=== PATIENT | male | born 1960 | race Two or more races ===

== ENCOUNTER 2020-03-13 06:21 | Outpatient (REF) | payer BC, SELFPAY | END 2020-03-13 06:22 | disposition home or self-care (01) | LOC: HO.LAB 06:21 | PROVIDERS: Visit Provider Internal Medicine | DX: Z20.828 Contact with and (suspected) exposure to other viral communicable diseases (principal) | CPT/HCPCS: C9803; U0003 ==

== ENCOUNTER → 2020-04-17 14:48 | Outpatient (REF) | payer BC, SELFPAY ==
--- NOTE | 2020-04-17 15:00 | CA_ITS ---
Transthoracic Echocardiogram Patient (Last, First, Middle): Raheem Garcia P Gender: Male Date of : 1960 Age: 60 Procedure Date: 04/17/2020 Procedure Type: Transthoracic Echocardiogram Location: OP Height: 180.34 cm Weight: 106.6 kg BSA: 2.26 m2 Heart Rate: bpm BP: 106 / 56 mmHg Supervisor Metalizing: Referring MD: Suleiman Turner MD Symptoms: Q23.1 BICUSPID AORTC VALVE I71.2 THORACIC AA W/O RUPTURE Study Quality: Good ECG Rhythm: Sinus Conclusions: - The left ventricular systolic function is normal. The visually estimated ejection fraction is between 55-60%. - There is a bicuspid aortic valve. There is mild aortic valve stenosis. There is mild aortic valve regurgitation. - There is mild dilatation of the ascending aorta measuring 4.10 cm. Findings Procedure Information Contrast agent, definity, is being given per protocol without apparent complications. Left Ventricle Normal left ventricular cavity size. There is mildly increased left ventricular wall thickness. The left ventricular systolic function is normal. The visually estimated ejection fraction is between 55-60%. There is no evidence of regional wall motion abnormalities. Diastolic function is normal for age. Right Ventricle Normal right ventricular cavity size and systolic function. Atria The left atrium is normal in size. The right atrium is normal in size. Aortic Valve There is a bicuspid aortic valve. There is mild calcification of the aortic valve. There is mild aortic valve stenosis. The peak aortic velocity is 2.78 m/s with a calculated peak gradient of 31 mmHg. The mean gradient is 16 mmHg. The aortic valve area is 1.32 cm2. There is mild aortic valve regurgitation. Mitral Valve There is mild mitral annular calcification. There is trace mitral valve regurgitation. There is no mitral valve stenosis. Pulmonic Valve The pulmonic valve was not well visualized. Tricuspid Valve Normal tricuspid valve structure. There is trace tricuspid valve regurgitation. The pulmonary artery systolic pressure is normal. Great Vessels There is mild dilatation of the ascending aorta measuring 4.10 cm. Venous The inferior vena cava is normal in size and collapses greater than 50% with inspiration. Pericardium/Pleural There is no evidence of pericardial effusion. Prior Study Comparison No significant change compared to prior study dated: 03/31/2019. Measurements 2D Linear Measurements RVIDd: 2.59 RVIDd Index: 1.15 IVSd: 1.07 0.6-0.9/0.6-1.0 cm LVIDd: 4.98 3.9-5.3/4.2-5.9 cm LVIDd Index: 2.20 2.4-3.2/2.2-3.1 cm/m2 LVIDs: 3.66 2.0-3.6 cm LVPWd: 1.42 0.7-1.1 cm Ao Root: 3.60 2.1-3.5 cm LA Diam: 4.20 2.7-3.8/3.0-4.0 cm LAIDs Index: 1.86 1.5-2.3 cm/m2 LV Mass: 305.06 67-162/88-224 g LV Mass Index: 134.98 43-95/49-115 g/m2 LVOT Diam: 2.20 3.0+(-)1.3 cm 2D Systolic Function EF 4C: 58.80 >55% EF 2C: 56.20 >55% EF BiP: 57.40 >55% Mitral Valve MV Pk E: 1.03 MV PK A: 0.59 MV Decel Time: 234.00 E/A: 1.80 E'Lateral: 11.20 E'Medial: 7.18 E/E' Med: 14.30 E/E' Lat: 9.20 Aortic Valve AoV Pk Dariusz: 2.78 AoV Mn Dariusz: 1.86 AoV VTI: 0.64 AoV Pk Grad: 31.00 Aov Mn Grad: 16.00 PIERCE Cont.VTI: 1.32 LVOT LVOT Pk Dariusz: 0.93 LVOT Mn Dariusz: 0.65 LVOT VTI: 0.22 LVOT Pk Grad: 3.00 LVOT Mn Grad: 2.00 LVOT Diam: 2.20 LVOT Area: 3.80 Diastolic Function MV Pk E: 1.03 MV Pk A: 0.59 E/A: 1.80 E'Medial: 7.18 E/E' Med: 14.30 E' Laterial: 11.20 E/E' Lat: 9.20 Tricuspid Valve TR Pk Dariusz: 2.46 TR Pk Grad: 24.00 RA Press: 3.00 RVSP: 27.00 Great Vessels Aorta Ao Root-2D: 3.60 2.0-3.7 cm Ao Asc: 4.10 2.1-3.4 cm Ao Arch: 2.80 Updated in Other Vendor System with Status of Final Suleiman Turner MD electronically signed on 04/18/2020 4:08:24 PM with status of Final
== END ==
LOC: HO.CARD 14:48
PROVIDERS: PCP Internal Medicine; Visit Provider Internal Medicine
DX: I71.2 Thoracic aortic aneurysm, without rupture (principal); Q32.1 Other congenital malformations of trachea
CPT/HCPCS: 93306; Q9957

== ENCOUNTER → 2020-04-26 13:55 | Outpatient (BNVA) | payer BC, SELFPAY | PROVIDERS: PCP Internal Medicine; Visit Provider Internal Medicine | DX: I71.2 Thoracic aortic aneurysm, without rupture (principal); Q23.1 Congenital insufficiency of aortic valve; Q21.1 Atrial septal defect; G47.33 Obstructive sleep apnea (adult) (pediatric); Z99.89 Dependence on other enabling machines and devices | CPT/HCPCS: 93005 ==

== ENCOUNTER 2020-07-08 09:13 | Outpatient (REF) | payer BC, SELFPAY ==
[2020-07-08 10:54] LABS: MANUAL DIFF FLAG NO
[2020-07-08 11:10] LABS: Basophils Percent Auto 0.5 % (0-2); Eosinophils Absolute Auto 0.2 X10*3/uL (0.0-0.4); Eosinophils Percent Auto 2.2 % (0-4); Hematocrit 47.6 % (42-52); Hemoglobin 15.9 g/dl (14.0-18.0); Imm Gran Abs Auto 0.02 X10*3/uL (0.00-0.03); Imm Gran Pct Auto 0.2 % (0.0-0.4); Lymphocytes Absolute Auto 2.2 X10*3/uL (1.2-4.9); Lymphocytes Percent Auto 25.4 % (20-40); Mean Corpuscular HGB Conc 33.4 g/dl (31.0-36.0); Mean Corpuscular Hemoglobin 28.5 pg (27.0-33.0); Mean Corpuscular Volume 85.5 fL (80-98); Mean Platelet Volume 10.2 fL (9.4-12.4); Monocytes Absolute Auto 0.8 X10*3/uL (0.1-1.2); Monocytes Percent Auto 8.6 % (2-11); Neutrophils Absolute Auto 5.5 X10*3/uL (2.0-8.3); Neutrophils Percent Auto 63.1 % (45-73); Platelet Count 338 X10*3/uL (160-400); Red Blood Count 5.57 X10*6/uL (4.60-5.80); Red Cell Distribution Width 12.7 % (11.0-16.0); White Blood Count 8.7 X10*3/uL (4.8-10.8)
[2020-07-08 11:15] LABS: Glucose Urine UA NEG (NEG); Leukocyte Esterase Urine NEG (NEG); Nitrite Urine NEG (NEG); PH 5.5 (5.0-8.0); Specific Gravity - Urine >= 1.030 (1.005-1.025); Urine Blood 2+ (NEG); Urine Ketones NEG (NEG); Urine Protein NEG (NEG-TRACE)
[2020-07-08 11:17] LABS: Appearance Urine CLEAR; Color Urine YELLOW
[2020-07-08 11:25] LABS: Alanine Aminotransferase 23 U/L (0-40); Albumin Level 4.3 g/dL (3.5-5.0); Alkaline Phosphatase 70 U/L (39-117); Anion Gap 13 (12-20); Aspartate Amino Transferase 18 U/L (5-37); Bilirubin Total 1.4 mg/dL (0.0-1.0); Blood Urea Nitrogen 15 mg/dL (9-16); Calcium 9.3 mg/dL (8.4-10.2); Carbon Dioxide 26 mmol/L (22-29); Chloride 107 mmol/L (96-108); Cholesterol 139 mg/dL; Estimated Glomerular Filt Rate > 60; Glucose Fasting 89 mg/dL (60-99); HDL Cholesterol 35 mg/dL; LDL Cholesterol Calculated 89 mg/dl; Potassium 4.7 mmol/L (3.3-5.1); Sodium 141 mmol/L (135-145); Total Protein 6.8 g/dL (6.5-8.0); Triglycerides 77 mg/dL
[2020-07-08 11:29] LABS: Bacteria Urine TRACE /LPF; Mucus Urine 1+ /LPF
[2020-07-08 11:49] LABS: Prostate Specific Antigen 1.83 ng/mL (<0.05-4.0); TSH reflex Free T4 0.53 uIU/mL (0.32-4.0); Vitamin D 25-OH Total 37.1 ng/mL (>30)
[2020-07-14 14:46] LABS: HSV 1 IgM IFA Negative (Negative); HSV 2 IgM IFA Negative (Negative)
== END 2020-07-08 09:14 | disposition home or self-care (01) ==
LOC: HO.LAB 09:13
PROVIDERS: Visit Provider Internal Medicine
DX: Z00.00 Encounter for general adult medical examination without abnormal findings (principal); E66.9 Obesity, unspecified; A60.02 Herpesviral infection of other male genital organs; E78.00 Pure hypercholesterolemia, unspecified; R31.21 Asymptomatic microscopic hematuria; G47.33 Obstructive sleep apnea (adult) (pediatric); E55.9 Vitamin D deficiency, unspecified
CPT/HCPCS: 36415; 80053; 80061; 81001; 81003; 82306; 84153; 84443; 85025; 86695; 86696

== ENCOUNTER → 2020-08-23 13:28 | Outpatient (BNVA) | payer BC, SELFPAY | PROVIDERS: Visit Provider Urology | DX: R31.21 Asymptomatic microscopic hematuria (principal) | CPT/HCPCS: 81002 ==

== ENCOUNTER 2020-09-29 07:52 | Day surgery (SDC) | payer BC, SELFPAY ==
[2020-09-22 19:46] VITALS: BMI 32.1
--- NOTE | 2020-09-27 12:17 | HO.ANESPROP2 ---
Documented by User: Lucía Simon 09/27/20 12:24 [facility] Active Problems Active Problems: All Active Problems (Updated 09/22/20 @ 19:45 by Kasia Pitts RN) Normal colonoscopy (Acute ~2010) Vitamin D deficiency (Acute) Genital herpes in men (Acute) Obesity (BMI 30-39.9) (Acute) Obstructive sleep apnea (Acute) Pure hypercholesterolemia (Acute) Asymptomatic microscopic hematuria (Acute) BRANDT on CPAP (Acute) Patent foramen ovale (Acute) Thoracic aortic aneurysm without rupture (Acute) Bicuspid aortic valve (Acute) Past Medical History Medical History Asymptomatic microscopic hematuria Bicuspid aortic valve BiPAP (biphasic positive airway pressure) dependence Genital herpes in men Normal colonoscopy (~2010) Obesity (BMI 30-39.9) Obstructive sleep apnea BRANDT on CPAP Patent foramen ovale Pure hypercholesterolemia Thoracic aortic aneurysm without rupture Vitamin D deficiency Family History Family History Father Dementia HTN (hypertension) Mother Dementia HTN (hypertension) Diabetes Surgical History Surgical History History of parathyroidectomy History of tonsillectomy History of uvulectomy Social History Social History Alcohol intake: current Alcohol intake frequency: a few times a month Alcohol type: beer Smoked in Last 30 Days: Yes Use of substances other than those prescribed or required for medical reasons: Yes Substance Use Frequency: Daily Are you DNR?: No Advance Directives: No Advance Directives Information Provided: No Advance Directives on File: No Meds Allergies Allergy/AdvReac Type Severity Reaction Status Date / Time No Known Allergies Allergy Verified 09/29/20 08:24 Home Medications Medication Instructions Recorded Confirmed Last Taken Type aspirin 81 mg tablet,delayed 81 mg PO DAILY 04/26/20 09/22/20 09/21/20 20:00 History release atorvastatin 10 mg tablet 10 mg PO DAILY 04/26/20 09/22/20 Unknown History Exam Exam Date and Time: September 27, 2020 1217 Height,Weight and Vital Signs: Height 5 ft 11 in Weight 104.326 kg Narrative Narrative: EKG 04/2020: sinus rhythm at 60/Min; incomplete right bundle-branch block; voltage criteria for left ventricular hypertrophy. ECHO 04/2020 Conclusions: - The left ventricular systolic function is normal. The visually estimated ejection fraction is between 55-60%. - There is a bicuspid aortic valve. There is mild aortic valve stenosis. There is mild aortic valve regurgitation. - There is mild dilatation of the ascending aorta measuring 4.10 cm. Assessment and Plan Assessment Anesthesia Assessment: Chart Reviewed Documented by User: Anisa Beck 09/29/20 09:54 [facility] Past Medical History Medical History Asymptomatic microscopic hematuria Bicuspid aortic valve BiPAP (biphasic positive airway pressure) dependence Genital herpes in men Normal colonoscopy (~2010) Obesity (BMI 30-39.9) Obstructive sleep apnea BRANDT on CPAP Patent foramen ovale Pure hypercholesterolemia Thoracic aortic aneurysm without rupture Vitamin D deficiency Family History Family History Father Dementia HTN (hypertension) Mother Dementia HTN (hypertension) Diabetes Surgical History Surgical History History of parathyroidectomy History of tonsillectomy History of uvulectomy Social History Social History Alcohol intake: current Alcohol intake frequency: a few times a month Alcohol type: beer Smoked in Last 30 Days: Yes Use of substances other than those prescribed or required for medical reasons: Yes Substance Use Frequency: Daily Are you DNR?: No Advance Directives: No Advance Directives Information Provided: No Advance Directives on File: No Meds Allergies Allergy/AdvReac Type Severity Reaction Status Date / Time No Known Allergies Allergy Verified 09/29/20 08:24 Home Medications Medication Instructions Recorded Confirmed Last Taken Type aspirin 81 mg tablet,delayed 81 mg PO DAILY 04/26/20 09/22/20 09/21/20 20:00 History release atorvastatin 10 mg tablet 10 mg PO DAILY 04/26/20 09/22/20 Unknown History Exam Airway Mallampati Class: II TM Dist: >3cm Neck ROM: Full Loose/Missing/Broken Teeth: No Heart: RRR Lungs: CTA Assessment and Plan Assessment Anesthesia Assessment: Anesthesia Plan Discussed and Chart Reviewed Final Anesthetic Review NPO: Yes ASA Class: III Final Preanesthetic Review: Meds/Allgs Chart Reviewed, Consent Obtained/Reviewed and Anes Risks/Benef Reviewed Patient Risk: Intermediate Procedure Risk: Low Anesthetic Plan Anesthetic Plan: MAC: Disposition: Standard PACU
[2020-09-29 08:07] VITALS: BP 113/59; PULSE 59; RESP 18; TEMP 36.1; O2SAT 98
[2020-09-29] MEDS: Lactated Ringers 1,000 ML 100 ML IVCONT (08:22)
[2020-09-29 10:11] VITALS: BP 139/71; PULSE 68; RESP 16; TEMP 36.1; O2SAT 97
--- NOTE | 2020-09-29 10:14 | PM.OP ---
Brief Operative Note Date of Service: 09/29/20 Pre-op diagnosis: Screening Post-op diagnosis: other (Colon polyp) Procedure: Colonoscopy to the cecum with snare polypectomy Surgeon: Paulo Carl Anesthesia: MAC Was an Medical Imaging Technologist used for this Procedure?: No Estimated blood loss (mL): 0 Pathology: other (A. Ascending colon polyp) Condition: stable Disposition: PACU
[2020-09-29 10:25] VITALS: BP 126/69; PULSE 55; RESP 16; TEMP 36.1; O2SAT 99
--- NOTE | 2020-09-29 11:15 | OP_ITS ---
SURGEON: Paulo Carl MD INDICATIONS: The patient presents for evaluation of colorectal cancer screening. Full consent has been obtained from him for this, including risks of bleeding and perforation. PREOPERATIVE DIAGNOSIS: Colorectal cancer screening. POSTOPERATIVE DIAGNOSIS: PROCEDURE PERFORMED: Colonoscopy to the cecum with snare polypectomy. ESTIMATED BLOOD LOSS: COMPLICATIONS: ANESTHESIA: Monitored anesthesia care. ASSISTANTS: SPECIMENS: POSTOPERATIVE DIAGNOSES: Colorectal cancer screening, colon polyp, sigmoid diverticulosis, and small internal hemorrhoids. DESCRIPTION OF PROCEDURE: The patient was placed in the left lateral decubitus position. The digital rectal exam revealed no abnormalities. The Olympus video pediatric colonoscope was entered into the rectum and advanced easily to the cecum. Once in the cecum, I did identify normal-appearing cecal pouch with appendiceal orifice and a normal-appearing ileocecal valve. The entire cecum was well visualized and appeared normal. There was transillumination of light deep in the right lower quadrant. The scope was slowly withdrawn assessing all mucosal surfaces carefully. Preparation was excellent. In the distal ascending colon, was a flat, but raised approximately 10 to 12 mm polyp, which was snared and recovered by suction. The polypectomy site appeared clean, without any sign of residual polyp nor bleeding. I did not visualize any other polyps, colitis, nor angiodysplasia. There was a mild amount of sigmoid diverticulosis. In the rectum, scope was retroflexed visualizing internal hemorrhoids, but no other pathology. The rectal mucosa appeared normal. The scope was straightened out and withdrawn from the patient. He tolerated the procedure well and was returned to the recovery area in stable condition. IMPRESSION: 1. Colon polyp, status post snare polypectomy. 2. Diverticulosis. 3. Internal hemorrhoids. PLAN: The results of the pathology will be checked. Assuming it to be a tubular adenoma, I would recommend a followup colonoscopy in 5 years. He was advised not to use any aspirin and NSAIDs for 1 week. This has been discussed with his . MD RANDY Reyes/ASHLYN / [id number]
== END 2020-09-29 10:56 | disposition home or self-care (01) ==
PROVIDERS: PCP Internal Medicine; Visit Provider Internal Medicine
PROC: 0DJD8ZZ Inspection of Lower Intestinal Tract, Via Natural or Artificial Opening Endoscopic (ICD-10-PCS; CPT 45378; principal; 2020-09-29 09:10)
DX: Z12.11 Encounter for screening for malignant neoplasm of colon (principal); D12.2 Benign neoplasm of ascending colon; K57.30 Diverticulosis of large intestine without perforation or abscess without bleeding; K64.8 Other hemorrhoids; G47.33 Obstructive sleep apnea (adult) (pediatric); Q23.1 Congenital insufficiency of aortic valve; Z99.89 Dependence on other enabling machines and devices; Z79.82 Long term (current) use of aspirin; Z79.899 Other long term (current) drug therapy; Z87.891 Personal history of nicotine dependence; Z86.16 Personal history of COVID-19
CPT/HCPCS: 45385; 88305; J2405

== ENCOUNTER 2020-10-26 15:56 | Outpatient (REF) | payer BC, SELFPAY ==
[2020-10-26 16:48] LABS: Urine Cytology See Pathology rpt
[2020-10-26 17:00] LABS: Blood Urea Nitrogen 16 mg/dL (9-16); Estimated Glomerular Filt Rate > 60
== END 2020-10-26 15:57 | disposition home or self-care (01) ==
LOC: HO.LAB 15:56
PROVIDERS: PCP Internal Medicine; Visit Provider Urology
DX: R31.21 Asymptomatic microscopic hematuria (principal)
CPT/HCPCS: 36415; 82565; 84520; 88112

== ENCOUNTER 2020-10-27 08:28 | Outpatient (REF) | payer BC, SELFPAY ==
--- NOTE | ~2020-10-27 | CT_ITS ---
EXAMINATION: CT ABDOMEN AND PELVIS WITHOUT AND WITH CONTRAST CLINICAL INFORMATION: Gross hematuria COMPARISON: Previous renal ultrasound July 2019, abdominal ultrasound August [address] of the abdomen and pelvis hemorrhage thousand and 18 TECHNIQUE: Noncontrast CT of the abdomen and pelvis is performed followed by split bolus contrast-enhanced images using 85 mL Omnipaque 350 contrast.? Postcontrast imaging is performed during the combined nephrogram and excretion phase. Sagittal and coronal reformatted images were obtained on the technologist's workstation for both the precontrast and postcontrast phases. This CT examination was performed using dose optimization techniques as appropriate, variously including the following: *Automated exposure control *Adjustment of mA and/or kV according to patient size (this includes techniques or standardized protocols for targeted exams where dose is matched to indication/reason for exam; i.e. extremities or head) *Use of iterative reconstruction technique DLP: 1153 mGy-cm FINDINGS: LUNG BASES: The visualized lung bases are unremarkable. LIVER, GALLBLADDER, AND BILIARY TREE: The liver is normal in size, shape, and attenuation. No focal hepatic lesion or biliary ductal dilatation is present. The gallbladder is unremarkable with no evidence of radiopaque gallstones, gallbladder wall thickening, or obvious pericholecystic inflammatory changes. PANCREAS: Unremarkable. SPLEEN: Unremarkable. ADRENAL GLANDS: Unremarkable. KIDNEYS AND URETERS: The kidneys are normal in size, shape and contour. There is a partially duplicated left renal collecting system. There is a single left ureter. No renal stone, mass or hydronephrosis is seen. The collecting systems are otherwise normal. There is suboptimal opacification of the distal ureters with treated contrast. The proximal ureters are unremarkable. BLADDER: The prostate gland protrudes into the base of the bladder. The bladder is otherwise unremarkable. GASTROINTESTINAL TRACT: The small and large bowel are unremarkable. The appendix is unremarkable. ABDOMINAL WALL: No significant hernia is appreciated. LYMPH NODES: There are small, small bowel mesentery lymph nodes. No enlarged lymph nodes are seen. VASCULAR: Unremarkable. PELVIC VISCERA: Prostate gland is slightly enlarged and measures 4 x 4.8 cm in AP and transverse dimension. OSSEUS STRUCTURES: There are mild degenerative changes of the spine. CT/CT urogram IMPRESSION: Partially duplicated left renal collecting system. Slightly enlarged prostate gland that protrudes into the base of the bladder.
[2020-10-27] MEDS: iohexoL 350 MG/ML 100 ML INFUS..BTL IV (10:13)
== END 2020-10-27 08:29 | disposition home or self-care (01) ==
LOC: HO.CT 08:28
PROVIDERS: PCP Internal Medicine; Visit Provider Urology
DX: R31.0 Gross hematuria (principal); R31.21 Asymptomatic microscopic hematuria
CPT/HCPCS: 74178; Q9967

== ENCOUNTER 2020-12-05 23:38 | Emergency (ER) | payer BC, SELFPAY ==
[2020-12-06] VITALS: BP 138/62; PULSE 68; RESP 18; TEMP 36.6; O2SAT 99; BMI 32.1
--- NOTE | 2020-12-06 00:09 | ED_ITS ---
HPI - Back Pain/Injury General Chief Complaint: Back Pain/Injury Stated Complaint: Back pain/ Leg pain Time Seen by Provider: 12/06/20 00:01 Source: patient Mode of arrival: ambulatory Limitations: no limitations History of Present Illness HPI Narrative: Patient history of left sciatica for some time has seen chiropractor no MRI done no imaging done in the past except x-ray complaining of pain in the left sciatic area for last few days getting worse not on any pain medication or muscle relaxants no no motor weakness or paresthesia no bladder or bowel involvement no fever or chills no urinary complaints pain is localized mostly on the left side patient otherwise able to ambulate Related Data Home Medications Medication Instructions Recorded Confirmed aspirin 81 mg tablet,delayed 81 mg PO DAILY 04/26/20 09/22/20 release atorvastatin 10 mg tablet 10 mg PO DAILY 04/26/20 09/22/20 Previous Rx's Medication Instructions Recorded valacyclovir 500 mg tablet 500 mg PO Q12H 5 Days #10 tab 07/05/20 cyclobenzaprine 10 mg tablet 10 mg PO Q8H #20 tab 12/06/20 oxycodone 5 mg tablet 5 mg PO Q6H PRN #20 tab 12/06/20 Allergies Allergy/AdvReac Type Severity Reaction Status Date / Time No Known Allergies Allergy Verified 09/29/20 08:24 Review of Systems Review of Systems: Yes all other systems are reviewed and are negative PMFSH Past Medical History Medical History Asymptomatic microscopic hematuria Bicuspid aortic valve BiPAP (biphasic positive airway pressure) dependence Genital herpes in men Normal colonoscopy (~2010) Obesity (BMI 30-39.9) Obstructive sleep apnea BRANDT on CPAP Patent foramen ovale Pure hypercholesterolemia Thoracic aortic aneurysm without rupture Vitamin D deficiency Surgical History History of parathyroidectomy History of tonsillectomy History of uvulectomy Family History Family History Father Dementia HTN (hypertension) Mother Dementia HTN (hypertension) Diabetes Social History Social History Alcohol intake: current Alcohol intake frequency: holidays/special occasions only Alcohol type: beer Smoked in Last 30 Days: No Use of substances other than those prescribed or required for medical reasons: No Advance Directives: No Physical Exam Vital Signs: Vital Signs: Last Vital Signs Temp 97.8 F 12/06/20 00:00 Pulse 61 12/06/20 00:45 Resp 16 12/06/20 00:45 BP 121/50 L 12/06/20 00:45 Pulse Ox 96 12/06/20 00:45 Body Mass Index 32.1 Appearance: Alert. Oriented X3. No acute distress. Eyes: PERRLA, ENT: Pharynx normal. Oral Mucosa moist Neck: Normal inspection. Neck supple. CVS: Normal heart rate and rhythm. Pulses normal. Respiratory: No respiratory distress. Equal air entry bilateral, no wheez ing/rales/rhonchi Abdomen: Soft and nontender. Bowel sounds are present, no mass palpable, no CVA tenderness Skin: Skin warm and dry. Normal skin color. Normal skin turgor. Extremities: No lower extremity edema. No calf tenderness Tenderness at left sciatic notch SLR negative bilateral gait normal Neuro: Oriented X 3. No motor deficit. No sensory deficit.No cerebellar signs , cranial nerves II-XII intact reflexes normal Discharge Plan Discharge Clinical Impression: Sciatica Qualifiers: Laterality: left Qualified Code(s): M54.32 - Sciatica, left side Patient Disposition: Home, Self-Care Instructions: Sciatica (ED), Lower Back Exercises (ED) Additional Instructions: Rest at home Pain medication and muscle relaxant as advised Follow-up with PCP for MRI of lower back to rule out lumbar canal stenosis Prescriptions: New cyclobenzaprine 10 mg tablet 10 mg PO Q8H Qty: 20 RF: 0 oxycodone 5 mg tablet 5 mg PO Q6H PRN (Reason: Pain (Scale Score 4-6)) Qty: 20 RF: 0 No Action valacyclovir 500 mg tablet 500 mg PO Q12H 5 Days Qty: 10 RF: 3 atorvastatin 10 mg tablet 10 mg PO DAILY RF: 0 aspirin 81 mg tablet,delayed release (DR/EC) 81 mg PO DAILY RF: 0 Interventions: ED Discharge Assessment Last Done: 12/06/20 01:00 Discharge Date/Time: 12/06/20 01:00
[2020-12-06] MEDS: Cyclobenzaprine HCl 10 MG TABLET PO (00:30)
[2020-12-06] MEDS: oxyCODONE HCl Immed Release 5 MG TABLET 10 MG PO (00:31)
[2020-12-06 00:45] VITALS: BP 121/50; PULSE 61; RESP 16; O2SAT 96
== END 2020-12-06 01:00 | disposition home or self-care (01) ==
PROVIDERS: Emergency Provider Internal Medicine
DX: M54.32 Sciatica, left side (principal); Z79.82 Long term (current) use of aspirin
CPT/HCPCS: 99283; 99284

== ENCOUNTER 2020-12-07 08:11 | Outpatient (REF) | payer BC, SELFPAY ==
--- NOTE | ~2020-12-07 | XR_ITS ---
EXAMINATION: XR LUMBAR SPINE AND SACROILIAC JOINTS CLINICAL INFORMATION: Low back pain. COMPARISON: Lumbar spine of 04/04/[address] urogram of 10/27/2020. TECHNIQUE: 3 views lumbar spine and three-view sacroiliac joints. FINDINGS: There is mild scoliosis of the lumbar spine convex left. No acute fracture or spondylolysis is appreciated. There are mild grade 1 spondylolisthesis L3-L4 and L4-L5. Pedicles are intact. No significant disc space narrowing is appreciated within the lumbar spine. There is disc space narrowing seen within the lower thoracic spine T10-T12. There is spurring noted at multiple levels. There is increased sclerosis about the facet joints L4 through S1, consistent with facet arthropathy bilaterally. This is more prominent on the right at L4-L5. Views of the sacroiliac joints demonstrate some sclerosis about the iliac and sacral sides without evidence of widening or fusion. There appears to be some mild narrowing superiorly on the right. XR/XR lumbar spine 2-3V IMPRESSION: Multilevel spondylosis as described with facet arthropathy bilaterally L4-S1 and mild grade 1 spondylolistheses at L3-L4 and L4-L5. Mild degenerative change of sacroiliac joints without evidence of fusion or widening.
--- NOTE | ~2020-12-07 | XR_ITS ---
EXAMINATION: XR LUMBAR SPINE AND SACROILIAC JOINTS CLINICAL INFORMATION: Low back pain. COMPARISON: Lumbar spine of 04/04/[address] urogram of 10/27/2020. TECHNIQUE: 3 views lumbar spine and three-view sacroiliac joints. FINDINGS: There is mild scoliosis of the lumbar spine convex left. No acute fracture or spondylolysis is appreciated. There are mild grade 1 spondylolisthesis L3-L4 and L4-L5. Pedicles are intact. No significant disc space narrowing is appreciated within the lumbar spine. There is disc space narrowing seen within the lower thoracic spine T10-T12. There is spurring noted at multiple levels. There is increased sclerosis about the facet joints L4 through S1, consistent with facet arthropathy bilaterally. This is more prominent on the right at L4-L5. Views of the sacroiliac joints demonstrate some sclerosis about the iliac and sacral sides without evidence of widening or fusion. There appears to be some mild narrowing superiorly on the right. XR/XR sacroiliac joint min 3V IMPRESSION: Multilevel spondylosis as described with facet arthropathy bilaterally L4-S1 and mild grade 1 spondylolistheses at L3-L4 and L4-L5. Mild degenerative change of sacroiliac joints without evidence of fusion or widening.
== END 2020-12-07 08:12 | disposition home or self-care (01) ==
LOC: HO.XRAY 08:11
PROVIDERS: PCP Internal Medicine; Visit Provider Internal Medicine
DX: M54.42 Lumbago with sciatica, left side (principal)
CPT/HCPCS: 72100; 72202

== ENCOUNTER 2021-01-18 17:48 | Outpatient (REF) | payer BC, SELFPAY ==
--- NOTE | ~2021-01-18 | MR_ITS ---
MR LUMBAR SPINE WITHOUT CONTRAST CLINICAL INFORMATION: Lumbago with left-sided sciatica. COMPARISON: Lumbar spine radiographs 12/07/2020. TECHNIQUE: MRI of the lumbar spine was obtained using routine sequences without contrast. FINDINGS: There are 5 nonrib-bearing lumbar-type vertebral bodies. There is grade 1 degenerative anterolisthesis of L4 on L5. Lumbar alignment is otherwise maintained. Vertebral body heights are maintained. There is mild disc volume loss and disc desiccation at all lumbar levels with exception of L5-S1. There is marrow edema within the left greater than right L4 and L5 posterior elements that is most likely degenerative or inflammatory. Conus terminates at the L1 level. No significant extraspinal soft tissue findings L1-L2: Small annular disc bulge and mild bilateral facet arthropathy. No central canal stenosis and no foraminal stenosis. L2-L3: Diffuse annular disc bulge and mild bilateral facet arthropathy. There is no central canal stenosis and there is no foraminal stenosis. L3-L4: Diffuse annular disc bulge and moderate bilateral facet arthropathy and ligamentum flavum thickening. Dominant dorsal epidural fat. Mild central canal stenosis. Mild bilateral foraminal encroachment. L4-L5: There is a large 1.2 cm synovial cyst projecting anteriorly from the anterior aspect of the left facet joint that results in severe left subarticular zone stenosis with compression of the traversing left L5 nerve root as well as severe proximal left foraminal stenosis with compression of the exiting left L4 nerve root. Left lateral disc osteophyte protrusion and advanced facet arthropathy also contribute to severe left foraminal stenosis and mass effect on the exiting left L4 nerve root at this level. Multifactorial degenerative changes at L4-L5 result in moderate to severe central canal stenosis. L5-S1: There is a diffuse annular disc bulge and there is moderate bilateral facet arthropathy. There is no central canal stenosis. There is mild foraminal encroachment bilaterally. MR/MR lumbar spine wo con IMPRESSION: - At L4-L5, there is a large 1.2 cm synovial cyst projecting anteriorly from the anterior aspect of the left facet joint that results in severe left subarticular zone stenosis with compression of the traversing left L5 nerve root as well as severe proximal left foraminal stenosis with compression of the exiting left L4 nerve root. Left lateral disc osteophyte protrusion and advanced facet arthropathy also contribute to severe left foraminal stenosis and mass effect on the exiting left L4 nerve root at this level and multifactorial degenerative changes in epidural lipomatosis result in moderate to severe central canal stenosis. There is bone marrow edema within the left greater than right L4-L5 posterior elements that is most likely degenerative/inflammatory. - Additional degenerative findings as discussed above.
== END 2021-01-18 17:49 | disposition home or self-care (01) ==
LOC: HO.MRI 17:48
PROVIDERS: Visit Provider Internal Medicine
DX: M54.42 Lumbago with sciatica, left side (principal)
CPT/HCPCS: 72148

== ENCOUNTER → 2021-04-17 13:49 | Outpatient (REF) | payer BC, SELFPAY ==
--- NOTE | 2021-04-17 13:51 | CA_ITS ---
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 Normal LV systolic function with impaired relaxation filling pattern 2. Moderate aortic stenosis 3. Mildly dilated ascending aorta at 4.3 cm 4. Normal RV systolic pressure 5. No pericardial effusion Findings Left Ventricle Normal left ventricular size, thickness, and systolic function. The visually estimated ejection fraction is between 60-65%. Spectral Doppler is indicative of an impaired relaxation filling pattern. E/E prime ratio is <8, consistent with normal filling pressures. Evidence suggests grade I (mild) diastolic dysfunction. Right Ventricle Normal right ventricular cavity size and systolic function. Atria The left atrium is likely dilated. Interatrial shunt cannot be excluded. The right atrium is normal in size. Aortic Valve The aortic valve was not well visualized. There is mild calcification of the aortic valve. There is moderate aortic valve stenosis. The peak aortic gradient is 43 mmHg.The mean gradient is 27 mmHg. The aortic valve area is 1.35 cm2. There is trace (trivial) aortic valve regurgitation. Mitral Valve Normal mitral valve structure and function. There is trace mitral valve regurgitation. There is no mitral valve stenosis. Pulmonic Valve The pulmonic valve was not well visualized. Tricuspid Valve Likely normal tricuspid valve structure and function. There is trace tricuspid valve regurgitation. The right ventricular systolic pressure is normal. The right ventricular systolic pressure is 21 mmHg. Normal right atrial pressure. There is no evidence of pulmonary hypertension. Great Vessels The pulmonary artery was not well visualized. There is mild dilatation of the ascending aorta measuring 4.30 cm. Venous The inferior vena cava is normal in size. Pericardium/Pleural There is no evidence of pericardial effusion. Prior Study Comparison Changes noted compared to prior study dated: 04/17/2020. Aortic stenosis is moderate. Ascending aorta now is 4.3 cm Measurements 2D Linear Measurements IVSd: 1.10 0.6-0.9/0.6-1.0 cm LVIDd: 4.87 3.9-5.3/4.2-5.9 cm LVIDd Index: 2.21 2.4-3.2/2.2-3.1 cm/m2 LVIDs: 2.92 2.0-3.6 cm LVPWd: 1.10 0.7-1.1 cm Ao Root: 3.80 2.1-3.5 cm LA Diam: 3.50 2.7-3.8/3.0-4.0 cm LAIDs Index: 1.59 1.5-2.3 cm/m2 LV Mass: 247.41 67-162/88-224 g LV Mass Index: 112.46 43-95/49-115 g/m2 LVOT Diam: 2.10 3.0+(-)1.3 cm Mitral Valve MV Pk E: 0.66 MV PK A: 0.98 MV Decel Time: 227.00 E/A: 0.70 E'Lateral: 11.00 E'Medial: 4.90 E/E' Med: 13.60 E/E' Lat: 6.00 PHT: 67.00 MVA PHT: 3.28 Decel [place]: 2.92 Aortic Valve AoV Pk Dariusz: 3.29 AoV Mn Dariusz: 2.51 AoV VTI: 0.59 AoV Pk Grad: 43.00 Aov Mn Grad: 27.00 PIERCE Cont.VTI: 1.35 LVOT LVOT Pk Dariusz: 1.08 LVOT Mn Dariusz: 0.73 LVOT VTI: 0.23 LVOT Pk Grad: 5.00 LVOT Mn Grad: 3.00 LVOT Diam: 2.10 LVOT Area: 3.46 Diastolic Function MV Pk E: 0.66 MV Pk A: 0.98 E/A: 0.70 E'Medial: 4.90 E/E' Med: 13.60 E' Laterial: 11.00 E/E' Lat: 6.00 Tricuspid Valve TR Pk Dariusz: 2.10 TR Pk Grad: 18.00 RA Press: 3.00 RVSP: 21.00 Great Vessels Aorta Ao Root-2D: 3.80 2.0-3.7 cm Ao Asc: 4.30 2.1-3.4 cm Pulmonary Valve PV Pk Dariusz: 1.32 Peak PV Grad: 7.00 Updated in Other Vendor System with Status of Final Gerry Callahan MD electronically signed on 04/18/2021 1:02:56 PM with status of Final
== END ==
LOC: HO.CARD 13:49
PROVIDERS: Visit Provider Internal Medicine
DX: Q23.1 Congenital insufficiency of aortic valve (principal)
CPT/HCPCS: 93306

== ENCOUNTER → 2021-04-30 15:08 | Outpatient (BNVA) | payer BC, SELFPAY | PROVIDERS: PCP Internal Medicine; Referring Provider Internal Medicine; Visit Provider Internal Medicine | DX: Z01.810 Encounter for preprocedural cardiovascular examination (principal); I71.2 Thoracic aortic aneurysm, without rupture; Q23.1 Congenital insufficiency of aortic valve; Q21.1 Atrial septal defect; G47.33 Obstructive sleep apnea (adult) (pediatric); Z99.89 Dependence on other enabling machines and devices | CPT/HCPCS: 93005 ==

== ENCOUNTER 2021-05-30 10:34 | Outpatient (REF) | payer BC, SELFPAY ==
[2021-05-30 10:50] LABS: MANUAL DIFF FLAG NO
[2021-05-30 10:59] LABS: Basophils Absolute Auto 0.1 X10*3/uL (0.0-0.2); Basophils Percent Auto 0.7 % (0-2); Eosinophils Absolute Auto 0.3 X10*3/uL (0.0-0.4); Hematocrit 48.1 % (42.0-52.0); Hemoglobin 16.1 g/dl (14.0-18.0); Imm Gran Abs Auto 0.03 X10*3/uL (0.00-0.03); Imm Gran Pct Auto 0.3 % (0.0-0.4); Lymphocytes Absolute Auto 3.7 X10*3/uL (1.2-4.9); Lymphocytes Percent Auto 35.7 % (20-40); Mean Corpuscular HGB Conc 33.5 g/dl (31.0-36.0); Mean Corpuscular Hemoglobin 28.4 pg (27.0-33.0); Mean Platelet Volume 9.1 fL (9.4-12.4); Monocytes Percent Auto 9.3 % (2-11); Neutrophils Absolute Auto 5.3 x10*3/uL (2.0-8.3); Platelet Count 366 X10*3/uL (160-400); Red Blood Count 5.66 X10*6/uL (4.60-5.80); Red Cell Distribution Width 12.4 % (11.0-16.0); White Blood Count 10.3 X10*3/uL (4.8-10.8)
[2021-05-30 11:34] LABS: Appearance Urine CLEAR; Color Urine YELLOW; Glucose Urine UA NEG (NEG); Leukocyte Esterase Urine NEG (NEG); Nitrite Urine NEG (NEG); Specific Gravity - Urine 1.025 (1.005-1.025); UACC Culture Trigger NO; Urine Blood 2+ (NEG); Urine Ketones NEG (NEG); Urine Protein NEG (NEG-TRACE)
[2021-05-30 11:35] LABS: Alanine Aminotransferase 31 U/L (0-40); Albumin Level 4.1 g/dL (3.5-5.0); Alkaline Phosphatase 67 U/L (39-117); Anion Gap 11 (12-20); Aspartate Amino Transferase 18 U/L (5-37); Bilirubin Total 1.2 mg/dL (0.0-1.0); Blood Urea Nitrogen 17 mg/dL (9-16); Calcium 9.7 mg/dL (8.4-10.2); Carbon Dioxide 28 mmol/L (22-29); Chloride 106 mmol/L (96-108); Cholesterol 161 mg/dL; Estimated Glomerular Filt Rate > 60; Glucose Fasting 95 mg/dL (60-99); HDL Cholesterol 34 mg/dL; LDL Cholesterol Calculated 102 mg/dl; Potassium 4.5 mmol/L (3.3-5.1); Sodium 140 mmol/L (135-145); Triglycerides 129 mg/dL
[2021-05-30 11:58] LABS: TSH reflex Free T4 0.92 uIU/mL (0.32-4.0); Vitamin D 25-OH Total 32.2 ng/mL (>30)
[2021-05-30 12:11] LABS: WBC Urine 0-2 /HPF (0-4)
== END 2021-05-30 10:35 | disposition home or self-care (01) ==
LOC: HO.LAB 10:34
PROVIDERS: PCP Internal Medicine; Visit Provider Internal Medicine
DX: E55.9 Vitamin D deficiency, unspecified (principal); I10 Essential (primary) hypertension; E78.00 Pure hypercholesterolemia, unspecified
CPT/HCPCS: 36415; 80053; 80061; 81001; 82306; 84443; 85025

== ENCOUNTER → 2021-09-14 12:58 | Outpatient (BNVA) | payer BC, SELFPAY | PROVIDERS: PCP Internal Medicine; Visit Provider Urology | DX: N52.9 Male erectile dysfunction, unspecified (principal) ==

== ENCOUNTER 2021-10-04 05:59 | Outpatient (REF) | payer BC, SELFPAY ==
[2021-10-04 06:16] LABS: MANUAL DIFF FLAG NO
[2021-10-04 07:23] LABS: Basophils Absolute Auto 0.1 X10*3/uL (0.0-0.2); Basophils Percent Auto 0.7 % (0-2); Eosinophils Absolute Auto 0.3 X10*3/uL (0.0-0.4); Eosinophils Percent Auto 2.9 % (0-4); Hematocrit 45.2 % (42.0-52.0); Hemoglobin 15.3 g/dl (14.0-18.0); Imm Gran Abs Auto 0.02 X10*3/uL (0.00-0.03); Imm Gran Pct Auto 0.2 % (0.0-0.4); Lymphocytes Percent Auto 40.2 % (20-40); Mean Corpuscular HGB Conc 33.8 g/dl (31.0-36.0); Mean Corpuscular Hemoglobin 28.6 pg (27.0-33.0); Mean Corpuscular Volume 84.5 fL (80.0-98.0); Mean Platelet Volume 9.6 fL (9.4-12.4); Monocytes Absolute Auto 0.9 X10*3/uL (0.1-1.2); Monocytes Percent Auto 9.1 % (2-11); Neutrophils Absolute Auto 4.7 x10*3/uL (2.0-8.3); Neutrophils Percent Auto 46.9 % (45-73); Platelet Count 339 X10*3/uL (160-400); Red Blood Count 5.35 X10*6/uL (4.60-5.80); Red Cell Distribution Width 12.6 % (11.0-16.0)
[2021-10-04 07:44] LABS: Alanine Aminotransferase 37 U/L (0-40); Albumin Level 4.1 g/dL (3.5-5.0); Alkaline Phosphatase 64 U/L (39-117); Anion Gap 14 (12-20); Aspartate Amino Transferase 20 U/L (5-37); Bilirubin Total 1.4 mg/dL (0.0-1.0); Blood Urea Nitrogen 20 mg/dL (9-16); Calcium 9.7 mg/dL (8.4-10.2); Carbon Dioxide 23 mmol/L (22-29); Chloride 106 mmol/L (96-108); Cholesterol 137 mg/dL; Estimated Glomerular Filt Rate > 60; Glucose Fasting 96 mg/dL (60-99); HDL Cholesterol 33 mg/dL; LDL Cholesterol Calculated 86 mg/dl; Potassium 4.5 mmol/L (3.3-5.1); Sodium 138 mmol/L (135-145); Total Protein 6.7 g/dL (6.5-8.0); Triglycerides 94 mg/dL
[2021-10-04 08:05] LABS: TSH reflex Free T4 1.29 uIU/mL (0.32-4.0); Vitamin D 25-OH Total 65.2 ng/mL (>30)
[2021-10-04 08:11] LABS: Appearance Urine CLEAR; Color Urine YELLOW; Glucose Urine UA NEG (NEG); Leukocyte Esterase Urine NEG (NEG); Nitrite Urine NEG (NEG); PH 5.5 (5.0-8.0); Specific Gravity - Urine >= 1.030 (1.005-1.025); UACC Culture Trigger NO; Urine Blood TRACE (NEG); Urine Ketones NEG (NEG); Urine Protein NEG (NEG-TRACE)
[2021-10-04 08:30] LABS: Squamous Epithelial Cell Urine TRACE /LPF
[2021-10-04 08:31] LABS: Sperm Urine NOTED
== END 2021-10-04 06:00 | disposition home or self-care (01) ==
LOC: HO.LAB 05:59
PROVIDERS: PCP Internal Medicine; Visit Provider Internal Medicine
DX: I10 Essential (primary) hypertension (principal); E78.00 Pure hypercholesterolemia, unspecified; E55.9 Vitamin D deficiency, unspecified
CPT/HCPCS: 36415; 80053; 80061; 81001; 81003; 82306; 84443; 85025

== ENCOUNTER 2022-02-19 06:12 | Outpatient (REF) | payer BC, SELFPAY ==
[2022-02-19 07:51] LABS: Appearance Urine Cloudy; Color Urine Yellow; Glucose Urine UA Negative (Negative); Leukocyte Esterase Urine Trace (Negative); Nitrite Urine Negative (Negative); PH 5.5 (5.0-9.0); Specific Gravity - Urine 1.025 (1.005-1.025); UMIC TRIGGER UACC YES; Urine Blood Negative (Negative); Urine Ketones Trace mg/dL (Negative); Urine Protein Negative (Neg-Trace)
[2022-02-19 08:11] LABS: Alanine Aminotransferase 29 U/L (0-40); Albumin Level 4.4 g/dL (3.5-5.0); Alkaline Phosphatase 61 U/L (39-117); Anion Gap 17 (12-20); Aspartate Amino Transferase 22 U/L (5-37); Bilirubin Total 1.8 mg/dL (0.0-1.0); Blood Urea Nitrogen 20 mg/dL (9-16); Calcium 9.7 mg/dL (8.4-10.2); Carbon Dioxide 26 mmol/L (22-29); Chloride 103 mmol/L (96-108); Cholesterol 212 mg/dL; Estimated Glomerular Filt Rate > 60; Glucose Fasting 93 mg/dL (60-99); HDL Cholesterol 34 mg/dL; LDL Cholesterol Calculated 139 mg/dl; Potassium 4.7 mmol/L (3.3-5.1); Sodium 141 mmol/L (135-145); Total Protein 7.2 g/dL (6.5-8.0); Triglycerides 195 mg/dL
[2022-02-19 08:18] LABS: Bacteria Urine None Seen (None Seen); Hyaline Casts Urine 0-2 /LPF (0-2); Squamous Epithelial Cell Urine 0-2 /HPF (0-2); WBC Urine 0-5 /HPF (0-5)
== END 2022-02-19 06:13 | disposition home or self-care (01) ==
LOC: HO.LAB 06:12
PROVIDERS: PCP Internal Medicine; Visit Provider Internal Medicine
DX: E78.00 Pure hypercholesterolemia, unspecified (principal)
CPT/HCPCS: 36415; 80053; 80061; 81001

== ENCOUNTER → 2022-02-26 15:45 | Outpatient (REF) | payer BC, SELFPAY ==
--- NOTE | 2022-02-26 15:48 | CA_ITS ---
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 Normal LV systolic function with impaired relaxation filling pattern 2. Moderate aortic stenosis with mean gradient of 27 mm Hg and dimensionless index of 0.31 3. Mildly dilated ascending aorta at 4.3 cm 4. Normal RV systolic pressure 5. No gross pericardial effusion Findings Left Ventricle Normal left ventricular size, thickness, and systolic function. The visually estimated ejection fraction is between 60-65%. Spectral Doppler is indicative of an impaired relaxation filling pattern. E/E prime ratio is between 8 and 15 consistent with indeterminate filling pressures. Right Ventricle Normal right ventricular cavity size and systolic function. Atria The left atrium is normal in size. Interatrial shunt cannot be excluded. The right atrium is normal in size. Aortic Valve The aortic valve was not well visualized. There is mild calcification of the aortic valve. There is moderate thickening of the aortic valve. There is moderate aortic valve stenosis. The peak aortic gradient is 47 mmHg.The mean gradient is 27 mmHg. There is trace (trivial) aortic valve regurgitation. Dimensionless index is 0.31, more suggestive of moderate aortic stenosis although valve area as calculated in the severe range. Probable bicuspid aortic valve. Mitral Valve There is mild anterior and posterior mitral leaflet thickening. There is trace mitral valve regurgitation. There is no mitral valve stenosis. Pulmonic Valve The pulmonic valve was not well visualized. Tricuspid Valve Likely normal tricuspid valve structure and function. There is trace tricuspid valve regurgitation. The right ventricular systolic pressure is normal. The right ventricular systolic pressure is 23 mmHg. Normal right atrial pressure. There is no evidence of pulmonary hypertension. Great Vessels The pulmonary artery was not well visualized. There is mild dilatation of the ascending aorta measuring 4.30 cm. Venous The inferior vena cava is normal in size and collapses greater than 50% with inspiration. Pericardium/Pleural There is no evidence of pericardial effusion. Prior Study Comparison No significant change compared to prior study dated: 04/17/2021. Measurements 2D Linear Measurements IVSd: 1.09 0.6-0.9/0.6-1.0 cm LVIDd: 5.38 3.9-5.3/4.2-5.9 cm LVIDd Index: 2.35 2.4-3.2/2.2-3.1 cm/m2 LVIDs: 3.33 2.0-3.6 cm LVPWd: 1.09 0.7-1.1 cm Ao Root: 3.70 2.1-3.5 cm LA Diam: 3.70 2.7-3.8/3.0-4.0 cm LAIDs Index: 1.62 1.5-2.3 cm/m2 LV Mass: 287.41 67-162/88-224 g LV Mass Index: 125.51 43-95/49-115 g/m2 LVOT Diam: 2.00 3.0+(-)1.3 cm Mitral Valve MV Pk E: 0.76 MV PK A: 0.93 MV Decel Time: 161.00 E/A: 0.80 E'Lateral: 12.20 E'Medial: 5.87 E/E' Med: 12.90 E/E' Lat: 6.20 PHT: 47.00 MVA PHT: 4.68 Decel [place]: 4.71 Aortic Valve AoV Pk Dariusz: 3.41 AoV Mn Dariusz: 2.45 AoV VTI: 0.77 AoV Pk Grad: 47.00 Aov Mn Grad: 27.00 PIERCE Cont.VTI: 0.96 LVOT LVOT Pk Dariusz: 0.99 LVOT Mn Dariusz: 0.66 LVOT VTI: 0.24 LVOT Pk Grad: 4.00 LVOT Mn Grad: 2.00 LVOT Diam: 2.00 LVOT Area: 3.14 Diastolic Function MV Pk E: 0.76 MV Pk A: 0.93 E/A: 0.80 E'Medial: 5.87 E/E' Med: 12.90 E' Laterial: 12.20 E/E' Lat: 6.20 Right Ventricle TAPSE (mm): 25.00 TVS' Dariusz: 12.00 Tricuspid Valve TR Pk Dariusz: 2.22 TR Pk Grad: 20.00 RA Press: 3.00 RVSP: 23.00 Great Vessels Aorta Ao Root-2D: 3.70 2.0-3.7 cm Ao Asc: 4.30 2.1-3.4 cm Pulmonary Valve PV Pk Dariusz: 1.34 Peak PV Grad: 7.00 Updated in Other Vendor System with Status of Final Gerry Callahan MD electronically signed on 02/26/2022 5:42:45 PM with status of Final
== END ==
LOC: HO.CARD 15:45
PROVIDERS: PCP Internal Medicine; Visit Provider Internal Medicine
DX: Q23.1 Congenital insufficiency of aortic valve (principal)
CPT/HCPCS: 93306

== ENCOUNTER 2022-03-15 14:17 | Outpatient (REF) | payer BC, SELFPAY ==
[2022-03-15 17:09] LABS: Urine Cytology See Pathology rpt
== END 2022-03-15 14:18 | disposition home or self-care (01) ==
LOC: HO.LAB 14:17
PROVIDERS: Visit Provider Urology
DX: R31.29 Other microscopic hematuria (principal)
CPT/HCPCS: 88112

== ENCOUNTER → 2022-05-01 15:04 | Outpatient (BNVA) | payer BC, SELFPAY | PROVIDERS: PCP Internal Medicine; Visit Provider Internal Medicine | DX: Q23.1 Congenital insufficiency of aortic valve (principal); Q21.12 Patent foramen ovale; I71.20 Thoracic aortic aneurysm, without rupture, unspecified; G47.33 Obstructive sleep apnea (adult) (pediatric); Z99.89 Dependence on other enabling machines and devices | CPT/HCPCS: 93005 ==

== ENCOUNTER 2022-06-20 06:54 | Outpatient (REF) | payer BC, SELFPAY ==
[2022-06-20 07:07] LABS: MANUAL DIFF FLAG NO
[2022-06-20 07:58] LABS: Basophils Absolute Auto 0.1 X10*3/uL (0.0-0.2); Basophils Percent Auto 0.6 % (0-2); Eosinophils Absolute Auto 0.4 X10*3/uL (0.0-0.4); Hematocrit 44.7 % (42.0-52.0); Imm Gran Abs Auto 0.03 X10*3/uL (0.00-0.03); Imm Gran Pct Auto 0.3 % (0.0-0.4); Lymphocytes Absolute Auto 4.1 X10*3/uL (1.2-4.9); Mean Corpuscular HGB Conc 33.6 g/dl (31.0-36.0); Mean Corpuscular Hemoglobin 28.6 pg (27.0-33.0); Mean Corpuscular Volume 85.3 fL (80.0-98.0); Mean Platelet Volume 9.5 fL (9.4-12.4); Monocytes Absolute Auto 0.9 X10*3/uL (0.1-1.2); Monocytes Percent Auto 9.6 % (2-11); Neutrophils Absolute Auto 4.1 x10*3/uL (2.0-8.3); Neutrophils Percent Auto 42.5 % (45-73); Platelet Count 313 X10*3/uL (160-400); Red Blood Count 5.24 X10*6/uL (4.60-5.80); Red Cell Distribution Width 12.7 % (11.0-16.0); White Blood Count 9.6 X10*3/uL (4.8-10.8)
[2022-06-20 08:01] LABS: Appearance Urine Clear; Color Urine Yellow; Glucose Urine UA Negative (Negative); Leukocyte Esterase Urine Negative (Negative); Nitrite Urine Negative (Negative); PH 5.5 (5.0-9.0); UMIC TRIGGER UACC YES; Urine Blood Trace (Negative); Urine Ketones Negative (Negative); Urine Protein Negative (Neg-Trace)
[2022-06-20 08:08] LABS: Bacteria Urine None Seen (None Seen); Hyaline Casts Urine 0-2 /LPF (0-2); RBC Urine 0-2 /HPF (0-2); Squamous Epithelial Cell Urine 0-2 /HPF (0-2); WBC Urine 0-5 /HPF (0-5)
[2022-06-20 08:21] LABS: Alanine Aminotransferase 31 U/L (0-40); Alkaline Phosphatase 62 U/L (39-117); Anion Gap 14 (12-20); Aspartate Amino Transferase 20 U/L (5-37); Bilirubin Total 1.9 mg/dL (0.0-1.0); Blood Urea Nitrogen 15 mg/dL (9-16); Calcium 9.2 mg/dL (8.4-10.2); Carbon Dioxide 26 mmol/L (22-29); Chloride 108 mmol/L (96-108); Cholesterol 152 mg/dL; Estimated Glomerular Filt Rate > 60; Glucose Fasting 89 mg/dL (60-99); HDL Cholesterol 32 mg/dL; LDL Cholesterol Calculated 99 mg/dl; Potassium 4.6 mmol/L (3.3-5.1); Sodium 143 mmol/L (135-145); Total Protein 6.3 g/dL (6.5-8.0); Triglycerides 109 mg/dL
[2022-06-20 08:42] LABS: TSH reflex Free T4 1.88 uIU/mL (0.32-4.0)
== END 2022-06-20 06:55 | disposition home or self-care (01) ==
LOC: HO.LAB 06:54
PROVIDERS: PCP Internal Medicine; Visit Provider Internal Medicine
DX: E78.00 Pure hypercholesterolemia, unspecified (principal); E55.9 Vitamin D deficiency, unspecified; R30.0 Dysuria; I10 Essential (primary) hypertension
CPT/HCPCS: 36415; 80053; 80061; 81001; 81003; 82306; 84443; 85025

== ENCOUNTER 2022-06-27 12:50 | Outpatient (REF) | payer BC, SELFPAY ==
--- NOTE | ~2022-06-27 | XR_ITS ---
EXAMINATION: XR lumbar spine 2-3V CLINICAL INFORMATION: Reason for Exam M54.50 - Low back pain, unspecified COMPARISON: Lumbar spine radiographs 12/07/2020 TECHNIQUE: 3 views of the lumbar spine FINDINGS: 5 nonrib-bearing lumbar-type vertebral bodies. Vertebral body heights are maintained. Grade 1 anterolisthesis of L4 on L5. Mild multilevel degenerative disc disease with loss of disc space height, facet arthropathy and disc osteophyte complexes. This is worst at. L4/L5 Paravertebral soft tissues are unremarkable. XR/XR lumbar spine 2-3V IMPRESSION: 1. Mild spondylosis of the lumbar spine, as above detailed. 2. Grade 1 anterolisthesis of L4 on L5.
== END 2022-06-27 12:51 | disposition home or self-care (01) ==
LOC: HO.XRAY 12:50
PROVIDERS: PCP Internal Medicine; Visit Provider Internal Medicine
DX: M54.50 Low back pain, unspecified (principal)
CPT/HCPCS: 72100

== ENCOUNTER → 2022-09-25 11:24 | Outpatient (BNVA) | payer BC, SELFPAY | PROVIDERS: PCP Internal Medicine; Visit Provider Urology | DX: R31.29 Other microscopic hematuria (principal); N52.9 Male erectile dysfunction, unspecified | CPT/HCPCS: 51798 ==

== ENCOUNTER 2022-10-17 07:31 | Outpatient (REF) | payer BC, SELFPAY ==
[2022-10-17 07:44] LABS: MANUAL DIFF FLAG NO
[2022-10-17 08:02] LABS: Basophils Absolute Auto 0.1 X10*3/uL (0.0-0.2); Basophils Percent Auto 0.9 % (0-2); Eosinophils Absolute Auto 0.4 X10*3/uL (0.0-0.4); Eosinophils Percent Auto 2.9 % (0-4); Hematocrit 44.5 % (42.0-52.0); Hemoglobin 15.1 g/dl (14.0-18.0); Imm Gran Abs Auto 0.05 X10*3/uL (0.00-0.03); Imm Gran Pct Auto 0.4 % (0.0-0.4); Lymphocytes Absolute Auto 4.5 X10*3/uL (1.2-4.9); Lymphocytes Percent Auto 36.8 % (20-40); Mean Corpuscular HGB Conc 33.9 g/dl (31.0-36.0); Mean Corpuscular Hemoglobin 28.7 pg (27.0-33.0); Mean Corpuscular Volume 84.6 fL (80.0-98.0); Mean Platelet Volume 9.2 fL (9.4-12.4); Monocytes Percent Auto 8.4 % (2-11); Neutrophils Absolute Auto 6.2 x10*3/uL (2.0-8.3); Neutrophils Percent Auto 50.6 % (45-73); Platelet Count 344 X10*3/uL (160-400); Red Blood Count 5.26 X10*6/uL (4.60-5.80); Red Cell Distribution Width 13.1 % (11.0-16.0); White Blood Count 12.3 X10*3/uL (4.8-10.8)
[2022-10-17 08:51] LABS: Alanine Aminotransferase 30 U/L (0-40); Albumin Level 4.1 g/dL (3.5-5.0); Alkaline Phosphatase 61 U/L (39-117); Anion Gap 12 (12-20); Aspartate Amino Transferase 20 U/L (5-37); Bilirubin Total 1.2 mg/dL (0.0-1.0); Blood Urea Nitrogen 19 mg/dL (9-16); Calcium 9.4 mg/dL (8.4-10.2); Carbon Dioxide 25 mmol/L (22-29); Chloride 109 mmol/L (96-108); Cholesterol 144 mg/dL; Estimated Glomerular Filt Rate > 60; Glucose Fasting 97 mg/dL (60-99); HDL Cholesterol 34 mg/dL; LDL Cholesterol Calculated 89 mg/dl; Sodium 142 mmol/L (135-145); Total Protein 6.9 g/dL (6.5-8.0); Triglycerides 105 mg/dL
[2022-10-17 08:59] LABS: TSH reflex Free T4 1.48 uIU/mL (0.32-4.0); Vitamin D 25-OH Total 47.3 ng/mL (>30)
[2022-10-17 09:02] LABS: Appearance Urine Clear; Color Urine Yellow; Glucose Urine UA Negative (Negative); Leukocyte Esterase Urine Negative (Negative); Nitrite Urine Negative (Negative); PH 5.5 (5.0-9.0); Specific Gravity - Urine 1.025 (1.005-1.025); UMIC TRIGGER UACC YES; Urine Blood Trace (Negative); Urine Ketones Negative (Negative); Urine Protein Negative (Neg-Trace)
[2022-10-17 09:05] LABS: Bacteria Urine None Seen (None Seen); Hyaline Casts Urine 0-2 /LPF (0-2); Squamous Epithelial Cell Urine 0-2 /HPF (0-2); WBC Urine 0-5 /HPF (0-5)
== END 2022-10-17 07:32 | disposition home or self-care (01) ==
LOC: HO.LAB 07:31
PROVIDERS: PCP Internal Medicine; Visit Provider Internal Medicine
DX: E78.00 Pure hypercholesterolemia, unspecified (principal); I10 Essential (primary) hypertension; E55.9 Vitamin D deficiency, unspecified; R30.0 Dysuria
CPT/HCPCS: 36415; 80053; 80061; 81001; 81003; 82306; 84443; 85025

== ENCOUNTER 2022-10-23 14:11 | Outpatient (AMB) | payer BC, SELFPAY ==
--- NOTE | 2022-10-23 14:23 | MHC.PC.OV ---
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 Required: No Accompanied by: Self / Same As Patient Allergies No Known Allergies Allergy (Verified 12/27/22 09:50) Medication List - Last Reconciled 10/23/22 by Chele Mratinez MD aspirin 81 mg PO DAILY atorvastatin 10 mg PO DAILY 90 days finasteride 5 mg PO DAILY 90 days sildenafil 100 mg PO DAILY PRN 30 days tadalafil 5 mg PO DAILY 90 days Tobacco use date assessed: 10/23/22 Dental Screening Dental Screen Date: 10/23/22 Did you have a dental visit in the last 12 months?: Yes Did you have a dental problem in the last 6 months where you did not have access to dental care?: No Was dental information given to patient?: Patient has dentist HPI hyperlipidemia HPI Details Patient comes in today for his follow up visit States that he has been experiencing recurrent increased pain over his left sciatic nerve area for the past 2 months Has noticed that his symptoms seem to feel worse and tend to bother him more at night He denies any recent injury or trauma to his lower back Has also noticed on and off blood in his stool at times lately; thinks that he has been constipated lately Had his colonoscopy last done with Dr. Siddhartha bob in 2020 - (+) diverticulosis and internal hemorrhoids seen He denies any abdominal pain, nausea or vomiting lately Adds that he had a breakout of herpes about 2 weeks ago and would like to get his Valtrex Rx refilled He denies any headaches or dizziness Denies any chest pains, no SOB Had his follow up labs done last week - to discuss his results [facility] Medical History Asymptomatic microscopic hematuria Bicuspid aortic valve BiPAP (biphasic positive airway pressure) dependence Degenerative joint disease of sacroiliac joint Erectile dysfunction Genital herpes in men Left-sided low back pain with left-sided sciatica Lumbar spondylosis Normal colonoscopy (~2010) Obesity (BMI 30-39.9) Obstructive sleep apnea BRANDT on CPAP Patent foramen ovale Pure hypercholesterolemia Seborrheic keratosis Thoracic aortic aneurysm without rupture Vitamin D deficiency Surgical History H/O Spinal surgery History of parathyroidectomy History of tonsillectomy History of uvulectomy Family History Father Dementia HTN (hypertension) Mother Dementia HTN (hypertension) Diabetes Other Mental health problem Substance abuse Social History Housing: House Alcohol intake: current Alcohol intake frequency: holidays/special occasions only Alcohol type: beer Patient Tobacco Use Status: Former Tobacco user e-Cigarette/Vaping Use: Never Used Second Hand Smoke Exposure: Yes service: No Current occupational status: employed 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 1. Little interest or pleasure in doing things: not at all 2. Feeling down, depressed, or hopeless: not at all 3. Trouble falling or staying asleep, or sleeping too much: not at all 4. Feeling tired or having little energy: not at all 5. Poor appetite or overeating: not at all 6. Feeling bad about yourself - or that you are a failure or have let yourself or your family down: not at all 7. Trouble concentrating on things, such as reading the newspaper or watching television: not at all 8. Moving or speaking so slowly that other people could have noticed. Or the opposite - being so fidgety or restless that you have been moving around a lot more than usual: not at all 9. Thoughts that you would be better off or of hurting yourself in some way: not at all Total score: 0 Depression Screening Interpretation: Negative 99256 - PHQ-9 Billing: Yes Source: Developed by Drs. Paulo Cohen, Gertrudis Rivas, Huan Dominguez and colleagues, with an educational bell from [employer]. Thrive Questionnaire Date Thrive assessed: 10/23/22 I am a: Patient What is your living situation today?: I have a steady place to live Within the past 12 months, did the food you bought not last and you didn't have the money to get more?: Never true Within the past 12 months, did you worry whether your food would run out before you got money to buy more?: Never true Do you have trouble paying for medicines?: No Do you have trouble getting transportation to medical appointments?: No Do you have trouble paying your heating and electricity bill?: No Do you have trouble taking care of your child, family member or friend?: No Do you have trouble with day-to-day activities such as bathing, preparing meals, shopping, managing finances, etc.?: No Are you currently unemployed and looking for a job?: No Are you interested in more education?: No Currently or been in a relationship where the following occur: no concerns reported AUDIT C Alcohol Use Questionnaire (AUDIT-C) 1. How often do you have a drink containing alcohol?: Monthly or less 2. How many drinks containing alcohol do you have on a typical day when you are drinking?: 1 or 2 3. How often do you have six or more drinks on one occasion?: Never Total Score: 1 Score Reviewed/Action Taken: Yes MADDISON-7 AMB Questionnaire MADDISON-7 Date MADDISON - 7 assessed: 10/23/22 Feeling nervous, anxious, or on edge: 0 = Not at all Not being able to stop or control worryin = Not at all Worrying too much about different things: 0 = Not at all Trouble relaxin = Not at all Being so restless that it is hard to sit still: 0 = Not at all Becoming easily annoyed or irritable: 0 = Not at all Feeling afraid as if something awful might happen: 0 = Not at all Total MADDISON-7 score (0-4 normal; 5-9 mild; 10-14 moderate; 15-21 severe): 0 Source: Developed by Drs. Paulo Cohen, Gertrudis Rivas, Huan Dominguez and colleagues, with an educational bell from [employer]. Review of Systems Const Denies fatigue, Denies fever(s) and Denies headache(s) ENT Denies dysphagia, Denies dizziness, Denies otalgia, Denies headache(s), Denies neck pain, Denies odynophagia and Denies sore throat Card Denies chest pain, Denies palpitations and Denies dyspnea Resp Denies cough and Denies dyspnea GI Denies abdominal pain, Reports hematochezia (on and off recently), Reports constipation (recently), Denies dysphagia, Denies heartburn, Denies diarrhea, Denies nausea, Denies odynophagia and Denies vomiting Reports difficulty with ejaculations (premature), Reports erectile dysfunction, Denies dysuria and Denies nocturia Musc Reports back pain (on and off, over the right lower back/right sciatic nerve area lately) and Denies neck pain Neuro Denies dizziness and Denies headache(s) Endo Denies fatigue and Denies palpitations Physical exam (Primary Care) Vital Signs: Last Vital Signs Pulse 77 10/23/22 14:24 BP 128/82 10/23/22 14:24 Pulse Ox 97 10/23/22 14:24 Oxygen Delivery Method Room Air 10/23/22 14:24 BMI result Body Mass Index 2.0 Tobacco/Smoking Status: Tobacco use Status Tobacco use date assessed 10/23/22 10/23/22 14:28 Patient Tobacco Use Status Former Tobacco user 10/23/22 14:28 e-Cigarette/Vaping Use Never Used 10/23/22 14:28 PHQ-9: PHQ-9 Score PHQ-9: Total score 0 10/23/22 15:11 Depression Screening Interpretation: Negative Thrive Assessment: Date of Thrive Assessment Date Thrive assessed 10/23/22 10/23/22 14:28 Currently or been in a relationship where the following occur: no concerns reported Const General: no acute distress and alert HENMT Ears: TM's normal bilaterally and EAC's normal Throat: Yes posterior oropharynx normal and Yes tonsils normal Neck Neck: Yes no lymphadenopathy and Yes supple Resp Auscultation: clear to auscultation bilaterally, no rales and no wheezes Cardio Rate: regular rate Rhythm: regular rhythm Heart sounds: Murmur heart sound present systolic early and III/ GI Palpation (GI): Soft to palpation and nontender Auscultation: normal bowel sounds Back/Spine/Pelvis Thoracic/Lumbar Spine: straight leg raise negative bilaterally, paraspinal muscle tenderness on the right in the lower lumbar and lumbar spinal tenderness Extrem General: Yes no clubbing, cyanosis or edema Results Reviewed Results Reviewed: Laboratory Tests 10/17/22 10/17/22 10/17/22 07:43 07:43 07:44 WBC 12.3 H Hgb 15.1 Hct 44.5 Plt Count 344 Sodium 142 Potassium 4.0 Creatinine 1.00 Estimated GFR > 60 Fasting Glucose 97 AST 20 ALT 30 Triglycerides 105 Cholesterol 144 LDL Cholesterol, Calc 89 HDL Cholesterol 34 25-OH Vitamin D Total 47.3 TSH 1.48 Urine pH 5.5 Ur Specific [place] 1.025 Urine Protein Negative Urine Glucose (UA) Negative Urine Blood Trace H Assessment and Plan Assessment & Plan (1) Pure hypercholesterolemia: Code(s): E78.00 - Pure hypercholesterolemia, unspecified Plan: Results of his labs done last week reviewed and discussed with patient - his cholesterol levels have improved further from previous Reinforced low cholesterol diet Continue Atorvastatin 10 mg QD Will recheck his labs in 4 months for follow up (2) Lumbar back pain with radiculopathy affecting left lower extremity: Comment: MRI of the lumbar spine done back on 01/18/2021 revealed a large 1.2 cm synovial cyst on the left L4-L5 filling the lateral recess and proximal foramen with nerve root compression Code(s): M54.16 - Radiculopathy, lumbar region Plan: S/P lumbar minimally invasive surgery (MIS) laminotomy by Dr. Spence on 05/07/2021 - underwent left L4-L5 MIS decompression and resection of synovial cyst Reinforced activity and weight-lifting restrictions Repeat lumbar spine x-rays done back in June 2022 revealed mild spondylosis of the lumbar spine, with grade 1 anterolisthesis of L4 on L5 Because of his recent increasing right-sided sciatica and previous increased left lower back pain, will refer him to the [facility] here at [facility] for further evaluation and management (3) Thoracic aortic aneurysm without rupture: Code(s): I71.2 - Thoracic aortic aneurysm, without rupture Qualifiers: Thoracic aorta location: unspecified Qualified Code(s): I71.20 - Thoracic aortic aneurysm, without rupture, unspecified Plan: Follow up echocardiogram done on 02/26/2022 revealed a mildly dilated ascending thoracic aorta at 4.3 cm, which is mostly unchanged from a year ago. There is also a moderate aortic stenosis with mean gradient of 27 mm Hg and dimensionless index of 0.31 Previous echo on 04/17/21 revealed (+) ascending aortic dilatation at 4.3 cm - this was previously measured 4.1 cm on echo done on 04/17/2020 He follows up with cardiology regularly for this and will need this to be monitored continuously/closely (4) Bicuspid aortic valve: Code(s): Q23.1 - Congenital insufficiency of aortic valve Plan: Echocardiogram revealed bicuspid aortic valve with moderate stenosis and trace regurgitation on most recent US done on 02/26/2022 and 04/17/2021 Follow up with cardiology as scheduled for continued monitoring (5) Patent foramen ovale: Code(s): Q21.1 - Atrial septal defect Plan: Seen incidentally on prior SOWMYA Continue Aspirin 81 mg daily (6) Obstructive sleep apnea: Comment: BIPAP Code(s): G47.33 - Obstructive sleep apnea (adult) (pediatric) Plan: Continue using his BiPAP device every night when sleeping (7) Vitamin D deficiency: Code(s): E55.9 - Vitamin D deficiency, unspecified Plan: Corrected - will continue to monitor Vitamin D level regularly (8) Constipation: Code(s): K59.00 - Constipation, unspecified Qualifiers: Constipation type: unspecified constipation type Qualified Code(s): K59.00 - Constipation, unspecified Plan: Is most likely the reason for the on and off blood in his stool lately; he had internal hemorrhoids and diverticulosis on his recent colonoscopy done a couple of years ago Discussed increased oral fluids and dietary fiber Will start him on Senna 8.6 mg QD PRN (9) Genital herpes in men: Code(s): A60.02 - Herpesviral infection of other male genital organs Plan: Continue Valacyclovir 500 mg every 12 hours x 5 days when needed for acute flare ups - Rx refilled today (10) Erectile dysfunction: Code(s): N52.9 - Male erectile dysfunction, unspecified Qualifiers: Erectile dysfunction type: unspecified Qualified Code(s): N52.9 - Male erectile dysfunction, unspecified Plan: Continue Sildenafil 50 mg QD PRN (11) Obesity (BMI 30-39.9): Code(s): E66.9 - Obesity, unspecified Plan: Reinforced diet/exercise as tolerated/lose weight Plan Follow up in 4 months Orders: Orders Comprehensive [place]. Panel Fast 4 Months E78.00 - Pure hypercholesterolemia, unspecified Lipid Panel 4 Months E78.00 - Pure hypercholesterolemia, unspecified Referrals Neurosurgery Referral M54.16 - Radiculopathy, lumbar region Medications: New sennosides (senna) 8.6 mg PO BEDTIME PRN 90 caps 3RF constipation 90 days Refilled valacyclovir 500 mg PO Q12H 10 tabs 3RF for recurrence or outbreak of genital herpes 5 days A60.02 - Herpesviral infection of other male genital organs Coding Level of Care Code Est Pt Level 4 (02397) Diagnoses Pure hypercholesterolemia E78.00 Lumbar back pain with radiculopathy affecting left lower extremity M54.16 Thoracic aortic aneurysm without rupture I71.20 Thoracic aorta location: unspecified Bicuspid aortic valve Q23.1 Patent foramen ovale Q21.1 Obstructive sleep apnea G47.33 Vitamin D deficiency E55.9 Constipation K59.00 Constipation type: unspecified constipation type Genital herpes in men A60.02 Erectile dysfunction N52.9 Erectile dysfunction type: unspecified Obesity (BMI 30-39.9) E66.9
[2022-10-23 14:24] VITALS: BP 128/82; PULSE 77; O2SAT 97
== END 2022-10-23 15:22 | disposition home or self-care (01) ==
PROVIDERS: PCP Internal Medicine; Visit Provider Internal Medicine
DX: E78.00 Pure hypercholesterolemia, unspecified (principal); M54.16 Radiculopathy, lumbar region; I71.20 Thoracic aortic aneurysm, without rupture, unspecified; E55.9 Vitamin D deficiency, unspecified; Q23.1 Congenital insufficiency of aortic valve; Q21.10 Atrial septal defect, unspecified; G47.33 Obstructive sleep apnea (adult) (pediatric); K59.00 Constipation, unspecified; A60.02 Herpesviral infection of other male genital organs; N52.9 Male erectile dysfunction, unspecified; E66.9 Obesity, unspecified
CPT/HCPCS: 99214

== ENCOUNTER 2022-11-11 13:42 | Emergency (ER) | payer BC, SELFPAY ==
--- NOTE | 2022-11-11 13:48 | ED_ITS ---
HPI - General Adult General Chief complaint: Upper Respiratory Symptoms Stated complaint: Diff breathing Time Seen by Provider: 11/11/22 15:03 Source: patient Mode of arrival: ambulatory Limitations: no limitations History of Present Illness HPI narrative: 62-year-old male history of thoracic aneurysm hypertension hyperlipidemia obstructive sleep apnea obesity back pain seborrheic keratosis and chronic allergies with postnasal drip presents emergency department complaining of worsening shortness of breath after missing his Claritin for the past few days he has no falls or injuries he denies chest pain was states he has some shortness of breath denies any fevers or chills. Patient was seen in triage and had an x-ray and labs which were done and completed and normal. Related Data Home Medications Medication Instructions Recorded Confirmed aspirin 81 mg tablet,delayed 81 mg PO DAILY 04/26/20 10/23/22 release Previous Rx's Medication Instructions Recorded atorvastatin 10 mg tablet 10 mg PO DAILY 90 days #90 tabs 02/20/22 finasteride 5 mg tablet 5 mg PO DAILY 90 days #90 tabs 09/25/22 sildenafil 100 mg tablet 100 mg PO DAILY PRN sexual 09/25/22 activity 30 days #30 tabs tadalafil 5 mg tablet 5 mg PO DAILY sexual activity 90 09/25/22 days #90 tabs sennosides 8.6 mg capsule (senna) 8.6 mg PO BEDTIME PRN constipation 10/23/22 90 days #90 caps valacyclovir 500 mg tablet 500 mg PO Q12H for recurrence or 10/23/22 outbreak of genital herpes 5 days #10 tabs albuterol sulfate 90 mcg/actuation 1 inh inhalation Q6H PRN shortness 11/11/22 breath activated powder of breath or wheezing #1 ea inhaler,sensor benzonatate 100 mg capsule 100 mg PO BID PRN cough #20 caps 11/11/22 prednisone 20 mg tablet 60 mg PO DAILY Asthma 5 days #15 11/11/22 tabs Allergies Allergy/AdvReac Type Severity Reaction Status Date / Time No Known Allergies Allergy Verified 11/11/22 13:50 Review of Systems Review of Systems: Review of systems: General: Patient denies any fever chills recent illness or falls Musculoskeletal: Denies back pain or body aches or other injuries HEENT: denies headache, runny nose, ear pain Respiratory: shortness of breath, cough Cardiovascular: no chest pain or palpitations : denies dysuria, frequency Abdomen: no nausea vomiting denies abdominal pain Extremities: no swelling, no pain Skin: no diaphoresis Yes all other systems are reviewed and are negative PMFSH Past Medical History Medical History Asymptomatic microscopic hematuria Bicuspid aortic valve BiPAP (biphasic positive airway pressure) dependence Degenerative joint disease of sacroiliac joint Erectile dysfunction Genital herpes in men Left-sided low back pain with left-sided sciatica Lumbar spondylosis Normal colonoscopy (~2010) Obesity (BMI 30-39.9) Obstructive sleep apnea BRANDT on CPAP Patent foramen ovale Pure hypercholesterolemia Seborrheic keratosis Thoracic aortic aneurysm without rupture Vitamin D deficiency Surgical History H/O Spinal surgery History of parathyroidectomy History of tonsillectomy History of uvulectomy Family History Family History Father Dementia HTN (hypertension) Mother Dementia HTN (hypertension) Diabetes Other Mental health problem Substance abuse Social History Social History Housing: House Alcohol intake: current Alcohol intake frequency: holidays/special occasions only Alcohol type: beer Patient Tobacco Use Status: Former Tobacco user Smoked in Last 30 Days: No e-Cigarette/Vaping Use: Never Used Second Hand Smoke Exposure: Yes Use of substances other than those prescribed or required for medical reasons: No Advance Directives: No Advance Directives Information Provided: Yes service: No Current occupational status: employed 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 Cognitive needs: No Hearing needs: No Vision needs: No Physical Exam ED Vital Signs: Vital Signs - 24 hr 11/11/22 13:50 11/11/22 14:26 11/11/22 14:26 Temperature 98 F Pulse Rate 79 73 Respiratory Rate 18 18 Blood Pressure 136/75 147/80 H Pulse Oximetry 96 96 96 Oxygen Delivery Method Room Air Room Air 11/11/22 15:17 Temperature Pulse Rate 71 Respiratory Rate 16 Blood Pressure Pulse Oximetry Oxygen Delivery Method BMI result Body Mass Index 34.9 General: Well-appearing well-nourished in no signs of distress HEENT: Normocephalic atraumatic Neck: No signs of JVD, no masses no tenderness or lymphadenopathy Cardiovascular: Regular rate and rhythm Respiratory: Wheezing bilaterally more on the left than the right Abdomen: Soft nontender no masses Extremities: Normal pedal pulses no signs of edema Skin: Dry warm no rashes Back: No tenderness full ROM Course Course Course Narrative: This is an RME: Additional HPI, ROS, PE not included below will be deferred to primary provider. Patient is a 62 year old male with PMH of seborrheic keratosis and and thoracic aortic aneurysm without rupture presenting with shortness of breath and post nasal drip. Patient reports chest pressure. Patient notes worsening symptoms when he does not take his claritin. Patient reports increased difficulty breathing and congestion when at rest. Patient reports some cough. Patient denies pain, fever, chills, nausea, vomiting, numbness, tingling. Plan: labs, imaging Reevaluation(s) Reevaluation #1: After the breathing treatment patient did have improvement in symptoms wheezing was still there but improved. Patient will get inhaler with spacer and I will send patient home I will send scripts for prednisone and albuterol. Time: 15:48 Medications Administered Discontinued Medications Generic Name Dose Route Start Last Admin Trade Name Freq PRN Reason Stop Dose Admin Albuterol Sulfate 2.5 mg 11/11/22 15:09 11/11/22 15:17 Albuterol Sulfate (0.083%) 2.5 Mg/3 Ml Vial.Neb INHALE 11/11/22 15:10 2.5 mg ONCE ONE Administration Medical Decision Making Medical Decision Making [facility] Narrative: Patient still but is wheezing I will give the patient breathing treatment as well as some prednisone x-ray and labs are all unremarkable. Differential Diagnosis Differential Diagnoses: The differential diagnosis associated with the presentation includes My asthma COPD shortness of breath cough fever flu COVID or Admission/Observation Consideration of admission/observation: Escalation of care including admission /observation considered Lab Data [facility] Lab Attestation statement: I reviewed the patient's lab results. 11/11/22 14:16 11/11/22 14:16 Labs: Lab Results 11/11/22 11/11/22 11/11/22 Range/Units 14:16 14:16 14:16 WBC 11.0 H (4.8-10.8) X10*3/uL RBC 5.30 (4.60-5.80) X10*6/uL Hgb 15.0 (14.0-18.0) g/dl Hct 44.3 (42.0-52.0) % MCV 83.6 (80.0-98.0) fL MCH 28.3 (27.0-33.0) pg MCHC 33.9 (31.0-36.0) g/dl RDW 13.1 (11.0-16.0) % Plt Count 289 (160-400) X10*3/uL MPV 9.1 L (9.4-12.4) fL Immature Gran % (Auto) 0.4 (0.0-0.4) % Neut % (Auto) 60.1 (45-73) % Lymph % (Auto) 26.4 (20-40) % [place] % (Auto) 8.1 (2-11) % Eos % (Auto) 4.3 H (0-4) % Baso % (Auto) 0.7 (0-2) % Lymph # (Auto) 2.9 (1.2-4.9) X10*3/uL [place] # (Auto) 0.9 (0.1-1.2) X10*3/uL Eos # (Auto) 0.5 H (0.0-0.4) X10*3/uL Baso # (Auto) 0.1 (0.0-0.2) X10*3/uL Abs Immat Gran (auto) 0.04 H (0.00-0.03) X10*3/uL Absolute Neuts (auto) 6.6 (2.0-8.3) x10*3/uL Absolute Nucleated RBC 0.000 (0.0-0.012) X10*3/uL Nucleated RBC % (auto) 0.0 (0.0-0.2) /100WBC D-Dimer High Sensitivty NG/ML Sodium 139 (135-145) mmol/L Potassium 4.0 (3.3-5.1) mmol/L Chloride 108 (96-108) mmol/L Carbon Dioxide 21 L (22-29) mmol/L Anion Gap 14 (12-20) BUN 17 H (9-16) mg/dL Creatinine 0.87 (0.5-1.4) mg/dL Estim Creat Clear Calc 112.7 Estimated GFR > 60 Random Glucose 96 (60-115) mg/dL Calcium 9.6 (8.4-10.2) mg/dL Magnesium 2.1 (1.6-2.6) mg/dL Total Bilirubin 1.5 H (0.0-1.0) mg/dL AST 18 (5-37) U/L ALT 30 (0-40) U/L Alkaline Phosphatase 65 (39-117) U/L Troponin I High Sens 9.1 (<3.5-35.0) ng/L B-Natriuretic Peptide (<100) pg/mL Total Protein 7.3 (6.5-8.0) g/dL Albumin 4.3 (3.5-5.0) g/dL 11/11/22 11/11/22 Range/Units 14:16 14:16 WBC (4.8-10.8) X10*3/uL RBC (4.60-5.80) X10*6/uL Hgb (14.0-18.0) g/dl Hct (42.0-52.0) % MCV (80.0-98.0) fL MCH (27.0-33.0) pg MCHC (31.0-36.0) g/dl RDW (11.0-16.0) % Plt Count (160-400) X10*3/uL MPV (9.4-12.4) fL Immature Gran % (Auto) (0.0-0.4) % Neut % (Auto) (45-73) % Lymph % (Auto) (20-40) % [place] % (Auto) (2-11) % Eos % (Auto) (0-4) % Baso % (Auto) (0-2) % Lymph # (Auto) (1.2-4.9) X10*3/uL [place] # (Auto) (0.1-1.2) X10*3/uL Eos # (Auto) (0.0-0.4) X10*3/uL Baso # (Auto) (0.0-0.2) X10*3/uL Abs Immat Gran (auto) (0.00-0.03) X10*3/uL Absolute Neuts (auto) (2.0-8.3) x10*3/uL Absolute Nucleated RBC (0.0-0.012) X10*3/uL Nucleated RBC % (auto) (0.0-0.2) /100WBC D-Dimer High Sensitivty < 150 NG/ML Sodium (135-145) mmol/L Potassium (3.3-5.1) mmol/L Chloride (96-108) mmol/L Carbon Dioxide (22-29) mmol/L Anion Gap (12-20) BUN (9-16) mg/dL Creatinine (0.5-1.4) mg/dL Estim Creat Clear Calc Estimated GFR Random Glucose (60-115) mg/dL Calcium (8.4-10.2) mg/dL Magnesium (1.6-2.6) mg/dL Total Bilirubin (0.0-1.0) mg/dL AST (5-37) U/L ALT (0-40) U/L Alkaline Phosphatase (39-117) U/L Troponin I High Sens (<3.5-35.0) ng/L B-Natriuretic Peptide 33 (<100) pg/mL Total Protein (6.5-8.0) g/dL Albumin (3.5-5.0) g/dL Independent Interpretation I performed an independent interpretation of an: EKG and Plain X-Ray Interpretation: EKG rate 76 normal sinus rhythm normal intervals no signs of ischemia Chest x-ray no acute intrathoracic process. Independent Historian Clinical information obtained from an independent historian. History obtained from or confirmed by: Other External Record Review External record reviewed: Inpatient record Prescription Management I considered prescription management with: Other Discharge Plan Discharge Clinical Impression: COPD (chronic obstructive pulmonary disease), Bilateral wheezing, Breath shortness Patient Disposition: Home, Self-Care Instructions: Asthma (DC), How to Use a Dry-Powder Inhaler (ED), COPD (Chronic Obstructive Pulmonary Disease) (DC), How to Use a Metered-Dose Inhaler and a Spacer (ED), Wheezing (ED) Additional Instructions: You seen today in emergency department found being wheezing. We did review breathing treatment as well as some prednisone. Please take the prednisone for the next 5 days please call follow-up with her doctor please take albuterol as needed for wheezing if you have any other concerns please do not hesitate to come back to emergency department. Prescriptions: New benzonatate 100 mg capsule 100 mg PO BID PRN (Reason: cough) Qty: 20 0RF albuterol sulfate 90 mcg/actuation aero powdr breath act w/sensor 1 inh inhalation Q6H PRN (Reason: shortness of breath or wheezing) Qty: 1 0RF prednisone 20 mg tablet 60 mg PO DAILY 5 Days Qty: 15 0RF No Action finasteride 5 mg tablet 5 mg PO DAILY 90 Days Qty: 90 1RF Rx Instructions: take medication every other day sildenafil 100 mg tablet 100 mg PO DAILY PRN (Reason: sexual activity) 30 Days Qty: 30 1RF Rx Instructions: administer 30 minutes to 4 hours before activity atorvastatin 10 mg tablet 10 mg PO DAILY 90 Days Qty: 90 3RF senna 8.6 mg capsule 8.6 mg PO BEDTIME PRN (Reason: constipation) 90 Days Qty: 90 3RF valacyclovir 500 mg tablet 500 mg PO Q12H 5 Days Qty: 10 3RF aspirin 81 mg tablet,delayed release (DR/EC) 81 mg PO DAILY tadalafil 5 mg tablet 5 mg PO DAILY 90 Days Qty: 90 1RF
[2022-11-11 13:50] VITALS: BP 136/75; PULSE 79; RESP 18; TEMP 36.6; O2SAT 96; BMI 34.9
[2022-11-11 14:26] VITALS: BP 147/80; PULSE 73; PULSE 74; RESP 18; O2SAT 96
--- NOTE | 2022-11-11 14:30 | PC.NURSE ---
Alert and oriented. Arrived from home stating that he is having trouble breathing. 96% on RA with no sob noted. Denies chest pain, just states he feels pressure when he breaths in. States had been taking an allergy med until two days when he stopped taking it. States this happened in that past when he stopped taking the allergy medication. States has seasonal allergies. Denies sore throat but can fell post nasal drip. NSR on monitor. Occasional dry cough. Chest x ray obtained
[2022-11-11 14:35] LABS: Alanine Aminotransferase 30 U/L (0-40); Albumin Level 4.3 g/dL (3.5-5.0); Alkaline Phosphatase 65 U/L (39-117); Anion Gap 14 (12-20); Aspartate Amino Transferase 18 U/L (5-37); Bilirubin Total 1.5 mg/dL (0.0-1.0); Blood Urea Nitrogen 17 mg/dL (9-16); Calcium 9.6 mg/dL (8.4-10.2); Carbon Dioxide 21 mmol/L (22-29); Chloride 108 mmol/L (96-108); Creatinine Clr Calc Pharmacy 112.7; Estimated Glomerular Filt Rate > 60; Glucose Random 96 mg/dL (60-115); Magnesium 2.1 mg/dL (1.6-2.6); Sodium 139 mmol/L (135-145); Total Protein 7.3 g/dL (6.5-8.0)
[2022-11-11 15:17] VITALS: PULSE 71; RESP 16; O2SAT 97
[2022-11-11 15:50] VITALS: PULSE 73; RESP 18; O2SAT 98
== END 2022-11-11 16:01 | disposition home or self-care (01) ==
PROVIDERS: Physician Assistant; Emergency Provider Student in an Organized Health Care Education/Training Program; PCP Internal Medicine
DX: J44.9 Chronic obstructive pulmonary disease, unspecified (principal); R07.89 Other chest pain; R06.02 Shortness of breath; Z79.899 Other long term (current) drug therapy
CPT/HCPCS: 36415; 71045; 80053; 83735; 83880; 84484; 85025; 85379; 93005; 94640; 99284; 99285

== ENCOUNTER → 2022-11-11 13:52 | Outpatient (BNV) | payer BC, SELFPAY | PROVIDERS: Emergency Provider Student in an Organized Health Care Education/Training Program; PCP Internal Medicine; Visit Provider Internal Medicine Cardiovascular Disease | DX: R94.31 Abnormal electrocardiogram [ECG] [EKG] (principal) | CPT/HCPCS: 93010 ==

== ENCOUNTER 2022-11-26 13:51 | Outpatient (REF) | payer BC, SELFPAY ==
--- NOTE | ~2022-11-26 | XR_ITS ---
EXAMINATION: XR LUMBOSACRAL SPINE WITH OBLIQUES CLINICAL INFORMATION: Radiculopathy lumbar region COMPARISON: MR lumbar spine 01/18/2023. X-ray lumbar spine 07/01/2022. TECHNIQUE: 4 views of the lumbar spine inclusive of flexion and extension views FINDINGS: 5 nonrib-bearing lumbar-type vertebral bodies. Mild levoscoliosis of the thoracolumbar spine. Degenerative changes in the imaged lower thoracic spine. Facet arthritis in the lower lumbar spine. Grade 1 anterolisthesis of L4 on L5 persists on flexion and extension views. Minimal grade 1 retrolisthesis of L1 on L2 persists on flexion and extension views. Multilevel degenerative changes with loss of disc space height, and osteophyte formation most notable at L1-L2 and L4-L5. XR/XR lumbar spine 4V min IMPRESSION: Grade 1 anterolisthesis of L4 on L5. Minimal grade 1 retrolisthesis of L1 on L2. Multilevel degenerative changes most notable at L1-L2 and L4-L5.
== END 2022-11-26 13:52 | disposition home or self-care (01) ==
LOC: HO.HOSX 13:51
PROVIDERS: PCP Internal Medicine; Visit Provider Neurological Surgery
DX: M54.16 Radiculopathy, lumbar region (principal)
CPT/HCPCS: 72110

== ENCOUNTER 2022-11-26 13:51 | Outpatient (AMB) | payer BC, SELFPAY ==
--- NOTE | 2022-11-26 13:58 | A.SPINEOV_ITS ---
Intake Intake Visit Reasons: radiculopathy Intake Note: Mr. Garcia is here today c/o low back pain. He is s/p synovial cyst removal X1yr. MRI done @ [facility] [place]. Painting Department Supervisor Required: No Allergies No Known Allergies Allergy (Verified 11/11/22 13:50) Assessment & Plan Assessment & Plan (1) Left lumbar radiculopathy: Code(s): M54.16 - Radiculopathy, lumbar region Plan: Dear colleague Thank you for referring Raheem Garcia to the office today with a chief complaint of left leg pain. HPI: this 62-year-old male underwent a carotid sounds like synovial cyst resection approximately a year and a half ago for severe left lumbar radiculopathy. He responded well to surgery. Since 3 months he is suffering from a new left leg pain that radiates from the buttock down to the bottom of his feet. The pain is mostly present at night and goes up to a 5/10. The pain is associated with tingling. He denies weakness. The right side is unaffected. Three days ago he had an additional severe pain just below her left hip and ibuprofen 800 mg alleviated this pain. PMH: Hypercholesterolemia, COPD, heart valve abnormality. Thoracic aneurysm. Social history: nonsmoker Medications: albuterol, atorvastatin, aspirin, benzonatate, senna, sildenafil, tadalafil Allergies: NKDA Physical Exam: pleasant male. Normal gait. Straight leg raise produces a burning sensation down to the bottom of his left foot. Sensory and motor exam are intact. Radiological Studies: No new MRI available for review. And lumbar x-ray 2020 shows a grade 1 L4-5 spondylolisthesis. An updated x-ray today shows again a grade 1-2 L4-5 spondylolisthesis Impression/Plan: this 62-year-old male who is suffering from new left lumbar radiculopathy. The pain has not improved over a period of 3 months. therefore, an MRI of the lumbar spine is indicated. I will follow-up after the MRI is done. Thank you for allowing me to participate in your patients care. total time spent was 50 minutes in counseling ,coordination of plan, personal review of imaging, surgical decision making and subsequent plan Baldev Pratt MD, PhD Spine Fellowship Trained Neurosurgeon Director, [facility] Orders: Orders XR lumbar spine 4V min Today M54.16 - Radiculopathy, lumbar region MR lumbar spine wo/w con Today M54.16 - Radiculopathy, lumbar region Coding Level of Care Code New Pt Level 4 (68505) Diagnoses Left lumbar radiculopathy M54.16
== END 2022-11-26 15:34 | disposition home or self-care (01) ==
PROVIDERS: PCP Internal Medicine; Referring Provider Internal Medicine; Visit Provider Neurological Surgery
DX: M54.16 Radiculopathy, lumbar region (principal)
CPT/HCPCS: 99204

== ENCOUNTER 2022-12-27 09:09 | Outpatient (AMB) | payer BC, SELFPAY ==
[2022-12-27 09:19] VITALS: BP 130/82; PULSE 78; O2SAT 96; BMI 35.0
--- NOTE | 2022-12-27 09:19 | MHC.PC.OV ---
Vital Signs 12/27/22 09:19 Height 5 ft 11 in Weight 251 lb BMI 35.0 BP 130/82 Blood Pressure Location Lt brachial Position Sitting Pulse 78 Pulse Source Pulse Oximeter Pulse Oximetry (%) 96 Oxygen Delivery Method Room Air Intake Visit Reasons: 11/11/22 ED [facility] due to shortness of breath Clinical Safety Manager Required: No Accompanied by: Self / Same As Patient Allergies No Known Allergies Allergy (Verified 12/27/22 09:50) Medication List - Last Reconciled 12/27/22 by Chele Martinez MD albuterol sulfate 90 mcg/actuation 1 inh inhalation Q6H PRN aspirin 81 mg PO DAILY atorvastatin 10 mg PO DAILY 90 days benzonatate 100 mg PO BID PRN finasteride 5 mg PO DAILY 90 days loratadine (Claritin RediTabs) 10 mg PO DAILY prednisone 60 mg (3 x 20 mg) PO DAILY 5 days sennosides (senna) 8.6 mg PO BEDTIME PRN 90 days sildenafil 100 mg PO DAILY PRN 30 days tadalafil 5 mg PO DAILY 90 days valacyclovir 500 mg PO Q12H 5 days Tobacco use date assessed: 12/27/22 Dental Screening Dental Screen Date: 12/27/22 Did you have a dental visit in the last 12 months?: Yes Did you have a dental problem in the last 6 months where you did not have access to dental care?: No Was dental information given to patient?: Patient has dentist HPI 11/11/22 ED C due to shortness of breath HPI Details Patient comes in today for his [facility] follow up visit Recalls that he went to the ER about 5 to 6 weeks ago for increasing SOB and difficulty breathing Work ups done in the ER, including labs, CXR and EKG, all came out normal He was diagnosed with COPD/asthma exacerbation and sent home with Rx of oral prednisone for a few days, Rx for cough and an Albuterol inhaler Patient states that his symptoms gradually resolved with his Rx and that he currently feels okay Notes that he still has recurrent runny nose and some mild cough/congestion at times but his cough is mostly non-productive and is wondering if he should continue taking his Loratadine everyday He denies any fever or sore throat; denies any headaches or dizziness Denies any chest pains, no SOB lately No nausea/vomiting, no abdominal pain No change in bowel habits noted PFSH Medical History Asymptomatic microscopic hematuria Bicuspid aortic valve BiPAP (biphasic positive airway pressure) dependence Degenerative joint disease of sacroiliac joint Erectile dysfunction Genital herpes in men Left-sided low back pain with left-sided sciatica Lumbar spondylosis Normal colonoscopy (~2010) Obesity (BMI 30-39.9) Obstructive sleep apnea BRANDT on CPAP Patent foramen ovale Pure hypercholesterolemia Seborrheic keratosis Thoracic aortic aneurysm without rupture Vitamin D deficiency Surgical History H/O Spinal surgery History of parathyroidectomy History of tonsillectomy History of uvulectomy Family History Father Dementia HTN (hypertension) Mother Dementia HTN (hypertension) Diabetes Other Mental health problem Substance abuse Social History Housing: House Alcohol intake: current Alcohol intake frequency: holidays/special occasions only Alcohol type: beer Patient Tobacco Use Status: Former Tobacco user e-Cigarette/Vaping Use: Never Used Second Hand Smoke Exposure: Yes service: No Current occupational status: employed 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 1. Little interest or pleasure in doing things: not at all 2. Feeling down, depressed, or hopeless: not at all 3. Trouble falling or staying asleep, or sleeping too much: not at all 4. Feeling tired or having little energy: not at all 5. Poor appetite or overeating: not at all 6. Feeling bad about yourself - or that you are a failure or have let yourself or your family down: not at all 7. Trouble concentrating on things, such as reading the newspaper or watching television: not at all 8. Moving or speaking so slowly that other people could have noticed. Or the opposite - being so fidgety or restless that you have been moving around a lot more than usual: not at all 9. Thoughts that you would be better off or of hurting yourself in some way: not at all Total score: 0 Depression Screening Interpretation: Negative 67301 - PHQ-9 Billing: Yes Source: Developed by Drs. Paulo Cohen, Gertrudis Rivas, Huan Dominguez and colleagues, with an educational bell from [employer]. Thrive Questionnaire Date Thrive assessed: 12/27/22 I am a: Patient What is your living situation today?: I have a steady place to live Within the past 12 months, did the food you bought not last and you didn't have the money to get more?: Never true Within the past 12 months, did you worry whether your food would run out before you got money to buy more?: Never true Do you have trouble paying for medicines?: No Do you have trouble getting transportation to medical appointments?: No Do you have trouble paying your heating and electricity bill?: No Do you have trouble taking care of your child, family member or friend?: No Do you have trouble with day-to-day activities such as bathing, preparing meals, shopping, managing finances, etc.?: No Are you currently unemployed and looking for a job?: No Are you interested in more education?: No Please select the resources that you would like help with: None Currently or been in a relationship where the following occur: no concerns reported AUDIT C Alcohol Use Questionnaire (AUDIT-C) 1. How often do you have a drink containing alcohol?: Monthly or less 2. How many drinks containing alcohol do you have on a typical day when you are drinking?: 1 or 2 3. How often do you have six or more drinks on one occasion?: Never Total Score: 1 Score Reviewed/Action Taken: Yes MADDISON-7 AMB Questionnaire MADDISON-7 Date MADDISON - 7 assessed: 12/27/22 Feeling nervous, anxious, or on edge: 0 = Not at all Not being able to stop or control worryin = Not at all Worrying too much about different things: 0 = Not at all Trouble relaxin = Not at all Being so restless that it is hard to sit still: 0 = Not at all Becoming easily annoyed or irritable: 0 = Not at all Feeling afraid as if something awful might happen: 0 = Not at all Total MADDISON-7 score (0-4 normal; 5-9 mild; 10-14 moderate; 15-21 severe): 0 Source: Developed by Drs. Paulo Cohen, Gertrudis Rivas, Huan Dominguez and colleagues, with an educational bell from [employer]. Review of Systems Const Denies chills, Denies fatigue, Denies fever(s) and Denies headache(s) ENT Denies dysphagia, Denies dizziness, Denies otalgia, Denies headache(s), Denies neck pain, Denies odynophagia and Denies sore throat Card Denies chest pain, Denies palpitations and Denies dyspnea Resp Denies chest congestion, Denies cough and Denies dyspnea GI Denies abdominal pain, Denies hematochezia, Reports constipation (better with Rx), Denies dysphagia, Denies heartburn, Denies diarrhea, Denies nausea, Denies odynophagia and Denies vomiting Reports difficulty with ejaculations (premature), Reports erectile dysfunction, Denies dysuria, Denies nocturia and Denies urinary frequency Musc Reports back pain (on and off, over the right lower back/right sciatic nerve area ) and Denies neck pain Neuro Denies dizziness and Denies headache(s) Endo Denies fatigue and Denies palpitations Physical exam (Primary Care) Vital Signs: Last Vital Signs Pulse 78 12/27/22 09:19 BP 130/82 12/27/22 09:19 Pulse Ox 96 12/27/22 09:19 Oxygen Delivery Method Room Air 12/27/22 09:19 BMI result Body Mass Index 35.0 Tobacco/Smoking Status: Tobacco use Status Tobacco use date assessed 12/27/22 12/27/22 09:28 Patient Tobacco Use Status Former Tobacco user 12/27/22 09:28 e-Cigarette/Vaping Use Never Used 12/27/22 09:28 PHQ-9: PHQ-9 Score PHQ-9: Total score 0 12/27/22 10:16 Depression Screening Interpretation: Negative Thrive Assessment: Date of Thrive Assessment Date Thrive assessed 12/27/22 12/27/22 09:28 Currently or been in a relationship where the following occur: no concerns reported Const General: no acute distress and alert HENMT Ears: TM's normal bilaterally and EAC's normal Throat: Yes posterior oropharynx normal and Yes tonsils normal Neck Neck: Yes no lymphadenopathy and Yes supple Resp Auscultation: clear to auscultation bilaterally, no rales and no wheezes Cardio Rate: regular rate Rhythm: regular rhythm Heart sounds: Murmur heart sound present systolic early and III/ GI Palpation (GI): Soft to palpation and nontender Auscultation: normal bowel sounds Back/Spine/Pelvis Thoracic/Lumbar Spine: straight leg raise negative bilaterally, paraspinal muscle tenderness on the right in the lower lumbar and lumbar spinal tenderness Extrem General: Yes no clubbing, cyanosis or edema Assessment and Plan Assessment & Plan (1) Acute dyspnea: Code(s): R06.00 - Dyspnea, unspecified Plan: Currently resolved - was likely due to COPD/asthma exacerbation last month prompting him to go to the ER Relates that his symptoms resolved with symptomatic Tx and with oral Prednisone x 5 days Continue Albuterol HFA 2 inhalations Q 6 hours PRN for now Will start him as well on Flovent HFA 110 mcg 1 inhalation BID - advised that this has to be used everyday for it to be effective He is instructed to continue taking his Loratadine 10 mg QD as well Will send him for PFTs for further evaluation - if PFT show (+) chronic lung disease, will consider referring him to pulmonary for further management Plan Follow up as scheduled in February 2023 Orders: Orders PFT pulmonary function test Today J44.9 - Chronic obstructive pulmonary disease, unspecified Medications: New Flovent HFA 110 mcg/actuation (fluticasone propionate) 1 puff inhalation BID 12 grams 3RF NS Coding Level of Care Code Est Pt Level 3 (13315) Diagnoses Acute dyspnea R06.00
== END 2022-12-27 09:55 | disposition home or self-care (01) ==
PROVIDERS: PCP Internal Medicine; Visit Provider Internal Medicine
DX: R06.00 Dyspnea, unspecified (principal)
CPT/HCPCS: 99213

== ENCOUNTER 2023-01-15 09:11 | Outpatient (REF) | payer BC, SELFPAY ==
--- NOTE | 2023-01-15 10:22 | PFT_ITS ---
INDICATION: COPD. SPIROMETRY: FEV1 to FVC of 80% with an FEV1 of 3.68 L, which is 99% predicted and FVC of 4.6 L, which is 96% predicted. No significant response to bronchodilators noted. Maximum voluntary ventilation 65% predicted. LUNG VOLUMES: Total lung capacity 98% predicted with an expiratory reserve volume of 32% predicted. DIFFUSION CAPACITY: DLCO of 94% predicted. Flow volume loops are perfectly normal. INTERPRETATION: No obstructive nor restrictive ventilatory defects identified. No significant response to bronchodilators noted. There is a mild decrease in the maximum voluntary ventilation secondary to likely deconditioning. Lung volumes are normal except for decrease in the expiratory reserve volume secondary to an elevated BMI. Diffusion capacity is within normal limits. MD PANDA Fernandez/MODL / [id number]
== END 2023-01-15 09:12 | disposition home or self-care (01) ==
LOC: HO.RESP 09:11
PROVIDERS: PCP Internal Medicine; Visit Provider Internal Medicine
DX: J44.9 Chronic obstructive pulmonary disease, unspecified (principal)
CPT/HCPCS: 94060; 94727; 94729

== ENCOUNTER → 2023-01-15 10:22 | Outpatient (BNV) | payer BC, SELFPAY | PROVIDERS: PCP Internal Medicine; Visit Provider Hospitalist | DX: J44.9 Chronic obstructive pulmonary disease, unspecified (principal) | CPT/HCPCS: 94060; 94727; 94729 ==

== ENCOUNTER 2023-01-27 16:31 | Outpatient (REF) | payer BC, SELFPAY ==
--- NOTE | ~2023-01-27 | MR_ITS ---
EXAMINATION: MR LUMBAR SPINE WITHOUT AND WITH CONTRAST CLINICAL INFORMATION: Radiculopathy. Left leg pain. COMPARISON: MRI dated 01/18/2021. X-ray dated 11/26/2022. TECHNIQUE: Multiplanar, multisequence imaging was obtained. Intravenous contrast: Gadavist 10 mL. FINDINGS: VERTEBRAL BODIES AND PARASPINAL STRUCTURES: The marrow signal remains diffusely heterogeneous with regions of fatty change, otherwise stable. No compression fractures are visible. There is a stable mild anterolisthesis at the L4-L5 level. No significant disc space narrowing evident. There are chronic postlaminectomy changes on the left side at the L4-L5 level. The paraspinal soft tissues are otherwise unremarkable. CONUS MEDULLARIS AND CAUDA EQUINE: The distal cord, conus tip, and cauda equina nerve roots appear normal. No pathologic intradural enhancement identified. SPINAL LEVELS: L1-L2: Mild diffuse disc bulge and endplate spurring lateralized more so to the left side without central canal stenosis. Mild left foraminal narrowing. L2-L3: Mild disc bulge lateralized to the left side continues to mildly impress upon the extraforaminal left L2 nerve root. No central canal stenosis or focal disc protrusion. L3-L4: Generalized disc bulge present with mild facet arthropathy. Bulging disc contacts the exiting L3 nerve roots bilaterally without compression deformity. Stable mild dorsal epidural fat prominence. No central canal stenosis. Mild foraminal narrowing, more so on the right side. L4-L5: Chronic postoperative changes and anterolisthesis with a broad-based disc bulge and severe facet arthropathy. [id number] right foraminal narrowing. Focal left foraminal disc protrusion is new with mild compression of the exiting left L4 nerve root. Additional new 5 x 11 mm synovial cyst protruding from the anteromedial right facet joint into the subarticular zone with mild mass effect upon the right L5 nerve root. Mild central canal stenosis. Mild amount of soft tissue enhancement in the epidural space which presumably represents scar and fibrosis. L5-S1: No disc pathology. No central canal stenosis or foraminal narrowing. MR/MR lumbar spine wo/w con IMPRESSION: 1. New focal left foraminal disc protrusion at L4-L5 with mild compression of the exiting left L4 nerve root. Additional new 5 x 11 mm synovial cyst protruding from the right facet joint into the right subarticular zone with mild mass effect upon the right L5 nerve root. Mild central canal stenosis, mild anterolisthesis, and chronic postlaminectomy changes. 2. Bulging disc at L3-L4 contacting the exiting L3 nerve roots bilaterally without compression deformity. 3. Left lateral disc bulge at L2-L3 with mild impression upon the extraforaminal left L2 nerve root.
[2023-01-27] MEDS: gadobutroL 10 ML VIAL IVPUSH (17:17)
== END 2023-01-27 16:32 | disposition home or self-care (01) ==
LOC: HO.MRI 16:31
PROVIDERS: PCP Internal Medicine; Visit Provider Neurological Surgery
DX: M54.16 Radiculopathy, lumbar region (principal)
CPT/HCPCS: 72158; A9585

== ENCOUNTER 2023-02-21 06:17 | Outpatient (REF) | payer BC, SELFPAY ==
[2023-02-21 06:30] LABS: MANUAL DIFF FLAG NO
[2023-02-21 07:26] LABS: Basophils Absolute Auto 0.1 X10*3/uL (0.0-0.2); Basophils Percent Auto 0.9 % (0-2); Eosinophils Absolute Auto 0.4 X10*3/uL (0.0-0.4); Eosinophils Percent Auto 4.1 % (0-4); Hemoglobin 14.7 g/dl (14.0-18.0); Imm Gran Abs Auto 0.03 X10*3/uL (0.00-0.03); Imm Gran Pct Auto 0.3 % (0.0-0.4); Lymphocytes Absolute Auto 3.4 X10*3/uL (1.2-4.9); Lymphocytes Percent Auto 33.7 % (20-40); Mean Corpuscular HGB Conc 35.9 g/dl (31.0-36.0); Mean Corpuscular Hemoglobin 31.5 pg (27.0-33.0); Mean Corpuscular Volume 87.8 fL (80.0-98.0); Mean Platelet Volume 9.5 fL (9.4-12.4); Monocytes Absolute Auto 0.9 X10*3/uL (0.1-1.2); Monocytes Percent Auto 8.8 % (2-11); Neutrophils Absolute Auto 5.3 x10*3/uL (2.0-8.3); Neutrophils Percent Auto 52.2 % (45-73); Platelet Count 333 X10*3/uL (160-400); Red Blood Count 4.67 X10*6/uL (4.60-5.80); Red Cell Distribution Width 13.6 % (11.0-16.0); White Blood Count 10.1 X10*3/uL (4.8-10.8)
[2023-02-21 07:55] LABS: Alanine Aminotransferase 27 U/L (0-40); Albumin Level 4.1 g/dL (3.5-5.0); Alkaline Phosphatase 54 U/L (39-117); Anion Gap 12 (12-20); Aspartate Amino Transferase 18 U/L (5-37); Bilirubin Total 0.9 mg/dL (0.0-1.0); Blood Urea Nitrogen 17 mg/dL (9-16); Calcium 9.5 mg/dL (8.4-10.2); Carbon Dioxide 24 mmol/L (22-29); Chloride 108 mmol/L (96-108); Cholesterol 143 mg/dL (<200); Estimated Glomerular Filt Rate > 60; Glucose Fasting 99 mg/dL (60-99); HDL Cholesterol 33 mg/dL (>40); LDL Cholesterol Calculated 83 mg/dL (<100); Potassium 4.1 mmol/L (3.3-5.1); Sodium 140 mmol/L (135-145); Total Protein 6.7 g/dL (6.5-8.0); Triglycerides 135 mg/dL (<150)
[2023-02-21 08:23] LABS: TSH reflex Free T4 1.17 uIU/mL (0.32-4.0)
[2023-02-21 09:44] LABS: Appearance Urine Clear; Color Urine Yellow; Glucose Urine UA Negative (Negative); Leukocyte Esterase Urine Negative (Negative); Nitrite Urine Negative (Negative); PH 5.5 (5.0-9.0); Specific Gravity - Urine 1.025 (1.005-1.025); UMIC TRIGGER UACC YES; Urine Blood Trace (Negative); Urine Ketones Negative (Negative); Urine Protein Negative (Neg-Trace)
[2023-02-21 09:56] LABS: Bacteria Urine None Seen (None Seen); Hyaline Casts Urine 0-2 /LPF (0-2); Squamous Epithelial Cell Urine 0-2 /HPF (0-2); WBC Urine 0-5 /HPF (0-5)
== END 2023-02-21 06:18 | disposition home or self-care (01) ==
LOC: HO.LAB 06:17
PROVIDERS: PCP Internal Medicine; Visit Provider Internal Medicine
DX: E78.00 Pure hypercholesterolemia, unspecified (principal); I10 Essential (primary) hypertension; E55.9 Vitamin D deficiency, unspecified; R30.0 Dysuria
CPT/HCPCS: 36415; 80053; 80061; 81001; 82306; 84443; 85025

== ENCOUNTER 2023-02-24 10:25 | Outpatient (AMB) | payer BC, SELFPAY ==
[2023-02-24 10:31] VITALS: BP 136/82; PULSE 63; O2SAT 97; BMI 34.9
--- NOTE | 2023-02-24 10:31 | A.OFFPC_ITS ---
Vital Signs 02/24/23 10:31 Height 5 ft 11 in Weight 250 lb BMI 34.9 BP 136/82 Blood Pressure Location Lt brachial Position Sitting Pulse 63 Pulse Source Pulse Oximeter Pulse Oximetry (%) 97 Oxygen Delivery Method Room Air Intake Visit Reasons: 4 Month F/Up Instructional Design Specialist Required: No Accompanied by: Self / Same As Patient Allergies No Known Allergies Allergy (Verified 02/24/23 11:07) Medication List - Last Reconciled 02/24/23 by Chele Martinez MD albuterol sulfate 90 mcg/actuation 1 inh inhalation Q6H PRN aspirin 81 mg PO DAILY atorvastatin 10 mg PO DAILY 90 days finasteride 5 mg PO DAILY 90 days Flovent HFA 110 mcg/actuation (fluticasone propionate) 1 puff inhalation BID NS loratadine (Claritin RediTabs) 10 mg PO DAILY sennosides (senna) 8.6 mg PO BEDTIME PRN 90 days sildenafil 100 mg PO DAILY PRN 30 days tadalafil 5 mg PO DAILY 90 days valacyclovir 500 mg PO Q12H 5 days Tobacco use date assessed: 02/24/23 Dental Screening Dental Screen Date: 02/24/23 Did you have a dental visit in the last 12 months?: Yes Did you have a dental problem in the last 6 months where you did not have access to dental care?: No Was dental information given to patient?: Patient has dentist HPI 4 Month F/Up HPI Details Patient comes in today for his follow up visit States that he feels okay but continues to experience increased pain over his lower back with recurrent radiation of pain down his legs, especially on the left side Would like to know how his MRI done in November 2022 came out He was seen by Dr. Pratt in November 2022 for his back issues and was sent for MRI; has not seen Dr. Pratt for follow up yet since He denies any headaches or dizziness Denies any chest pains, no increased SOB No nausea/vomiting, no abdominal pain No change in bowel habits noted Would like to get his Valtrex Rx refilled Had his follow up labs done a few days ago - to discuss his results States that he also had his PFTs done at [facility] last month Would also like to get his flu shot today PFSH Medical History Seborrheic keratosis Erectile dysfunction Degenerative joint disease of sacroiliac joint Lumbar spondylosis Left-sided low back pain with left-sided sciatica BiPAP (biphasic positive airway pressure) dependence Normal colonoscopy (~2010) Vitamin D deficiency Genital herpes in men Obesity (BMI 30-39.9) Obstructive sleep apnea Pure hypercholesterolemia Asymptomatic microscopic hematuria BRANDT on CPAP Patent foramen ovale Thoracic aortic aneurysm without rupture Bicuspid aortic valve Surgical History H/O Spinal surgery History of uvulectomy History of parathyroidectomy History of tonsillectomy Family History Father Dementia HTN (hypertension) Mother Dementia HTN (hypertension) Diabetes Other Mental health problem Substance abuse Social History Housing: House Alcohol intake: current Alcohol intake frequency: holidays/special occasions only Alcohol type: beer Patient Tobacco Use Status: Former Tobacco user e-Cigarette/Vaping Use: Never Used Second Hand Smoke Exposure: Yes service: No Current occupational status: employed 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 1. Little interest or pleasure in doing things: not at all 2. Feeling down, depressed, or hopeless: not at all 3. Trouble falling or staying asleep, or sleeping too much: not at all 4. Feeling tired or having little energy: not at all 5. Poor appetite or overeating: not at all 6. Feeling bad about yourself - or that you are a failure or have let yourself or your family down: not at all 7. Trouble concentrating on things, such as reading the newspaper or watching television: not at all 8. Moving or speaking so slowly that other people could have noticed. Or the op posite - being so fidgety or restless that you have been moving around a lot more than usual: not at all 9. Thoughts that you would be better off or of hurting yourself in some way: not at all Total score: 0 Depression Screening Interpretation: Negative Depression Screening Done: Yes 74152 - PHQ-9 Billing: Yes Source: Developed by Drs. Paulo Cohen, Gertrudis Rivas, Huan Dominguez and colleagues, with an educational bell from [employer]. Thrive Questionnaire Date Thrive assessed: 02/24/23 I am a: Patient What is your living situation today?: I have a steady place to live Within the past 12 months, did the food you bought not last and you didn't have the money to get more?: Never true Within the past 12 months, did you worry whether your food would run out before you got money to buy more?: Never true Do you have trouble paying for medicines?: No Do you have trouble getting transportation to medical appointments?: No Do you have trouble paying your heating and electricity bill?: No Do you have trouble taking care of your child, family member or friend?: No Do you have trouble with day-to-day activities such as bathing, preparing meals, shopping, managing finances, etc.?: No Are you currently unemployed and looking for a job?: No Are you interested in more education?: No Please select the resources that you would like help with: None Currently or been in a relationship where the following occur: no concerns reported AUDIT C Alcohol Use Questionnaire (AUDIT-C) 1. How often do you have a drink containing alcohol?: Monthly or less 2. How many drinks containing alcohol do you have on a typical day when you are drinking?: 1 or 2 3. How often do you have six or more drinks on one occasion?: Never Total Score: 1 Score Reviewed/Action Taken: Yes MADDISON-7 AMB Questionnaire MADDISON-7 Date MADDISON - 7 assessed: 02/24/23 Feeling nervous, anxious, or on edge: 0 = Not at all Not being able to stop or control worryin = Not at all Worrying too much about different things: 0 = Not at all Trouble relaxin = Not at all Being so restless that it is hard to sit still: 0 = Not at all Becoming easily annoyed or irritable: 0 = Not at all Feeling afraid as if something awful might happen: 0 = Not at all Total MADDISON-7 score (0-4 normal; 5-9 mild; 10-14 moderate; 15-21 severe): 0 Source: Developed by Drs. Paulo Cohen, Gertrudis Rivas, Huan Dominguez and colleagues, with an educational bell from [employer]. Review of Systems Const Denies chills, Denies fatigue, Denies fever(s) and Denies headache(s) ENT Denies dysphagia, Denies dizziness, Denies otalgia, Denies headache(s), Denies neck pain, Denies odynophagia and Denies sore throat Card Denies chest pain, Denies palpitations and Denies dyspnea Resp Denies chest congestion, Denies cough and Denies dyspnea GI Denies abdominal pain, Denies hematochezia, Reports constipation (better with Rx), Denies dysphagia, Denies heartburn, Denies diarrhea, Denies nausea, Denies odynophagia and Denies vomiting Reports difficulty with ejaculations (premature), Reports erectile dysfunction, Denies dysuria, Denies nocturia and Denies urinary frequency Musc Reports back pain (on and off, over the right lower back/right sciatic nerve area ) and Denies neck pain Skin/Breast Denies rash Neuro Denies dizziness and Denies headache(s) Endo Denies fatigue and Denies palpitations Physical exam (Primary Care) Vital Signs: Last Vital Signs Pulse 63 02/24/23 10:31 BP 136/82 02/24/23 10:31 Pulse Ox 97 02/24/23 10:31 Oxygen Delivery Method Room Air 02/24/23 10:31 BMI result Body Mass Index 34.9 Tobacco/Smoking Status: Tobacco use Status Tobacco use date assessed 02/24/23 02/24/23 10:36 Patient Tobacco Use Status Former Tobacco user 02/24/23 10:36 e-Cigarette/Vaping Use Never Used 02/24/23 10:36 PHQ-9: PHQ-9 Score PHQ-9: Total score 0 02/24/23 10:47 Depression Screening Interpretation: Negative Thrive Assessment: Date of Thrive Assessment Date Thrive assessed 02/24/23 02/24/23 10:36 Currently or been in a relationship where the following occur: no concerns reported Const General: no acute distress and alert HENMT Ears: TM's normal bilaterally and EAC's normal Throat: Yes posterior oropharynx normal and Yes tonsils normal Neck Neck: Yes no lymphadenopathy and Yes supple Resp Auscultation: clear to auscultation bilaterally, no rales and no wheezes Cardio Rate: regular rate Rhythm: regular rhythm Heart sounds: Murmur heart sound present systolic early and III/ GI Palpation (GI): Soft to palpation and nontender Auscultation: normal bowel sounds Back/Spine/Pelvis Thoracic/Lumbar Spine: straight leg raise negative bilaterally, paraspinal muscle tenderness on the right in the lower lumbar and lumbar spinal tenderness Extrem General: Yes no clubbing, cyanosis or edema Office Procedures Flu Questionnaire Does the patient have a severe egg allergy?: No Does the patient have severe life threatening allergies?: No Does the patient have a fever or illness today?: No Has the patient ever had Guillain-Mora Syndrome?: No Has the patient ever had any past reaction to a flu shot?: No Immunizations flu vacc [id number] 6mos up(PF) 60 mcg(15 mcgx4)/0.5 mL IM syringe Performing Provider: Chele Martinez MD Performing Location: [facility] Administered by: Madeline Mcfarlane on 02/24/23 10:47 Dose Route Admin Location Dispensed Lot Number Expiration Date NDC Turbine Engineer 0.5 mL IM Left Deltoid 0.5 mL [id number] 11/02/23 [id number] Hoods VIS Given Date VIS Provided VIS Publication Date 02/24/23 Single Vaccine 20 Eligibility Eligibility Date Funding Source Not [facility] Eligible 02/24/23 Private Results Reviewed Results Reviewed: Laboratory Tests 10/17/22 02/21/23 02/21/23 07:43 06:28 06:28 WBC 12.3 H 10.1 Hgb 15.1 14.7 Hct 44.5 41.0 L Plt Count 344 333 Sodium 140 Potassium 4.1 Creatinine 0.88 Estimated GFR > 60 Fasting Glucose 99 Calcium 9.5 AST 18 ALT 27 Triglycerides 135 Cholesterol 143 LDL Cholesterol, Calc 83 HDL Cholesterol 33 L 25-OH Vitamin D Total 59.0 TSH 1.17 Ur Specific [place] Urine Protein Urine Glucose (UA) Urine Blood 02/21/23 08:36 WBC Hgb Hct Plt Count Sodium Potassium Creatinine Estimated GFR Fasting Glucose Calcium AST ALT Triglycerides Cholesterol LDL Cholesterol, Calc HDL Cholesterol 25-OH Vitamin D Total TSH Ur Specific [place] 1.025 Urine Protein Negative Urine Glucose (UA) Negative Urine Blood Trace H Assessment and Plan Assessment & Plan (1) Pure hypercholesterolemia: Code(s): E78.00 - Pure hypercholesterolemia, unspecified Plan: Results of his labs done a few days ago reviewed and discussed with patient Reinforced low cholesterol diet Continue Atorvastatin 10 mg QD Will recheck his labs and fasting lipids in 4 months for follow up (2) Lumbar back pain with radiculopathy affecting left lower extremity: Comment: MRI of the lumbar spine done back on 01/18/2021 revealed a large 1.2 cm synovial cyst on the left L4-L5 filling the lateral recess and proximal foramen with nerve root compression Code(s): M54.16 - Radiculopathy, lumbar region Plan: S/P lumbar minimally invasive surgery (MIS) laminotomy by Dr. Spence on 05/07/2021 - underwent left L4-L5 MIS decompression and resection of synovial cyst Reinforced activity and weight-lifting restrictions Repeat lumbar spine x-rays done back in June 2022 revealed mild spondylosis of the lumbar spine, with grade 1 anterolisthesis of L4 on L5 He was referred to and seen by Dr. Pratt back in November 2022 for his recent increasing right-sided sciatica and increased left lower back pain Was sent for a lumbar spine MRI for further evaluation and advised to follow up after his MRI is done Patient had his lumbar spine MRI done a few weeks ago on 01/27/23, which revealed (+) new focal left foraminal disc protrusion at L4-L5 with mild compression of the exiting left L4 nerve root. Additional new 5 x 11 mm synovial cyst protruding from the right facet joint into the right subarticular zone with mild mass effect upon the right L5 nerve root He is instructed to call up Dr. Pratt' office to schedule a follow up appt JAN now that he has his MRI done (3) Thoracic aortic aneurysm without rupture: Code(s): I71.2 - Thoracic aortic aneurysm, without rupture Qualifiers: Thoracic aorta location: unspecified Qualified Code(s): I71.20 - Thoracic aortic aneurysm, without rupture, unspecified Plan: Follow up echocardiogram done on 02/26/2022 revealed a mildly dilated ascending thoracic aorta at 4.3 cm, which is mostly unchanged from a year ago. There is also a moderate aortic stenosis with mean gradient of 27 mm Hg and dimensionless index of 0.31 Previous echo on 12/14/21 revealed (+) ascending aortic dilatation at 4.3 cm - this was previously measured 4.1 cm on echo done on 04/17/2020 He follows up with cardiology regularly for this and will need this to be monitored continuously/closely (4) Bicuspid aortic valve: Code(s): Q23.1 - Congenital insufficiency of aortic valve Plan: Echocardiogram revealed bicuspid aortic valve with moderate stenosis and trace regurgitation on most recent US done on 02/26/2022 and 04/17/2021 Follow up with cardiology as scheduled for continued monitoring (5) Patent foramen ovale: Code(s): Q21.1 - Atrial septal defect Plan: Seen incidentally on prior SOWMYA Continue Aspirin 81 mg daily (6) Obstructive sleep apnea: Comment: BIPAP Code(s): G47.33 - Obstructive sleep apnea (adult) (pediatric) Plan: Continue using his BiPAP device every night when sleeping Follow up with Sleep Medicine as scheduled (7) Vitamin D deficiency: Code(s): E55.9 - Vitamin D deficiency, unspecified Plan: Corrected - will continue to monitor his Vitamin D level regularly (8) Constipation: Code(s): K59.00 - Constipation, unspecified Qualifiers: Constipation type: unspecified constipation type Qualified Code(s): K59.00 - Constipation, unspecified Plan: Is most likely the reason for the on and off blood in his stool lately; he had internal hemorrhoids and diverticulosis on his recent colonoscopy done a couple of years ago Reinforced increased oral fluids and dietary fiber Continue Senna 8.6 mg QD PRN (9) Genital herpes in men: Code(s): A60.02 - Herpesviral infection of other male genital organs Plan: Continue Valacyclovir 500 mg every 12 hours x 5 days when needed for acute flare ups - Rx refilled (10) Erectile dysfunction: Code(s): N52.9 - Male erectile dysfunction, unspecified Qualifiers: Erectile dysfunction type: unspecified Qualified Code(s): N52.9 - Male erectile dysfunction, unspecified Plan: Continue Sildenafil 50 mg QD PRN (11) Obesity (BMI 30-39.9): Code(s): E66.9 - Obesity, unspecified Plan: Reinforced diet/exercise as tolerated/lose weight Plan Per request, flu vaccine given today Follow up in 4 months Orders: Orders Influenza [id number] Immunization Today Z23 - Encounter for immunization Complete Blood Count Auto Diff 4 Months I10 - Essential (primary) hypertension Comprehensive [place]. Panel Fast 4 Months E78.00 - Pure hypercholesterolemia, unspecified Vitamin D 25-OH Total 4 Months E55.9 - Vitamin D deficiency, unspecified Lipid Panel 4 Months E78.00 - Pure hypercholesterolemia, unspecified UA CC w/rflx Micro + Cult 4 Months R30.0 - Dysuria Medications: Refilled valacyclovir 500 mg PO Q12H 5 days 10 tabs 3RF for recurrence or outbreak of genital herpes A60.02 - Herpesviral infection of other male genital organs Coding Level of Care Code Est Pt Level 4 (82191) Diagnoses Pure hypercholesterolemia E78.00 Lumbar back pain with radiculopathy affecting left lower extremity M54.16 Thoracic aortic aneurysm without rupture, unspecified part I71.20 Thoracic aorta location: unspecified Bicuspid aortic valve Q23.1 Patent foramen ovale Q21.1 Obstructive sleep apnea G47.33 Vitamin D deficiency E55.9 Constipation, unspecified constipation type K59.00 Constipation type: unspecified constipation type Genital herpes in men A60.02 Erectile dysfunction, unspecified erectile dysfunction type N52.9 Erectile dysfunction type: unspecified Obesity (BMI 30-39.9) E66.9
== END 2023-02-24 11:19 | disposition home or self-care (01) ==
PROVIDERS: PCP Internal Medicine; Visit Provider Internal Medicine
DX: E78.00 Pure hypercholesterolemia, unspecified (principal); M54.16 Radiculopathy, lumbar region; I71.20 Thoracic aortic aneurysm, without rupture, unspecified; Q23.1 Congenital insufficiency of aortic valve; Z68.34 Body mass index [BMI] 34.0-34.9, adult; Q21.10 Atrial septal defect, unspecified; G47.33 Obstructive sleep apnea (adult) (pediatric); Z23 Encounter for immunization; E55.9 Vitamin D deficiency, unspecified; A60.02 Herpesviral infection of other male genital organs; N52.9 Male erectile dysfunction, unspecified; E66.9 Obesity, unspecified
CPT/HCPCS: 90471; 90686; 99214

== ENCOUNTER 2023-03-07 14:16 | Outpatient (AMB) | payer BC, SELFPAY ==
--- NOTE | 2023-03-07 14:37 | A.SPINEOV_ITS ---
Intake Intake Visit Reasons: MRI follow up Intake Note: Mr. Garcia is here today to discuss the results of his MRI. Motorcycle Service Technician Required: No Allergies No Known Allergies Allergy (Verified 02/24/23 11:07) Assessment & Plan Assessment & Plan (1) Spondylolisthesis, lumbar region: Code(s): M43.16 - Spondylolisthesis, lumbar region Plan Mr Garcia is here in follow-up to review his MRI done at [facility]. This is a patient previously seen by Dr. Pratt. The patient had a left L4-[address] Spence in 2021 for synovial cyst. That procedure went well but the patient has been left with a tingling down his left leg which comes and goes. He does not have any pain per se. It is not affecting his quality of life it is just and irritating symptom. We did an MRI to get an updated status on his lumbar spine as well as flexion-extension x-rays. He does have significa nt facet hypertrophy at L4-5 with a right-sided synovial cyst and he does show evidence of spondylolisthesis with standing. At this time however, he has no neurological deficits and he does not have any back pain or leg pain to report. The tingling may be an after effect from the previous compression with the synovial cyst. It is not bothering him in the sense that it is affecting his quality of life. He is very clear about the fact that this is not painful in the way that it was previously painful before the synovial cyst. I told him that if he develops pain shooting down his leg or significant back pain we could consider L4-5 fusion and we did briefly discuss that. I will see him back in 3 months to re-evaluate. Total amount of time spent in this visit was 20 minutes in discussion of symptoms, lumbar imaging results and subsequent plan of care Sean Pratt MD,PhD [facility] Coding Level of Care Code Est Pt Level 3 (60155) Diagnoses Spondylolisthesis, lumbar region M43.16
== END 2023-03-07 14:56 | disposition home or self-care (01) ==
PROVIDERS: PCP Internal Medicine; Visit Provider Physician Assistant
DX: M43.16 Spondylolisthesis, lumbar region (principal)
CPT/HCPCS: 99213

== ENCOUNTER → 2023-03-07 14:16 | Outpatient (BNVA) | payer BC, SELFPAY | PROVIDERS: PCP Internal Medicine; Visit Provider Physician Assistant ==

== ENCOUNTER → 2023-04-04 07:37 | Outpatient (REF) | payer BC, SELFPAY ==
--- NOTE | 2023-04-04 07:40 | CA_ITS ---
Transthoracic Echocardiogram Patient (Last, First, Middle): Raheem Garcia P Gender: Male Date of : 1960 Age: 63 Procedure Date: 04/04/2023 Procedure Type: Transthoracic Echocardiogram Location: OP Height: 180.34 cm Weight: 120.2 kg BSA: 2.38 m2 Heart Rate: 58 bpm BP: 140 / 80 mmHg Telephone Service Representative: JEY Referring MD: Suleiman Turner MD Military Analyst: Gerry Callahan MD Symptoms: Q23.1 - Congenital insufficiency of aortic valve Study Quality: Adequate w contrast ECG Rhythm: Bradycardia Conclusions: - 1. Normal LV systolic function with LVEF of 65-70% with mild LVH with impaired relaxation filling pattern 2. Calcified aortic valve changes noted bicuspid aortic valve cannot be completely ruled out with moderate aortic stenosis 3. Mild to moderate ascending aortic enlargement at 4.4 cm 4. No gross pericardial effusion Findings Procedure Information Contrast agent, definity, is being given per protocol without apparent complications. The quality of the study was technically difficult. The study quality is limited by patients body habitus. Left Ventricle Normal left ventricular size and systolic function. There is mildly increased left ventricular wall thickness. The visually estimated ejection fraction is between 65-70%. Spectral Doppler is indicative of an impaired relaxation filling pattern. E/E prime ratio is between 8 and 15 consistent with indeterminate filling pressures. Right Ventricle Normal right ventricular cavity size and systolic function. Atria The left atrium is likely dilated. There is no evidence of interatrial shunt. The right atrium is normal in size. Aortic Valve There is moderate calcification of the aortic valve. There is moderate thickening of the aortic valve. There is moderate aortic valve stenosis. The mean gradient is 33 mmHg. The aortic valve area is 1.22 cm2. There is no aortic valve regurgitation. Mitral Valve Normal mitral valve structure and function. There is trace mitral valve regurgitation. There is no mitral valve stenosis. Pulmonic Valve The pulmonic valve is likely normal. Tricuspid Valve Normal tricuspid valve structure. Tricuspid regurgitation envelope is inadequate for calculation of right ventricular systolic pressure. Normal right atrial pressure. Great Vessels There is mild dilatation of the ascending aorta measuring 4.40 cm. Venous The inferior vena cava is normal in size and collapses greater than 50% with inspiration. Pericardium/Pleural There is no evidence of pericardial effusion. Prior Study Comparison No significant change compared to prior study dated: 02/26/2022. Measurements 2D Linear Measurements IVSd: 1.20 0.6-0.9/0.6-1.0 cm LVIDd: 5.27 3.9-5.3/4.2-5.9 cm LVIDd Index: 2.21 2.4-3.2/2.2-3.1 cm/m2 LVIDs: 3.18 2.0-3.6 cm LVPWd: 1.18 0.7-1.1 cm LA Diam: 4.20 2.7-3.8/3.0-4.0 cm LAIDs Index: 1.76 1.5-2.3 cm/m2 LV Mass: 360.54 67-162/88-224 g LV Mass Index: 151.49 43-95/49-115 g/m2 LVOT Diam: 2.50 3.0+(-)1.3 cm 2D Systolic Function EF 4C: 75.80 >55% EF 2C: 74.10 >55% EF BiP: 73.90 >55% Mitral Valve MV Pk E: 0.78 MV PK A: 0.86 MV Decel Time: 263.00 E/A: 0.90 E'Lateral: 7.72 E'Medial: 5.77 E/E' Med: 13.40 E/E' Lat: 10.10 PHT: 77.00 MVA PHT: 2.86 Decel [place]: 2.94 Aortic Valve AoV Pk Dariusz: 3.73 AoV Mn Dariusz: 2.73 AoV VTI: 0.93 AoV Pk Grad: 56.00 Aov Mn Grad: 33.00 PIERCE Cont.VTI: 1.22 LVOT LVOT Pk Dariusz: 1.00 LVOT Mn Dariusz: 0.71 LVOT VTI: 0.24 LVOT Pk Grad: 4.00 LVOT Mn Grad: 2.00 LVOT Diam: 2.50 LVOT Area: 4.91 Diastolic Function MV Pk E: 0.78 MV Pk A: 0.86 E/A: 0.90 E'Medial: 5.77 E/E' Med: 13.40 E' Laterial: 7.72 E/E' Lat: 10.10 Right Ventricle TAPSE (mm): 25.30 TVS' Dariusz: 12.50 Tricuspid Valve RA Press: 8.00 Great Vessels Aorta Sinus of Valsalva: 3.80 2.0-3.5 cm Ao Asc: 4.40 2.1-3.4 cm Ao Arch: 3.10 Ao Desc: 1.60 Pulmonary Veins Pulm Vein S/D 1.10 Pulmonary Valve PV Pk Dariusz: 1.27 Peak PV Grad: 6.00 Updated in Other Vendor System with Status of Final Gerry Callahan MD electronically signed on 04/05/2023 12:44:01 PM with status of Final
== END ==
LOC: HO.CARD 07:37
PROVIDERS: PCP Internal Medicine; Visit Provider Internal Medicine
DX: Q23.1 Congenital insufficiency of aortic valve (principal)
CPT/HCPCS: 93306; Q9957

== ENCOUNTER → 2023-04-04 07:40 | Outpatient (BNV) | payer BC, SELFPAY | PROVIDERS: PCP Internal Medicine; Visit Provider Internal Medicine Cardiovascular Disease | DX: I35.0 Nonrheumatic aortic (valve) stenosis (principal) | CPT/HCPCS: 93306 ==

== ENCOUNTER 2023-04-20 14:22 | Emergency (ER) | payer BC, SELFPAY ==
--- NOTE | ~2023-04-20 | XR_ITS ---
EXAMINATION: XR CHEST CLINICAL INFORMATION: SOB COMPARISON: None available. TECHNIQUE: Frontal view of the chest was obtained. FINDINGS: No significant abnormality is noted involving the heart, lungs, mediastinum, bony thorax or soft tissues. XR/XR chest 1V IMPRESSION: Unremarkable chest examination.
[2023-04-20 14:28] VITALS: BP 151/76; PULSE 84; RESP 20; TEMP 36.8; O2SAT 96; BMI 35.4
--- NOTE | 2023-04-20 14:33 | ECG_ITS ---
Test Reason : DYSPNEA Blood Pressure : / mmHG Vent. Rate : 078 BPM Atrial Rate : 078 BPM P-R Int : 152 ms QRS Dur : 118 ms QT Int : 356 ms P-R-T Axes : 048 -34 094 degrees QTc Int : 405 ms Normal sinus rhythm Left axis deviation Incomplete right bundle branch block Nonspecific T wave abnormality Abnormal ECG When compared with ECG of 11-NOV-2022 14:02, No significant change was found Referred By: Generic ED Physician Electronically Signed By:Gerardo Case
[2023-04-20 14:50] VITALS: BP 155/80; PULSE 76; RESP 17; O2SAT 96
[2023-04-20 15:44] LABS: Anion Gap 15 (12-20); Blood Urea Nitrogen 19 mg/dL (9-16); Carbon Dioxide 25 mmol/L (22-29); Chloride 106 mmol/L (96-108); Creatinine Clr Calc Pharmacy 100.6; Estimated Glomerular Filt Rate > 60; Glucose Random 95 mg/dL (60-115); Potassium 4.6 mmol/L (3.3-5.1); Sodium 141 mmol/L (135-145)
[2023-04-20 15:54] LABS: Basophils Absolute Auto 0.1 X10*3/uL (0.0-0.2); Basophils Percent Auto 0.4 % (0-2); Eosinophils Absolute Auto 0.3 X10*3/uL (0.0-0.4); Eosinophils Percent Auto 1.8 % (0-4); Hematocrit 46.8 % (42.0-52.0); Hemoglobin 15.6 g/dl (14.0-18.0); Imm Gran Abs Auto 0.04 X10*3/uL (0.00-0.03); Imm Gran Pct Auto 0.3 % (0.0-0.4); Lymphocytes Absolute Auto 3.3 X10*3/uL (1.2-4.9); Lymphocytes Percent Auto 22.8 % (20-40); Mean Corpuscular HGB Conc 33.3 g/dl (31.0-36.0); Mean Corpuscular Hemoglobin 27.9 pg (27.0-33.0); Mean Corpuscular Volume 83.7 fL (80.0-98.0); Monocytes Absolute Auto 1.3 X10*3/uL (0.1-1.2); Monocytes Percent Auto 9.2 % (2-11); Neutrophils Absolute Auto 9.3 x10*3/uL (2.0-8.3); Neutrophils Percent Auto 65.5 % (45-73); Platelet Count 339 X10*3/uL (160-400); Red Blood Count 5.59 X10*6/uL (4.60-5.80); Red Cell Distribution Width 12.9 % (11.0-16.0); White Blood Count 14.3 X10*3/uL (4.8-10.8)
[2023-04-20 16:02] LABS: Influenza A PCR NEGATIVE (Negative); Influenza B PCR NEGATIVE (Negative); Resp Syncy Virus RNA Qual PCR NEGATIVE (Negative); SARS COV2 PCR INHOUSE NEGATIVE (Negative)
--- NOTE | 2023-04-20 16:15 | ED_ITS ---
HPI - SOB/Dyspnea General Chief Complaint: Dyspnea Stated Complaint: Diff breathing Time Seen by Provider: 04/20/23 16:07 Source: patient, RN notes reviewed and old records reviewed Mode of arrival: ambulatory History of Present Illness HPI Narrative: 63-year-old male with a past medical history of BRANDT on CPAP, bicuspid aortic valve, vitamin-D deficiency, presenting to the ED complaining of SOB since last night s/p eating dinner with associated right-sided abdominal discomfort which is improved/resolved at present. Denies aspiration/choking on food. Also reports some chest pressure since ED arrival and wheezing x few days. Denies known fever, cough, pedal edema, recent travels, nausea/vomiting, dysuria/hematuria Related Data Home Medications Medication Instructions Recorded Confirmed aspirin 81 mg tablet,delayed 81 mg PO DAILY 04/26/20 02/24/23 release Previous Rx's Medication Instructions Recorded finasteride 5 mg tablet 5 mg PO DAILY 90 days #90 tabs 09/25/22 sildenafil 100 mg tablet 100 mg PO DAILY PRN sexual 09/25/22 activity 30 days #30 tabs tadalafil 5 mg tablet 5 mg PO DAILY sexual activity 90 09/25/22 days #90 tabs sennosides 8.6 mg capsule (senna) 8.6 mg PO BEDTIME PRN constipation 10/23/22 90 days #90 caps albuterol sulfate 90 mcg/actuation 1 inh inhalation Q6H PRN shortness 11/11/22 breath activated powder of breath or wheezing #1 ea inhaler,sensor Flovent HFA 110 mcg/actuation 1 puff inhalation BID #12 grams 12/27/22 aerosol inhaler (fluticasone propionate) loratadine 10 mg disintegrating 10 mg PO DAILY #90 tabs 01/08/23 tablet (Claritin RediTabs) atorvastatin 10 mg tablet 10 mg PO DAILY 90 days #90 tabs 02/11/23 valacyclovir 500 mg tablet 500 mg PO Q12H for recurrence or 02/24/23 outbreak of genital herpes 5 days #10 tabs albuterol sulfate 90 mcg/actuation 2 puff inhalation Q4-6H PRN 04/20/23 aerosol inhaler shortness of breath or wheezing #6.7 grams Allergies Allergy/AdvReac Type Severity Reaction Status Date / Time No Known Allergies Allergy Verified 04/20/23 14:28 Review of Systems 2 Review of Systems: Constitutional: No Fever, No Chills ENT/Mouth: No Ear Pain, No Nasal Congestion, No sore throat, No Rhinorrhea, No Swallowing Difficulty Cardiovascular: + Chest Pain, + SOB Respiratory: No Cough, No Sputum, + Wheezing Gastrointestinal: No Nausea, No Vomiting, No Diarrhea, No Constipation, + Abdominal pain (resolved) Genitourinary: No Dysuria, No Urinary Frequency, No Hematuria, No Urinary Incontinence/retention, No Flank Pain Musculoskeletal: No joint pain, No Myalgias, No Joint Swelling Skin: No Skin Lesions, No rash Neuro: No Weakness Yes all other systems are reviewed and are negative Constitutional: Constitutional: Reports as per [facility] Past Medical History Attestation statement: The following information was validated with the patient. Source: old records reviewed Medical History Seborrheic keratosis Erectile dysfunction Degenerative joint disease of sacroiliac joint Lumbar spondylosis Left-sided low back pain with left-sided sciatica BiPAP (biphasic positive airway pressure) dependence Normal colonoscopy (~2010) Vitamin D deficiency Genital herpes in men Obesity (BMI 30-39.9) Obstructive sleep apnea Pure hypercholesterolemia Asymptomatic microscopic hematuria BRANDT on CPAP Patent foramen ovale Thoracic aortic aneurysm without rupture Bicuspid aortic valve Surgical History H/O Spinal surgery History of uvulectomy History of parathyroidectomy History of tonsillectomy Family History Family History Father Dementia HTN (hypertension) Mother Dementia HTN (hypertension) Diabetes Other Mental health problem Substance abuse Social History Social History Housing: House Alcohol intake: current Alcohol intake frequency: holidays/special occasions only Alcohol type: beer Patient Tobacco Use Status: Former Tobacco user e-Cigarette/Vaping Use: Never Used Second Hand Smoke Exposure: Yes Advance Directives: No Advance Directives Information Provided: No service: No Current occupational status: employed 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 Cognitive needs: No Hearing needs: No Vision needs: No Physical Exam 2 Vital Signs: Vital Signs: Last Vital Signs Temp 97.9 F 04/20/23 17:58 Pulse 85 12/17/23 17:58 Resp 26 H 04/20/23 17:58 BP 146/70 H 04/20/23 17:58 Pulse Ox 96 04/20/23 17:58 O2 Del Method Room Air 04/20/23 17:58 BMI result Body Mass Index 35.4 Const: General: cooperative, healthy appearing and no acute distress O rientation/consciousness: patient oriented x3 Limitations: no limitations HEENT: Head: Yes normal to inspection and Yes atraumatic Ears: hearing grossly normal bilaterally General nose exam: Normal external nose present Face and sinus: Yes normal facial exam Eyes: General: appearance normal, both eyes and all related structures EOM: EOMs intact bilaterally Neck: Neck: Yes normal visual inspection and Yes no meningeal signs Resp: Effort & Inspection: normal respiratory effort and no respiratory distress Auscultation: wheezes expiratory wheezes and inspiratory wheezes Cardio: Rate: regular rate Heart sounds: S1 normal heart sound present and S2 normal heart sound present GI: Inspection: Yes normal to inspection Palpation (GI): Soft to palpation, nontender, no guarding and not rigid : General: Yes no CVA tenderness Back/Spine/Pelvis: Back: no CVA tenderness Skin: Rashes: no rashes Wounds: no wounds Neuro: General: patient oriented x3, tone normal and no meningeal signs C ranial nerves: Yes CN's II-XII intact bilaterally Gait exam (Neuro): Normal gait present Extrem: General: Yes normal to inspection, Yes no pedal edema and Yes no calf tenderness Course Course Course Narrative: -1630--no leukocytosis of 14.3. Initial troponin 10 > will obtain 3 hour repeat. Remaining labs pending. COVID/flu/RSV negative -1841--troponin x2 negative, [place] unlikely. On re-evaluation after DuoNeb patient's lungs CTA, reports symptomatic improvement Results discussed with patient including worrisome signs and symptoms and strict return precautions, and when to return to the emergency department. They verbalized understanding and feel safe for discharge at this time. Medications Administered Discontinued Medications Generic Name Dose Route Start Last Admin Trade Name Freq PRN Reason Stop Dose Admin Albuterol Sulfate 2.5 mg/ 0 mg 04/20/23 16:26 04/20/23 16:34 Albuterol/Ipratropium 3 ml INHALE 04/20/23 16:27 1 dose ONCE ONE Administration Medical Decision Making Medical Decision Making [facility] Narrative: 63-year-old male with a past medical history of BRANDT on CPAP, bicuspid aortic valve, vitamin-D deficiency, presenting to the ED complaining of SOB since last night s/p eating dinner with associated right-sided abdominal discomfort which is improved/resolved at present. On exam vital signs stable, NAD, nontoxic appearing, expiratory wheeze noted throughout. Abdomen soft/nontender. No pedal edema. Concern for viral syndrome vs ACS vs CHF vs ?Aspiration or bronchitis/pneumonia. Lower suspicion for appendicitis/diverticulitis, cholecystitis/lithiasis without tenderness on exam. No suspicion for dissection Plan: EKG, labs, CXR, viral testing, ED bronch protocol Please refer to course for remaining clinical decision making, interpretation of labs/imaging results, and discussions with consultants and/or family members. Differential Diagnosis Differential Diagnoses: The differential diagnosis associated with the presentation includes As above Admission/Observation Consideration of admission/observation: Escalation of care including admission/observation considered Lab Data [facility] Lab Attestation statement: I reviewed the patient's lab results. 04/20/23 15:47 04/20/23 15:17 Labs: Lab Results 04/20/23 04/20/23 04/20/23 Range/Units 15:17 15:47 18:06 WBC 14.3 H (4.8-10.8) X10*3/uL RBC 5.59 (4.60-5.80) X10*6/uL Hgb 15.6 (14.0-18.0) g/dl Hct 46.8 (42.0-52.0) % MCV 83.7 (80.0-98.0) fL MCH 27.9 (27.0-33.0) pg MCHC 33.3 (31.0-36.0) g/dl RDW 12.9 (11.0-16.0) % Plt Count 339 (160-400) X10*3/uL MPV 9.0 L (9.4-12.4) fL Immature Gran % (Auto) 0.3 (0.0-0.4) % Neut % (Auto) 65.5 (45-73) % Lymph % (Auto) 22.8 (20-40) % [place] % (Auto) 9.2 (2-11) % Eos % (Auto) 1.8 (0-4) % Baso % (Auto) 0.4 (0-2) % Lymph # (Auto) 3.3 (1.2-4.9) X10*3/uL [place] # (Auto) 1.3 H (0.1-1.2) X10*3/uL Eos # (Auto) 0.3 (0.0-0.4) X10*3/uL Baso # (Auto) 0.1 (0.0-0.2) X10*3/uL Abs Immat Gran (auto) 0.04 H (0.00-0.03) X10*3/uL Absolute Neuts (auto) 9.3 H (2.0-8.3) x10*3/uL Absolute Nucleated RBC 0.000 (0.0-0.012) X10*3/uL Nucleated RBC % (auto) 0.0 (0.0-0.2) /100WBC Sodium 141 (135-145) mmol/L Potassium 4.6 (3.3-5.1) mmol/L Chloride 106 (96-108) mmol/L Carbon Dioxide 25 (22-29) mmol/L Anion Gap 15 (12-20) BUN 19 H (9-16) mg/dL Creatinine 0.97 (0.5-1.4) mg/dL Estim Creat Clear Calc 100.6 Estimated GFR > 60 Random Glucose 95 (60-115) mg/dL Calcium 10.0 (8.4-10.2) mg/dL Total Bilirubin 0.9 (0.0-1.0) mg/dL Direct Bilirubin 0.2 (0.0-0.5) mg/dL AST 21 (5-37) U/L ALT 26 (0-40) U/L Alkaline Phosphatase 63 (39-117) U/L Troponin I High Sens 10.0 10.3 (<3.5-35.0) ng/L B-Natriuretic Peptide 43 (<100) pg/mL Total Protein 7.4 (6.5-8.0) g/dL Albumin 4.3 (3.5-5.0) g/dL Influenza Type A (PCR) NEGATIVE (Negative) Influenza Type B (PCR) NEGATIVE (Negative) RSV RNA Qual (PCR) NEGATIVE (Negative) SARS-CoV-2 RNA (RT-PCR) NEGATIVE (Negative) Independent Interpretation I performed an independent interpretation of an: EKG (My interpretation EKG normal sinus rhythm rate of 78. QRS 118. No significant change when compared to prior. No STEMI) Radiology Impression Discussion of test interpretation with radiology: I have reviewed the radiologist's reading. External Record Review External record reviewed: Inpatient record, Office record, Outpatient record, Prior outpatient labs, Prior outpatient radiology, Primary care record and Outside ED record Tests considered The following testing was considered but not selected: As above Discharge Plan Discharge Clinical Impression: Acute viral syndrome, Atypical chest pain Patient Disposition: Home, Self-Care Instructions: Viral Syndrome (ED), Noncardiac Chest Pain (ED) Additional Instructions: Your blood work and chest x-ray were reassuring. You tested negative for COVID, flu, RSV Use albuterol inhaler at home for wheezing/shortness of breath Follow-up with your doctor If symptoms persist or worsen return to the emergency room Prescriptions: New albuterol sulfate 90 mcg/actuation HFA aerosol inhaler 2 puff inhalation Q4-6H PRN (Reason: shortness of breath or wheezing) Qty: 6.7 0RF No Action finasteride 5 mg tablet 5 mg PO DAILY 90 Days Qty: 90 1RF Rx Instructions: take medication every other day loratadine [Claritin RediTabs] 10 mg tablet,disintegrating 10 mg PO DAILY Qty: 90 1RF atorvastatin 10 mg tablet 10 mg PO DAILY 90 Days Qty: 90 3RF albuterol sulfate 90 mcg/actuation aero powdr breath act w/sensor 1 inh inhalation Q6H PRN (Reason: shortness of breath or wheezing) Qty: 1 0RF valacyclovir 500 mg tablet 500 mg PO Q12H 5 Days Qty: 10 3RF sildenafil 100 mg tablet 100 mg PO DAILY PRN (Reason: sexual activity) 30 Days Qty: 30 1RF Rx Instructions: administer 30 minutes to 4 hours before activity senna 8.6 mg capsule 8.6 mg PO BEDTIME PRN (Reason: constipation) 90 Days Qty: 90 3RF fluticasone propionate [Flovent HFA] 110 mcg/actuation HFA aerosol inhaler 1 puff inhalation BID Qty: 12 3RF aspirin 81 mg tablet,delayed release (DR/EC) 81 mg PO DAILY tadalafil 5 mg tablet 5 mg PO DAILY 90 Days Qty: 90 1RF Referrals: Chele Martinez MD [Primary Care Provider] - 3 days Interventions: ED Discharge Assessment Last Done: 04/20/23 19:20 Discharge Date/Time: 04/20/23 19:20
[2023-04-20 16:34] VITALS: PULSE 79; RESP 16; O2SAT 96
[2023-04-20] MEDS: Albuterol Sulfate 2.5 MG, Albuterol/Iprat 2.5/0.5MG 3 ML 3 ML INHALE (16:34)
[2023-04-20 16:52] LABS: Alanine Aminotransferase 26 U/L (0-40); Albumin Level 4.3 g/dL (3.5-5.0); Alkaline Phosphatase 63 U/L (39-117); Aspartate Amino Transferase 21 U/L (5-37); Bilirubin Direct 0.2 mg/dL (0.0-0.5); Bilirubin Total 0.9 mg/dL (0.0-1.0); Total Protein 7.4 g/dL (6.5-8.0)
[2023-04-20 16:54] LABS: B Type Natriuretic Peptide 43 pg/mL (<100)
[2023-04-20 17:58] VITALS: BP 146/70; PULSE 85; RESP 26; TEMP 36.6; O2SAT 96
[2023-04-20 18:38] LABS: Troponin-I High Sensitivity 10.3 ng/L (<3.5-35.0)
--- NOTE | 2023-04-20 19:20 | PC.NURSE ---
pt discharged by previous primary rn and arrived with patient gone. pt left without issues
== END 2023-04-20 19:20 | disposition home or self-care (01) ==
PROVIDERS: Physician Assistant; Emergency Provider Emergency Medicine; PCP Internal Medicine
DX: B34.9 Viral infection, unspecified (principal); R07.89 Other chest pain; R06.00 Dyspnea, unspecified; R10.9 Unspecified abdominal pain; R06.2 Wheezing; E55.9 Vitamin D deficiency, unspecified; Z20.822 Contact with and (suspected) exposure to COVID-19
CPT/HCPCS: 0241U; 36415; 71045; 80048; 80076; 83880; 84484; 85025; 93005; 94640; 99284

== ENCOUNTER → 2023-04-20 14:33 | Outpatient (BNV) | payer BC, SELFPAY | PROVIDERS: Emergency Provider Emergency Medicine; PCP Internal Medicine; Visit Provider Internal Medicine Cardiovascular Disease | DX: R94.31 Abnormal electrocardiogram [ECG] [EKG] (principal) | CPT/HCPCS: 93010 ==

== ENCOUNTER 2023-05-01 12:47 | Outpatient (AMB) | payer BC, SELFPAY ==
[2023-05-01 12:59] VITALS: BP 124/78; PULSE 75; BMI 35.4
--- NOTE | 2023-05-01 12:59 | A.OFFVIS_ITS ---
Intake Vital Signs 05/01/23 12:59 Height 5 ft 11 in Weight 253 lb 8.505 oz BMI 35.4 BP 124/78 Blood Pressure Location Lt brachial Position Sitting Pulse 75 Intake Visit Reasons: 1 yr f/up Intake Note: 1 year follow up Software Architect Required: No Accompanied by: Self / Same As Patient Allergies No Known Allergies Allergy (Verified 05/01/23 13:00) Medication List - Last Reconciled 05/01/23 by Suleiman Turner MD albuterol sulfate 90 mcg/actuation 2 puffs inhalation Q4-6H PRN albuterol sulfate 90 mcg/actuation 1 inh inhalation Q6H PRN aspirin 81 mg PO DAILY atorvastatin 10 mg PO DAILY 90 days finasteride 5 mg PO DAILY 90 days Flovent HFA 110 mcg/actuation (fluticasone propionate) 1 puff inhalation BID NS loratadine (Claritin RediTabs) 10 mg PO DAILY sennosides (senna) 8.6 mg PO BEDTIME PRN 90 days sildenafil 100 mg PO DAILY PRN 30 days tadalafil 5 mg PO DAILY 90 days valacyclovir 500 mg PO Q12H 5 days HPI HPI Comments History of Present Illness Details Raheem returns for follow-up regarding bicuspid aortic valve and ascending aortic dilatation. From the cardiac standpoint, no specific complaints. He states he is doing fine. No angina. He is able to do all his activities of daily living without any issues. Otherwise no physical limitations. [facility] Medical History Seborrheic keratosis Erectile dysfunction Degenerative joint disease of sacroiliac joint Lumbar spondylosis Left-sided low back pain with left-sided sciatica BiPAP (biphasic positive airway pressure) dependence Normal colonoscopy (~2010) Vitamin D deficiency Genital herpes in men Obesity (BMI 30-39.9) Obstructive sleep apnea Pure hypercholesterolemia Asymptomatic microscopic hematuria BRANDT on CPAP Patent foramen ovale Thoracic aortic aneurysm without rupture Bicuspid aortic valve Surgical History H/O Spinal surgery History of uvulectomy History of parathyroidectomy History of tonsillectomy Family History Father Dementia HTN (hypertension) Mother Dementia HTN (hypertension) Diabetes Other Mental health problem Substance abuse Social History Housing: House Alcohol intake: current Alcohol intake frequency: holidays/special occasions only Alcohol type: beer Patient Tobacco Use Status: Former Tobacco user e-Cigarette/Vaping Use: Never Used Second Hand Smoke Exposure: Yes service: No Current occupational status: employed 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 Cognitive needs: No Hearing needs: No Vision needs: No Review of Systems Const Denies weakness ENT Denies dizziness Card Denies chest pain, Denies chest pain with activity, Denies syncope, Denies rapid heart rate, Denies pedal edema, Denies edema, Denies leg edema, Denies lightheadedness, Denies palpitations, Reports dyspnea on exertion and Denies orthopnea Resp Denies cough and Reports dyspnea on exertion GI Denies hematochezia and Denies change in stool character Musc Denies abnormal gait, Denies muscle cramps, Denies muscle weakness, Denies numbness, Denies radiating pain into limb and Denies tingling Neuro Denies abnormal gait, Denies dizziness, Denies syncope, Denies numbness, Denies tingling and Denies weakness Endo Denies palpitations Physical Exam Vital Signs: Last Vital Signs Pulse 75 05/01/23 12:59 BP 124/78 05/01/23 12:59 BMI result Body Mass Index 35.4 Const General: comfortable and no acute distress Orientation/consciousness: patient oriented x3 HEENT Other: Unremarkable Head: Yes normal to inspection Neck Neck: Yes normal visual inspection Chest Chest palpation & inspection: normal inspection of the chest Resp Auscultation: clear to auscultation bilaterally Cardio Palpation: normal PMI Heart sounds: S1 normal heart sound present, S2 normal heart sound present, no gallops, Murmur heart sound present systolic III/ and at the right sternal b order and no rubs GI Palpation (GI): Soft to palpation Back/Spine/Pelvis Other: unremarkable Skin General skin exam: no rashes or lesions noted Neuro General: patient oriented x3 Extrem General: Yes normal to inspection Psych Mental Status: mental status grossly normal Assessment & Plan Assessment & Plan (1) Bicuspid aortic valve: Code(s): Q23.1 - Congenital insufficiency of aortic valve Plan: In the most recent echocardiogram, mean gradient across aortic valve was 33 mm Hg. Peak of 56 mm Hg. Calculated valve area of 1.2 sq cm. Suggestive of rather moderate stenosis. No aortic regurgitation. LVEF is preserved at 65- 70%. At this time, will continue to monitor. (2) Thoracic aortic aneurysm without rupture: Code(s): I71.2 - Thoracic aortic aneurysm, without rupture Qualifiers: Thoracic aorta location: unspecified Qualified Code(s): I71.20 - Thoracic aortic aneurysm, without rupture, unspecified Plan: Ascending aortic size 4.4 cm. Has been generally stable. Considering bicuspid valve history, will also get a CTA to assess for concurrent coronary disease. Will also be able to image the aorta better. (3) Patent foramen ovale: Code(s): Q21.1 - Atrial septal defect Plan: Incidentally detected on a prior SOWMYA. No definitive treatment. Baby aspirin can be used. He is aware. (4) BRANDT on CPAP: Code(s): G47.33 - Obstructive sleep apnea (adult) (pediatric); Z99.89 - Dependence on other enabling machines and devices Plan: CPAP. Orders: Orders CT Cardiac Coronary Angio Today I25.10 - Atherosclerotic heart disease of [place] coronary artery without angina pectoris, I71.2 - Thoracic aortic aneurysm, without rupture, Q23.1 - Congenital insufficiency of aortic valve Basic Metabolic Panel Today I71.20 - Thoracic aortic aneurysm, without rupture, unspecified CA echo transthoracic complete 51 Weeks Q23.1 - Congenital insufficiency of aortic valve Coding Level of Care Code Est Pt Level 4 (82716) Diagnoses Bicuspid aortic valve Q23.1 Thoracic aortic aneurysm without rupture, unspecified part I71.20 Thoracic aorta location: unspecified Patent foramen ovale Q21.1 BRANDT on CPAP G47.33; Z99.89
== END 2023-05-01 13:20 | disposition home or self-care (01) ==
PROVIDERS: Referring Provider Internal Medicine; Visit Provider Internal Medicine
DX: Q23.1 Congenital insufficiency of aortic valve (principal); I71.20 Thoracic aortic aneurysm, without rupture, unspecified; Q21.10 Atrial septal defect, unspecified; G47.33 Obstructive sleep apnea (adult) (pediatric); Z99.89 Dependence on other enabling machines and devices
CPT/HCPCS: 99214

== ENCOUNTER → 2023-05-01 12:47 | Outpatient (BNVA) | payer BC, SELFPAY | PROVIDERS: Visit Provider Internal Medicine ==

== ENCOUNTER 2023-06-06 15:00 | Outpatient (REF) | payer BC, SELFPAY ==
[2023-06-07 13:09] LABS: Influenza A PCR NEGATIVE (Negative); Influenza B PCR NEGATIVE (Negative); Resp Syncy Virus RNA Qual PCR NEGATIVE (Negative); SARS COV2 PCR INHOUSE POSITIVE (Negative)
== END 2023-06-06 15:01 | disposition home or self-care (01) ==
LOC: HO.HMGCLNP 15:00
PROVIDERS: Visit Provider Nurse Practitioner Family
DX: Z11.52 Encounter for screening for COVID-19 (principal); Z20.822 Contact with and (suspected) exposure to COVID-19; J02.8 Acute pharyngitis due to other specified organisms
CPT/HCPCS: 0241U

== ENCOUNTER 2023-06-06 15:24 | Outpatient (AMB) | payer BC, SELFPAY ==
--- NOTE | 2023-06-06 15:25 | MHC.OFFWIV ---
Intake Vital Signs 06/06/23 15:26 Height 5 ft 11 in Weight 255 lb 2 oz BMI 35.6 BP 122/74 Blood Pressure Location Rt brachial Position Sitting Pulse 73 Pulse Source Pulse Oximeter Temp 97.8 F Temp Source Oral Pulse Oximetry (%) 98 Oxygen Delivery Method Room Air Intake Visit Reasons: EST/itchy throat(lobby masked) Intake Note: Pt is here c/o itchy throat, feeling pressure on his head and having a runny nose. Patient Tobacco Use Status: Former Tobacco user Allergies No Known Allergies Allergy (Verified 06/06/23 15:27) Do you need a note to return to daycare/school/sports/work: No HPI HPI Comments History of Present Illness Details 63 y/o male patient who presents to walk in clinic for c/o URI symptoms that started few days ago. positive for COVID-19. Denies fevers, chills, nausea and vomiting. PFSH Medical History Seborrheic keratosis Erectile dysfunction Degenerative joint disease of sacroiliac joint Lumbar spondylosis Left-sided low back pain with left-sided sciatica BiPAP (biphasic positive airway pressure) dependence Normal colonoscopy (~2010) Vitamin D deficiency Genital herpes in men Obesity (BMI 30-39.9) Obstructive sleep apnea Pure hypercholesterolemia Asymptomatic microscopic hematuria BRANDT on CPAP Patent foramen ovale Thoracic aortic aneurysm without rupture Bicuspid aortic valve Surgical History H/O Spinal surgery History of uvulectomy History of parathyroidectomy History of tonsillectomy Family History Father Dementia HTN (hypertension) Mother Dementia HTN (hypertension) Diabetes Other Mental health problem Substance abuse Social History Housing: House Alcohol intake: current Alcohol intake frequency: holidays/special occasions only Alcohol type: beer Patient Tobacco Use Status: Former Tobacco user e-Cigarette/Vaping Use: Never Used Second Hand Smoke Exposure: Yes service: No Current occupational status: employed 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 Cognitive needs: No Hearing needs: No Vision needs: No Review of Systems Const All systems reviewed & are unremarkable except as noted in HPI and below Physical Exam Vital Signs: Last Vital Signs Temp 97.8 F 06/06/23 15:26 Pulse 73 06/06/23 15:26 BP 122/74 06/06/23 15:26 Pulse Ox 98 06/06/23 15:26 Oxygen Delivery Method Room Air 06/06/23 15:26 BMI result Body Mass Index 35.6 Const General: comfortable and no acute distress HEENT Head: Yes normocephalic Ears: external ears normal and TM's normal bilaterally General nose exam: Normal external nose present and Normal nasal mucous membranes and turbinates present Face and sinus: Yes sinuses nontender Mouth: Normal oral and palatal mucosa present and moist mucous membranes Throat: Yes posterior oropharynx normal Resp Effort & Inspection: normal respiratory effort Auscultation: clear to auscultation bilaterally Cardio Rate: regular rate Rhythm: regular rhythm Results AMB Rapid Strep AMB Rapid Strep Negative Last Edit by Rayna Euceda CMA on 06/06/23 16:02 Results Reviewed Results Reviewed: Laboratory Last Values Strep Scn Rapid Clinic Negative 06/06/23 16:00 Assessment & Plan Assessment & Plan (1) Acute pharyngitis: Code(s): J02.9 - Acute pharyngitis, unspecified Qualifiers: Pharyngitis/tonsillitis etiology: other specified organisms Qualified Code(s): J02.8 - Acute pharyngitis due to other specified organisms Plan: - OTC cold remedies - Rest - Acetaminophen for pain relief. Plan - OTC cold remedies - Rest - Acetaminophen for pain relief Orders: Orders SARS-CoV2/FLU/RSV Today J02.8 - Acute pharyngitis due to other specified organisms AMB Rapid Strep Screen Today Z13.9 - Encounter for screening, unspecified Coding Level of Care Code Est Pt Level 3 (72774) Diagnoses Acute pharyngitis due to other specified organisms J02.8 Pharyngitis/tonsillitis etiology: other specified organisms Time Spent (min) 15
[2023-06-06 15:26] VITALS: BP 122/74; PULSE 73; TEMP 36.6; O2SAT 98; BMI 35.6
== END 2023-06-06 16:14 | disposition home or self-care (01) ==
PROVIDERS: PCP Internal Medicine; Visit Provider Nurse Practitioner Family
DX: J02.9 Acute pharyngitis, unspecified (principal)
CPT/HCPCS: 87880; 99213

== ENCOUNTER 2023-08-02 07:09 | Outpatient (REF) | payer BC, SELFPAY ==
[2023-08-02 07:31] LABS: MANUAL DIFF FLAG NO
[2023-08-02 08:20] LABS: Basophils Absolute Auto 0.1 X10*3/uL (0.0-0.2); Basophils Percent Auto 0.9 % (0-2); Eosinophils Absolute Auto 0.4 X10*3/uL (0.0-0.4); Hematocrit 44.6 % (42.0-52.0); Hemoglobin 14.9 g/dl (14.0-18.0); Imm Gran Abs Auto 0.02 X10*3/uL (0.00-0.03); Imm Gran Pct Auto 0.2 % (0.0-0.4); Lymphocytes Absolute Auto 3.7 X10*3/uL (1.2-4.9); Lymphocytes Percent Auto 42.6 % (20-40); Mean Corpuscular HGB Conc 33.4 g/dl (31.0-36.0); Mean Corpuscular Hemoglobin 27.9 pg (27.0-33.0); Mean Corpuscular Volume 83.5 fL (80.0-98.0); Mean Platelet Volume 9.3 fL (9.4-12.4); Monocytes Absolute Auto 0.9 X10*3/uL (0.1-1.2); Monocytes Percent Auto 9.8 % (2-11); Neutrophils Absolute Auto 3.6 x10*3/uL (2.0-8.3); Neutrophils Percent Auto 41.5 % (45-73); Platelet Count 326 X10*3/uL (160-400); Red Blood Count 5.34 X10*6/uL (4.60-5.80); Red Cell Distribution Width 13.1 % (11.0-16.0); White Blood Count 8.6 X10*3/uL (4.8-10.8)
[2023-08-02 08:49] LABS: Alanine Aminotransferase 34 U/L (0-40); Albumin Level 3.9 g/dL (3.5-5.0); Alkaline Phosphatase 56 U/L (39-117); Anion Gap 11 (12-20); Aspartate Amino Transferase 22 U/L (5-37); Bilirubin Total 0.9 mg/dL (0.0-1.0); Blood Urea Nitrogen 14 mg/dL (9-16); Calcium 9.3 mg/dL (8.4-10.2); Carbon Dioxide 25 mmol/L (22-29); Chloride 108 mmol/L (96-108); Cholesterol 165 mg/dL (<200); Estimated Glomerular Filt Rate > 60; Glucose Fasting 103 mg/dL (60-99); HDL Cholesterol 30 mg/dL (>40); LDL Cholesterol Calculated 110 mg/dL (<100); Potassium 4.1 mmol/L (3.3-5.1); Sodium 140 mmol/L (135-145); Total Protein 6.6 g/dL (6.5-8.0); Triglycerides 128 mg/dL (<150)
[2023-08-02 09:06] LABS: Vitamin D 25-OH Total 65.1 ng/mL (>30)
[2023-08-02 09:55] LABS: Appearance Urine Clear; Color Urine Dark Yellow; Glucose Urine UA Negative (Negative); Leukocyte Esterase Urine Negative (Negative); Nitrite Urine Negative (Negative); PH 5.5 (5.0-9.0); Specific Gravity - Urine 1.025 (1.005-1.025); UMIC TRIGGER UACC YES; Urine Blood Small (1+) (Negative); Urine Ketones Negative (Negative); Urine Protein Negative (Neg-Trace)
[2023-08-02 10:01] LABS: Bacteria Urine None Seen (None Seen); Hyaline Casts Urine 0-2 /LPF (0-2); Squamous Epithelial Cell Urine 0-2 /HPF (0-2); WBC Urine 0-5 /HPF (0-5)
== END 2023-08-02 07:10 | disposition home or self-care (01) ==
LOC: HO.LAB 07:09
PROVIDERS: PCP Internal Medicine; Visit Provider Internal Medicine
DX: I10 Essential (primary) hypertension (principal); E78.00 Pure hypercholesterolemia, unspecified; E55.9 Vitamin D deficiency, unspecified
CPT/HCPCS: 36415; 80053; 80061; 81001; 82306; 85025

== ENCOUNTER 2023-08-05 16:09 | Outpatient (AMB) | payer BC, SELFPAY ==
--- NOTE | 2023-08-05 16:13 | A.OFFPC_ITS ---
Vital Signs 08/05/23 16:15 Height 5 ft 11 in Weight 253 lb 2 oz BMI 35.3 BP 130/78 Blood Pressure Location Lt brachial Position Sitting Pulse 67 Pulse Source Pulse Oximeter Pulse Oximetry (%) 97 Oxygen Delivery Method Room Air Intake Visit Reasons: hyperlipidemia, lumbar DDD Intake Note: Patient is here to follow up on LDDD, BRANDT, Hyperlipidemia.. 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 Required: No Retort Firer: Not Required per policy Accompanied by: Self / Same As Patient Allergies No Known Allergies Allergy (Verified 12/04/23 23:21) Medication List - Last Reconciled 08/05/23 by Chele Martinez MD albuterol sulfate 90 mcg/actuation 2 puffs inhalation Q4-6H PRN albuterol sulfate 90 mcg/actuation 1 inh inhalation Q6H PRN aspirin 81 mg PO DAILY atorvastatin 10 mg PO DAILY 90 days finasteride 5 mg PO DAILY 90 days Flovent HFA 110 mcg/actuation (fluticasone propionate) 1 puff inhalation BID NS loratadine (Claritin RediTabs) 10 mg PO DAILY sennosides (senna) 8.6 mg PO BEDTIME PRN 90 days sildenafil 100 mg PO DAILY PRN 30 days tadalafil 5 mg PO DAILY 90 days valacyclovir 500 mg PO Q12H 5 days Tobacco use date assessed: 08/05/23 Dental Screening Dental Screen Date: 08/05/23 Did you have a dental visit in the last 12 months?: Yes Did you have a dental problem in the last 6 months where you did not have access to dental care?: No Was dental information given to patient?: Patient has dentist HPI hyperlipidemia, lumbar DDD HPI Details Patient comes in today for his follow-up visit - he was last seen by me in February 2023 States that he feels okay He denies any headaches or dizziness Denies any chest pains, no shortness of breath No nausea/ vomiting, no abdominal pain No change in bowel habits noted He had his follow-up labs done a few days ago - to discuss his results [facility] Medical History Seborrheic keratosis Erectile dysfunction Degenerative joint disease of sacroiliac joint Lumbar spondylosis Left-sided low back pain with left-sided sciatica BiPAP (biphasic positive airway pressure) dependence Normal colonoscopy (~2010) Vitamin D deficiency Genital herpes in men Obesity (BMI 30-39.9) Obstructive sleep apnea Pure hypercholesterolemia Asymptomatic microscopic hematuria BRANDT on CPAP Patent foramen ovale Thoracic aortic aneurysm without rupture Bicuspid aortic valve Surgical History History of open heart surgery H/O Spinal surgery History of uvulectomy History of parathyroidectomy History of tonsillectomy Family History Father Dementia HTN (hypertension) Mother Dementia HTN (hypertension) Diabetes Other Mental health problem Substance abuse Social History Household Members: Family Housing: House Do you presently have visiting nurse or other home services: Yes Alcohol intake: current Alcohol intake frequency: holidays/special occasions only Alcohol type: beer Patient Tobacco Use Status: Former Tobacco user e-Cigarette/Vaping Use: Never Used Second Hand Smoke Exposure: Yes service: No Current occupational status: employed 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 1. Little interest or pleasure in doing things: not at all 2. Feeling down, depressed, or hopeless: not at all 3. Trouble falling or staying asleep, or sleeping too much: not at all 4. Feeling tired or having little energy: not at all 5. Poor appetite or overeating: not at all 6. Feeling bad about yourself - or that you are a failure or have let yourself or your family down: not at all 7. Trouble concentrating on things, such as reading the newspaper or watching television: not at all 8. Moving or speaking so slowly that other people could have noticed. Or the opposite - being so fidgety or restless that you have been moving around a lot more than usual: not at all 9. Thoughts that you would be better off or of hurting yourself in some way: not at all Total score: 0 Depression Screening Interpretation: Negative Depression Screening Done: Yes 69826 - PHQ-9 Billing: Yes Source: Developed by Drs. Paulo L. VickiGertrudis rodriguez, Huan Dominguez and colleagues, with an educational bell from [employer]. Thrive Questionnaire Date Thrive assessed: 08/05/23 I am a: Patient What is your living situation today?: I have a steady place to live Within the past 12 months, did the food you bought not last and you didn't have the money to get more?: Never true Within the past 12 months, did you worry whether your food would run out before you got money to buy more?: Never true Do you have trouble paying for medicines?: No Do you have trouble getting transportation to medical appointments?: No Do you have trouble paying your heating and electricity bill?: No Do you have trouble taking care of your child, family member or friend?: No Do you have trouble with day-to-day activities such as bathing, preparing meals, shopping, managing finances, etc.?: No Are you currently unemployed and looking for a job?: No Are you interested in more education?: No Currently or been in a relationship where the following occur: no concerns reported THRIVE Score: 0 AUDIT C Alcohol Use Questionnaire (AUDIT-C) 1. How often do you have a drink containing alcohol?: Monthly or less 2. How many drinks containing alcohol do you have on a typical day when you are drinking?: 1 or 2 3. How often do you have six or more drinks on one occasion?: Never Total Score: 1 Score Reviewed/Action Taken: Yes MADDISON-7 AMB Questionnaire MADDISON-7 Date MADDISON - 7 assessed: 08/05/23 Feeling nervous, anxious, or on edge: 0 = Not at all Not being able to stop or control worryin = Not at all Worrying too much about different things: 0 = Not at all Trouble relaxin = Not at all Being so restless that it is hard to sit still: 0 = Not at all Becoming easily annoyed or irritable: 0 = Not at all Feeling afraid as if something awful might happen: 0 = Not at all Total MADDISON-7 score (0-4 normal; 5-9 mild; 10-14 moderate; 15-21 severe): 0 Source: Developed by Gertrudis Bowling Kurt Kroenke and colleagues, with an educational bell from [employer]. Review of Systems Const Denies chills, Denies fatigue, Denies fever(s) and Denies headache(s) ENT Denies dysphagia, Denies dizziness, Denies otalgia, Denies headache(s), Denies neck pain, Denies odynophagia and Denies sore throat Card Denies chest pain, Denies palpitations and Denies dyspnea Resp Denies chest congestion, Denies cough and Denies dyspnea GI Denies abdominal pain, Denies hematochezia, Reports constipation (better with Rx), Denies dysphagia, Denies heartburn, Denies diarrhea, Denies nausea, Denies odynophagia and Denies vomiting Reports difficulty with ejaculations (premature), Reports erectile dysfunction, Denies dysuria, Denies nocturia and Denies urinary frequency Musc Reports back pain (on and off, over the right lower back/right sciatic nerve area ) and Denies neck pain Skin/Breast Denies rash Neuro Denies dizziness and Denies headache(s) Endo Denies fatigue and Denies palpitations Physical exam (Primary Care) Vital Signs: Last Vital Signs Pulse 67 08/05/23 16:15 BP 130/78 08/05/23 16:15 Pulse Ox 97 08/05/23 16:15 Oxygen Delivery Method Room Air 08/05/23 16:15 BMI result Body Mass Index 35.3 Tobacco/Smoking Status: Tobacco use Status Tobacco use date assessed 08/05/23 08/05/23 16:22 Patient Tobacco Use Status Former Tobacco user 08/05/23 16:22 e-Cigarette/Vaping Use Never Used 08/05/23 16:22 PHQ-9: PHQ-9 Score PHQ-9: Total score 0 08/05/23 17:12 Depression Screening Interpretation: Negative Thrive Assessment: Date of Thrive Assessment Date Thrive assessed 08/05/23 08/05/23 16:22 Currently or been in a relationship where the following occur: no concerns reported Const General: no acute distress and alert HENMT Ears: TM's normal bilaterally and EAC's normal Throat: Yes posterior oropharynx normal and Yes tonsils normal Neck Neck: Yes no lymphadenopathy and Yes supple Thyroid: Thyroid normal Resp Auscultation: clear to auscultation bilaterally, no rales and no wheezes Cardio Rate: regular rate Rhythm: regular rhythm Heart sounds: Murmur heart sound present systolic early and III/ GI Palpation (GI): Soft to palpation and nontender Auscultation: normal bowel sounds Back/Spine/Pelvis Thoracic/Lumbar Spine: straight leg raise negative bilaterally, paraspinal muscle tenderness on the right in the lower lumbar and lumbar spinal tenderness Extrem General: Yes no clubbing, cyanosis or edema Results Reviewed Results Reviewed: Laboratory Tests 08/02/23 07:30 WBC 8.6 Hgb 14.9 Hct 44.6 Plt Count 326 Sodium 140 Potassium 4.1 Creatinine 0.96 Estimated GFR > 60 Fasting Glucose 103 H Calcium 9.3 D AST 22 ALT 34 Triglycerides 128 Cholesterol 165 LDL Cholesterol, Calc 110 H HDL Cholesterol 30 L 25-OH Vitamin D Total 65.1 Ur Specific Stephens 1.025 Urine Protein Negative Urine Glucose (UA) Negative Urine Blood Small (1+) H Urine Nitrite Negative Ur Leukocyte Esterase Negative Assessment and Plan Assessment & Plan (1) Pure hypercholesterolemia: Code(s): E78.00 - Pure hypercholesterolemia, unspecified Plan: Results of his labs done a few days ago reviewed and discussed with patient - he is cautioned that his cholesterol levels have all increased from previous Reinforced low cholesterol diet Continue Atorvastatin 10 mg QD for now Will recheck his labs and fasting lipids in 4 months for follow up (2) Lumbar back pain with radiculopathy affecting left lower extremity: Comment: MRI of the lumbar spine done back on 01/18/2021 revealed a large 1.2 cm synovial cyst on the left L4-L5 filling the lateral recess and proximal foramen with nerve root compression Code(s): M54.16 - Radiculopathy, lumbar region Plan: S/P lumbar minimally invasive surgery (MIS) laminotomy by Dr. Spence on 05/07/2021 - underwent left L4-L5 MIS decompression and resection of synovial cyst Reinforced activity and weight-lifting restrictions Repeat lumbar spine x-rays done back in June 2022 revealed mild spondylosis of the lumbar spine, with grade 1 anterolisthesis of L4 on L5 He was referred to and seen by Dr. Pratt back in November 2022 for his recent increasing right-sided sciatica and increased left lower back pain Was sent for a lumbar spine MRI for further evaluation Patient had his lumbar spine MRI done on 01/27/23, which revealed (+) new focal left foraminal disc protrusion at L4-L5 with mild compression of the exiting left L4 nerve root. Additional new 5 x 11 mm synovial cyst protruding from the right facet joint into the right subarticular zone with mild mass effect upon the right L5 nerve root He is instructed to call up Dr. Pratt' office to schedule a follow up appt JAN now that he has his MRI done (3) Thoracic aortic aneurysm without rupture: Code(s): I71.2 - Thoracic aortic aneurysm, without rupture Qualifiers: Thoracic aorta location: unspecified Qualified Code(s): I71.20 - Thoracic aortic aneurysm, without rupture, unspecified Plan: Follow up echocardiogram done on 02/26/2022 revealed a mildly dilated ascending thoracic aorta at 4.3 cm, which is mostly unchanged from a year ago. There is also a moderate aortic stenosis with mean gradient of 27 mm Hg and dimensionless index of 0.31 Previous echo on 04/17/21 revealed (+) ascending aortic dilatation at 4.3 cm - this was previously measured 4.1 cm on echo done on 04/17/2020 He follows up with cardiology regularly for this and will need this to be monitored continuously/closely (4) Bicuspid aortic valve: Code(s): Q23.1 - Congenital insufficiency of aortic valve Plan: Echocardiogram revealed bicuspid aortic valve with moderate stenosis and trace regurgitation on most recent US done on 02/26/2022 and 04/17/2021 Follow up with cardiology as scheduled for continued monitoring (5) Patent foramen ovale: Code(s): Q21.1 - Atrial septal defect Plan: Seen incidentally on prior SOWMYA Continue Aspirin 81 mg daily (6) Obstructive sleep apnea: Comment: BIPAP Code(s): G47.33 - Obstructive sleep apnea (adult) (pediatric) Plan: Continue using his BiPAP device every night when sleeping Follow up with Sleep Medicine as scheduled (7) Vitamin D deficiency: Code(s): E55.9 - Vitamin D deficiency, unspecified Plan: Corrected - will continue to monitor his Vitamin D level regularly (8) Constipation: Code(s): K59.00 - Constipation, unspecified Qualifiers: Constipation type: unspecified constipation type Qualified Code(s): K59.00 - Constipation, unspecified Plan: Is most likely the reason for the on and off blood in his stool lately; he had internal hemorrhoids and diverticulosis on his recent colonoscopy done a couple of years ago Reinforced increased oral fluids and dietary fiber Continue Senna 8.6 mg QD PRN (9) Genital herpes in men: Code(s): A60.02 - Herpesviral infection of other male genital organs Plan: Continue Valacyclovir 500 mg every 12 hours x 5 days when needed for acute flare ups - Rx refilled (10) Erectile dysfunction: Code(s): N52.9 - Male erectile dysfunction, unspecified Qualifiers: Erectile dysfunction type: unspecified Qualified Code(s): N52.9 - Male erectile dysfunction, unspecified Plan: Continue Sildenafil 50 mg QD PRN (11) Obesity (BMI 30-39.9): Code(s): E66.9 - Obesity, unspecified Plan: Reinforced diet/exercise as tolerated/lose weight Plan Follow up in 4 months Orders: Orders Lipid Panel 4 Months E78.00 - Pure hypercholesterolemia, unspecified Comprehensive [place]. Panel Fast 4 Months E78.00 - Pure hypercholesterolemia, unspecified Medications: Refilled valacyclovir 500 mg PO Q12H 10 tabs 3RF for recurrence or outbreak of genital herpes 5 days A60.02 - Herpesviral infection of other male genital organs Coding Level of Care Code Est Pt Level 4 (29827) Diagnoses Pure hypercholesterolemia E78.00 Lumbar back pain with radiculopathy affecting left lower extremity M54.16 Thoracic aortic aneurysm without rupture, unspecified part I71.20 Thoracic aorta location: unspecified Bicuspid aortic valve Q23.1 Patent foramen ovale Q21.1 Obstructive sleep apnea G47.33 Vitamin D deficiency E55.9 Constipation, unspecified constipation type K59.00 Constipation type: unspecified constipation type Genital herpes in men A60.02 Erectile dysfunction, unspecified erectile dysfunction type N52.9 Erectile dysfunction type: unspecified Obesity (BMI 30-39.9) E66.9
[2023-08-05 16:15] VITALS: BP 130/78; PULSE 67; O2SAT 97; BMI 35.3
== END 2023-08-05 17:20 | disposition home or self-care (01) ==
PROVIDERS: PCP Internal Medicine; Visit Provider Internal Medicine
DX: E78.00 Pure hypercholesterolemia, unspecified (principal); M54.16 Radiculopathy, lumbar region; I71.20 Thoracic aortic aneurysm, without rupture, unspecified; Q23.1 Congenital insufficiency of aortic valve; Q21.10 Atrial septal defect, unspecified; G47.33 Obstructive sleep apnea (adult) (pediatric); E55.9 Vitamin D deficiency, unspecified; K59.00 Constipation, unspecified; A60.02 Herpesviral infection of other male genital organs; N52.9 Male erectile dysfunction, unspecified; E66.9 Obesity, unspecified
CPT/HCPCS: 99499

== ENCOUNTER 2023-09-26 09:21 | Outpatient (AMB) | payer BC, SELFPAY ==
--- NOTE | 2023-09-26 09:38 | MHC.OFFVIS ---
Intake Visit Reasons: 1Y Erectile Dys Intake Note: Patient is Present for Follow Up Urology Medication: Sildenafil, Tadalafil, Finasteride Antibiotic Allergies:None Blood Thinners: Aspirin Allergies No Known Allergies Allergy (Verified 09/26/23 09:43) Medication List - Last Reconciled 09/26/23 by Manuel Hutchison MD albuterol sulfate 90 mcg/actuation 2 puffs inhalation Q4-6H PRN albuterol sulfate 90 mcg/actuation 1 inh inhalation Q6H PRN aspirin 81 mg PO DAILY atorvastatin 10 mg PO DAILY 90 days finasteride 5 mg PO DAILY 90 days Flovent HFA 110 mcg/actuation (fluticasone propionate) 1 puff inhalation BID NS loratadine (Claritin RediTabs) 10 mg PO DAILY sennosides (senna) 8.6 mg PO BEDTIME PRN 90 days sildenafil 100 mg PO DAILY PRN 30 days tadalafil 5 mg PO DAILY 90 days tramadol 50 mg PO ONCE valacyclovir 500 mg PO Q12H 5 days HPI Comments Details: Raheem is a pleasant male. He is a patient Dr. Martinez. He is seen for the following urologic conditions - microscopic hematuria - erectile dysfunction Yearly follow-up Responding well to combination erectile dysfunction medications Interested in trialing tramadol for premature ejaculation Prescription provided 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 Prior imaging normal Cytology 10/23 NAD Continue yearly review ON LICENSE OF [facility] Medical History Seborrheic keratosis Erectile dysfunction Degenerative joint disease of sacroiliac joint Lumbar spondylosis Left-sided low back pain with left-sided sciatica BiPAP (biphasic positive airway pressure) dependence Normal colonoscopy (~2010) Vitamin D deficiency Genital herpes in men Obesity (BMI 30-39.9) Obstructive sleep apnea Pure hypercholesterolemia Asymptomatic microscopic hematuria BRANDT on CPAP Patent foramen ovale Thoracic aortic aneurysm without rupture Bicuspid aortic valve Surgical History H/O Spinal surgery History of uvulectomy History of parathyroidectomy History of tonsillectomy Family History Father Dementia HTN (hypertension) Mother Dementia HTN (hypertension) Diabetes Other Mental health problem Substance abuse Social History Housing: House Alcohol intake: current Alcohol intake frequency: holidays/special occasions only Alcohol type: beer Patient Tobacco Use Status: Former Tobacco user e-Cigarette/Vaping Use: Never Used Second Hand Smoke Exposure: Yes service: No Current occupational status: employed 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 Cognitive needs: No Hearing needs: No Vision needs: No Review of Systems Const Denies chills and Denies fever(s) Card Reports no additional complaints and Denies syncope Resp Denies cough GI Denies abdominal pain and Denies heartburn Reports as per HPI and Denies change in libido Neuro Denies syncope Psych Denies change in libido Endo Denies change in libido Physical Exam Const General: cooperative, healthy appearing, comfortable and no acute distress Orientation/consciousness: patient oriented x3 HEENT Face and sinus: Yes normal facial exam Mouth: moist mucous membranes Neck Neck: Yes normal visual inspection, Yes full ROM and Yes trachea midline Chest Chest palpation & inspection: normal inspection of the chest Resp Effort & Inspection: normal respiratory effort, able to speak in complete sentences and no respiratory distress GI Inspection: Yes normal to inspection Back/Spine/Pelvis Cervical Spine: normal cervical lordosis Thoracic/Lumbar Spine: thoracic and lumbar spine normal to inspection Skin General skin exam: no rashes or lesions noted Neuro General: patient oriented x3, gait normal, tone normal and moves all extremities Extrem General: Yes normal to inspection and Yes capillary refill normal Assessment & Plan Assessment & Plan (1) Premature ejaculation: Code(s): F52.4 - Premature ejaculation Category: Medical (2) Erectile dysfunction: Code(s): N52.9 - Male erectile dysfunction, unspecified Category: Medical Qualifiers: Erectile dysfunction type: unspecified Qualified Code(s): N52.9 - Male erectile dysfunction, unspecified Plan Six-month follow-up Medications: New tramadol Take 60 min prior to intended activity 50 mg PO ONCE 15 tabs 0RF premature ejaculation N52.9 - Male erectile dysfunction, unspecified Refilled tadalafil 5 mg PO DAILY 90 days 90 tabs 1RF sexual activity N52.9 - Male erectile dysfunction, unspecified sildenafil administer 30 minutes to 4 hours before activity 100 mg PO DAILY 30 days PRN 30 tabs 1RF sexual activity N52.9 - Male erectile dysfunction, unspecified Patient Instructions: Imaging studies, laboratory and physical exam results were discussed and reviewed in detail. No major barriers to patient understanding were identified. An opportunity to ask questions regarding the treatment plan was provided. All questions were answered. The patient expressed understanding and agreement with the above treatment plan. The patient is aware they should contact our office by phone for worsening of their current condition or the appearance of new urologic symptoms. Compliance is encouraged with any medications and followup testing that is ordered. It is a privilege to participate in the urologic care of your patient. If you have any questions or concerns regarding treatment for the above conditions, or other urologic issues, please do not hesitate to contact me. The office telephone contact is [phone]. This note is constructed using voice recognition software. While every effort has been made to ensure accuracy ski top trimmer errors may have been included. Yours sincerely, Dr Manuel Hutchison MD, [facility] - Urology Providers of Expert, Compassionate Care for the Genitourinary System Coding Level of Care Code Est Pt Level 4 (36834) Diagnoses Premature ejaculation F52.4 Erectile dysfunction, unspecified erectile dysfunction type N52.9 Erectile dysfunction type: unspecified
== END 2023-09-26 10:11 | disposition home or self-care (01) ==
PROVIDERS: PCP Internal Medicine; Visit Provider Urology
DX: F52.4 Premature ejaculation (principal); N52.9 Male erectile dysfunction, unspecified
CPT/HCPCS: 99214

== ENCOUNTER → 2023-09-26 09:21 | Outpatient (BNVA) | payer BC, SELFPAY | PROVIDERS: Visit Provider Urology ==

== ENCOUNTER 2023-10-07 14:11 | Outpatient (AMB) | payer BC, SELFPAY ==
[2023-10-07 14:22] VITALS: BP 128/80; PULSE 70; O2SAT 98; BMI 35.7
--- NOTE | 2023-10-07 14:22 | A.OFFPC_ITS ---
Vital Signs 10/07/23 14:22 Height 5 ft 11 in Weight 256 lb BMI 35.7 BP 128/80 Blood Pressure Location Lt brachial Position Sitting Pulse 70 Pulse Source Pulse Oximeter Pulse Oximetry (%) 98 Oxygen Delivery Method Room Air Intake Visit Reasons: Ear pain, Clogged Construction Mgr Required: No Inside Sales Trainer: Not Required per policy Accompanied by: Self / Same As Patient Allergies No Known Allergies Allergy (Verified 12/04/23 23:21) Medication List - Last Reconciled 10/07/23 by Chele Martinez MD albuterol sulfate 90 mcg/actuation 2 puffs inhalation Q4-6H PRN albuterol sulfate 90 mcg/actuation 1 inh inhalation Q6H PRN aspirin 81 mg PO DAILY atorvastatin 10 mg PO DAILY 90 days finasteride 5 mg PO DAILY 90 days Flovent HFA 110 mcg/actuation (fluticasone propionate) 1 puff inhalation BID NS loratadine (Claritin RediTabs) 10 mg PO DAILY sennosides (senna) 8.6 mg PO BEDTIME PRN 90 days sildenafil 100 mg PO DAILY PRN 30 days tadalafil 5 mg PO DAILY 90 days tramadol 50 mg PO ONCE PRN valacyclovir 500 mg PO Q12H 5 days Tobacco use date assessed: 08/05/23 Dental Screening Dental Screen Date: 08/05/23 HPI Ear pain, Clogged HPI Details Patient comes in today complaining of on and off pain in both ears for the past couple of months Both ears also feel clogged often lately States that his symptoms feel worse in the right ear He denies any ear drainage Denies any fever sore throat; denies any headaches or dizziness Denies any chest pains, no shortness of breath No nausea /vomiting, no abdominal pain No change in bowel habits noted [facility] Medical History Seborrheic keratosis Erectile dysfunction Degenerative joint disease of sacroiliac joint Lumbar spondylosis Left-sided low back pain with left-sided sciatica BiPAP (biphasic positive airway pressure) dependence Normal colonoscopy (~2010) Vitamin D deficiency Genital herpes in men Obesity (BMI 30-39.9) Obstructive sleep apnea Pure hypercholesterolemia Asymptomatic microscopic hematuria BRANDT on CPAP Patent foramen ovale Thoracic aortic aneurysm without rupture Bicuspid aortic valve Surgical History History of open heart surgery H/O Spinal surgery History of uvulectomy History of parathyroidectomy History of tonsillectomy Family History Father Dementia HTN (hypertension) Mother Dementia HTN (hypertension) Diabetes Other Mental health problem Substance abuse Social History Household Members: Family Housing: House Do you presently have visiting nurse or other home services: Yes Alcohol intake: current Alcohol intake frequency: holidays/special occasions only Alcohol type: beer Patient Tobacco Use Status: Former Tobacco user e-Cigarette/Vaping Use: Never Used Second Hand Smoke Exposure: Yes service: No Current occupational status: employed 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 Paulo Cohen, Gertrudis Rivas, Huan Dominguez and colleagues, with an educational bell from [employer]. Review of Systems Const Denies chills, Denies fatigue, Denies fever(s) and Denies headache(s) ENT Denies dysphagia, Denies dizziness, Denies ear discharge, Reports otalgia (worse in the right ear), Denies headache(s), Denies neck pain, Denies odynophagia and Denies sore throat Card Denies chest pain, Denies palpitations and Denies dyspnea Resp Denies chest congestion, Denies cough and Denies dyspnea GI Denies abdominal pain, Denies hematochezia, Reports constipation (better with Rx), Denies dysphagia, Denies heartburn, Denies diarrhea, Denies nausea, Denies odynophagia and Denies vomiting Denies dysuria, Denies nocturia and Denies urinary frequency Musc Reports back pain (on and off, over the right lower back/right sciatic nerve area ) and Denies neck pain Skin/Breast Denies rash Neuro Denies dizziness and Denies headache(s) Endo Denies fatigue and Denies palpitations Physical exam (Primary Care) Vital Signs: Last Vital Signs Pulse 70 10/07/23 14:22 BP 128/80 10/07/23 14:22 Pulse Ox 98 10/07/23 14:22 Oxygen Delivery Method Room Air 10/07/23 14:22 BMI result Body Mass Index 35.7 Tobacco/Smoking Status: Tobacco use Status Tobacco use date assessed 08/05/23 10/07/23 14:23 Patient Tobacco Use Status Former Tobacco user 10/07/23 14:23 e-Cigarette/Vaping Use Never Used 10/07/23 14:23 Thrive Assessment: Date of Thrive Assessment Date Thrive assessed 08/05/23 10/07/23 14:23 Const General: no acute distress and alert HENMT Ears: Abnormal EAC present erythema bilateral and EAC tenderness bilateral (but worse in the right ear); no otic discharge and TM abnormal erythematous bilateral Throat: Yes posterior oropharynx normal and Yes tonsils normal Neck Neck: Yes no lymphadenopathy and Yes supple Thyroid: Thyroid normal Resp Auscultation: clear to auscultation bilaterally, no rales and no wheezes Cardio Rate: regular rate Rhythm: regular rhythm Heart sounds: Murmur heart sound present systolic early and III/ GI Palpation (GI): Soft to palpation and nontender Auscultation: normal bowel sounds Back/Spine/Pelvis Thoracic/Lumbar Spine: straight leg raise negative bilaterally, paraspinal muscle tenderness on the right in the lower lumbar and lumbar spinal tenderness Extrem General: Yes no clubbing, cyanosis or edema Assessment and Plan Assessment & Plan (1) Acute otitis externa of both ears: Code(s): H60.503 - Unspecified acute noninfective otitis externa, bilateral Qualifiers: Otitis externa type: unspecified type Qualified Code(s): H60.503 - Unspecified acute noninfective otitis externa, bilateral Plan: Will start patient on Augmentin 875 mg BID x 10 days and Cipro HC otic apply 3 drops into each ear BID x 7 days Plan Follow up as scheduled in December 2023 Medications: New amoxicillin-pot clavulanate 875-125 mg 1 tab PO BID 20 tabs 0RF 10 days Cipro HC 0.2-1 % (ciprofloxacin-hydrocortisone) 3 drps otic (ears) BID 10 mL 0RF 7 days NS Coding Level of Care Code Est Pt Level 3 (33905) Diagnoses Acute otitis externa of both ears, unspecified type H60.503 Otitis externa type: unspecified type
== END 2023-10-07 15:08 | disposition home or self-care (01) ==
PROVIDERS: PCP Internal Medicine; Visit Provider Internal Medicine
DX: H60.503 Unspecified acute noninfective otitis externa, bilateral (principal)
CPT/HCPCS: 99213

== ENCOUNTER 2023-10-23 10:22 | Emergency (ER) | payer BC, SELFPAY ==
--- NOTE | 2023-10-23 | ECG_ITS ---
Test Reason : chest pain Blood Pressure : / mmHG Vent. Rate : 067 BPM Atrial Rate : 067 BPM P-R Int : 156 ms QRS Dur : 114 ms QT Int : 370 ms P-R-T Axes : 034 -29 122 degrees QTc Int : 390 ms Normal sinus rhythm Incomplete right bundle branch block Left ventricular hypertrophy with repolarization abnormality ( R in aVL , Power product ) Abnormal ECG When compared with ECG of 20-APR-2023 14:57, No significant change was found Referred By: Generic ED Physician Electronically Signed By:Gerardo Case
--- NOTE | ~2023-10-23 | XR_ITS ---
EXAMINATION: XR CHEST 2 VIEW CLINICAL INFORMATION: Chest pain COMPARISON: 04/20/2023 TECHNIQUE: PA and lateral views of the chest obtained. FINDINGS: The lungs are clear. There are no pleural effusions. The cardiomediastinal silhouette is normal. XR/XR chest 2V IMPRESSION: No acute cardiopulmonary disease.
[2023-10-23 10:54] LABS: Basophils Absolute Auto 0.1 X10*3/uL (0.0-0.2); Basophils Percent Auto 0.7 % (0-2); Eosinophils Absolute Auto 0.3 X10*3/uL (0.0-0.4); Eosinophils Percent Auto 2.9 % (0-4); Hematocrit 39.8 % (42.0-52.0); Hemoglobin 13.9 g/dl (14.0-18.0); Imm Gran Abs Auto 0.03 X10*3/uL (0.00-0.03); Imm Gran Pct Auto 0.3 % (0.0-0.4); Lymphocytes Absolute Auto 3.1 X10*3/uL (1.2-4.9); Lymphocytes Percent Auto 30.7 % (20-40); MANUAL DIFF FLAG NO; Mean Corpuscular HGB Conc 34.9 g/dl (31.0-36.0); Mean Corpuscular Hemoglobin 28.8 pg (27.0-33.0); Mean Corpuscular Volume 82.6 fL (80.0-98.0); Mean Platelet Volume 8.9 fL (9.4-12.4); Monocytes Absolute Auto 0.9 X10*3/uL (0.1-1.2); Monocytes Percent Auto 9.1 % (2-11); Neutrophils Absolute Auto 5.6 x10*3/uL (2.0-8.3); Neutrophils Percent Auto 56.3 % (45-73); Platelet Count 278 X10*3/uL (160-400); Red Blood Count 4.82 X10*6/uL (4.60-5.80); Red Cell Distribution Width 13.2 % (11.0-16.0)
[2023-10-23 10:56] VITALS: BP 125/57; PULSE 66; RESP 16; TEMP 36; O2SAT 96; BMI 35.7
[2023-10-23 11:10] LABS: Alanine Aminotransferase 31 U/L (0-40); Alkaline Phosphatase 56 U/L (39-117); Anion Gap 12 (12-20); Aspartate Amino Transferase 23 U/L (5-37); Bilirubin Total 0.9 mg/dL (0.0-1.0); Blood Urea Nitrogen 14 mg/dL (9-16); Calcium 9.1 mg/dL (8.4-10.2); Carbon Dioxide 22 mmol/L (22-29); Chloride 111 mmol/L (96-108); Creatinine Clr Calc Pharmacy 91.5; Estimated Glomerular Filt Rate > 60; Glucose Random 136 mg/dL (60-115); Sodium 141 mmol/L (135-145); Total Protein 6.8 g/dL (6.5-8.0)
[2023-10-23 11:18] LABS: Troponin-I High Sensitivity 13.3 ng/L (<3.5-35.0)
[2023-10-23 11:28] VITALS: BP 121/56; PULSE 66; RESP 19; TEMP 36.6; O2SAT 97; BMI 37.8
[2023-10-23 11:33] VITALS: BP 121/56; PULSE 66; RESP 19; TEMP 36.6; O2SAT 97
[2023-10-23 11:36] LABS: Influenza A PCR NEGATIVE (Negative); Influenza B PCR NEGATIVE (Negative); Resp Syncy Virus RNA Qual PCR NEGATIVE (Negative); SARS COV2 PCR INHOUSE NEGATIVE (Negative)
--- NOTE | 2023-10-23 11:47 | PC.NURSE ---
Pt presents with c/o chest pain 4-6 out of 10 x4 days. States pain is increased with movements (walking) and last about 5 minutes. VS are currently stable with EKG monitoring in place. Pt is A&Ox3 with a pleasant disposition w/ at bedside. Provider in to see Pt and awaiting further plan of care.
--- NOTE | 2023-10-23 11:50 | ED_ITS ---
HPI - Chest Pain General Chief Complaint: Chest Pain Stated Complaint: Chest pain Time Seen by Provider: 10/23/23 11:23 Source: patient Mode of arrival: ambulatory Limitations: no limitations History of Present Illness ED Provider: BRENDA MAKI narrative: 63 yo male with PMH of back pain, BRANDT, HLD, hematuria, PFO on baby aspirin, thoracic aortic aneurysm 4.4cm, bicuspic aortic valve last ECHO 04/26, takes baby aspirin 81mg daily who comes in with c/o 1 week for fatigue, GA, chest pain with exertion and walking. He noted today walking into confucianism he had dyspnea and central chest pressure that lasted 5 minutes and went away with rest. He has no pain now. MD complaint: chest pain Pertinent past history: known aortic aneurysm Onset (ago): week(s) (1) Timing of current episode: episodic Prior episodes: No Onset: during exertion Pain location: substernal Pain radiation: none Severity: moderate Quality: tightness Relieving factors: rest Exacerbating factors: exertion Associated symptoms: dyspnea Treatment prior to arrival: none Related Data Home Medications ?Medication ?Instructions ?Recorded ?Confirmed aspirin 81 mg tablet,delayed 81 mg PO DAILY 04/26/20 10/07/23 release Previous Rx's ?Medication ?Instructions ?Recorded sennosides 8.6 mg capsule (senna) 8.6 mg PO BEDTIME PRN constipation 10/23/22 90 days #90 caps albuterol sulfate 90 mcg/actuation 1 inh inhalation Q6H PRN shortness 11/11/22 breath activated powder of breath or wheezing #1 ea inhaler,sensor Flovent HFA 110 mcg/actuation 1 puff inhalation BID #12 grams 12/27/22 aerosol inhaler (fluticasone propionate) loratadine 10 mg disintegrating 10 mg PO DAILY #90 tabs 01/08/23 tablet (Claritin RediTabs) atorvastatin 10 mg tablet 10 mg PO DAILY 90 days #90 tabs 02/11/23 albuterol sulfate 90 mcg/actuation 2 puff inhalation Q4-6H PRN 04/20/23 aerosol inhaler shortness of breath or wheezing #6.7 grams valacyclovir 500 mg tablet 500 mg PO Q12H for recurrence or 08/05/23 outbreak of genital herpes 5 days #10 tabs sildenafil 100 mg tablet 100 mg PO DAILY PRN sexual 09/26/23 activity 30 days #30 tabs tadalafil 5 mg tablet 5 mg PO DAILY sexual activity 90 09/26/23 days #90 tabs finasteride 5 mg tablet 5 mg PO DAILY 90 days #90 tabs 10/06/23 tramadol 50 mg tablet 50 mg PO ONCE PRN premature 10/06/23 ejaculation #15 tabs Cipro HC 0.2 %-1 % ear 3 drp otic (ears) BID 7 days #10 mL 10/07/23 drops,suspension (ciprofloxacin-hydrocortisone) amoxicillin 875 mg-potassium 1 tab PO BID 10 days #20 tabs 10/07/23 clavulanate 125 mg tablet Allergies Allergy/AdvReac Type Severity Reaction Status Date / Time No Known Allergies Allergy Verified 10/23/23 11:31 Review of Systems 2 Review of Systems: Constitutional : No Fever, No Chills ENT/Mouth : No sore throat, No Rhinorrhea, No Swallowing Difficulty Eyes: No Eye Pain, No Swelling, No Redness Cardiovascular : pos Chest Pain, positive SOB, No Orthopnea, no Edema Respiratory : No Cough, No Sputum, No Wheezing, positive dyspnea Gastrointestinal : No Nausea, No Vomiting, No Diarrhea, No abdominal Pain, No Hematochezia, No Melena Genitourinary : No Dysuria, No Urinary Frequency, No Hematuria Musculoskeletal : No joint pain, No Myalgias Skin : No Skin Lesions, No rash Neuro : No Weakness, No Numbness, No Dizziness, No Headache Psych : No Anxiety/Panic, No Depression Heme/Lymph: No Bruising, No Lymphadenopathy All other systems reviewed and are negative PMFSH Past Medical History Attestation statement: The following information was validated with the patient. Source: old records reviewed Medical History Seborrheic keratosis Erectile dysfunction Degenerative joint disease of sacroiliac joint Lumbar spondylosis Left-sided low back pain with left-sided sciatica BiPAP (biphasic positive airway pressure) dependence Normal colonoscopy (~2010) Vitamin D deficiency Genital herpes in men Obesity (BMI 30-39.9) Obstructive sleep apnea Pure hypercholesterolemia Asymptomatic microscopic hematuria BRANDT on CPAP Patent foramen ovale Thoracic aortic aneurysm without rupture Bicuspid aortic valve Surgical History H/O Spinal surgery History of uvulectomy History of parathyroidectomy History of tonsillectomy Family History Family History Father Dementia HTN (hypertension) Mother Dementia HTN (hypertension) Diabetes Other Mental health problem Substance abuse Social History Social History Housing: House Alcohol intake: current Alcohol intake frequency: holidays/special occasions only Alcohol type: beer Patient Tobacco Use Status: Former Tobacco user Smoked in Last 30 Days: No e-Cigarette/Vaping Use: Never Used Second Hand Smoke Exposure: Yes Use of substances other than those prescribed or required for medical reasons: No Advance Directives: No Advance Directives Information Provided: Yes Do you have a plan to hurt others: No Plan service: No Current occupational status: employed 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 Oriented X3. No acute distress. Eyes: Pupils equal, round and reactive to light. ENT: Pharynx normal. Neck: Normal inspection. Neck supple. CVS: Normal heart rate and rhythm. Pulses normal. noticeable murmur heard on exam Respiratory: No respiratory distress. Breath sounds normal. Abdomen: Soft and nontender. Skin: Skin warm and dry. Normal skin color. Normal skin turgor. Extremities: No lower extremity edema. No calf ttp Neuro: Oriented X 3. No motor deficit. No sensory deficit. Medical Decision Making Medical Decision Making MDM Narrative: 63 yo male with PMH of back pain, BRANDT, HLD, hematuria, PFO on baby aspirin, thoracic aortic aneurysm 4.4cm, bicuspic aortic valve last ECHO 04/26 here with c/o exertional chest pain and dyspnea his story is concerning I am going to obtain labs, EKG, troponin x 2 and ask cardiology about admission for stress or ECHO. Has distal pulses intact and pain brought on by exertion atypical for dissection. Differential Diagnosis Differential Diagnoses: The differential diagnosis associated with the presentation includes angina, ACS, doubt VTE Admission/Observation Consideration of admission/observation: Escalation of care including admission/observation considered Dr. Case has seen patient recommends ECHO and transfer to [facility] he will work on transfer patient and family aware Consult Healthcare Provider Management of the patient was discussed with: Lead Based Paint Technician Lab Data MDM Lab Attestation statement: I reviewed the patient's lab results. 10/23/23 10:47 10/23/23 10:47 Labs: Lab Results 10/23/23 10/23/23 Range/Units 10:47 12:41 WBC 10.0 (4.8-10.8) X10*3/uL RBC 4.82 (4.60-5.80) X10*6/uL Hgb 13.9 L (14.0-18.0) g/dl Hct 39.8 L (42.0-52.0) % MCV 82.6 (80.0-98.0) fL MCH 28.8 (27.0-33.0) pg MCHC 34.9 (31.0-36.0) g/dl RDW 13.2 (11.0-16.0) % Plt Count 278 (160-400) X10*3/uL MPV 8.9 L (9.4-12.4) fL Immature Gran % (Auto) 0.3 (0.0-0.4) % Neut % (Auto) 56.3 (45-73) % Lymph % (Auto) 30.7 (20-40) % [place] % (Auto) 9.1 (2-11) % Eos % (Auto) 2.9 (0-4) % Baso % (Auto) 0.7 (0-2) % Lymph # (Auto) 3.1 (1.2-4.9) X10*3/uL [place] # (Auto) 0.9 (0.1-1.2) X10*3/uL Eos # (Auto) 0.3 (0.0-0.4) X10*3/uL Baso # (Auto) 0.1 (0.0-0.2) X10*3/uL Abs Immat Gran (auto) 0.03 (0.00-0.03) X10*3/uL Absolute Neuts (auto) 5.6 (2.0-8.3) x10*3/uL Absolute Nucleated RBC 0.000 (0.0-0.012) X10*3/uL Nucleated RBC % (auto) 0.0 (0.0-0.2) /100WBC Sodium 141 (135-145) mmol/L Potassium 4.0 (3.3-5.1) mmol/L Chloride 111 H (96-108) mmol/L Carbon Dioxide 22 (22-29) mmol/L Anion Gap 12 (12-20) BUN 14 (9-16) mg/dL Creatinine 1.07 (0.5-1.4) mg/dL Estim Creat Clear Calc 91.5 Estimated GFR > 60 Random Glucose 136 H (60-115) mg/dL Calcium 9.1 (8.4-10.2) mg/dL Total Bilirubin 0.9 (0.0-1.0) mg/dL AST 23 (5-37) U/L ALT 31 (0-40) U/L Alkaline Phosphatase 56 (39-117) U/L Troponin I High Sens 13.3 18.5 (<3.5-35.0) ng/L B-Natriuretic Peptide 98 (<100) pg/mL Total Protein 6.8 (6.5-8.0) g/dL Albumin 4.0 (3.5-5.0) g/dL Influenza Type A (PCR) NEGATIVE (Negative) Influenza Type B (PCR) NEGATIVE (Negative) RSV RNA Qual (PCR) NEGATIVE (Negative) SARS-CoV-2 RNA (RT-PCR) NEGATIVE (Negative) Independent Interpretation I performed an independent interpretation of an: EKG and Plain X-Ray (normal ) Interpretation: Rate: 67 Rhythm: NSR [place]: left, LVH Normal P waves. Normal BRANDEN. incomplete RBBB ST T wave : inverted t waves I and aVL, qTC: 390 prior studies: no sig change from 2022 The study has been interpreted contemporaneously by me. . Radiology Impression Discussion of test interpretation with radiology: I have reviewed the radiologist's reading. Independent Historian Clinical information obtained from an independent historian. History obtained from or confirmed by: Spouse External Record Review External record reviewed: Office record, Prior outpatient labs and Prior outpatient radiology Discharge Plan Discharge Clinical Impression: Angina of effort, Chest pain Patient Disposition: [facility] Transfer Details: [facility] Prescriptions: No Action loratadine [Claritin RediTabs] 10 mg tablet,disintegrating 10 mg PO DAILY Qty: 90 1RF atorvastatin 10 mg tablet 10 mg PO DAILY 90 Days Qty: 90 3RF tramadol 50 mg tablet 50 mg PO ONCE PRN (Reason: premature ejaculation) Qty: 15 0RF Rx Instructions: Take 60 min prior to intended activity finasteride 5 mg tablet 5 mg PO DAILY 90 Days Qty: 90 1RF Rx Instructions: take medication every other day albuterol sulfate 90 mcg/actuation aero powdr breath act w/sensor 1 inh inhalation Q6H PRN (Reason: shortness of breath or wheezing) Qty: 1 0RF albuterol sulfate 90 mcg/actuation HFA aerosol inhaler 2 puff inhalation Q4-6H PRN (Reason: shortness of breath or wheezing) Qty: 6.7 0RF valacyclovir 500 mg tablet 500 mg PO Q12H 5 Days Qty: 10 3RF amoxicillin-pot clavulanate 875-125 mg tablet 1 tab PO BID 10 Days Qty: 20 0RF Cipro HC 0.2-1 % drops,suspension 3 drp otic (ears) BID 7 Days Qty: 10 0RF senna 8.6 mg capsule 8.6 mg PO BEDTIME PRN (Reason: constipation) 90 Days Qty: 90 3RF fluticasone propionate [Flovent HFA] 110 mcg/actuation HFA aerosol inhaler 1 puff inhalation BID Qty: 12 3RF aspirin 81 mg tablet,delayed release (DR/EC) 81 mg PO DAILY sildenafil 100 mg tablet 100 mg PO DAILY PRN (Reason: sexual activity) 30 Days Qty: 30 1RF Rx Instructions: administer 30 minutes to 4 hours before activity tadalafil 5 mg tablet 5 mg PO DAILY 90 Days Qty: 90 1RF Print Language: German
[2023-10-23 12:18] LABS: B Type Natriuretic Peptide 98 pg/mL (<100)
[2023-10-23 13:08] LABS: Troponin-I High Sensitivity 18.5 ng/L (<3.5-35.0)
--- NOTE | 2023-10-23 13:30 | CA_ITS ---
Transthoracic Echocardiogram Patient (Last, First, Middle): Raheem Garcia P Gender: Male Date of : 1960 Age: 63 Procedure Date: 10/23/2023 Procedure Type: Transthoracic Echocardiogram Location: ER Height: 180.34 cm Weight: 122.93 kg BSA: 2.40 m2 Heart Rate: 57 bpm BP: 122 / 55 mmHg Head Piece Assembler: SB Referring MD: Gerardo Case MD Symptoms: aortic stenosis, chest pain Study Quality: Adequate w contrast ECG Rhythm: Bradycardia Conclusions: - Normal left ventricular size and systolic function. There is mildly increased left ventricular wall thickness. The visually estimated ejection fraction is between 65-70%. - Elevated filling pressures. - There is a bicuspid aortic valve. The [place] is between the right coronary cusp and left coronary cusp. There is moderate calcification of the aortic valve. There is severe aortic valve stenosis. The peak aortic velocity is 4.11 m/s with a calculated peak gradient of 68 mmHg. The mean gradient is 40 mmHg. The aortic valve area is 1.02 cm2. - There is mild dilatation of the sinuses of Valsalva measuring 3.80 cm and mild dilatation of the ascending aorta measuring 4.40 cm. Findings Procedure Information Contrast agent, definity, is being given per protocol without apparent complications. The quality of the study was technically difficult. The study quality is limited by patients body habitus. Left Ventricle Normal left ventricular size and systolic function. There is mildly increased left ventricular wall thickness. The visually estimated ejection fraction is between 65-70%. There is no evidence of regional wall motion abnormalities. Abnormal diastolic function is noted. Spectral Doppler is indicative of a pseudonormal filling pattern. Elevated filling pressures. Right Ventricle Normal right ventricular cavity size. There is low normal right ventricular systolic function. Atria The left atrium is mildly dilated. Aortic Valve There is a bicuspid aortic valve. The raphe is between the right coronary cusp and left coronary cusp. There is moderate calcification of the aortic valve. There is severe aortic valve stenosis. The peak aortic velocity is 4.11 m/s with a calculated peak gradient of 68 mmHg. The mean gradient is 40 mmHg. The aortic valve area is 1.02 cm2. There is no aortic valve regurgitation. Mitral Valve The mitral valve appears normal. There is mild mitral annular calcification. There is no mitral valve regurgitation. There is no mitral valve stenosis. Pulmonic Valve The pulmonic valve is likely normal. Tricuspid Valve Normal tricuspid valve structure and function. Tricuspid regurgitation envelope is inadequate for calculation of right ventricular systolic pressure. Normal right atrial pressure. Great Vessels There is mild dilatation of the sinuses of Valsalva measuring 3.80 cm and mild dilatation of the ascending aorta measuring 4.40 cm. The visualized portions of the pulmonary artery and branches are normal. Venous The inferior vena cava is normal in size and collapses greater than 50% with inspiration. Pericardium/Pleural There is no evidence of pericardial effusion. Prior Study Comparison Changes noted compared to prior study dated: 02/26/2022. Severe Aortic helen stenosis present. Measurements 2D Linear Measurements IVSd: 1.21 0.6-0.9/0.6-1.0 cm LVIDd: 5.51 3.9-5.3/4.2-5.9 cm LVIDd Index: 2.30 2.4-3.2/2.2-3.1 cm/m2 LVIDs: 3.68 2.0-3.6 cm LVPWd: 1.07 0.7-1.1 cm LA Diam: 4.20 2.7-3.8/3.0-4.0 cm LAIDs Index: 1.75 1.5-2.3 cm/m2 LV Mass: 317.66 67-162/88-224 g LV Mass Index: 132.36 43-95/49-115 g/m2 LVOT Diam: 2.40 3.0+(-)1.3 cm 2D Systolic Function EF 4C: 72.70 >55% EF 2C: 76.00 >55% EF BiP: 75.00 >55% Mitral Valve MV Pk E: 1.08 MV PK A: 0.68 MV Decel Time: 216.00 E/A: 1.60 E'Lateral: 7.62 E'Medial: 5.84 E/E' Med: 18.50 E/E' Lat: 14.20 PHT: 63.00 MVA PHT: 3.49 Decel [place]: 5.01 Aortic Valve AoV Pk Dariusz: 4.11 AoV Mn Dariusz: 2.87 AoV VTI: 0.94 AoV Pk Grad: 68.00 Aov Mn Grad: 40.00 PIERCE Cont.VTI: 1.02 LVOT LVOT Pk Dariusz: 0.93 LVOT Mn Dariusz: 0.63 LVOT VTI: 0.23 LVOT Pk Grad: 3.00 LVOT Mn Grad: 2.00 LVOT Diam: 2.40 LVOT Area: 4.52 Diastolic Function MV Pk E: 1.08 MV Pk A: 0.68 E/A: 1.60 E'Medial: 5.84 E/E' Med: 18.50 E' Laterial: 7.62 E/E' Lat: 14.20 Right Ventricle TAPSE (mm): 20.30 TVS' Dariusz: 10.70 Great Vessels Aorta Sinus of Valsalva: 3.80 2.0-3.5 cm Ao Asc: 4.40 2.1-3.4 cm Ao Arch: 3.00 Pulmonary Veins Pulm Vein S/D 0.70 Pulmonary Valve PV Pk Dariusz: 1.16 Peak PV Grad: 5.00 Updated in Other Vendor System with Status of Final Gerardo Case MD electronically signed on 10/23/2023 3:30:34 PM with status of Final
--- NOTE | 2023-10-23 13:30 | PM.CNCAR ---
History of Present Illness History of Present Illness Date of Service: 10/23/23 Requesting physician: La Wilson Chief complaint: Chest pain Narrative: 63-year-old gentleman with known history of bicuspid aortic valve with moderate bicuspid valve aortic stenosis and [id number] ascending aortic dilatation at 4.4 cm presenting with new onset chest pain or shortness of breath. Over the last few days he has noticed chest pressure and shortness of breath with activities. Today he is walk from his car to the yarsani and started having chest pain and shortness of breath. He decided to come to the emergency department. He has saying the symptoms are clearly with exertion but are getting worse. No syncope. No recent air travel. His chest pain did not radiate to his arms or back. [facility] Past Medical History Medical History Seborrheic keratosis Erectile dysfunction Degenerative joint disease of sacroiliac joint Lumbar spondylosis Left-sided low back pain with left-sided sciatica BiPAP (biphasic positive airway pressure) dependence Normal colonoscopy (~2010) Vitamin D deficiency Genital herpes in men Obesity (BMI 30-39.9) Obstructive sleep apnea Pure hypercholesterolemia Asymptomatic microscopic hematuria BRANDT on CPAP Patent foramen ovale Thoracic aortic aneurysm without rupture Bicuspid aortic valve Family History Family History Father Dementia HTN (hypertension) Mother Dementia HTN (hypertension) Diabetes Other Mental health problem Substance abuse Surgical History Surgical History H/O Spinal surgery History of uvulectomy History of parathyroidectomy History of tonsillectomy Social History Social History Housing: House Alcohol intake: current Alcohol intake frequency: holidays/special occasions only Alcohol type: beer Patient Tobacco Use Status: Former Tobacco user e-Cigarette/Vaping Use: Never Used Second Hand Smoke Exposure: Yes service: No Current occupational status: employed 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 Cognitive needs: No Hearing needs: No Vision needs: No Meds Allergies Allergy/AdvReac Type Severity Reaction Status Date / Time No Known Allergies Allergy Verified 10/23/23 11:31 Home Medications ?Medication ?Instructions ?Recorded ?Confirmed ?Last Taken ?Type aspirin 81 mg tablet,delayed 81 mg PO DAILY 04/26/20 10/07/23 09/21/20 20:00 History release Physical Exam Vital Signs: Vital Signs: Last Vital Signs Temp 97.8 F 10/23/23 11:33 Pulse 66 10/23/23 11:33 Resp 19 10/23/23 11:33 BP 121/56 L 10/23/23 11:33 Pulse Ox 97 10/23/23 11:33 O2 Del Method Room Air 10/23/23 11:33 BMI result Body Mass Index 37.8 GENERAL APPEARANCE: in no acute distress, pleasant. NECK: no carotid bruit, no jugular venous distention. SKIN: no suspicious lesions, warm and dry. HEART: Ejection systolic murmur aortic area with feeble 2nd heart sound, regular rate and rhythm. LUNGS: clear to auscultation bilaterally. ABDOMEN: soft, nontender. EXTREMITIES: no edema. PERIPHERAL PULSES: equal. NEUROLOGIC: No gross deficits, AAO X 3 Objective Labs and Meds 10/23/23 10:47 10/23/23 10:47 Lab results: Laboratory Results - last 24 hr 10/23/23 10/23/23 10:47 12:41 WBC 10.0 RBC 4.82 Hgb 13.9 L Hct 39.8 L MCV 82.6 MCH 28.8 MCHC 34.9 RDW 13.2 Plt Count 278 MPV 8.9 L Immature Gran % (Auto) 0.3 Neut % (Auto) 56.3 Lymph % (Auto) 30.7 [place] % (Auto) 9.1 Eos % (Auto) 2.9 Baso % (Auto) 0.7 Lymph # (Auto) 3.1 [place] # (Auto) 0.9 Eos # (Auto) 0.3 Baso # (Auto) 0.1 Abs Immat Gran (auto) 0.03 Absolute Neuts (auto) 5.6 Absolute Nucleated RBC 0.000 Nucleated RBC % (auto) 0.0 Sodium 141 Potassium 4.0 Chloride 111 H Carbon Dioxide 22 Anion Gap 12 BUN 14 Creatinine 1.07 Estim Creat Clear Calc 91.5 Estimated GFR > 60 Random Glucose 136 H Calcium 9.1 Total Bilirubin 0.9 AST 23 ALT 31 Alkaline Phosphatase 56 Troponin I High Sens 13.3 18.5 B-Natriuretic Peptide 98 Total Protein 6.8 Albumin 4.0 Influenza Type A (PCR) NEGATIVE Influenza Type B (PCR) NEGATIVE RSV RNA Qual (PCR) NEGATIVE SARS-CoV-2 RNA (RT-PCR) NEGATIVE Imaging Radiologist's impression: Impressions Chest X-Ray 10/23/23 11:12 IMPRESSION: No acute cardiopulmonary disease. Assessment and Plan (1) Chest pain: Qualifiers: Chest pain type: precordial pain Qualified Code(s): R07.2 - Precordial pain Status: Acute (2) Bicuspid aortic valve: Status: Acute (3) Thoracic aortic aneurysm without rupture: Qualifiers: Thoracic aorta location: unspecified Qualified Code(s): I71.20 - Thoracic aortic aneurysm, without rupture, unspecified Status: Acute Plan Pleasant 63 year gentleman presenting with chest discomfort shortness of breath on background of bicuspid aortic valve with moderate aortic valve stenosis and [id number] ascending aortic dilatation. We performed a bedside echocardiogram which showed aortic valve velocities of 4.1 centimeter squared with a mean gradient across aortic valve of 40 mm Hg. His aortic valve area is 1.02 cm2. Velocity ratio is 0.23. I think his presentation is due to severe aortic valve stenosis. Given the fact that he became symptomatic and is getting symptom with minimal activity I have decided to transfer to [facility] where we will perform a diagnostic cardiac catheterization tomorrow. After that we will discuss the case with heart team. His EKG does not have any dynamic changes. His biomarkers are also normal. I think his presentation is mostly due to valve disease and not acute coronary syndrome. Would avoid heparin currently. Thank you for allowing me to participate in the care of your patient. Please feel free to contact me if you have any questions. Procedures Date of Service Date of Service: 10/23/23
[2023-10-23 15:35] VITALS: BP 131/67; PULSE 55; RESP 16; O2SAT 98
--- NOTE | 2023-10-23 15:36 | PC.NURSE ---
Pt awaits transfer to [facility], pt denies any pain or associating sx. States no chest heaviness at this time. Sinus keon on tele. at bedside
[2023-10-23 15:59] VITALS: BP 138/63; PULSE 62; RESP 12; TEMP 36.4; O2SAT 99
--- NOTE | 2023-10-23 16:21 | PC.NURSE ---
4:24p: Call placed to [facility] @ [phone] and spoke with RN Kimberly to attempt to given RN to RN report for transfer. Kimberly reports she is unable to take report at this time and that the room ( Rm 111) is not clean or ready to receive the Pt. Call back name and number provided to Kimberly for report when she is able and room is ready.
--- NOTE | 2023-10-23 17:22 | PC.NURSE ---
Approx 5:20p: EMS arrives for transport to [facility] [place]. 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 EMS aware that RN to RN report was attemped earlier however [facility] [place] [place] RN Kimberly was unable to take report and has not called back for report at this time. Report will be given should she call back. Pt presents with NAD at this time and care was relinquished to EMS.
[2023-10-23 17:29] VITALS: BP 138/63; PULSE 62; RESP 12; TEMP 36.4; O2SAT 99
--- NOTE | 2023-10-23 18:00 | PC.NURSE ---
[facility] called back and report given
== END 2023-10-23 17:30 | disposition short-term general hospital (02) ==
PROVIDERS: Emergency Provider Emergency Medicine; PCP Internal Medicine
DX: R07.9 Chest pain, unspecified (principal); I20.89 Other forms of angina pectoris; R07.2 Precordial pain; Q23.1 Congenital insufficiency of aortic valve; I71.20 Thoracic aortic aneurysm, without rupture, unspecified; R06.02 Shortness of breath; E78.00 Pure hypercholesterolemia, unspecified; G47.33 Obstructive sleep apnea (adult) (pediatric); I48.0 Paroxysmal atrial fibrillation; Z79.02 Long term (current) use of antithrombotics/antiplatelets; Z79.899 Other long term (current) drug therapy; Z79.82 Long term (current) use of aspirin; Z03.818 Encounter for observation for suspected exposure to other biological agents ruled out
CPT/HCPCS: 0241U; 36415; 71046; 80053; 83880; 84484; 85025; 93005; 93306; 99285; Q9957

== ENCOUNTER → 2023-10-23 11:28 | Outpatient (BNV) | payer BC, SELFPAY | PROVIDERS: Emergency Provider Emergency Medicine; PCP Internal Medicine; Visit Provider Internal Medicine Cardiovascular Disease | DX: R07.2 Precordial pain (principal); Q23.1 Congenital insufficiency of aortic valve; I71.20 Thoracic aortic aneurysm, without rupture, unspecified | CPT/HCPCS: 99223 ==

== ENCOUNTER → 2023-10-23 13:30 | Outpatient (BNV) | payer BC, SELFPAY | PROVIDERS: Emergency Provider Emergency Medicine; PCP Internal Medicine; Visit Provider Internal Medicine Cardiovascular Disease | DX: Q23.0 Congenital stenosis of aortic valve (principal); I34.81 Nonrheumatic mitral (valve) annulus calcification; R94.31 Abnormal electrocardiogram [ECG] [EKG] | CPT/HCPCS: 93010; 93303; 93320; 93325 ==

== ENCOUNTER → 2023-10-24 23:59 | Outpatient (BNV) | payer BC, SELFPAY | PROVIDERS: PCP Internal Medicine; Visit Provider Internal Medicine Cardiovascular Disease | DX: I20.89 Other forms of angina pectoris (principal); I35.0 Nonrheumatic aortic (valve) stenosis | CPT/HCPCS: 93460; 99152 ==

== ENCOUNTER 2023-11-26 13:40 | Outpatient (AMB) | payer BC, SELFPAY ==
--- NOTE | 2023-11-26 13:55 | MHC.OFFVIS ---
Vital Signs 11/26/23 13:58 Height 5 ft 11 in Weight 244 lb 11.41 oz BMI 34.1 BP 100/58 L Blood Pressure Location Lt brachial Position Sitting Pulse 53 Intake Visit Reasons: CABG 10-28/Follow up Bookkeeping Assistant Required: No Accompanied by: Spouse Allergies No Known Allergies Allergy (Verified 10/23/23 11:31) Medication List - Last Reconciled 11/26/23 by Suleiman Turner MD aspirin 81 mg PO DAILY atorvastatin 10 mg PO DAILY 90 days finasteride 5 mg PO DAILY 90 days sennosides (senna) 8.6 mg PO BEDTIME PRN 90 days valacyclovir 500 mg PO Q12H 5 days HPI Comments Details: Raheem returns for follow-up. In the past, he was seen in our clinic regarding bicuspid aortic valve. More recently, it seems that he came to the emergency room with chest pressure/shortness of breath. In that context, echocardiogram had shown suggestion of severe aortic stenosis. Then he was transferred to [facility]. Underwent catheterization that showed no significant disease. He underwent surgical aortic valve replacement with 25 mm Inspiris valve. It seems to be mostly doing well. No clear-cut issues at this time. Somewhat deconditioned after surgery but otherwise okay. Some orthostatic dizziness type symptoms. [facility] Medical History Seborrheic keratosis Erectile dysfunction Degenerative joint disease of sacroiliac joint Lumbar spondylosis Left-sided low back pain with left-sided sciatica BiPAP (biphasic positive airway pressure) dependence Normal colonoscopy (~2010) Vitamin D deficiency Genital herpes in men Obesity (BMI 30-39.9) Obstructive sleep apnea Pure hypercholesterolemia Asymptomatic microscopic hematuria BRANDT on CPAP Patent foramen ovale Thoracic aortic aneurysm without rupture Bicuspid aortic valve Surgical History H/O Spinal surgery History of uvulectomy History of parathyroidectomy History of tonsillectomy Family History Father Dementia HTN (hypertension) Mother Dementia HTN (hypertension) Diabetes Other Mental health problem Substance abuse Social History Housing: House Alcohol intake: current Alcohol intake frequency: holidays/special occasions only Alcohol type: beer Patient Tobacco Use Status: Former Tobacco user e-Cigarette/Vaping Use: Never Used Second Hand Smoke Exposure: Yes service: No Current occupational status: employed 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 Cognitive needs: No Hearing needs: No Vision needs: No Review of Systems Const Denies chills, Denies fatigue, Denies fever(s), Reports weakness, Denies weight gain and Denies weight loss ENT Denies dizziness Card Denies chest pain, Denies leg edema, Reports lightheadedness, Denies palpitations, Reports dyspnea on exertion, Denies orthopnea and Denies other Resp Denies cough and Reports dyspnea on exertion GI Denies hematochezia and Denies change in stool character Musc Denies abnormal gait, Denies muscle weakness, Denies numbness, Denies radiating pain into limb and Denies tingling Neuro Denies abnormal gait, Denies dizziness, Denies numbness, Denies tingling and Reports weakness Endo Denies fatigue and Denies palpitations Physical Exam Vital Signs: Last Vital Signs Pulse 53 11/26/23 13:58 BP 100/58 L 11/26/23 13:58 BMI result Body Mass Index 34.1 Const General: comfortable and no acute distress Orientation/consciousness: patient oriented x3 HEENT Other: Unremarkable Head: Yes normal to inspection Neck Neck: Yes normal visual inspection Chest Chest palpation & inspection: normal inspection of the chest Resp Auscultation: clear to auscultation bilaterally Cardio Palpation: normal PMI Heart sounds: S1 normal heart sound present, S2 normal heart sound present, no gallops, Murmur heart sound present systolic II/ and at the right sternal border and no rubs GI Palpation (GI): Soft to palpation Back/Spine/Pelvis Other: unremarkable Skin General skin exam: no rashes or lesions noted Neuro General: patient oriented x3 Extrem General: Yes normal to inspection Psych Mental Status: mental status grossly normal Office Procedures EKG Details: EKG with sinus bradycardia at 53/Min; nonspecific ST-T changes; [place] [id number], Complete Assessment & Plan Assessment & Plan (1) Status post aortic valve replacement and aortoplasty: Code(s): Z95.2 - Presence of prosthetic heart valve Category: Surgical Plan Patient is status post bioprosthetic aortic valve replacement/aortoplasty. He can start cardiac rehabilitation. Obtain echocardiogram. Stop amiodarone. No clear reason for beta-blockers. He is also feeling orthostatic dizziness. Can stop that as well. Will follow-up in 3 months. In the interim, they will call with concerns. Discussed with significant other. Coding Level of Care Code Est Pt Level 4 (00946) Diagnoses Status post aortic valve replacement and aortoplasty Z95.2 CPT Codes EKG - CPT: 52423-[id number], Complete ([id number])
[2023-11-26 13:58] VITALS: BP 100/58; PULSE 53; BMI 34.1
== END 2023-11-26 14:41 | disposition home or self-care (01) ==
PROVIDERS: PCP Internal Medicine; Visit Provider Internal Medicine
DX: Z95.2 Presence of prosthetic heart valve (principal)
CPT/HCPCS: 93010; 99214

== ENCOUNTER → 2023-11-26 13:40 | Outpatient (BNVA) | payer BC, SELFPAY | PROVIDERS: PCP Internal Medicine; Visit Provider Internal Medicine | DX: Z95.2 Presence of prosthetic heart valve (principal) | CPT/HCPCS: 93005 ==

== ENCOUNTER 2023-11-28 15:09 | Outpatient (AMB) | payer BC, SELFPAY ==
--- NOTE | 2023-11-28 15:34 | MHC.PC.OV ---
Vital Signs 11/28/23 15:35 Height 5 ft 11 in Weight 244 lb 6 oz BMI 34.1 BP 110/64 Blood Pressure Location Lt brachial Position Sitting Pulse 71 Pulse Source Pulse Oximeter Pulse Oximetry (%) 97 Oxygen Delivery Method Room Air Intake Visit Reasons: [facility] 7.5 Discharge Open Heart Surgery Intake Note: Patient is here for hospital discharge follow up. Patient was discharged from [facility] on 11/07/23. 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 Pt was admitted at [facility] 10/23/23 for Open heart surgery due to Severe Aortic Stenosis. He was discharged home on 11/07/2023 with home care nursing. He does receive Homecare twice a week. He will be doing PT as outpatient soon. He will be following up with Urology for BPH as scheduled. He still has a Caldwell Cath and Leg bag. He is currently on Fenasteride and Tamsulosin. He will also be following up with Cardiac surgeons and his regular Director Of Neurology as scheduled. Today Pt c/o Insomnia, he wakes up in the middle of the night and unable to fall back to sleep. He tried Melatonin with no relief. [facility] Medical History (Updated 10/24/23 @ 00:00 by Jessica Gallegos) Seborrheic keratosis Erectile dysfunction Degenerative joint disease of sacroiliac joint Lumbar spondylosis Left-sided low back pain with left-sided sciatica BiPAP (biphasic positive airway pressure) dependence Normal colonoscopy (~2010) Vitamin D deficiency Genital herpes in men Obesity (BMI 30-39.9) Obstructive sleep apnea Pure hypercholesterolemia Asymptomatic microscopic hematuria BRANDT on CPAP Patent foramen ovale Thoracic aortic aneurysm without rupture Bicuspid aortic valve Surgical History (Updated 11/28/23 @ 15:41 by ELIZA Howell) History of open heart surgery H/O Spinal surgery History of uvulectomy History of parathyroidectomy History of tonsillectomy Family History Father Dementia HTN (hypertension) Mother Dementia HTN (hypertension) Diabetes Other Mental health problem Substance abuse Social History Housing: House Alcohol intake: current Alcohol intake frequency: holidays/special occasions only Alcohol type: beer Patient Tobacco Use Status: Former Tobacco user e-Cigarette/Vaping Use: Never Used Second Hand Smoke Exposure: Yes service: No Current occupational status: employed 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 Paulo Cohen, Gertrudis Rivas, Huan Dominguez and colleagues, with an educational bell from [employer]. Review of Systems Const All systems reviewed & are unremarkable except as noted in HPI and below Physical exam (Primary Care) Vital Signs: Last Vital Signs Pulse 71 11/28/23 15:35 BP 110/64 11/28/23 15:35 Pulse Ox 97 11/28/23 15:35 Oxygen Delivery Method Room Air 11/28/23 15:35 BMI result Body Mass Index 34.1 Tobacco/Smoking Status: Tobacco use Status Tobacco use date assessed 11/28/23 11/28/23 15:42 Patient Tobacco Use Status Former Tobacco user 11/28/23 15:42 e-Cigarette/Vaping Use Never Used 11/28/23 15:42 Thrive Assessment: Date of Thrive Assessment Date Thrive assessed 08/05/23 11/28/23 15:42 Const General: comfortable Nutritional Appearance: overweight Orientation/consciousness: patient oriented x3 Resp Effort & Inspection: normal respiratory effort and able to speak in complete sentences Auscultation: clear to auscultation bilaterally Cardio Heart sounds: S1 normal heart sound present and S2 normal heart sound present Neuro General: patient oriented x3, gait normal and moves all extremities Psych Speech and movement: Normal speech and movement present Vital Signs: Last Vital Signs Pulse 71 11/28/23 15:35 BP 110/64 11/28/23 15:35 Pulse Ox 97 11/28/23 15:35 Oxygen Delivery Method Room Air 11/28/23 15:35 BMI result Body Mass Index 34.1 Const General: comfortable Nutritional Appearance: overweight Orientation/consciousness: patient oriented x3 Chest Other: Large vertical scar on midline chest, well healed. Some mild tenderness. Skin dry and drainage. Resp Effort & Inspection: normal respiratory effort and able to speak in complete sentences Auscultation: clear to auscultation bilaterally Cardio Heart sounds: S1 normal heart sound present and S2 normal heart sound present Neuro General: patient oriented x3, gait normal and moves all extremities Psych Speech and movement: Normal speech and movement present Assessment and Plan Assessment & Plan (1) Status post aortic valve replacement: Code(s): Z95.2 - Presence of prosthetic heart valve Plan: Continue f/u with Cardio-thoracic Team as scheduled. Discussed CPR precautions. (2) BPH (benign prostatic hyperplasia): Code(s): N40.0 - Benign prostatic hyperplasia without lower urinary tract symptoms Qualifiers: Lower urinary tract symptom presence: symptoms present Lower urinary tract symptom detail: urinary hesitancy Qualified Code(s): N40.1 - Benign prostatic hyperplasia with lower urinary tract symptoms; R39.11 - Hesitancy of micturition Plan: F/U with Urology as scheduled to have Caldwell Cath removed Continue on medications as prescribed (3) Insomnia: Code(s): G47.00 - Insomnia, unspecified Qualifiers: Insomnia type: unspecified Qualified Code(s): G47.00 - Insomnia, unspecified Plan: Advised the use of Benadrly F/U with PCP if symptoms do not improve on OTC Benadrly. Coding Level of Care Code Est Pt Level 4 (45556) Diagnoses Status post aortic valve replacement Z95.2 Benign prostatic hyperplasia with urinary hesitancy N40.1; R39.11 Lower urinary tract symptom presence: symptoms present Lower urinary tract symptom detail: urinary hesitancy Insomnia, unspecified type G47.00 Insomnia type: unspecified Comment Spent 20 minutes reviewing hospital notes
[2023-11-28 15:35] VITALS: BP 110/64; PULSE 71; O2SAT 97; BMI 34.1
== END 2023-11-28 16:12 | disposition home or self-care (01) ==
PROVIDERS: PCP Internal Medicine; Visit Provider Nurse Practitioner Family
DX: Z95.2 Presence of prosthetic heart valve (principal); N40.1 Benign prostatic hyperplasia with lower urinary tract symptoms; R39.11 Hesitancy of micturition; G47.00 Insomnia, unspecified
CPT/HCPCS: 99214

== ENCOUNTER 2023-11-29 08:51 | Outpatient (REF) | payer BC, SELFPAY ==
[2023-11-29 11:57] LABS: Alanine Aminotransferase 29 U/L (0-40); Albumin Level 4.1 g/dL (3.5-5.0); Alkaline Phosphatase 83 U/L (39-117); Anion Gap 14 (12-20); Aspartate Amino Transferase 19 U/L (5-37); Bilirubin Total 0.9 mg/dL (0.0-1.0); Blood Urea Nitrogen 19 mg/dL (9-16); Calcium 9.9 mg/dL (8.4-10.2); Carbon Dioxide 24 mmol/L (22-29); Chloride 106 mmol/L (96-108); Cholesterol 129 mg/dL (<200); Estimated Glomerular Filt Rate 56; Glucose Fasting 88 mg/dL (60-99); HDL Cholesterol 33 mg/dL (>40); LDL Cholesterol Calculated 76 mg/dL (<100); Potassium 4.1 mmol/L (3.3-5.1); Sodium 140 mmol/L (135-145); Triglycerides 101 mg/dL (<150)
== END 2023-11-29 08:52 | disposition home or self-care (01) ==
LOC: HO.LAB 08:51
PROVIDERS: PCP Internal Medicine; Visit Provider Internal Medicine
DX: E78.00 Pure hypercholesterolemia, unspecified (principal)
CPT/HCPCS: 36415; 80053; 80061

== ENCOUNTER → 2023-12-02 09:25 | Outpatient (BNVA) | payer BC, SELFPAY | PROVIDERS: PCP Internal Medicine; Visit Provider Urology | DX: N40.0 Benign prostatic hyperplasia without lower urinary tract symptoms (principal) | CPT/HCPCS: 51700; 51798 ==

== ENCOUNTER 2023-12-04 23:14 | Inpatient (IN) | payer BC, SELFPAY ==
--- NOTE | ~2023-12-04 | CT_ITS ---
EXAMINATION: CT ABDOMEN AND PELVIS WITH CONTRAST CLINICAL INFORMATION: Urinary tract infection. COMPARISON: CT urogram 10/27/2020 TECHNIQUE: Multidetector volumetric images were obtained from the superior aspect of the liver through the pubic symphysis following administration 85 mL of Omnipaque 350 intravenous contrast. Sagittal and coronal reformatted images were obtained on the technologist's workstation. Oral contrast: No This CT examination was performed using dose optimization techniques as appropriate, variously including the following: *Automated exposure control *Adjustment of mA and/or kV according to patient size (this includes techniques or standardized protocols for targeted exams where dose is matched to indication/reason for exam; i.e. extremities or head) *Use of iterative reconstruction technique DLP: 205 mGy-cm FINDINGS: LUNG BASES: No pleural or pericardial effusion. Aortic valve replacement. LIVER, GALLBLADDER, AND BILIARY TREE: The liver is decreased in attenuation. No focal hepatic lesion or biliary ductal dilatation is present. The gallbladder is contracted. PANCREAS: Unremarkable. SPLEEN: Unremarkable. ADRENAL GLANDS: Unremarkable. KIDNEYS AND URETERS: The kidneys are symmetric in size and enhancement. No hydronephrosis or renal calculus.. No perinephric stranding. BLADDER: No bladder calculus. GASTROINTESTINAL TRACT: Small and large bowel loops are of normal caliber. No small bowel obstruction. There are fluid contents within the proximal to mid colon. Appendix is within normal limits. ABDOMINAL WALL: No significant hernia is appreciated. LYMPH NODES: No bulky lymphadenopathy. VASCULAR: Normal caliber abdominal aorta. PELVIC VISCERA: Heterogeneous and enlarged prostate gland indenting the bladder base. Subtle periprostatic stranding. OSSEOUS STRUCTURES: Disc herniations at T6-T7 and T8-T9. CT/CT abdomen pelvis w IV con IMPRESSION: Heterogeneous appearance of the prostate gland with mild periprostatic stranding. This may represent prostatitis. Fluid contents within the proximal to mid colon. No colonic wall thickening or pericolonic stranding. This may represent mild colitis. Hepatic steatosis.
--- NOTE | ~2023-12-04 | XR_ITS ---
EXAMINATION: XR CHEST CLINICAL INFORMATION: Weakness COMPARISON: 10/23/2023 TECHNIQUE: Frontal view of the chest was obtained. FINDINGS: Mild elevation of the right hemidiaphragm. No focal consolidation is seen bilaterally. No evidence of pneumothorax, pleural effusion, or pulmonary edema. Cardiac size is within normal limits. Sternal wires and hardware noted. No acute osseous findings are seen. XR/XR chest 1V IMPRESSION: No acute cardiopulmonary findings.
[2023-12-04 23:20] VITALS: PULSE 97; RESP 20; TEMP 37.2; O2SAT 95; BMI 33.9
--- NOTE | 2023-12-04 23:20 | ECG_ITS ---
Test Reason : HYPOTENSION Blood Pressure : / mmHG Vent. Rate : 092 BPM Atrial Rate : 092 BPM P-R Int : 156 ms QRS Dur : 114 ms QT Int : 386 ms P-R-T Axes : 040 -16 085 degrees QTc Int : 477 ms Normal sinus rhythm Possible Left atrial enlargement Incomplete right bundle branch block Nonspecific ST and T wave abnormality Abnormal ECG When compared with ECG of 23-OCT-2023 10:25, QT has lengthened Referred By: La Wilson Electronically Signed By:Gerardo Case
--- NOTE | 2023-12-04 23:26 | ED_ITS ---
HPI - Weakness General Chief complaint: General Medical Stated complaint: weakness, heart surgery a month ago Time Seen by Provider: 12/04/23 23:20 Source: patient, family and old records reviewed Mode of arrival: ambulatory Limitations: no limitations History of Present Illness ED Provider: BRENDA MAKI Narrative: 63 yo male with PMH of BRANDT, HLD, bicuspic aortic valve and thoracic aortic aneurysm s/p cardiac cath in October that showed no sig CAD he underwent sternotomy s/p surgical valve replacement 25mm inspiris valve and ascending aortoplasty on 10/29/23. He had post op AF and has been on metoprolol and baby aspirin. He also post op retention and a holloway catheter with prolonged placement s/p removal on 12/01 he comes in today with c/o chills, sweats, fatigue x 3 days. Today was much worse he was in bed all day and didn't feel well. It does burn when he urinates. He was orthostatic on arrival BP was 89/40s orthostatic not sitting. He didn't tell his family. They note he is very pale he denies CP other than post operative twinge. He denies dyspnea. He has not had cough or fevers. Denies black or bloody stools MD Complaint: generalized weakness Onset (ago): day(s) (3) Duration: progressively worsening Location: generalized Migration: none Severity: moderate Relieving factors: rest Exacerbating factors: movement and exertion Context: recent illness Associated symptoms: dysuria, fever/chills and loss of appetite Related Data Home Medications ?Medication ?Instructions ?Recorded ?Confirmed aspirin 81 mg tablet,delayed 81 mg PO DAILY 04/26/20 11/26/23 release acetaminophen 325 mg tablet 650 mg PO Q6H PRN 11/28/23 tamsulosin 0.4 mg capsule 0.4 mg PO DAILY 11/28/23 Previous Rx's ?Medication ?Instructions ?Recorded sennosides 8.6 mg capsule (senna) 8.6 mg PO BEDTIME PRN constipation 10/23/22 90 days #90 caps atorvastatin 10 mg tablet 10 mg PO DAILY 90 days #90 tabs 02/11/23 valacyclovir 500 mg tablet 500 mg PO Q12H for recurrence or 08/05/23 outbreak of genital herpes 5 days #10 tabs finasteride 5 mg tablet 5 mg PO DAILY 90 days #90 tabs 10/06/23 Allergies Allergy/AdvReac Type Severity Reaction Status Date / Time No Known Allergies Allergy Verified 12/04/23 23:21 Review of Systems 2 Review of Systems: Constitutional : No Fever, pos Chills, pos Fatigue ENT/Mouth : No sore throat, No Rhinorrhea Eyes: No Eye Pain, No Swelling, No Redness Cardiovascular : No Chest Pain, No SOB, No Dyspnea on Exertion Respiratory : No Cough, No Sputum Gastrointestinal : No Nausea, No Vomiting, No Diarrhea, No abdominal Pain Genitourinary : pos Dysuria, No Urinary Frequency, No Hematuria, Musculoskeletal : No joint pain, No Myalgias, No Joint Swelling Skin : No Skin Lesions, No rash Neuro : pos Weakness, No Numbness, No Dizziness, positive Headache Psych : No Anxiety/Panic, No Depression All other systems reviewed and are negative [facility] Past Medical History Attestation statement: The following information was validated with the patient. Source: old records reviewed Medical History Seborrheic keratosis Erectile dysfunction Degenerative joint disease of sacroiliac joint Lumbar spondylosis Left-sided low back pain with left-sided sciatica BiPAP (biphasic positive airway pressure) dependence Normal colonoscopy (~2010) Vitamin D deficiency Genital herpes in men Obesity (BMI 30-39.9) Obstructive sleep apnea Pure hypercholesterolemia Asymptomatic microscopic hematuria BRANDT on CPAP Patent foramen ovale Thoracic aortic aneurysm without rupture Bicuspid aortic valve Surgical History History of open heart surgery H/O Spinal surgery History of uvulectomy History of parathyroidectomy History of tonsillectomy Family History Family History Father Dementia HTN (hypertension) Mother Dementia HTN (hypertension) Diabetes Other Mental health problem Substance abuse Social History Social History Housing: House Alcohol intake: current Alcohol intake frequency: holidays/special occasions only Alcohol type: beer Patient Tobacco Use Status: Former Tobacco user Smoked in Last 30 Days: No e-Cigarette/Vaping Use: Never Used Second Hand Smoke Exposure: Yes Advance Directives: No Advance Directives Information Provided: Yes Do you have a plan to hurt others: No Plan service: No Current occupational status: employed 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 Oriented X3. No acute distress. Eyes: Pupils equal, round and reactive to light. ENT: Pharynx normal. Neck: Normal inspection. Neck supple. CVS: Normal heart rate and rhythm. Pulses normal. Respiratory: No respiratory distress. Breath sounds normal. Abdomen: Soft and nontender. Skin: Skin warm and sweaty. pale skin color. Normal skin turgor. Extremities: No lower extremity edema. Neuro: Oriented X 3. No motor deficit. No sensory deficit. Course Course Course Narrative: 89/40 was orthostatic blood pressure Reevaluation(s) Reevaluation #1: infection suspected 1115pm Reevaluation #2: patient is obese IBW is 75kg 30cc/kg bolus is 2250 ml Medications Administered Generic Name Dose Route Start Last Admin Trade Name Freq PRN Reason Stop Dose Admin Lactated Ringer's 1,000 mls @ 999 mls/hr 12/04/23 23:54 12/05/23 00:09 Lr IV 12/05/23 00:54 999 mls/hr .Q1H1M ONE Administration Discontinued Medications Generic Name Dose Route Start Last Admin Trade Name Freq PRN Reason Stop Dose Admin Acetaminophen 650 mg 12/05/23 00:23 12/05/23 00:30 Acetaminophen 325 Mg Tablet PO 12/05/23 00:24 650 mg ONCE ONE Administration Cefepime HCl 1 gm/ Sodium 50 mls @ 100 mls/hr 12/04/23 23:54 12/05/23 00:09 Chloride IV 12/05/23 00:23 100 mls/hr ONCE ONE Administration Medical Decision Making Medical Decision Making MDM Narrative: 63 yo male with PMH of BRANDT, HLD, bicuspic aortic valve and thoracic aortic aneurysm s/p cardiac cath in October that showed no sig CAD he underwent sternotomy s/p surgical valve replacement 25mm inspiris valve and ascending aortoplasty on 10/29/23 post of Afib completed amio now on metoprolol and baby aspirin, post op retention s/p urinary cath removal on 12/01 now pale clammy not feeling well at this time will obtain labs, type and screen, UA, CXR, hemoglobin, inflammatory markers. He denies new chest pain or dyspnea just had cath doubt ACS, no symptoms to suggest VTE. He has + orthostatics - gentle 500cc bolus. He denies GI symptoms he agrees to transfusion if necessary. Suspect UTI based off symptoms - UA ordered along with fluids cultures and lactic acid will need empiric bs abx Differential Diagnosis Differential Diagnoses: The differential diagnosis associated with the presentation includes anemia, dehydration, uti pneumonia viral panel Admission/Observation Consideration of admission/observation: Escalation of care including admission/observation considered admit for sepsis Consult Healthcare Provider Management of the patient was discussed with: Hospitalist (will admit) Lab Data MDM Lab Attestation statement: I reviewed the patient's lab results. 12/04/23 23:26 12/04/23 23:26 Labs: Lab Results 12/04/23 12/04/23 12/04/23 Range/Units 23:26 23:51 23:58 WBC 29.4 H (4.8-10.8) X10*3/uL RBC 4.62 (4.60-5.80) X10*6/uL Hgb 12.8 L (14.0-18.0) g/dl Hct 37.6 L (42.0-52.0) % MCV 81.4 (80.0-98.0) fL MCH 27.7 (27.0-33.0) pg MCHC 34.0 (31.0-36.0) g/dl RDW 13.6 (11.0-16.0) % Plt Count 273 (160-400) X10*3/uL MPV 8.8 L (9.4-12.4) fL Immature Gran % (Auto) 0.7 H (0.0-0.4) % Neut % (Auto) 81.6 H (45-73) % Lymph % (Auto) 8.2 L (20-40) % [place] % (Auto) 9.1 (2-11) % Eos % (Auto) 0.1 (0-4) % Baso % (Auto) 0.3 (0-2) % Lymph # (Auto) 2.4 (1.2-4.9) X10*3/uL [place] # (Auto) 2.7 H (0.1-1.2) X10*3/uL Eos # (Auto) 0.0 (0.0-0.4) X10*3/uL Baso # (Auto) 0.1 (0.0-0.2) X10*3/uL Abs Immat Gran (auto) 0.21 H (0.00-0.03) X10*3/uL Absolute Neuts (auto) 24.0 H (2.0-8.3) x10*3/uL Absolute Nucleated RBC 0.000 (0.0-0.012) X10*3/uL Nucleated RBC % (auto) 0.0 (0.0-0.2) /100WBC Smear Tech's Comments VERIFIED PT 14.4 H (11.1-13.3) SEC INR 1.2 H (0.9-1.1) Sodium 136 (135-145) mmol/L Potassium 4.0 (3.3-5.1) mmol/L Chloride 105 (96-108) mmol/L Carbon Dioxide 21 L (22-29) mmol/L Anion Gap 14 (12-20) BUN 18 H (9-16) mg/dL Creatinine 1.16 (0.5-1.4) mg/dL Estim Creat Clear Calc 82.3 Estimated GFR > 60 POC Glucose 131 H (60-115) mg/dL Random Glucose 129 H (60-115) mg/dL Lactic Acid 1.4 (0.5-2.0) mmol/L Calcium 9.2 D (8.4-10.2) mg/dL Magnesium 1.9 (1.6-2.6) mg/dL Total Bilirubin 1.5 H (0.0-1.0) mg/dL Direct Bilirubin 0.5 (0.0-0.5) mg/dL AST 16 (5-37) U/L ALT 26 (0-40) U/L Alkaline Phosphatase 80 (39-117) U/L Troponin I High Sens 7.9 D (<3.5-35.0) ng/L C-Reactive Protein 11.76 H (< or = 0.50) mg/dL B-Natriuretic Peptide 106 H (<100) pg/mL Total Protein 6.9 (6.5-8.0) g/dL Albumin 4.0 (3.5-5.0) g/dL Lipase 43 (8-78) U/L Procalcitonin 0.17 ng/mL Independent Interpretation I performed an independent interpretation of an: EKG and Plain X-Ray (no pneumonia) Interpretation: Rate: 92 Rhythm: NSR [place]: normal Normal P waves. Normal BRANDEN. incomplete RBBB ST T wave : inverted t waves I and aVL, no BEST, qTC: 477 prior studies: no sig change from priors The study has been interpreted contemporaneously by me. . Radiology Impression Discussion of test interpretation with radiology: I have reviewed the radiologist's reading. Independent Historian Clinical information obtained from an independent historian. History obtained from or confirmed by: Spouse External Record Review External record reviewed: Inpatient record and Outpatient record Critical Care Time Critical Care Time Critical Care Time: Yes Total Critical Care Time: 40 Attestation: 2L of IVF, review of records, admission, sepsis protocol I attest to this time spent taking care of the patient Discharge Plan Discharge Clinical Impression: Acute UTI Elevated WBC count Qualifiers: Leukocytosis type: unspecified Qualified Code(s): D72.829 - Elevated white blood cell count, unspecified Fever Qualifiers: Fever type: unspecified Qualified Code(s): R50.9 - Fever, unspecified Patient Disposition: Admitted As Inpatient Print Language: Turkish
[2023-12-04 23:32] LABS: Basophils Absolute Auto 0.1 X10*3/uL (0.0-0.2); Basophils Percent Auto 0.3 % (0-2); Eosinophils Percent Auto 0.1 % (0-4); Hematocrit 37.6 % (42.0-52.0); Hemoglobin 12.8 g/dl (14.0-18.0); Imm Gran Abs Auto 0.21 X10*3/uL (0.00-0.03); Imm Gran Pct Auto 0.7 % (0.0-0.4); Lymphocytes Absolute Auto 2.4 X10*3/uL (1.2-4.9); Lymphocytes Percent Auto 8.2 % (20-40); MANUAL DIFF FLAG SCAN; Mean Corpuscular Hemoglobin 27.7 pg (27.0-33.0); Mean Corpuscular Volume 81.4 fL (80.0-98.0); Mean Platelet Volume 8.8 fL (9.4-12.4); Monocytes Absolute Auto 2.7 X10*3/uL (0.1-1.2); Monocytes Percent Auto 9.1 % (2-11); Neutrophils Percent Auto 81.6 % (45-73); Platelet Count 273 X10*3/uL (160-400); Red Blood Count 4.62 X10*6/uL (4.60-5.80); Red Cell Distribution Width 13.6 % (11.0-16.0); SCAN SMEAR FLAG 1; White Blood Count 29.4 X10*3/uL (4.8-10.8)
[2023-12-04 23:35] VITALS: BP 112/52; PULSE 90
[2023-12-04 23:36] VITALS: BP 89/40; PULSE 97
[2023-12-04 23:38] LABS: INTERNATIONAL NORM RATIO 1.2 (0.9-1.1); Prothrombin Time 14.4 SEC (11.1-13.3)
[2023-12-04 23:50] LABS: SLIDE REVIEW VERIFIED
[2023-12-04 23:52] LABS: B Type Natriuretic Peptide 106 pg/mL (<100)
[2023-12-04 23:53] LABS: Alanine Aminotransferase 26 U/L (0-40); Alkaline Phosphatase 80 U/L (39-117); Anion Gap 14 (12-20); Aspartate Amino Transferase 16 U/L (5-37); Bilirubin Direct 0.5 mg/dL (0.0-0.5); Bilirubin Total 1.5 mg/dL (0.0-1.0); Blood Urea Nitrogen 18 mg/dL (9-16); C Reactive Protein 11.76 mg/dL (< or = 0.50); Calcium 9.2 mg/dL (8.4-10.2); Carbon Dioxide 21 mmol/L (22-29); Chloride 105 mmol/L (96-108); Creatinine Clr Calc Pharmacy 82.3; Estimated Glomerular Filt Rate > 60; Glucose Random 129 mg/dL (60-115); Lipase 43 U/L (8-78); Magnesium 1.9 mg/dL (1.6-2.6); Sodium 136 mmol/L (135-145); Total Protein 6.9 g/dL (6.5-8.0); Troponin-I High Sensitivity 7.9 ng/L (<3.5-35.0)
--- NOTE | 2023-12-04 23:55 | MHC.EDTECH ---
PROVIDER MARIA VICTORIA SAID NOT TO HAVE PATIENT STAND UP TO GET STANDING VITALS ,BLOOD SUGAR CHECK 131.
[2023-12-05] VITALS (11 sets, daily range): BP systolic 101–131; BP diastolic 48–60; PULSE 66–87; RESP 16–20; TEMP 36.1–38.3; O2SAT 95–98; BMI 35.2
[2023-12-05 00:07] LABS: Procalcitonin 0.17 ng/mL
[2023-12-05] MEDS: Lactated Ringers 1,000 ML 999 ML IV ×3 (00:09→01:20)
[2023-12-05] MEDS: cefEPime HCl 1 GM in 0.9 % Sodium Chloride 50 ML IV (00:09)
[2023-12-05 00:11] LABS: Lactic Acid 1.4 mmol/L (0.5-2.0)
--- NOTE | 2023-12-05 00:14 | MHC.EDTECH ---
PATIENT REFUSED RECTAL TEMP ,RN AWARE .
[2023-12-05 00:17] LABS: Glucose, Whole Blood 131 mg/dL (60-115)
--- NOTE | 2023-12-05 00:19 | MHC.EDTECH ---
BLADDER SCAN DONE ON PATIENT ,AND PT ONLY HAD 79 ML URINE IN BLADDER .
[2023-12-05] MEDS: Acetaminophen 325 MG TABLET 650 MG PO (00:30)
[2023-12-05 00:36] LABS: Influenza A PCR NEGATIVE (Negative); Influenza B PCR NEGATIVE (Negative); Resp Syncy Virus RNA Qual PCR NEGATIVE (Negative); SARS COV2 PCR INHOUSE NEGATIVE (Negative)
--- NOTE | 2023-12-05 00:42 | MHC.EDTECH ---
PATIENT URINE SAMPLE COLLECTED AND SENT TO LAB .
[2023-12-05 00:47] LABS: Appearance Urine Cloudy; Color Urine Yellow; Glucose Urine UA Negative (Negative); Leukocyte Esterase Urine Moderate (2+) (Negative); Nitrite Urine Positive (Negative); PH 5.5 (5.0-9.0); UMIC TRIGGER UACC YES; Urine Blood Moderate (2+) (Negative); Urine Ketones Trace mg/dL (Negative); Urine Protein 30 (1+) mg/dL (Neg-Trace)
[2023-12-05 00:58] LABS: Bacteria Urine 4+ (None Seen); Squamous Epithelial Cell Urine 0-2 /HPF (0-2); UACC Culture Trigger YES; WBC Urine 21-50 /HPF (0-5)
--- NOTE | 2023-12-05 01:19 | PC.NURSE ---
pt will get 2250 of fluids
--- NOTE | 2023-12-05 01:23 | P.HPHOSP_ITS ---
History of Present Illness Date of Service: 12/05/23 Chief Complaint: Fevers and chills This is a 63-year-old male with pertinent history of BRANDT/ohs on nocturnal BiPAP, bicuspid aortic valve and thoratic aortic aneurysm status post surgical valve replacement and ascending aortoplasty on 10/29/2023, mixed hyperlipidemia, BPH who presents to the emergency department for evaluation of fever and chills. Patient states he has been having symptoms for the last 3 days. Patient had a [place] catheter removed on 12/01. Patient states that for the last 3 days he has been having dysuria and increased urinary frequency. Also has been having fevers and chills at home. His found him to be weak and brought him to the hospital. No chest discomfort, palpitations, shortness of breath, cough, nausea, vomiting, abdominal pain, changes in bowel habits. In the emergency department, patient was found to be septic and concerning for UTI. Review of Systems 2 Constitutional: Constitutional: Reports chills, Reports fatigue, Reports fever(s), Reports lethargy, Reports malaise, Reports poor appetite and Reports weakness Cardiovascular: Cardiovascular: Reports no additional cardiovascular complaints Respiratory: Respiratory: Reports no additional respiratory complaints Gastrointestinal: Gastrointestinal: Reports no additional gastrointestinal complaints Genitourinary: Genitourinary: Reports dysuria and Reports urinary frequency Neurologic: Reports weakness Endocrine: Endocrine: Reports fatigue [facility] Medical History Seborrheic keratosis Erectile dysfunction Degenerative joint disease of sacroiliac joint Lumbar spondylosis Left-sided low back pain with left-sided sciatica BiPAP (biphasic positive airway pressure) dependence Normal colonoscopy (~2010) Vitamin D deficiency Genital herpes in men Obesity (BMI 30-39.9) Obstructive sleep apnea Pure hypercholesterolemia Asymptomatic microscopic hematuria BRANDT on CPAP Patent foramen ovale Thoracic aortic aneurysm without rupture Bicuspid aortic valve Family History Father Dementia HTN (hypertension) Mother Dementia HTN (hypertension) Diabetes Other Mental health problem Substance abuse Surgical History History of open heart surgery H/O Spinal surgery History of uvulectomy History of parathyroidectomy History of tonsillectomy Social History Housing: House Alcohol intake: current Alcohol intake frequency: holidays/special occasions only Alcohol type: beer Patient Tobacco Use Status: Former Tobacco user Smoked in Last 30 Days: No e-Cigarette/Vaping Use: Never Used Second Hand Smoke Exposure: Yes Advance Directives: No Advance Directives Information Provided: Yes Do you have a plan to hurt others: No Plan service: No Current occupational status: employed 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 Cognitive needs: No Hearing needs: No Vision needs: No Meds Allergies Allergy/AdvReac Type Severity Reaction Status Date / Time No Known Allergies Allergy Verified 12/04/23 23:21 Home Medications ?Medication ?Instructions ?Recorded ?Confirmed ?Last Taken ?Type aspirin 81 mg tablet,delayed 81 mg PO DAILY 04/26/20 11/26/23 09/21/20 20:00 History release acetaminophen 325 mg tablet 650 mg PO Q6H PRN 11/28/23 Unknown History tamsulosin 0.4 mg capsule 0.4 mg PO DAILY 11/28/23 Unknown History Physical Exam 2 Vital Signs and Narrative: Vital Signs: Last Vital Signs Temp 100.9 F H 12/05/23 00:23 Pulse 81 12/05/23 00:23 Resp 18 12/05/23 00:23 BP 111/51 L 12/05/23 00:15 Pulse Ox 95 12/05/23 00:23 O2 Del Method Room Air 12/05/23 00:23 BMI result Body Mass Index 33.9 Middle-aged male lying in bed in no distress Neck supple, no JVD Regular rate and rhythm, S1-S2 heard Regular breath sounds bilaterally, no wheezing or crackles appreciated Abdomen soft nontender, no guarding, no rigidity Patient is awake, alert and oriented to self, place, time and person ; no focal motor deficit Psych: Normal mood No pedal edema Results Labs 12/04/23 23:26 12/04/23 23:26 Labs: Laboratory Results - last 24 hr 12/04/23 12/04/23 12/04/23 23:26 23:51 23:58 MCV 81.4 MCH 27.7 MCHC 34.0 RDW 13.6 Plt Count 273 MPV 8.8 L Immature Gran % (Auto) 0.7 H Neut % (Auto) 81.6 H Lymph % (Auto) 8.2 L [place] % (Auto) 9.1 Eos % (Auto) 0.1 Baso % (Auto) 0.3 Lymph # (Auto) 2.4 [place] # (Auto) 2.7 H Eos # (Auto) 0.0 Baso # (Auto) 0.1 Abs Immat Gran (auto) 0.21 H Absolute Neuts (auto) 24.0 H Absolute Nucleated RBC 0.000 Nucleated RBC % (auto) 0.0 Smear Tech's Comments VERIFIED PT 14.4 H INR 1.2 H Anion Gap 14 Estim Creat Clear Calc 82.3 Estimated GFR > 60 POC Glucose 131 H Random Glucose 129 H Lactic Acid 1.4 Calcium 9.2 D Magnesium 1.9 Total Bilirubin 1.5 H Direct Bilirubin 0.5 AST 16 ALT 26 Alkaline Phosphatase 80 Troponin I High Sens 7.9 D C-Reactive Protein 11.76 H B-Natriuretic Peptide 106 H Total Protein 6.9 Albumin 4.0 Lipase 43 Procalcitonin 0.17 Urine Color Urine Appearance Urine pH Ur Specific [place] Urine Protein Urine Glucose (UA) Urine Ketones Urine Blood Urine Nitrite Ur Leukocyte Esterase Urine RBC Urine WBC Ur Squamous Epith Cells Urine Bacteria Hyaline Casts Influenza Type A (PCR) NEGATIVE Influenza Type B (PCR) NEGATIVE RSV RNA Qual (PCR) NEGATIVE SARS-CoV-2 RNA (RT-PCR) NEGATIVE Blood Type A Positive Antibody Screen NEGATIVE 12/05/23 00:40 MCV MCH MCHC RDW Plt Count MPV Immature Gran % (Auto) Neut % (Auto) Lymph % (Auto) [place] % (Auto) Eos % (Auto) Baso % (Auto) Lymph # (Auto) [place] # (Auto) Eos # (Auto) Baso # (Auto) Abs Immat Gran (auto) Absolute Neuts (auto) Absolute Nucleated RBC Nucleated RBC % (auto) Smear Tech's Comments PT INR Anion Gap Estim Creat Clear Calc Estimated GFR POC Glucose Random Glucose Lactic Acid Calcium Magnesium Total Bilirubin Direct Bilirubin AST ALT Alkaline Phosphatase Troponin I High Sens C-Reactive Protein B-Natriuretic Peptide Total Protein Albumin Lipase Procalcitonin Urine Color Yellow Urine Appearance Cloudy Urine pH 5.5 Ur Specific [place] 1.020 Urine Protein 30 (1+) H Urine Glucose (UA) Negative Urine Ketones Trace Urine Blood Moderate (2+) H Urine Nitrite Positive H Ur Leukocyte Esterase Moderate (2+) H Urine RBC 11-20 H Urine WBC 21-50 Ur Squamous Epith Cells 0-2 Urine Bacteria 4+ Hyaline Casts 6-10 Influenza Type A (PCR) Influenza Type B (PCR) RSV RNA Qual (PCR) SARS-CoV-2 RNA (RT-PCR) Blood Type Antibody Screen Assessment and Plan (1) Acute UTI: Status: Acute Plan This is a 63-year-old male with pertinent history of RBANDT/ohs on nocturnal BiPAP, bicuspid aortic valve and thoratic aortic aneurysm status post surgical valve replacement and ascending aortoplasty on 10/29/2023, mixed hyperlipidemia, BPH who presents to the emergency department for evaluation of fever and chills. #. Sepsis due to acute UTI: Will admit patient and initiate empiric IV ceftriaxone. Resuscitated with IV crystalloids. Lactic acid and blood culture obtained. Follow urine culture #. BPH: On finasteride and Flomax #. Ohs/OHS: Continue nocturnal BiPAP #. Mixed hyperlipidemia: On statin Med rec pending DVT prophylaxis: Lovenox Full code Admit as inpatient and will require two night minimum hospital stay for IV antibiotics (as above), which is not possible in a lesser acute setting. Quality Stroke Does the patient have a stroke diagnosis?: No VTE Prior VTE?: No VTE Risk Level:: Medical - moderate - high VTE Device Contraindication: Treatment Not Indicated VTE Drug Contraindication: N/A - Med Ordered
--- NOTE | 2023-12-05 01:43 | PC.NURSE ---
63 year old male comes in with c/o of not feeling well ( chills sweating ) at home. Pt also c/o of dysuria and was orthostatic on arrival at 89/40. Denies CP/Denies SOB. Pt is alert and oriented and ambulatory , however has cane if needed for dizzniess, weakness. PMH: HLD, BRANDT, Bicuspic valve , thoracic aortic aneuysm s/p cardiac cath. Post op AF ( on metoprolol and baby ASA), POST OP retention with holloway removal on 12/01. Sepisis protocol initiated for urosepsis AT 0000. Pt will be treated for UTI. IV access: 20 bilateral wrists. Regular Diet. Very sweet!
[2023-12-05] MEDS: cefTRIAXone sodium 1 GM in 0.9 % Sodium Chloride 50 ML IV ×2 (02:06→22:21)
[2023-12-05 05:42] LABS: Basophils Absolute Auto 0.1 X10*3/uL (0.0-0.2); Basophils Percent Auto 0.3 % (0-2); Eosinophils Absolute Auto 0.1 X10*3/uL (0.0-0.4); Eosinophils Percent Auto 0.4 % (0-4); Hematocrit 33.9 % (42.0-52.0); Hemoglobin 11.3 g/dl (14.0-18.0); Imm Gran Abs Auto 0.18 X10*3/uL (0.00-0.03); Imm Gran Pct Auto 0.7 % (0.0-0.4); Lymphocytes Absolute Auto 3.6 X10*3/uL (1.2-4.9); Lymphocytes Percent Auto 13.8 % (20-40); MANUAL DIFF FLAG SCAN; Mean Corpuscular HGB Conc 33.3 g/dl (31.0-36.0); Mean Corpuscular Hemoglobin 27.9 pg (27.0-33.0); Mean Corpuscular Volume 83.7 fL (80.0-98.0); Mean Platelet Volume 9.2 fL (9.4-12.4); Monocytes Absolute Auto 2.6 X10*3/uL (0.1-1.2); Monocytes Percent Auto 10.2 % (2-11); Neutrophils Absolute Auto 19.4 x10*3/uL (2.0-8.3); Neutrophils Percent Auto 74.6 % (45-73); Platelet Count 233 X10*3/uL (160-400); Red Blood Count 4.05 X10*6/uL (4.60-5.80); Red Cell Distribution Width 13.6 % (11.0-16.0); SCAN SMEAR FLAG 1
[2023-12-05 05:57] LABS: Anion Gap 11 (12-20); Blood Urea Nitrogen 17 mg/dL (9-16); Calcium 8.9 mg/dL (8.4-10.2); Carbon Dioxide 24 mmol/L (22-29); Chloride 108 mmol/L (96-108); Estimated Glomerular Filt Rate > 60; Glucose Random 114 mg/dL (60-115); Potassium 3.6 mmol/L (3.3-5.1); Sodium 139 mmol/L (135-145)
--- NOTE | 2023-12-05 08:47 | MHC.CM.PN ---
CM met with Patient at bedside. Patient lives in a house with his , 3 adult Daughters, and his Grandson and he just recently stating to use a cane, to slow me down,not to help me walk. Patient uses Bipap at home;he states that it came from a business in [place] that used to be [employer]. Home self care is the goal and CM has initiated and will follow for dc planning. Patient's will transport home and the PCP is Dr. Chele Martinez.
[2023-12-05] MEDS: Enoxaparin Sodium 40 MG/0.4 ML SYRINGE SUBCUT (09:08)
[2023-12-05] MEDS: 0.9 % Sodium Chloride Flush 3 ML SYRINGE IVFLUSH ×2 (09:08→15:22)
[2023-12-05] MEDS: Milk of Magnesia 30 ML ORAL.SUSP PO (09:12)
--- NOTE | 2023-12-05 11:17 | PHA.MEDREC ---
Pharmacy Consult ? Medication Reconciliation Pharmacy has completed the medication reconciliation. Spoke to patient and his . Both parties confirmed patients doctor discontinued amiodarone and metoprolol.
[2023-12-05] MEDS: iohexoL 350 MG/ML 100 ML INFUS..BTL 85 ML IV (11:53)
--- NOTE | 2023-12-05 14:48 | PM.EVENT ---
Event Note Date of Service: 12/05/23 Event Note: Chart reviewed patient examined agree with history and physical and plan as outlined Time Spent With Patient Time: Total time managing care of this patient today ____ minutes.
[2023-12-05] MEDS: Zolpidem Tartrate 5 MG TABLET PO (23:09)
[2023-12-06] VITALS (7 sets, daily range): BP systolic 104–153; BP diastolic 54–71; PULSE 66–78; RESP 18–21; TEMP 36.1–36.5; O2SAT 96–99
[2023-12-06 06:24] LABS: MANUAL DIFF FLAG NO
[2023-12-06 06:29] LABS: Basophils Absolute Auto 0.1 X10*3/uL (0.0-0.2); Basophils Percent Auto 0.5 % (0-2); Eosinophils Absolute Auto 0.4 X10*3/uL (0.0-0.4); Eosinophils Percent Auto 2.3 % (0-4); Hematocrit 36.8 % (42.0-52.0); Hemoglobin 11.6 g/dl (14.0-18.0); Imm Gran Abs Auto 0.06 X10*3/uL (0.00-0.03); Imm Gran Pct Auto 0.4 % (0.0-0.4); Lymphocytes Absolute Auto 2.9 X10*3/uL (1.2-4.9); Lymphocytes Percent Auto 18.9 % (20-40); Mean Corpuscular HGB Conc 31.5 g/dl (31.0-36.0); Mean Corpuscular Hemoglobin 26.7 pg (27.0-33.0); Mean Corpuscular Volume 84.6 fL (80.0-98.0); Mean Platelet Volume 9.3 fL (9.4-12.4); Monocytes Absolute Auto 1.3 X10*3/uL (0.1-1.2); Monocytes Percent Auto 8.4 % (2-11); Neutrophils Absolute Auto 10.7 x10*3/uL (2.0-8.3); Neutrophils Percent Auto 69.5 % (45-73); Platelet Count 257 X10*3/uL (160-400); Red Blood Count 4.35 X10*6/uL (4.60-5.80); Red Cell Distribution Width 13.7 % (11.0-16.0); White Blood Count 15.4 X10*3/uL (4.8-10.8)
[2023-12-06 06:54] LABS: Alanine Aminotransferase 22 U/L (0-40); Albumin Level 3.6 g/dL (3.5-5.0); Alkaline Phosphatase 72 U/L (39-117); Anion Gap 12 (12-20); Aspartate Amino Transferase 13 U/L (5-37); Bilirubin Total 0.6 mg/dL (0.0-1.0); Blood Urea Nitrogen 16 mg/dL (9-16); Calcium 9.4 mg/dL (8.4-10.2); Carbon Dioxide 25 mmol/L (22-29); Chloride 107 mmol/L (96-108); Creatinine Clr Calc Pharmacy 89.2; Estimated Glomerular Filt Rate > 60; Glucose Fasting 100 mg/dL (60-99); Sodium 140 mmol/L (135-145); Total Protein 6.4 g/dL (6.5-8.0)
[2023-12-06] MEDS: Enoxaparin Sodium 40 MG/0.4 ML SYRINGE SUBCUT (08:40)
[2023-12-06] MEDS: 0.9 % Sodium Chloride Flush 3 ML SYRINGE IVFLUSH ×2 (08:41→16:06)
--- NOTE | 2023-12-06 11:01 | HO.PM.IMPN ---
Subjective Subjective Date of Service: 12/06/23 Interval History: Notes marked improvement since admission. No acute issues overnight Review of Systems Denies chest pain Denies shortness of breath Denies nausea vomiting diarrhea Denies fever chills Physical Exam Vital Signs: Vital Signs: Last Vital Signs Temp 97.6 F 12/06/23 07:37 Pulse 78 12/06/23 07:37 Resp 18 12/06/23 07:37 BP 104/59 L 12/06/23 07:37 Pulse Ox 96 12/06/23 07:37 O2 Del Method Room Air 12/06/23 07:37 O2 Flow Rate 3 12/05/23 15:15 BMI result Body Mass Index 35.2 Const: Other: Awake alert no acute distress Resp: Other: Clear to auscultation bilaterally no rales rhonchi or wheezes Cardio: Other: No S4; positive S1-S2; no S3 murmurs rubs or gallops GI: Other: Soft nondistended nontender with normoactive bowel sounds Neuro: Other: Cranial nerves 2-12 grossly intact as tested. Motor is 5/5 all extremities. Sensation is intact. Cognition appropriate, gait steady Extrem: Other: No edema bilaterally Objective Data Active Medications Acetaminophen (Acetaminophen 325 Mg Tablet) 650 mg PO Q6H PRN PRN Reason: Pain, Mild (Pain Scale 1-3), fever or headache Calcium Carbonate (Calcium Carbonate 750 Mg Tab.Chew) 750 mg PO Q4H PRN PRN Reason: Heartburn Enoxaparin Sodium (Enoxaparin Sodium 40 Mg/0.4 Ml Syringe) 40 mg SUBCUT Q24H [facility] Last Admin: 12/06/23 08:40 Dose: 40 mg Documented By: QUINTON Ceftriaxone Sodium 1 gm/ (Sodium Chloride) 50 mls @ 100 mls/hr IV 2200 [facility] Last Infusion: 12/05/23 23:00 Dose: Infused Documented By: KATIELAMSusanna Magnesium Hydroxide (Milk Of Magnesia 30 Ml Oral.Susp) 30 ml PO DAILY PRN PRN Reason: Constipation Last Admin: 12/05/23 09:12 Dose: 30 ml Documented By: YUMIKO Melatonin (Melatonin 3 Mg Tablet) 6 mg PO BEDTIME PRN PRN Reason: Insomnia Ondansetron HCl (Ondansetron Hcl 4 Mg/2 Ml Vial) 4 mg IVPUSH Q8H PRN PRN Reason: Nausea and Vomiting Sodium Chloride (0.9 % Sodium Chloride Flush 3 Ml Syringe) 3 ml IVFLUSH QSHIFT DIMITRIS Last Admin: 12/06/23 08:41 Dose: 3 ml Documented By: QUINTON Zolpidem Tartrate (Zolpidem Tartrate 5 Mg Tablet) 5 mg PO BEDTIME PRN PRN Reason: Insomnia Last Admin: 12/05/23 23:09 Dose: 5 mg Documented By: LEXIE Labs 12/06/23 05:45 12/06/23 05:45 Labs: Laboratory Results - last 24 hr 12/06/23 05:45 MCV 84.6 MCH 26.7 L MCHC 31.5 RDW 13.7 Plt Count 257 MPV 9.3 L Immature Gran % (Auto) 0.4 Neut % (Auto) 69.5 Lymph % (Auto) 18.9 L [place] % (Auto) 8.4 Eos % (Auto) 2.3 Baso % (Auto) 0.5 Lymph # (Auto) 2.9 [place] # (Auto) 1.3 H Eos # (Auto) 0.4 Baso # (Auto) 0.1 Abs Immat Gran (auto) 0.06 H Absolute Neuts (auto) 10.7 H Absolute Nucleated RBC 0.000 Nucleated RBC % (auto) 0.0 Anion Gap 12 Estim Creat Clear Calc 89.2 Estimated GFR > 60 Fasting Glucose 100 H Calcium 9.4 Total Bilirubin 0.6 AST 13 ALT 22 Alkaline Phosphatase 72 Total Protein 6.4 L Albumin 3.6 Microbiology Microbiology Results: Microbiology 12/05/23 Unknown Urine Culture - Preliminary Urine clean catch - Clean Catch Midstream Gram negative andrae 12/04/23 23:51 Blood Culture - Preliminary Blood - Venous No growth after 24 hours. 12/04/23 23:51 Blood Culture - Preliminary Blood - Venous No growth after 24 hours. Assessment and Plan (1) Acute UTI: Status: Acute Plan This is a 63-year-old male with pertinent history of BRANDT/ohs on nocturnal BiPAP, bicuspid aortic valve and thoratic aortic aneurysm status post surgical valve replacement and ascending aortoplasty on 10/29/2023, mixed hyperlipidemia, BPH who presents to the emergency department for evaluation of fever and chills. 1.Sepsis due to acute UTI -sepsis resolved -blood culture negative times 24 hours; urine pending 2.BPH - finasteride and Flomax Lovenox Full code Requires ongoing hospitalization for IV antibiotics to treat acute UTI Quality Stroke Does the patient have a stroke diagnosis?: No VTE Prior VTE?: No VTE Risk Level:: Medical - moderate - high VTE Device Contraindication: Treatment Not Indicated VTE Drug Contraindication: N/A - Med Ordered
[2023-12-06] MEDS: Zolpidem Tartrate 5 MG TABLET PO (22:55)
[2023-12-06] MEDS: cefTRIAXone sodium 1 GM in 0.9 % Sodium Chloride 50 ML IV (22:56)
[2023-12-07] VITALS: BP 141/63; PULSE 70; RESP 18; TEMP 36.4; O2SAT 98
[2023-12-07 03:23] VITALS: BP 110/55; PULSE 70; RESP 18; TEMP 36.6; O2SAT 97
[2023-12-07 04:48] VITALS: PULSE 67; RESP 18; O2SAT 97
[2023-12-07 07:16] LABS: MANUAL DIFF FLAG NO
[2023-12-07 07:23] LABS: Basophils Absolute Auto 0.1 X10*3/uL (0.0-0.2); Basophils Percent Auto 0.8 % (0-2); Eosinophils Absolute Auto 0.4 X10*3/uL (0.0-0.4); Eosinophils Percent Auto 4.6 % (0-4); Hematocrit 35.5 % (42.0-52.0); Hemoglobin 11.7 g/dl (14.0-18.0); Imm Gran Abs Auto 0.03 X10*3/uL (0.00-0.03); Imm Gran Pct Auto 0.4 % (0.0-0.4); Lymphocytes Absolute Auto 2.3 X10*3/uL (1.2-4.9); Lymphocytes Percent Auto 27.8 % (20-40); Mean Corpuscular Hemoglobin 27.5 pg (27.0-33.0); Mean Corpuscular Volume 83.5 fL (80.0-98.0); Monocytes Percent Auto 12.2 % (2-11); Neutrophils Absolute Auto 4.5 x10*3/uL (2.0-8.3); Neutrophils Percent Auto 54.2 % (45-73); Platelet Count 255 X10*3/uL (160-400); Red Blood Count 4.25 X10*6/uL (4.60-5.80); Red Cell Distribution Width 13.5 % (11.0-16.0); White Blood Count 8.3 X10*3/uL (4.8-10.8)
[2023-12-07 07:36] LABS: Alanine Aminotransferase 29 U/L (0-40); Albumin Level 3.4 g/dL (3.5-5.0); Alkaline Phosphatase 74 U/L (39-117); Anion Gap 11 (12-20); Aspartate Amino Transferase 19 U/L (5-37); Bilirubin Total 0.5 mg/dL (0.0-1.0); Blood Urea Nitrogen 14 mg/dL (9-16); Calcium 9.4 mg/dL (8.4-10.2); Carbon Dioxide 25 mmol/L (22-29); Chloride 107 mmol/L (96-108); Creatinine Clr Calc Pharmacy 95.3; Estimated Glomerular Filt Rate > 60; Glucose Fasting 94 mg/dL (60-99); Potassium 3.8 mmol/L (3.3-5.1); Sodium 139 mmol/L (135-145); Total Protein 6.2 g/dL (6.5-8.0)
[2023-12-07 07:42] VITALS: BP 126/71; PULSE 70; RESP 20; TEMP 36.8; O2SAT 99
[2023-12-07] MEDS: Enoxaparin Sodium 40 MG/0.4 ML SYRINGE SUBCUT (08:04)
[2023-12-07] MEDS: 0.9 % Sodium Chloride Flush 3 ML SYRINGE IVFLUSH (08:05)
[2023-12-07] MEDS: Milk of Magnesia 30 ML ORAL.SUSP PO (09:06)
--- NOTE | 2023-12-07 11:01 | PM.DS ---
DS: Providers Provider Date of Service: 12/07/23 Date of admission: 12/05/23 01:21 Date of discharge: 12/07/23 Primary care physician: Chele Martinez MD DS: Diagnosis Discharge Diagnosis (1) Acute UTI: Status: Acute DS: Summary Hospital Course Hospital Course: 63-year-old male with pertinent history of BRANDT/ohs on nocturnal BiPAP, bicuspid aortic valve and thoratic aortic aneurysm status post surgical valve replacement and ascending aortoplasty on 10/29/2023, mixed hyperlipidemia, BPH who presents to the emergency department for evaluation of fever and chills. Patient states he has been having symptoms for the last 3 days. Patient had a [place] catheter removed on 12/01. Patient states that for the last 3 days he has been having dysuria and increased urinary frequency. Also has been having fevers and chills at home. His found him to be weak and brought him to the hospital. No chest discomfort, palpitations, shortness of breath, cough, nausea, vomiting, abdominal pain, changes in bowel habits. Hospital Course Patient admitted to telemetry where monitor failed to show any acute dysrhythmias. Patient recounts multiple catheterizations during recent hospitalization; thought to be source of UTI. Started on ceftriaxone and ultimately urine grew out E coli sensitive to same. On the day of discharge his white count is now normal and he is anxious to leave. I believe at this time he is medically acceptable to same and he will be discharged with a course of p.o. Ceftin Time Attestation Discharge Coordination Time (in mins): 35 Quality: Safe Use of Opioids Does Pt have an Active Cancer Diagnosis on the Problem List?: No Quality: Stroke Does the patient have a stroke diagnosis?: No Physical Exam Vital Signs: Vital Signs: Last Vital Signs Temp 98.2 F 12/07/23 07:42 Pulse 70 12/07/23 07:42 Resp 20 12/07/23 07:42 BP 126/71 12/07/23 07:42 Pulse Ox 99 12/07/23 07:42 O2 Del Method CPAP 12/07/23 07:42 O2 Flow Rate 3 12/05/23 15:15 BMI result Body Mass Index 35.2 Const: Other: Awake alert no acute distress Resp: Other: Clear to auscultation bilaterally no rales rhonchi or wheezes Cardio: Other: No S4; positive S1-S2; no S3 murmurs rubs or gallops GI: Other: Soft nondistended nontender with normoactive bowel sounds Neuro: Other: Cranial nerves 2-12 grossly intact as tested. Motor is 5/5 all extremities. Sensation is intact. Cognition appropriate, gait steady Extrem: Other: No edema bilaterally DS: Data Data Completed and Pending Labs on day of discharge: Laboratory Results - last 24 hr 12/07/23 06:58 WBC 8.3 RBC 4.25 L Hgb 11.7 L Hct 35.5 L MCV 83.5 MCH 27.5 MCHC 33.0 RDW 13.5 Plt Count 255 MPV 9.0 L Immature Gran % (Auto) 0.4 Neut % (Auto) 54.2 Lymph % (Auto) 27.8 [place] % (Auto) 12.2 H Eos % (Auto) 4.6 H Baso % (Auto) 0.8 Lymph # (Auto) 2.3 [place] # (Auto) 1.0 Eos # (Auto) 0.4 Baso # (Auto) 0.1 Abs Immat Gran (auto) 0.03 Absolute Neuts (auto) 4.5 Absolute Nucleated RBC 0.000 Nucleated RBC % (auto) 0.0 Sodium 139 Potassium 3.8 Chloride 107 Carbon Dioxide 25 Anion Gap 11 L BUN 14 Creatinine 1.02 Estim Creat Clear Calc 95.3 Estimated GFR > 60 Fasting Glucose 94 Calcium 9.4 Total Bilirubin 0.5 AST 19 ALT 29 Alkaline Phosphatase 74 Total Protein 6.2 L Albumin 3.4 L Preliminary micro results at discharge 12/04/23 23:51 Blood Culture - Preliminary Blood - Venous No growth after 48 hours. 12/04/23 23:51 Blood Culture - Preliminary Blood - Venous No growth after 48 hours. Discharge Plan Discharge Anticipated Discharge Date/Time: 12/07/23 10:58 Patient Disposition: Home, Self-Care Discharge Diagnosis: Acute UTI Referrals: Chele Martinez MD [Primary Care Provider] - 1 Week Discharge Medications: New cefuroxime axetil 500 mg tablet 500 mg PO BID 7 Days Qty: 14 0RF Continued atorvastatin 10 mg tablet 10 mg PO DAILY 90 Days Qty: 90 3RF finasteride 5 mg tablet 5 mg PO DAILY 90 Days Qty: 90 1RF Rx Instructions: take medication every other day tadalafil 5 mg tablet 5 mg PO DAILY baclofen 10 mg tablet 10 mg PO TID PRN (Reason: muscle spasm) Neuriva Original 50-50 mg Tablet,Chewable 1 tab PO DAILY acetaminophen 325 mg tablet 650 mg PO Q6H PRN (Reason: Pain (Scale Score 1-3)) tamsulosin 0.4 mg capsule 0.4 mg PO DAILY senna 8.6 mg capsule 8.6 mg PO BEDTIME PRN (Reason: constipation) 90 Days Qty: 90 3RF aspirin 81 mg tablet,delayed release (DR/EC) 81 mg PO DAILY Discharge Orders: Discharge Order (Routine); Ordered 12/07/23 Ordered By: Rainer Haynes Diet: Advance to usual diet Activity on Discharge: As tolerated Stand Alone Forms: Patient Portal Discharge page Print Language: Monegasque Care Plan Goals: Resume all meds as taken prior to hospital Health Concerns: Complete course of Ceftin 500 mg twice daily. Follow up with your urologist and PCP next available Plan of Treatment: Return if recurrent fever chills or problems urinating Assessment: See discharge summary
--- NOTE | 2023-12-07 11:29 | MHC.CM.PN ---
PT WILL DC HOME TODAY WITH NO SERVICES VIA PRIVATE TRANSPORT
== END 2023-12-07 12:13 | disposition home or self-care (01) | DRG 466 ==
LOC: HO.ED 12-05 00:24 → HO.EDOVER 12-05 01:26 → HO.IMC 12-05 01:59
PROVIDERS: Admitting Provider Student in an Organized Health Care Education/Training Program; Emergency Provider Emergency Medicine; PCP Internal Medicine; Visit Provider Hospitalist
DX: T83.511A Infection and inflammatory reaction due to indwelling urethral catheter, initial encounter (principal); A41.9 Sepsis, unspecified organism; E66.2 Morbid (severe) obesity with alveolar hypoventilation; N39.0 Urinary tract infection, site not specified; B96.20 Unspecified Escherichia coli [E. coli] as the cause of diseases classified elsewhere; E78.2 Mixed hyperlipidemia; N40.0 Benign prostatic hyperplasia without lower urinary tract symptoms; Z20.822 Contact with and (suspected) exposure to COVID-19; Z95.2 Presence of prosthetic heart valve; Z68.35 Body mass index [BMI] 35.0-35.9, adult; Z87.891 Personal history of nicotine dependence; Z79.82 Long term (current) use of aspirin; Z79.899 Other long term (current) drug therapy
CPT/HCPCS: 0241U; 36415; 71045; 74177; 80048; 80053; 80076; 81001; 82947; 83605; 83690; 83735; 83880; 84145; 84484; 85025; 85610; 86140; 86850; 86900; 86901; 87040; 87086; 87088; 87186; 93005; 94660; 99285; J0692; J0696; J1650; J7120; Q9967

== ENCOUNTER → 2023-12-04 23:20 | Outpatient (BNV) | payer BC, SELFPAY | PROVIDERS: Admitting Provider Student in an Organized Health Care Education/Training Program; Emergency Provider Emergency Medicine; PCP Internal Medicine; Visit Provider Internal Medicine Cardiovascular Disease | DX: R94.31 Abnormal electrocardiogram [ECG] [EKG] (principal) | CPT/HCPCS: 93010 ==

== ENCOUNTER → 2023-12-05 01:21 | Outpatient (BNV) | payer BC, SELFPAY | PROVIDERS: Admitting Provider Student in an Organized Health Care Education/Training Program; Emergency Provider Emergency Medicine; PCP Internal Medicine; Visit Provider Student in an Organized Health Care Education/Training Program | DX: N39.0 Urinary tract infection, site not specified (principal) | CPT/HCPCS: 99222; 99232; 99239; 99499 ==

== ENCOUNTER 2023-12-08 13:00 | Outpatient (AMB) | payer BC, SELFPAY ==
[2023-12-08 13:04] VITALS: BP 124/78; PULSE 69; O2SAT 97; BMI 34.2
--- NOTE | 2023-12-08 13:04 | A.OFFPC_ITS ---
Vital Signs 12/08/23 13:04 Height 5 ft 11 in Weight 245 lb BMI 34.2 BP 124/78 Blood Pressure Location Lt brachial Position Sitting Pulse 69 Pulse Source Pulse Oximeter Pulse Oximetry (%) 97 Oxygen Delivery Method Room Air Intake Visit Reasons: hyperlipidemia Allergies No Known Allergies Allergy (Verified 12/08/23 13:18) Medication List - Last Reconciled 12/08/23 by Chele Martinez MD acetaminophen 650 mg PO Q6H PRN aspirin 81 mg PO DAILY atorvastatin 10 mg PO DAILY 90 days baclofen 10 mg PO TID PRN cefuroxime axetil 500 mg PO BID 7 days coffee xt-phosphatidyl serine 50-50 mg (Neuriva Original) 1 tab PO DAILY finasteride 5 mg PO DAILY 90 days sennosides (senna) 8.6 mg PO BEDTIME PRN 90 days tadalafil 5 mg PO DAILY tamsulosin 0.4 mg PO DAILY Tobacco use date assessed: 11/28/23 Dental Screening Dental Screen Date: 08/05/23 HPI hyperlipidemia HPI Details Patient comes in today for his follow up visit States that he currently feels okay He underwent urgent aortic valve replacement as well as an ascending aortoplasty on 10/29/[address] Payne after he was transferred to [facility] from [facility] [place] [facility] following his presenting to the ER early last month for recurrent chest discomfort and SOB Echocardiogram done at the time confirmed severe aortic stenosis as well as a 4.4 cm ascending aortic aneurysm, confirmed on CT He also underwent cardiac catheterization prior to his surgery, which showed normal coronaries He was seen by cardiology for follow up a couple of weeks ago and was cleared to begin cardiac rehab and his 1st session is scheduled for 12/25/2023 He went back to the ER this past weekend with fever and chills and was found to have an acute UTI (culture grew E. coli), likely brought about by his prolonged catheterization - indwelling catheter was just removed less than a week ago He was started on oral Cefuroxime and states that he just started taking it yes terday but has already noticed (+) some improvement of his symptoms Adds that he has been having trouble sleeping at night lately Recalls being given some Ambien while he was in the hospital and he was able to get a good night's sleep with the Rx He presently denies any headaches or dizziness Denies any chest pains; still has GA No nausea/vomiting, no abdominal pain No change in bowel habits noted He had his follow up labs done yesterday - to discuss his results [facility] Medical History (Updated 12/08/23 @ 14:24 by Chele Martinez MD) Seborrheic keratosis Erectile dysfunction Degenerative joint disease of sacroiliac joint Lumbar spondylosis Left-sided low back pain with left-sided sciatica BiPAP (biphasic positive airway pressure) dependence Normal colonoscopy (~2010) Vitamin D deficiency Genital herpes in men Obesity (BMI 30-39.9) Obstructive sleep apnea Pure hypercholesterolemia Asymptomatic microscopic hematuria BRANDT on CPAP Patent foramen ovale Thoracic aortic aneurysm without rupture Bicuspid aortic valve Surgical History (Updated 12/08/23 @ 14:07 by Chele Martinez MD) Status post aortic valve replacement and aortoplasty History of open heart surgery H/O Spinal surgery History of uvulectomy History of parathyroidectomy History of tonsillectomy Family History Father Dementia HTN (hypertension) Mother Dementia HTN (hypertension) Diabetes Other Mental health problem Substance abuse Social History Household Members: Family Housing: House Do you presently have visiting nurse or other home services: Yes Alcohol intake: current Alcohol intake frequency: holidays/special occasions only Alcohol type: beer Patient Tobacco Use Status: Former Tobacco user e-Cigarette/Vaping Use: Never Used Second Hand Smoke Exposure: Yes service: No Current occupational status: employed 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 1. Little interest or pleasure in doing things: not at all 2. Feeling down, depressed, or hopeless: not at all 3. Trouble falling or staying asleep, or sleeping too much: not at all 4. Feeling tired or having little energy: not at all 5. Poor appetite or overeating: not at all 6. Feeling bad about yourself - or that you are a failure or have let yourself or your family down: not at all 7. Trouble concentrating on things, such as reading the newspaper or watching television: not at all 8. Moving or speaking so slowly that other people could have noticed. Or the opposite - being so fidgety or restless that you have been moving around a lot more than usual: not at all 9. Thoughts that you would be better off or of hurting yourself in some way: not at all Total score: 0 Depression Screening Interpretation: Negative Depression Screening Done: Yes 05137 - PHQ-9 Billing: Yes Source: Developed by Drs. Paulo Cohen, Huan Moore and colleagues, with an educational bell from [employer]. Thrive Questionnaire Date Thrive assessed: 12/05/23 AUDIT C Alcohol Use Questionnaire (AUDIT-C) 1. How often do you have a drink containing alcohol?: Monthly or less 2. How many drinks containing alcohol do you have on a typical day when you are drinking?: 1 or 2 3. How often do you have six or more drinks on one occasion?: Never Total Score: 1 Score Reviewed/Action Taken: Yes MADDISON-7 AMB Questionnaire MADDISON-7 Date MADDISON - 7 assessed: 08/05/23 Source: Developed by Drs. Paulo Cohen, Gertrudis Rivas, Huan Dominguez and colleagues, with an educational bell from [employer]. Review of Systems Const Denies chills, Reports difficulty sleeping, Reports fatigue, Denies fever(s) and Denies headache(s) ENT Denies dysphagia, Denies dizziness, Denies otalgia, Denies headache(s), Denies neck pain, Denies odynophagia and Denies sore throat Card Denies chest pain, Denies palpitations and Reports dyspnea on exertion (mild) Resp Denies chest congestion, Denies cough and Reports dyspnea on exertion (mild) GI Denies abdominal pain, Denies hematochezia, Reports constipation (better with Rx), Denies dysphagia, Denies heartburn, Denies diarrhea, Denies nausea, Denies odynophagia and Denies vomiting Denies dysuria, Denies nocturia and Denies urinary frequency Musc Reports back pain (on and off, over the right lower back/right sciatic nerve area ) and Denies neck pain Skin/Breast Denies rash Neuro Denies dizziness and Denies headache(s) Endo Reports fatigue and Denies palpitations Physical exam (Primary Care) Vital Signs: Last Vital Signs Pulse 69 12/08/23 13:04 BP 124/78 12/08/23 13:04 Pulse Ox 97 12/08/23 13:04 Oxygen Delivery Method Room Air 12/08/23 13:04 BMI result Body Mass Index 34.2 Tobacco/Smoking Status: Tobacco use Status Tobacco use date assessed 11/28/23 12/08/23 13:05 Patient Tobacco Use Status Former Tobacco user 12/08/23 13:05 e-Cigarette/Vaping Use Never Used 12/08/23 13:05 PHQ-9: PHQ-9 Score PHQ-9: Total score 0 12/08/23 13:05 Depression Screening Interpretation: Negative Thrive Assessment: Date of Thrive Assessment Date Thrive assessed 12/05/23 12/08/23 13:05 Const General: no acute distress and alert HENMT Ears: TM's normal bilaterally and EAC's normal Throat: Yes posterior oropharynx normal and Yes tonsils normal Neck Neck: Yes no lymphadenopathy and Yes supple Thyroid: Thyroid normal Resp Auscultation: clear to auscultation bilaterally, no rales and no wheezes Cardio Rate: regular rate Rhythm: regular rhythm Heart sounds: Murmur heart sound present systolic early, III/ and at the right sternal border GI Palpation (GI): Soft to palpation and nontender Auscultation: normal bowel sounds General: Yes no CVA tenderness Back/Spine/Pelvis Back: no CVA tenderness Thoracic/Lumbar Spine: lumbar spinal tenderness Skin Rashes: no rashes Extrem General: Yes no clubbing, cyanosis or edema Results Reviewed Results Reviewed: Laboratory Tests 11/29/23 12/07/23 09:07 06:58 WBC 8.3 Hgb 11.7 L Hct 35.5 L Plt Count 255 Sodium 139 Potassium 3.8 Creatinine 1.02 Estimated GFR > 60 Fasting Glucose 94 Calcium 9.4 AST 19 ALT 29 Triglycerides 101 Cholesterol 129 LDL Cholesterol, Calc 76 HDL Cholesterol 33 L Assessment and Plan Assessment & Plan (1) Pure hypercholesterolemia: Code(s): E78.00 - Pure hypercholesterolemia, unspecified Plan: Results of his labs done yesterday reviewed and discussed with patient - advised that his cholesterol levels have improved significantly from previous Reinforced low cholesterol diet Continue Atorvastatin 10 mg QD Will recheck his labs and fasting lipids in 4 months for follow up (2) Lumbar back pain with radiculopathy affecting left lower extremity: Comment: MRI of the lumbar spine done back on 01/18/2021 revealed a large 1.2 cm synovial cyst on the left L4-L5 filling the lateral recess and proximal foramen with nerve root compression Code(s): M54.16 - Radiculopathy, lumbar region Plan: S/P lumbar minimally invasive surgery (MIS) laminotomy by Dr. Spence on 05/07/2021 - underwent left L4-L5 MIS decompression and resection of synovial cyst Reinforced activity and weight-lifting restrictions Repeat lumbar spine x-rays done back in June 2022 revealed mild spondylosis of the lumbar spine, with grade 1 anterolisthesis of L4 on L5 He was referred to and seen by Dr. Pratt back in November 2022 for his recent increasing right-sided sciatica and increased left lower back pain Patient had his lumbar spine MRI done on 01/27/23, which revealed (+) new focal left foraminal disc protrusion at L4-L5 with mild compression of the exiting left L4 nerve root. Additional new 5 x 11 mm synovial cyst protruding from the right facet joint into the right subarticular zone with mild mass effect upon the right L5 nerve root Follow up with neurosurgery (Dr. Pratt) as scheduled (3) Thoracic aortic aneurysm without rupture: Code(s): I71.2 - Thoracic aortic aneurysm, without rupture Qualifiers: Thoracic aorta location: unspecified Qualified Code(s): I71.20 - Thoracic aortic aneurysm, without rupture, unspecified Plan: S/P ascending aortoplasty with Dr. Dionisio Payne at [facility] on 10/19/2023 Follow up with cardiology as scheduled (4) Bicuspid aortic valve: Code(s): Q23.1 - Congenital insufficiency of aortic valve Plan: S/P aortic valve replacement with a 25 mm Inspiria valve on 10/29/2023 due to severe aortic stenosis He has been cleared by cardiology to begin cardiac rehab - has first session scheduled on 12/25/2023 Follow up with cardiology as scheduled for continued monitoring (5) Patent foramen ovale: Code(s): Q21.1 - Atrial septal defect Plan: Seen incidentally on prior SOWMYA Continue Aspirin 81 mg daily (6) Obstructive sleep apnea: Comment: BIPAP Code(s): G47.33 - Obstructive sleep apnea (adult) (pediatric) Plan: Continue using his BiPAP device every night when sleeping Follow up with Sleep Medicine as scheduled (7) Vitamin D deficiency: Code(s): E55.9 - Vitamin D deficiency, unspecified Plan: Corrected - will continue to monitor his Vitamin D level regularly (8) Constipation: Code(s): K59.00 - Constipation, unspecified Qualifiers: Constipation type: unspecified constipation type Qualified Code(s): K59.00 - Constipation, unspecified Plan: Is most likely the reason for the on and off blood in his stool lately; he had internal hemorrhoids and diverticulosis on his recent colonoscopy done a couple of years ago Reinforced increased oral fluids and dietary fiber Continue Senna 8.6 mg QD PRN (9) Genital herpes in men: Code(s): A60.02 - Herpesviral infection of other male genital organs Plan: Continue Valacyclovir 500 mg every 12 hours x 5 days when needed for acute flare ups - Rx refilled (10) Urinary tract infection: Code(s): N39.0 - Urinary tract infection, site not specified Qualifiers: Urinary tract infection type: site unspecified Hematuria presence: without hematuria Qualified Code(s): N39.0 - Urinary tract infection, site not specified Plan: Continue Cefuroxime 500 mg BID to complete a 7 days' course of the oral Abx (11) Insomnia: Code(s): G47.00 - Insomnia, unspecified Qualifiers: Insomnia type: unspecified Qualified Code(s): G47.00 - Insomnia, unspecified Plan: Sleep hygiene discussed Will start him on Zolpidem 5 mg Q HS PRN - have advised patient to try taking this only as needed to avoid developing dependence on the Rx (12) Obesity (BMI 30-39.9): Code(s): E66.9 - Obesity, unspecified Plan: Reinforced diet/exercise as tolerated/lose weight Plan Follow up in 4 months Orders: Orders Complete Blood Count Auto Diff 4 Months D64.9 - Anemia, unspecified Lipid Panel 4 Months E78.00 - Pure hypercholesterolemia, unspecified TSH reflex Free T4 4 Months E78.00 - Pure hypercholesterolemia, unspecified Vitamin D 25-OH Total 4 Months E55.9 - Vitamin D deficiency, unspecified Comprehensive [place]. Panel Fast 4 Months E78.00 - Pure hypercholesterolemia, unspecified UA CC w/rflx Micro + Cult 4 Months R30.0 - Dysuria Medications: New zolpidem 5 mg PO BEDTIME 10 days PRN 30 tabs 1RF insomnia Coding Level of Care Code Est Pt Level 4 (31808) Diagnoses Pure hypercholesterolemia E78.00 Lumbar back pain with radiculopathy affecting left lower extremity M54.16 Thoracic aortic aneurysm without rupture, unspecified part I71.20 Thoracic aorta location: unspecified Bicuspid aortic valve Q23.1 Patent foramen ovale Q21.1 Obstructive sleep apnea G47.33 Vitamin D deficiency E55.9 Constipation, unspecified constipation type K59.00 Constipation type: unspecified constipation type Genital herpes in men A60.02 Urinary tract infection without hematuria, site unspecified N39.0 Urinary tract infection type: site unspecified Hematuria presence: without hematuria Insomnia, unspecified type G47.00 Insomnia type: unspecified Obesity (BMI 30-39.9) E66.9
== END 2023-12-08 13:37 | disposition home or self-care (01) ==
PROVIDERS: PCP Internal Medicine; Visit Provider Internal Medicine
DX: E78.00 Pure hypercholesterolemia, unspecified (principal); M54.16 Radiculopathy, lumbar region; I71.20 Thoracic aortic aneurysm, without rupture, unspecified; Q23.1 Congenital insufficiency of aortic valve; Q21.10 Atrial septal defect, unspecified; G47.33 Obstructive sleep apnea (adult) (pediatric); E55.9 Vitamin D deficiency, unspecified; K59.00 Constipation, unspecified; A60.02 Herpesviral infection of other male genital organs; N39.0 Urinary tract infection, site not specified; G47.00 Insomnia, unspecified
CPT/HCPCS: 99214

== ENCOUNTER 2023-12-17 12:49 | Outpatient (AMB) | payer BC, SELFPAY ==
[2023-12-17 12:59] VITALS: BP 116/62
--- NOTE | 2023-12-17 12:59 | AM.OFFVISNUR ---
Vital Signs 12/17/23 12:59 BP 116/62 Blood Pressure Location Lt brachial Position Sitting Intake Visit Reasons: BP and EKG Allergies No Known Allergies Allergy (Verified 12/08/23 13:18) Nursing Note pt is here for bp ck and ekg ekg reviewed by dr sheehan Office Procedures EKG [id number], Complete
== END 2023-12-17 13:09 | disposition home or self-care (01) ==
PROVIDERS: PCP Internal Medicine; Visit Provider Internal Medicine
DX: R94.31 Abnormal electrocardiogram [ECG] [EKG] (principal)
CPT/HCPCS: 93010

== ENCOUNTER → 2023-12-17 12:49 | Outpatient (BNVA) | payer BC, SELFPAY | PROVIDERS: PCP Internal Medicine; Visit Provider Internal Medicine | DX: Z01.30 Encounter for examination of blood pressure without abnormal findings (principal); Z13.6 Encounter for screening for cardiovascular disorders | CPT/HCPCS: 93005 ==

== ENCOUNTER 2023-12-30 09:58 | Outpatient (AMB) | payer BC, SELFPAY ==
--- NOTE | 2023-12-30 10:20 | A.OFFVIS_ITS ---
Intake Visit Reasons: [facility] Follow Up-Acute UTI(12/03) Intake Note: Patient is Present for [facility] UTI) Urology Medication: Sildenafil, Tadalafil, Finasteride Antibiotic Allergies:None Blood Thinners: Aspirin Pyrotechnist Required: No Allergies No Known Allergies Allergy (Verified 12/30/23 10:21) HPI Comments Details: Raheem is a pleasant male. He is a patient Dr. Martinez. He is seen for the following urologic conditions - microscopic hematuria - erectile dysfunction Last seen in September Had been responding well to combination medications for erectile dysfunction Recent emergency room visit with acute UTI E coli resistant to ampicillin, gentamicin and Bactrim Had previously been on finasteride although this is no longer on his list Emergent cardiac valve replacement 10/26 with indwelling Caldwell catheter Recommend restarting finasteride every other day Is able to complete 15 minutes on the treadmill at cardiac rehab. Cleared for sexual activity. May restart daily tadalafil with on demand sildenafil. 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 Prior imaging normal Cytology 10/23 NAD Continue yearly review [facility] Medical History (Updated 12/10/23 @ 00:02 by Background Damirna) Seborrheic keratosis Erectile dysfunction Degenerative joint disease of sacroiliac joint Lumbar spondylosis Left-sided low back pain with left-sided sciatica BiPAP (biphasic positive airway pressure) dependence Normal colonoscopy (~2010) Vitamin D deficiency Genital herpes in men Obesity (BMI 30-39.9) Obstructive sleep apnea Pure hypercholesterolemia Asymptomatic microscopic hematuria BRANDT on CPAP Patent foramen ovale Thoracic aortic aneurysm without rupture Bicuspid aortic valve Surgical History (Updated 12/10/23 @ 00:02 by Background Damirna) Status post aortic valve replacement and aortoplasty History of open heart surgery H/O Spinal surgery History of uvulectomy History of parathyroidectomy History of tonsillectomy Family History Father Dementia HTN (hypertension) Mother Dementia HTN (hypertension) Diabetes Other Mental health problem Substance abuse Social History Household Members: Family Housing: House Do you presently have visiting nurse or other home services: Yes Alcohol intake: current Alcohol intake frequency: holidays/special occasions only Alcohol type: beer Patient Tobacco Use Status: Former Tobacco user e-Cigarette/Vaping Use: Never Used Second Hand Smoke Exposure: Yes service: No Current occupational status: employed 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 Cognitive needs: No Hearing needs: No Vision needs: No Review of Systems Const Denies chills and Denies fever(s) Card Reports no additional complaints and Denies syncope Resp Denies cough GI Denies abdominal pain and Denies heartburn Reports as per HPI and Denies change in libido Neuro Denies syncope Psych Denies change in libido Endo Denies change in libido Physical Exam Const General: cooperative, healthy appearing, comfortable and no acute distress Orientation/consciousness: patient oriented x3 HEENT Face and sinus: Yes normal facial exam Mouth: moist mucous membranes Neck Neck: Yes normal visual inspection, Yes full ROM and Yes trachea midline Chest Chest palpation & inspection: normal inspection of the chest Resp Effort & Inspection: normal respiratory effort, able to speak in complete sentences and no respiratory distress GI Inspection: Yes normal to inspection Back/Spine/Pelvis Cervical Spine: normal cervical lordosis Thoracic/Lumbar Spine: thoracic and lumbar spine normal to inspection Skin General skin exam: no rashes or lesions noted Neuro General: patient oriented x3, gait normal, tone normal and moves all extremities Extrem General: Yes normal to inspection and Yes capillary refill normal Results AMB Urinalysis, Automated UA Leukoctes 0 Dariela/uL Last Edit by CATA Armstrong on 12/30/23 10:33 UA Nitrite Negative Last Edit by CATA Armstrong on 12/30/23 10:33 UA Urobilinogen 0.2 mg/dL Last Edit by CATA Armstrong on 12/30/23 10:3 3 UA Protein 15 mg/dL Last Edit by CATA Armstrong on 12/30/23 10:33 UA pH 5.5 Last Edit by CATA Armstrong on 12/30/23 10:33 UA Blood 25 Cody/uL Last Edit by CATA Armstrong on 12/30/23 10:33 UA Specific [place] 1.025 Last Edit by CATA Armstrong on 12/30/23 10: 33 UA Ketone Positive Last Edit by CATA Armstrong on 12/30/23 10:33 UA Bilirubin 0 mg/dL Last Edit by CATA Armstrong on 12/30/23 10:33 UA Glucose 0 mg/dL Last Edit by CATA Armstrong on 12/30/23 10:33 Results Reviewed Results Reviewed: Laboratory Last Values Urine pH (Auto) 5.5 12/30/23 10:32 Specific [place] (Auto) 1.025 12/30/23 10:32 Urine Protein (Auto) 15 mg/dL 12/30/23 10:32 Glucose (UA)(Auto) 0 mg/dL 12/30/23 10:32 Urine Ketones (Auto) Positive 12/30/23 10:32 Urine Blood (Auto) 25 Cody/uL 12/30/23 10:32 Urine Nitrite (Auto) Negative 12/30/23 10:32 Urine Bilirubin (Auto) 0 mg/dL 12/30/23 10:32 Urine Urobilinogen (Auto) 0.2 mg/dL 12/30/23 10:32 Leukocyte Esterase (Auto) 0 Dariela/uL 12/30/23 10:32 Assessment & Plan Assessment & Plan (1) Urinary tract infection: Code(s): N39.0 - Urinary tract infection, site not specified Category: Medical Qualifiers: Urinary tract infection type: site unspecified Hematuria presence: without hematuria Qualified Code(s): N39.0 - Urinary tract infection, site not specified (2) Erectile dysfunction: Code(s): N52.9 - Male erectile dysfunction, unspecified Category: Medical Qualifiers: Erectile dysfunction type: unspecified Qualified Code(s): N52.9 - Male erectile dysfunction, unspecified Plan Follow-up in September Orders: Orders AMB Urinalysis Automated Today Z13.9 - Encounter for screening, unspecified Patient Instructions: Imaging studies, laboratory and physical exam results were discussed and reviewed in detail. No major barriers to patient understanding were identified. An opportunity to ask questions regarding the treatment plan was provided. All questions were answered. The patient expressed understanding and agreement with the above treatment plan. The patient is aware they should contact our office by phone for worsening of their current condition or the appearance of new urologic symptoms. Compliance is encouraged with any medications and followup testing that is ordered. It is a privilege to participate in the urologic care of your patient. If you have any questions or concerns regarding treatment for the above conditions, or other urologic issues, please do not hesitate to contact me. The office telephone contact is [phone]. This note is constructed using voice recognition software. While every effort has been made to ensure accuracy stroke coordinator errors may have been included. Yours sincerely, Dr Manuel Hutchison MD, [facility] - Urology Providers of Expert, Compassionate Care for the Genitourinary System Coding Level of Care Code Est Pt Level 4 (83598) Diagnoses Urinary tract infection without hematuria, site unspecified N39.0 Urinary tract infection type: site unspecified Hematuria presence: without hematuria Erectile dysfunction, unspecified erectile dysfunction type N52.9 Erectile dysfunction type: unspecified
== END 2023-12-30 11:01 | disposition home or self-care (01) ==
PROVIDERS: PCP Internal Medicine; Referring Provider Internal Medicine; Visit Provider Urology
DX: N39.0 Urinary tract infection, site not specified (principal); N52.9 Male erectile dysfunction, unspecified; Z13.9 Encounter for screening, unspecified
CPT/HCPCS: 99214

== ENCOUNTER → 2023-12-30 09:58 | Outpatient (BNVA) | payer BC, SELFPAY | PROVIDERS: PCP Internal Medicine; Visit Provider Urology | DX: N52.9 Male erectile dysfunction, unspecified (principal); N39.0 Urinary tract infection, site not specified | CPT/HCPCS: 81003 ==

== ENCOUNTER 2024-04-07 08:30 | Outpatient (RCR) | payer BC, SELFPAY | END 2024-04-09 11:37 | disposition home or self-care (01) | LOC: HO.CR 08:30 | PROVIDERS: PCP Internal Medicine; Visit Provider Internal Medicine | DX: Z95.2 Presence of prosthetic heart valve (principal) | CPT/HCPCS: 93798 ==

== ENCOUNTER → 2024-04-21 13:40 | Outpatient (REF) | payer BC, SELFPAY ==
--- OUTSIDE RECORDS SUMMARY | 2024-04-21 13:42 | XMS_ITS | Clinical Summary ---
Author Organization Unknown Care Team Providers Care Shopper Name Role Phone SOLOMON ERNANDEZ, RONDA Unavailable Unavailable LINA RN, VICKI Unavailable Unavailable SHRUTI CRUZ, HARSHIL Unavailable Unavailable Payers Payer Name Policy Type Policy Number Effective Date Expira tion Date [facility] [id number] Problems Condition Name Condition Details Condition Category Status Onset Date Resolution Date Last Treatment Date Treating Clinician Comments ENCNTR FOR SURGICAL AFTCR FOLLOWING SURGERY ON THE CIRC SYS Active 05-05 00:00: 00 HYPERLIPIDEM IA, UNSPECIFIED Active 05-05 00:00: 00 OBSTRUCTIVE SLEEP APNEA (ADULT) (PEDIATRIC) Active 05-05 00:00: 00 ELEVATED WHITE BLOOD CELL COUNT, UNSPECIFIED Active 05-05 00:00: 00 ACUTE POSTHEMORRHA GIC ANEMIA Active 05-05 00:00: 00 ESSENTIAL (PRIMARY) HYPERTENSION Active 05-05 00:00: 00 BENIGN PROSTATIC HYPERPLASIA WITH LOWER URINARY TRACT SYMP Active 05-05 00:00: 00 OTHER RETENTION OF URINE Active 05-05 00:00: 00 HYPERGLYCEMI A, UNSPECIFIED Active 05-05 00:00: 00 PRESENCE OF PROSTHETIC HEART VALVE Active 05-05 00:00: 00 Allergies, Adverse Reactions, Alerts Allergy Name Allergy Type Status Severity Reaction(s) Onset Date Inactive Date Treating Clinician Comments SEASONAL Propensity to adverse reactions Active 2023-11 21:53:2 5 Medications Ordered Medication Name Filled Medication Name Start Date Stop Date Current Medication? Ordering Clinician Indication Dosage Frequency Signature (SIG) Comments Components finasteride 5 mg tablet 10-05 00:00: 00 Yes [id number] Unavailable Per instruc tions DAILY Per instructio ns DAILY (route: oral) Med Classific ation: Genitouri nary Therapy acetaminoph en 325 mg tablet 11-10 00:00: 00 Yes [id number] 975 mg EVERY 6 HOURS 975 mg EVERY 6 HOURS (route: oral) Med Classific ation: Analgesic , Anti-infl ammatory or Antipyret ic amiodarone 200 mg tablet 11-10 00:00: 00 11-25 23:59 :00 No [id number] 2 tablet 2 TIMES DAILY 2 tablet 2 TIMES DAILY (route: oral) Med Classific ation: Cardiovas cular Therapy Agents atorvastati n 10 mg tablet 11-10 00:00: 00 Yes [id number] 1 tablet DAILY 1 tablet DAILY (route: oral) Med Classific ation: Cardiovas cular Therapy Agents Calcium 500 + D 500 mg-10 mcg (400 unit) tablet 11-10 00:00: 00 Yes [id number] 2 tablet 2 TIMES DAILY 2 tablet 2 TIMES DAILY (route: oral) Med Classific ation: Electroly te Balance-N utritiona l Products Colace 100 mg capsule 11-10 00:00: 00 Yes [id number] 1 capsule 2 TIMES DAILY 1 capsule 2 TIMES DAILY (route: oral) Med Classific ation: Gastroint estinal Therapy Agents Flomax 0.4 mg capsule 11-10 00:00: 00 Yes [id number] 1 capsule DAILY 1 capsule DAILY (route: oral) Med Classific ation: Genitouri nary Therapy metoprolol succinate ER 50 mg tablet,exte nded release 24 hr 11-10 00:00: 00 11-25 23:59 :00 No [id number] 1 tablet 2 TIMES DAILY 1 tablet 2 TIMES DAILY (route: oral) Med Classific ation: Cardiovas cular Therapy Agents Aspirin Childrens 81 mg chewable tablet 11-17 00:00: 00 Yes [id number] 81 mg DAILY 81 mg DAILY (route: oral) Med Classific ation: Hematolog ical Agents baclofen 10 mg tablet 11-17 00:00: 00 11-26 23:59 :00 No [id number] 10 mg 3 TIMES DAILY 10 mg 3 TIMES DAILY (route: oral) Med Classific ation: Locomotor System Immunizations Ordered Immunization Name Filled Immunization Name Date Status Comments Refusal Reason COVID BOOSTER, COVID BOOSTER 2021-11-02 00:00:00 SHINGLES, TIV (INACTIVATED) 2020-11-08 00:00:00 Vital Signs Vital Name Observation Time Observation Value Commen ts Temperature 2023-12-02 14:43:00.000 97.9 [degF] Temperature 2023-12-01 11:22:00.000 96.6 [degF] Temperature 2023-11-26 11:19:00.000 96.6 [degF] Temperature 2023-11-24 20:15:00.000 98.3 [degF] Temperature 2023-11-18 16:07:00.000 98.3 [degF] Temperature 2023-11-17 13:20:00.000 96.6 [degF] Temperature 2023-11-11 13:04:00.000 97.5 [degF] BMI (%) 2023-11-11 13:04:00.000 34 kg/m2 Height 2023-11-11 13:04:00.000 71 [in_us] Pulse 2023-12-02 14:43:00.000 62 /min Pulse 2023-12-01 11:22:00.000 74 /min Pulse 2023-11-26 11:19:00.000 68 /min Pulse 2023-11-24 20:15:00.000 58 /min Pulse 2023-11-18 16:07:00.000 68 /min Pulse 2023-11-17 13:20:00.000 64 /min Pulse 2023-11-11 13:04:00.000 59 /min O2 Saturation (%) 2023-12-01 11:22:00.000 98 % O2 Saturation (%) 2023-11-26 11:19:00.000 96 % O2 Saturation (%) 2023-11-18 16:08:00.000 98 % O2 Saturation (%) 2023-11-17 13:20:00.000 96 % O2 Saturation (%) 2023-11-11 13:04:00.000 97 % Respirations 2023-12-02 14:43:00.000 20 /min Respirations 2023-12-01 11:22:00.000 18 /min Respirations 2023-11-26 11:19:00.000 20 /min Respirations 2023-11-24 20:15:00.000 20 /min Respirations 2023-11-18 16:07:00.000 20 /min Respirations 2023-11-17 13:20:00.000 18 /min Respirations 2023-11-11 13:04:00.000 18 /min Weight (lbs) 2023-11-11 13:04:00.000 248 [lb_av] Systolic Blood Pressure 2023-12-02 14:43:00.000 92 mm[ Hg] Systolic Blood Pressure 2023-12-01 11:22:00.000 124 mm [Hg] Systolic Blood Pressure 2023-11-26 11:19:00.000 112 mm [Hg] Systolic Blood Pressure 2023-11-24 20:15:00.000 102 mm [Hg] Systolic Blood Pressure 2023-11-18 16:07:00.000 118 mm [Hg] Systolic Blood Pressure 2023-11-17 13:20:00.000 92 mm[ Hg] Systolic Blood Pressure 2023-11-11 13:04:00.000 110 mm [Hg] Diastolic Blood Pressure 2023-12-02 14:43:00.000 52 mm [Hg] Diastolic Blood Pressure 2023-12-01 11:22:00.000 74 mm [Hg] Diastolic Blood Pressure 2023-11-26 11:19:00.000 70 mm [Hg] Diastolic Blood Pressure 2023-11-24 20:15:00.000 60 mm [Hg] Diastolic Blood Pressure 2023-11-18 16:07:00.000 64 mm [Hg] Diastolic Blood Pressure 2023-11-17 13:20:00.000 54 mm [Hg] Diastolic Blood Pressure 2023-11-11 13:04:00.000 60 mm [Hg] Plan of Treatment Planned Activity Planned Date Details Comments Future Scheduled Test SKILLED NU RSE TO EVALUATE PATIENT, IDENTIFY PRIMARY AND CO-MORBID CONDITIONS CODED PER CODING GUIDELINES, AND DEVELOP PATIENT SPECIFIC PLAN OF CARE THAT INCLUDES PATIENT GOAL FOR HOME HEALTH. [code = SKILLED NURSE TO EVALUATE PATIENT, IDENTIFY PRIMARY AND CO-MORBID CONDITIONS CODED PER CODING GUIDELINES, AND DEVELOP PATIENT SPECIFIC PLAN OF CARE THAT INCLUDES PATIENT GOAL FOR HOME HEALTH.] Future Scheduled Test SKILLED NU RSE TO REVIEW PATIENT MEDICATIONS. INSTRUCT PATIENT/CAREGIVER ON MONITORING OF EFFECTIVENESS, ADVERSE DRUG REACTIONS, SIDE EFFECTS OF ALL MEDICATIONS (PRESCRIPTION/-OTC), AND HOW AND WHEN TO REPORT PROBLEMS. [code = SKILLED NURSE TO REVIEW PATIENT MEDICATIONS. INSTRUCT PATIENT/CAREGIVER ON MONITORING OF EFFECTIVENESS, ADVERSE DRUG REACTIONS, SIDE EFFECTS OF ALL MEDICATIONS (PRESCRIPTION/-OTC), AND HOW AND WHEN TO REPORT PROBLEMS.] Future Scheduled Test SKILLED NU RSE MAY COLLECT URINE SAMPLE FOR URINE REAGENT STRIP TESTING AND/OR URINALYSIS WITH CS 1-3 PRN IF INDICATED FOR SIGNS AND SYMPTOMS OF UTI. IF REAGENT STRIP TEST IS POSITIVE FOR UTI, SKILLED NURSE TO TAKE URINE SAMPLE TO LAB FOR URINE CS AND REPORT RESULTS TO PHYSICIAN. [code = SKILLED NURSE MAY COLLECT URINE SAMPLE FOR URINE REAGENT STRIP TESTING AND/OR URINALYSIS WITH CS 1-3 PRN IF INDICATED FOR SIGNS AND SYMPTOMS OF UTI. IF REAGENT STRIP TEST IS POSITIVE FOR UTI, SKILLED NURSE TO TAKE URINE SAMPLE TO LAB FOR URINE CS AND REPORT RESULTS TO PHYSICIAN.] Future Scheduled Test SKILLED NU RSE FOR O/A, TEACHING, AND MANAGEMENT OF HLD, AORTIC STENOSIS, AAA. [code = SKILLED NURSE FOR O/A, TEACHING, AND MANAGEMENT OF HLD, AORTIC STENOSIS, AAA.] Future Scheduled Test SKILLED NU RSE TO INSTRUCT PATIENT/CAREGIVER AND PERFORM CARE AND MANAGEMENT OF INDWELLING URINARY CATHETER. HENDERSON CATHETER INSERTION WITH 14 FR CATHETER WITH 10ML BALLOON, CHANGE Q MONTHAND PRN FOR LEAKING OR MALFUNCTIONING CATHETER. IRRIGATE URINARY CATHETER WITH 30-60CC NORMAL SALINE PRN BLOCKAGE/LEAKAGE, HEAVY SEDIMENT. 1 - 3 PRN SNF VISITS FOR CATHETER CHANGE(S) AND/OR TROUBLESHOOTING. [code = SKILLED NURSE TO INSTRUCT PATIENT/CAREGIVER AND PERFORM CARE AND MANAGEMENT OF INDWELLING URINARY CATHETER. HENDERSON CATHETER INSERTION WITH 14 FR CATHETER WITH 10ML BALLOON, CHANGE Q MONTHAND PRN FOR LEAKING OR MALFUNCTIONING CATHETER. IRRIGATE URINARY CATHETER WITH 30-60CC NORMAL SALINE PRN BLOCKAGE/LEAKAGE, HEAVY SEDIMENT. 1 - 3 PRN SNF VISITS FOR CATHETER CHANGE(S) AND/OR TROUBLESHOOTING.] Future Scheduled Test SKILLED NU RSE FOR O/A, TEACHING AND MANAGEMENT OF BPH, URINARY RETENTION FOR EARLY IDENTIFICATION OF EXACERBATION OF DISEASE PROCESS [code = SKILLED NURSE FOR O/A, TEACHING AND MANAGEMENT OF BPH, URINARY RETENTION FOR EARLY IDENTIFICATION OF EXACERBATION OF DISEASE PROCESS] Future Scheduled Test SKILLED NU RSE FOR O/A OF RESPIRATORY SYSTEM TO IDENTIFY CHANGES ASSOCIATED WITH EXACERBATION AND TO PROVIDE SKILLED TEACHING ON MANAGEMENT OF BRANDT PROCESS. [code = SKILLED NURSE FOR O/A OF RESPIRATORY SYSTEM TO IDENTIFY CHANGES ASSOCIATED WITH EXACERBATION AND TO PROVIDE SKILLED TEACHING ON MANAGEMENT OF BRANDT PROCESS.] Future Scheduled Test NEED FOR S KILLED TEACHING AND INTERVENTION RELATED TO MID CHEST INCISION. SKILLED NURSE TO ASSESS AND INSTRUCT ON SIGNS OF INFECTION AND MONITOR HEALING. [code = NEED FOR SKILLED TEACHING AND INTERVENTION RELATED TO MID CHEST INCISION. SKILLED NURSE TO ASSESS AND INSTRUCT ON SIGNS OF INFECTION AND MONITOR HEALING. ] Future Scheduled Test SKILLED NU RSE TO PROVIDE TEACHING ON SIGNS AND SYMPTOMS AND MANAGEMENT OF HYPERTENSION. [code = SKILLED NURSE TO PROVIDE TEACHING ON SIGNS AND SYMPTOMS AND MANAGEMENT OF HYPERTENSION.] Future Scheduled Test SKILLED NU RSE FOR O/A AND SKILLED TEACHING RELATED TO SIGNS AND SYMPTOMS AND MANAGEMENT OF ANEMIA. [code = SKILLED NURSE FOR O/A AND SKILLED TEACHING RELATED TO SIGNS AND SYMPTOMS AND MANAGEMENT OF ANEMIA.] Future Scheduled Test VIRTUAL SIT FREQUENCY: 1-6 PER WEEK X 3 WEEKS AND 6 PRN VIRTUAL VISITS MAY BE PERFORMED UTILIZING TELECOMMUNICATIONS SYSTEM TO OPTIMIZE SKILLED SERVICES FURNISHED ON THE PLAN OF CARE. SKILLED NURSE TO ESTABLISH SUPPORT MEASURES TO MINIMIZE RISK OF REHOSPITALIZATION, AND INSTRUCT PATIENT/CAREGIVER ON METHODS TO REDUCE AVOIDABLE HOSPITALIZATION. [code = VIRTUAL VISIT FREQUENCY: 1-6 PER WEEK X 3 WEEKS AND 6 PRN VIRTUAL VISITS MAY BE PERFORMED UTILIZING TELECOMMUNICATIONS SYSTEM TO OPTIMIZE SKILLED SERVICES FURNISHED ON THE PLAN OF CARE. SKILLED NURSE TO ESTABLISH SUPPORT MEASURES TO MINIMIZE RISK OF REHOSPITALIZATION, AND INSTRUCT PATIENT/CAREGIVER ON METHODS TO REDUCE AVOIDABLE HOSPITALIZATION.] Future Scheduled Test PATIENT MORALES S A RISK OF HOSPITALIZATION AND ED USE. SKILLED NURSE TO ESTABLISH SUPPORT MEASURES TO MINIMIZE RISK OF HOSPITALIZATION AND ED USE, AND INSTRUCT PATIENT/CAREGIVER ON METHODS TO REDUCE AVOIDABLE HOSPITALIZATION AND ED USE. [code = PATIENT HAS A RISK OF HOSPITALIZATION AND ED USE. SKILLED NURSE TO ESTABLISH SUPPORT MEASURES TO MINIMIZE RISK OF HOSPITALIZATION AND ED USE, AND INSTRUCT PATIENT/CAREGIVER ON METHODS TO REDUCE AVOIDABLE HOSPITALIZATION AND ED USE.] Future Scheduled Test SKILLED NU RSE TO PROVIDE INSTRUCTION TO PATIENT/CAREGIVER RELATED TO DISCHARGE PLANNING. [code = SKILLED NURSE TO PROVIDE INSTRUCTION TO PATIENT/CAREGIVER RELATED TO DISCHARGE PLANNING.] Future Scheduled Test SKILLED NU RSE TO PERFORM HOME SAFETY AND FALL ASSESSMENT AND PROVIDE INSTRUCTION TO IMPLEMENT HOME SAFETY AND FALL PREVENTION STRATEGIES. [code = SKILLED NURSE TO PERFORM HOME SAFETY AND FALL ASSESSMENT AND PROVIDE INSTRUCTION TO IMPLEMENT HOME SAFETY AND FALL PREVENTION STRATEGIES.] Future Scheduled Test SKILLED NU RSE FOR OBSERVATION AND ASSESSMENT OF PATIENTS PAIN LEVEL AND EFFECTIVENESS OF PAIN MANAGEMENT REGIMEN. SKILLED NURSE TO INSTRUCT PATIENT/CAREGIVER REGARDING PHARMACOLOGIC AND NON-PHARMACOLOGIC PAIN CONTROL MEASURES. SKILLED NURSE TO REPORT TO PHYSICIAN IF PAIN IS UNCONTROLLED WITH CURRENT PAIN MANAGEMENT REGIMEN. [code = SKILLED NURSE FOR OBSERVATION AND ASSESSMENT OF PATIENTS PAIN LEVEL AND EFFECTIVENESS OF PAIN MANAGEMENT REGIMEN. SKILLED NURSE TO INSTRUCT PATIENT/CAREGIVER REGARDING PHARMACOLOGIC AND NON-PHARMACOLOGIC PAIN CONTROL MEASURES. SKILLED NURSE TO REPORT TO PHYSICIAN IF PAIN IS UNCONTROLLED WITH CURRENT PAIN MANAGEMENT REGIMEN.] Future Scheduled Test SKILLED NU RSE TO ASSESS PATIENT'S SKIN INTEGRITY AND INSTRUCT PATIENT/CAREGIVER ON MEASURES TO PREVENT PRESSURE ULCERS. [code = SKILLED NURSE TO ASSESS PATIENT'S SKIN INTEGRITY AND INSTRUCT PATIENT/CAREGIVER ON MEASURES TO PREVENT PRESSURE ULCERS.] Future Scheduled Test PHYSICAL T HERAPIST TO EVALUATE PATIENT SECONDARY TO FUNCTIONAL DEFICITS/SAFETY CONCERNS. PHYSICAL THERAPIST TO ASSESS BEST PRACTICE INTERVENTIONS TO ASSIST PATIENTS TO IMPROVE OR STABILIZE MEDICAL STATUS AND PREVENT RE-HOSPITALIZATION. MEASURES INCLUDING REVIEW AND IDENTIFICATION OF CONCERNS FOR THE FOLLOWING AREAS: DRUG REGIMEN, ENVIRONMENTAL SAFETY ISSUES AND FALLS, PRESSURE ULCERS, PAIN, AND DISEASE MANAGEMENT. PHYSICAL THERAPY TO ESTABLISH /UPGRADE/DOWNGRADE THERAPEUTIC EXERCISE PROGRAM AND INSTRUCT PATIENT/CAREGIVER ON EXERCISE PRECAUTIONS WITH WRITTEN HOME PROGRAM. MAY INCLUDE PROM, AAROM, AROM, RROM APPROPRIATE TO IMPROVE FUNCTIONAL STRENGTH AND RANGE OF MOTION. PHYSICAL THERAPY TO INSTRUCT PATIENT/CAREGIVER ON SAFE TRANSFER TECHNIQUES USING PROPER BODY MECHANICS AND EQUIPMENT. PHYSICAL THERAPY TO INSTRUCT PATIENT/CAREGIVER ON GAIT TRAINING TECHNIQUES USING APPROPRIATE ASSISTIVE DEVICE, PROPER BODY MECHANICS TO IMPROVE MOBILITY, AND PREVENT INJURY OF PATIENT AND/OR CAREGIVER. PHYSICAL THERAPY TO ASSESS AND RECOMMEND HOME SAFETY ADAPTATIONS AND EDUCATE PATIENT /CAREGIVER ON FALL PREVENTION STRATEGIES. PHYSICAL THERAPY FOR OBSERVATION AND ASSESSMENT OF PAIN, EFFECTIVENESS OF PAIN MANAGEMENT REGIMEN AND SKILLED TEACHING RELATED TO PAIN MANAGEMENT. THERAPIST TO REPORT INCREASED PAIN LEVEL TO PHYSICIAN FOR PROMPT INTERVENTION. PHYSICAL THERAPY TO INSTRUCT PATIENT/CAREGIVER ON BALANCE AND BALANCE STRATEGIES TO IMPROVE SAFE MOBILITY AND REDUCE RISK FOR FALL AND INJURY INCLUDING PARTICIPATION IN [facility] BALANCE SPECIALTY PROGRAM SUMMARY OF THERAPY EVAL/ASSESSMENT FINDINGS AND REASON(S) SKILLS OF A THERAPIST ARE INDICATED: PHYSICAL THERAPY EVALUATION (11/17/23) PATENT IS A 63 YEAR OLD MALE WITH PHYSICAL THERAPY REFERRAL AFTER HOSPITALIZATION, MD DX: SEVERE AORTIC STENOSIS, HEART VALVE REPLACEMENT BY MD ABDULLAHI ON 10/29/23. PAST MD HX: AORTIC STENOSIS, HTN, BPH, OBSTRUCTIVE SLEEP APNEA, HYPERLIPEMIA AND ANEURYSM OF ASCENDING AORTA WITHOUT RUPTURE. FALL HISTORY: NO FALLS REPORTED PATIENT LIVES IN SINGLE FAMILY HOME (5 STAIRS WITH RAIL TO NEGOTIATE) WITH SUPPORTIVE FAMILY: AND 3 DTRS, GRANDSON. PLOF: PATIENT INDEP INDOORS AND OUTDOORS, DROVE WITH 0 HANDICAPPED PLACARD. DME: SHOWER CHAIR CLOF: PATIENT HAS A CATHETER. HOSPITAL D/C PAPERWORK REVEAL THAT REFERRAL FOR OUTPATIENT PHYSICAL THERAPY HAS BEEN MADE, NOT YET SCHEDULED. REVIEWED CARIAC CONTRAINDICATIONS: NO LIFTING >10#, NO LIFTING ABOVE SHOULDERS, NO SHOULDER ABDUCTION. VISIT COMPLETED WITH DTR PRESENT. DTR REPORTS PRIOR TO THIS THERAPIST'S ARRIVAL, AFTER RETURNING FROM MD ABDULLAHI'S OFFICE, PATIENT BECAME DIZZY AND ALMOST FELL WITH DTR PREVENTING FALL. EDUC PATIENT AND CG THAT PATIENT HAD LOW BP, AND TO INCREASE HYDRATION, VERBALIZED ACCEPTANCE. RECOMMENDED AD (FWW/CANE) ACQUSITION TO MAX SAFETY, HOWEVER PATIENT NOT RECEPTIVE. PATIENT HAS TRACE EDEMA BILAT ANKLES. PATIENT AND CG REPORTS CARDIAC SURGEON BRADLY RECOMMENDED COMPRESSION SOCKS USAGE, [facility] CG REPORTING WILL OBTAIN. REVIEWED EDEMA CONTROL. BILAT LE ROM WFL, BILAT LE STRENGTH 4+/5. TO INCREASE BILAT LE STRENGTH, INSTRUCTED IN THER EXER: HIP FLEX, KNEE EXT, ANKLE PLANTAR/DORSIFLEX. DISPENSED HEP SHEETS. PATIENT REPORTED FEELING DIZZY AT START OF VISIT. PATIENT COMPLETED SIT-->STAND WITH SUPERVISION DUE TO SAFETY. STATIC STAND = FAIR+. PATIENT REPORTED NOT FEELING UP TO ATTEMPTING AMB. ADVISED PATIENT TO WALK WITH SUPERVISION OF CGS AND IF DIZZINESS IMPROVES AMB EVERY HR. PATIENT PRESENTS WITH THE FOLLOWING DEFICITS: PAIN, DECREASED BILAT LE STRENGTH AND ENDURANCE, RESULTING IN DIFFICULTY WITH TRANSFERS, AMB AND STAIR NEGOTIATION. SKILLED [facility]ARE [id number] TO ADDRESS DEFICITS, MAX SAFETY AND FUNCTIONAL LEVEL IN HOME ENVIRONMENT, ALLOW TRANSITION TO MD ORDERED CARDIAC REHAB WITH THER EXER, HEP, TRANSFER AND GAIT TRAINING, STAIR NEGOTIATION. PATIENT AND CG INFORMED ABOUT PHYSICAL THERAPY POC INCLUDING FREQ. NOTIFIED ABOUT PATIENT STATUS AND POC UPCOMING APPTS: NURSE MIDWIFE/CLINICAL INSTRUCTOR MD CHEN 11/26/23 UROLOGIST 12/02/23 UROLOGIST [code = PHYSICAL THERAPIST TO EVALUATE PATIENT SECONDARY TO FUNCTIONAL DEFICITS/SAFETY CONCERNS. PHYSICAL THERAPIST TO ASSESS BEST PRACTICE INTERVENTIONS TO ASSIST PATIENTS TO IMPROVE OR STABILIZE MEDICAL STATUS AND PREVENT RE-HOSPITALIZATION. MEASURES INCLUDING REVIEW AND IDENTIFICATION OF CONCERNS FOR THE FOLLOWING AREAS: DRUG REGIMEN, ENVIRONMENTAL SAFETY ISSUES AND FALLS, PRESSURE ULCERS, PAIN, AND DISEASE MANAGEMENT. PHYSICAL THERAPY TO ESTABLISH /UPGRADE/DOWNGRADE THERAPEUTIC EXERCISE PROGRAM AND INSTRUCT PATIENT/CAREGIVER ON EXERCISE PRECAUTIONS WITH WRITTEN HOME PROGRAM. MAY INCLUDE PROM, AAROM, AROM, RROM APPROPRIATE TO IMPROVE FUNCTIONAL STRENGTH AND RANGE OF MOTION. PHYSICAL THERAPY TO INSTRUCT PATIENT/CAREGIVER ON SAFE TRANSFER TECHNIQUES USING PROPER BODY MECHANICS AND EQUIPMENT. PHYSICAL THERAPY TO INSTRUCT PATIENT/CAREGIVER ON GAIT TRAINING TECHNIQUES USING APPROPRIATE ASSISTIVE DEVICE, PROPER BODY MECHANICS TO IMPROVE MOBILITY, AND PREVENT INJURY OF PATIENT AND/OR CAREGIVER. PHYSICAL THERAPY TO ASSESS AND RECOMMEND HOME SAFETY ADAPTATIONS AND EDUCATE PATIENT /CAREGIVER ON FALL PREVENTION STRATEGIES. PHYSICAL THERAPY FOR OBSERVATION AND ASSESSMENT OF PAIN, EFFECTIVENESS OF PAIN MANAGEMENT REGIMEN AND SKILLED TEACHING RELATED TO PAIN MANAGEMENT. THERAPIST TO REPORT INCREASED PAIN LEVEL TO PHYSICIAN FOR PROMPT INTERVENTION. PHYSICAL THERAPY TO INSTRUCT PATIENT/CAREGIVER ON BALANCE AND BALANCE STRATEGIES TO IMPROVE SAFE MOBILITY AND REDUCE RISK FOR FALL AND INJURY INCLUDING PARTICIPATION IN [facility] BALANCE SPECIALTY PROGRAM SUMMARY OF THERAPY EVAL/ASSESSMENT FINDINGS AND REASON(S) SKILLS OF A THERAPIST ARE INDICATED: PHYSICAL THERAPY EVALUATION (11/17/23) PATENT IS A 63 YEAR OLD MALE WITH PHYSICAL THERAPY REFERRAL AFTER HOSPITALIZATION, DX: SEVERE AORTIC STENOSIS, HEART VALVE REPLACEMENT BY MD ABDULLAHI ON 10/29/23. PAST MD HX: AORTIC STENOSIS, HTN, BPH, OBSTRUCTIVE SLEEP APNEA, HYPERLIPEMIA AND ANEURYSM OF ASCENDING AORTA WITHOUT RUPTURE. FALL HISTORY: NO FALLS REPORTED PATIENT LIVES IN SINGLE FAMILY HOME (5 STAIRS WITH RAIL TO NEGOTIATE) WITH SUPPORTIVE FAMILY: AND 3 DTRS, GRANDSON. PLOF: PATIENT INDEP INDOORS AND OUTDOORS, DROVE WITH 0 HANDICAPPED PLACARD. DME: SHOWER CHAIR CLOF: PATIENT HAS A CATHETER. HOSPITAL D/C PAPERWORK REVEAL THAT REFERRAL FOR OUTPATIENT PHYSICAL THERAPY HAS BEEN MADE, NOT YET SCHEDULED. REVIEWED CARIAC CONTRAINDICATIONS: NO LIFTING >10#, NO LIFTING ABOVE SHOULDERS, NO SHOULDER ABDUCTION. VISIT COMPLETED WITH DTR PRESENT. DTR REPORTS PRIOR TO THIS THERAPIST'S ARRIVAL, AFTER RETURNING FROM MD ABDULLAHI'S OFFICE, PATIENT BECAME DIZZY AND ALMOST FELL WITH DTR PREVENTING FALL. EDUC PATIENT AND CG THAT PATIENT HAD LOW BP, AND TO INCREASE HYDRATION, VERBALIZED ACCEPTANCE. RECOMMENDED AD (FWW/CANE) ACQUSITION TO MAX SAFETY, HOWEVER PATIENT NOT RECEPTIVE. PATIENT HAS TRACE EDEMA BILAT ANKLES. PATIENT AND CG REPORTS CARDIAC SURGEON BRADLY RECOMMENDED COMPRESSION SOCKS USAGE, [facility] CG REPORTING WILL OBTAIN. REVIEWED EDEMA CONTROL. BILAT LE ROM WFL, BILAT LE STRENGTH 4+/5. TO INCREASE BILAT LE STRENGTH, INSTRUCTED IN THER EXER: HIP FLEX, KNEE EXT, ANKLE PLANTAR/DORSIFLEX. DISPENSED HEP SHEETS. PATIENT REPORTED FEELING DIZZY AT START OF VISIT. PATIENT COMPLETED SIT-->STAND WITH SUPERVISION DUE TO SAFETY. STATIC STAND = FAIR+. PATIENT REPORTED NOT FEELING UP TO ATTEMPTING AMB. ADVISED PATIENT TO WALK WITH SUPERVISION OF CGS AND IF DIZZINESS IMPROVES AMB EVERY HR. PATIENT PRESENTS WITH THE FOLLOWING DEFICITS: PAIN, DECREASED BILAT LE STRENGTH AND ENDURANCE, RESULTING IN DIFFICULTY WITH TRANSFERS, AMB AND STAIR NEGOTIATION. SKILLED [facility]ARE [id number] TO ADDRESS DEFICITS, MAX SAFETY AND FUNCTIONAL LEVEL IN HOME ENVIRONMENT, ALLOW TRANSITION TO MD ORDERED CARDIAC REHAB WITH THER EXER, HEP, TRANSFER AND GAIT TRAINING, STAIR NEGOTIATION. PATIENT AND CG INFORMED ABOUT PHYSICAL THERAPY POC INCLUDING FREQ. NOTIFIED ABOUT PATIENT STATUS AND POC UPCOMING APPTS: NURSE MIDWIFE/CLINICAL INSTRUCTOR MD CHEN 11/26/23 UROLOGIST 12/02/23 UROLOGIST] Goal 2023-12-05 Patient Goal - T O DO EVERYTHING CORRECTLY SO I CAN RECOVER Goal Provider Goal - A PLAN OF CARE WILL BE ESTABLISHED THAT MEETS PATIENT'S SNF NEEDS AND INCLUDES PATIENT GOAL FOR HOME HEALTH. Goal Provider Goal - PATIENT/CAREGIVER WILL VERBALIZE UNDERSTANDING OF EDUCATION PROVIDED ON MEDICATIONS BY THE END OF THE CERTIFICATION PERIOD. Goal Provider Goal - URINE SPECIMEN WILL BE OBTAINED PRN FOR SIGNS AND SYMPTOMS OF UTI AND RESULTS WILL BE REPORTED TO PHYSICIAN THROUGHOUT THE CERTIFICATION PERIOD. Goal Provider Goal - PATIENT/CAREGIVER WILL VERBALIZE/DEMONSTRATE MANAGEMENT OF CARDIAC DISEASE PROCESS AND EXACERBATIONS WILL BE IDENTIFIED AND PROMPTLY REPORTED THROUGHOUT THE CERTIFICATION PERIOD. Goal Provider Goal - PATIENT WILL VERBALIZE TOLERANCE OF CATHETER CHANGE AND KNOWLEDGE OF REQUIRED CARE TO MANAGE INDWELLING URINARY CATHETER WITHOUT COMPLICATIONS BY THE END OF THE CERTIFICATION PERIOD. Goal Provider Goal - PATIENT/CAREGIVER WILL VERBALIZE UNDERSTANDING OF GENITOURINARY DISEASE PROCESS, AND EXACERBATIONS OF GENITOURINARY DISEASE WILL BE PROMPTLY IDENTIFIED FOR EARLY INTERVENTION THROUGHOUT THE CERTIFICATION PERIOD. Goal Provider Goal - PATIENT/CAREGIVER WILL VERBALIZE/DEMONSTRATE MANAGEMENT OF RESPIRATORY DISEASE PROCESS. CHANGES IN RESPIRATORY STATUS WILL BE IDENTIFIED AND REPORTED TO PHYSICIAN FOR PROMPT INTERVENTION THROUGHOUT THE CERTIFICATION PERIOD. Goal Provider Goal - WOUND CARE WILL BE COMPLETED AND PATIENT WILL HAVE IMPROVED WOUND STATUS EVIDENCED BY NO SIGNS AND SYMPTOMS OF INFECTION, DECREASED WOUND SIZE, AND/OR NO COMPLICATIONS BY THE END OF THE CERTIFICATION PERIOD. Goal Provider Goal - PATIENT/CAREGIVER WILL VERBALIZE SIGNS AND SYMPTOMS OF HYPERTENSION AND WILL BE ABLE TO DEMONSTRATE ABILITY TO MANAGE EXACERBATION BY END OF THE EPISODE. Goal Provider Goal - PATIENT/CARGIVER WILL VERBALIZE UNDERSTANDING OF ANEMIA INCLUDING SIGNS AND SYMPTOMS, MANAGEMENT OF COMPLICATIONS, AND PRESCRIBED TREATMENT REGIMEN BY END OF EPISODE. Goal Provider Goal - PATIENT/CAREGIVER WILL UTILIZE VIRTUAL VISITS TO ACHIEVE GOALS OUTLINED ON THE PLAN OF CARE. PATIENT WILL HAVE SUPPORT MEASURES ESTABLISHED TO PREVENT HOSPITALIZATION AND PATIENT/CAREGIVER WILL VERBALIZE/DEMONSTRATE METHODS TO REDUCE AVOIDABLE HOSPITALIZATION THROUGHOUT THE CERTIFICATION PERIOD. Goal Provider Goal - PATIENT WILL HAVE SUPPORT MEASURES ESTABLISHED TO PREVENT HOSPITALIZATION AND ED USE AND PATIENT/CAREGIVER WILL VERBALIZE/DEMONSTRATE METHODS TO REDUCE AVOIDABLE HOSPITALIZATION AND ED USE BY END OF EPISODE. Goal Provider Goal - PATIENT/CAREGIVER WILL VERBALIZE UNDERSTANDING OF DISCHARGE PLANNING INSTRUCTIONS BY DATE OF DISCHARGE. Goal Provider Goal - PATIENT/CAREGIVER WILL VERBALIZE/DEMONSTRATE EFFECTIVE HOME SAFETY AND FALL PREVENTION STRATEGIES THROUGHOUT CERTIFICATION PERIOD. Goal Provider Goal - PATIENT/CAREGIVER WILL DEMONSTRATE UNDERSTANDING OF PHARMACOLOGIC AND NONPHARMACOLOGIC PAIN CONTROL MEASURES AND PATIENT WILL HAVE IMPROVEMENT IN PAIN INTERFERING WITH ACTIVITY EVIDENCED BY PAIN CONTROLLED AT LEVEL OF 7 OR LESS BY END OF CERTIFICATION PERIOD. Goal Provider Goal - PATIENT/CAREGIVER WILL VERBALIZE UNDERSTANDING OF PRESSURE ULCER PREVENTION BY END OF THE EPISODE. Goal Provider Goal - PHYSICAL THERAPY EVALUATION TO BE COMPLETED WITH RECOMMENDATIONS AND/OR WRITTEN TREATMENT PLAN OF CARE ESTABLISHED FOR THE PHYSICIANS SIGNATURE PATIENT/CAREGIVER VERBALIZES UNDERSTANDING OF THE INITIAL BEST PRACTICE RECOMMENDATIONS. PHYSICIAN TO BE NOTIFIED APPROPRIATE FOR ANY CHANGES OR COMPLICATIONS THROUGHOUT THE CERTIFICATION PERIOD. PATIENT/CAREGIVER WILL PERFORM THERAPEUTIC EXERCISE/S AND DEMONSTRATE PARTICIPATION IN A HOME PROGRAM. PATIENT/CAREGIVER WILL DEMONSTRATE SAFE TRANSFERS USING APPROPRIATE ASSISTIVE DEVICE, BODY MECHANICS AND EQUIPMENT. PATIENT/CAREGIVER WILL DEMONSTRATE IMPROVED GAIT TECHNIQUES TO MINIMIZE RISK OF INJURY. PATIENT/CAREGIVER WILL DEMONSTRATE/VERBALIZE UNDERSTANDING OF RECOMMENDATIONS TO INCREASE SAFETY IN THE HOME AND FALL PREVENTION. INCREASED PAIN OR INEFFECTIVE PAIN CONTROL MEASURES WILL BE IDENTIFIED AND PROMPTLY REPORTED TO THE PHYSICIAN. PATIENT/CAREGIVER WILL DEMONSTRATE EFFECTIVE PAIN MANAGEMENT. PATIENT/CAREGIVER WILL DEMONSTRATE IMPROVED BALANCE AND REDUCE THE RISK OF FALLS AND INJURY. Reason for Visit INDEPENDENT IN THE COMMUNITY Encounters Start Date/Time End Date/Time Encounter Type Admission Type Attending [facility] Care Department Encounter ID Discharge Date Discharge Status Discharge Condition Discharge Reason Percent Goals Met 2023-11-11 00:00:00 2023-12-05 00:00:00 Outpatient NEW ADMISSION HARSHIL BAHENA [facility] [id number] 2023-12-05 00:00:00 DISCHARGE TO HOME OR SELF CARE INDEPENDEN T IN THE COMMUNITY PER CLIENT REQUEST 50.00
--- NOTE | 2024-04-21 13:43 | CA_ITS ---
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 The calculated ejection fraction is 68% by biplane method. - A bioprosthetic aortic valve is present. The prosthetic aortic valve appears to be functioning normally. Findings Left Ventricle Normal left ventricular cavity size. There is normal left ventricular wall thickness. The left ventricular systolic function is normal. The calculated ejection fraction is 68% by biplane method. There is no evidence of regional wall motion abnormalities. Diastolic function is normal for age. Right Ventricle Normal right ventricular cavity size and systolic function. Atria Both atria are normal in size. Aortic Valve A bioprosthetic aortic valve is present. The prosthetic aortic valve appears to be functioning normally. There is no aortic valve regurgitation. Mitral Valve There is mild mitral annular calcification. There is no mitral valve regurgitation. There is no mitral valve stenosis. Pulmonic Valve The pulmonic valve is likely normal. Tricuspid Valve There is trace tricuspid valve regurgitation. There is no evidence of pulmonary hypertension. Great Vessels The asc aorta is normal in size. Venous The inferior vena cava is normal in size and collapses greater than 50% with inspiration. Pericardium/Pleural There is no evidence of pericardial effusion. Prior Study Comparison Changes noted compared to prior study dated: 10/23/2023. s/p AVR. Measurements 2D Linear Measurements RVIDd: 3.26 RVIDd Index: 1.38 IVSd: 1.08 0.6-0.9/0.6-1.0 cm LVIDd: 4.99 3.9-5.3/4.2-5.9 cm LVIDd Index: 2.11 2.4-3.2/2.2-3.1 cm/m2 LVIDs: 2.99 2.0-3.6 cm LVPWd: 1.08 0.7-1.1 cm Ao Root: 3.80 2.1-3.5 cm LA Diam: 3.70 2.7-3.8/3.0-4.0 cm LAIDs Index: 1.57 1.5-2.3 cm/m2 LV Mass: 250.93 67-162/88-224 g LV Mass Index: 106.32 43-95/49-115 g/m2 LVOT Diam: 2.20 3.0+(-)1.3 cm 2D Systolic Function EF 4C: 73.60 >55% EF 2C: 59.80 >55% EF BiP: 67.80 >55% Mitral Valve MV Pk E: 0.83 MV PK A: 1.02 MV Decel Time: 219.00 E/A: 0.80 E'Lateral: 7.40 E'Medial: 6.85 E/E' Med: 12.10 E/E' Lat: 11.20 PHT: 64.00 MVA PHT: 3.44 [place]: 3.80 Aortic Valve AoV Pk Dariusz: 2.07 AoV Mn Dariusz: 1.32 AoV VTI: 0.40 AoV Pk Grad: 17.00 Aov Mn Grad: 8.00 PIERCE Cont.VTI: 2.05 LVOT LVOT Pk Dariusz: 0.93 LVOT Mn Dariusz: 0.61 LVOT VTI: 0.21 LVOT Pk Grad: 3.00 LVOT Mn Grad: 2.00 LVOT Diam: 2.20 LVOT Area: 3.80 Diastolic Function MV Pk E: 0.83 MV Pk A: 1.02 E/A: 0.80 E'Medial: 6.85 E/E' Med: 12.10 E' Laterial: 7.40 E/E' Lat: 11.20 Right Ventricle TAPSE (mm): 20.00 TVS' Dariusz: 10.00 Tricuspid Valve TR Pk Dariusz: 2.11 TR Pk Grad: 18.00 RA Press: 3.00 RVSP: 21.00 Great Vessels Aorta Ao Root-2D: 3.80 2.0-3.7 cm Ao Asc: 3.80 2.1-3.4 cm Pulmonary Valve PV Pk Dariusz: 1.40 Peak PV Grad: 8.00 Updated in Other Vendor System with Status of Final Suleiman Turner MD electronically signed on 04/23/2024 1:56:14 PM with status of Final
== END ==
LOC: HO.CARD 13:40
PROVIDERS: PCP Internal Medicine; Visit Provider Internal Medicine
DX: Q23.1 Congenital insufficiency of aortic valve (principal); Z95.2 Presence of prosthetic heart valve
CPT/HCPCS: 93306

== ENCOUNTER → 2024-04-21 13:43 | Outpatient (BNV) | payer BC, SELFPAY | PROVIDERS: PCP Internal Medicine; Visit Provider Internal Medicine | DX: I34.81 Nonrheumatic mitral (valve) annulus calcification (principal); Z95.3 Presence of xenogenic heart valve; Z87.74 Personal history of (corrected) congenital malformations of heart and circulatory system | CPT/HCPCS: 93306 ==

== ENCOUNTER 2024-04-22 14:37 | Outpatient (REF) | payer BC, SELFPAY ==
--- OUTSIDE RECORDS SUMMARY | 2024-04-22 14:47 | XMS_ITS | Clinical Summary ---
Author Organization Unknown Care Team Providers Care Merchandise Executive Name Role Phone SOLOMON ERNANDEZ, RONDA Unavailable Unavailable LINA RN, VICKI Unavailable Unavailable SHRUTI CRUZ, HARSHIL Unavailable Unavailable Payers Payer Name Policy Type Policy Number Effective Date Expira tion Date [facility] [id number] Problems Condition Name Condition Details Condition Category [...] 5 mg tablet 10-05 00:00: 00 Yes [id number] Unavailable Per instruc tions DAILY Per instructio ns DAILY (route: oral) Med Classific ation: Genitouri nary Therapy acetaminoph en 325 mg tablet 11-10 00:00: 00 Yes [id number] 975 mg EVERY 6 HOURS 975 mg EVERY 6 HOURS (route: oral) Med Classific ation: Analgesic , Anti-infl ammatory or Antipyret ic amiodarone 200 mg tablet 11-10 00:00: 00 11-25 23:59 :00 No [id number] 2 tablet 2 TIMES DAILY 2 tablet 2 TIMES DAILY (route: oral) Med Classific ation: Cardiovas cular Therapy Agents atorvastati n 10 mg tablet 11-10 00:00: 00 Yes [id number] 1 tablet DAILY 1 tablet DAILY (route: oral) Med Classific ation: Cardiovas cular Therapy Agents Calcium 500 + D 500 mg-10 mcg (400 unit) tablet 11-10 00:00: 00 Yes [id number] 2 tablet 2 TIMES DAILY 2 tablet 2 TIMES DAILY (route: oral) Med Classific ation: Electroly te Balance-N utritiona l Products Colace 100 mg capsule 11-10 00:00: 00 Yes [id number] 1 capsule 2 TIMES DAILY 1 capsule 2 TIMES DAILY (route: oral) Med Classific ation: Gastroint estinal Therapy Agents Flomax 0.4 mg capsule 11-10 00:00: 00 Yes [id number] 1 capsule DAILY 1 capsule DAILY (route: oral) Med Classific ation: Genitouri nary Therapy metoprolol succinate ER 50 mg tablet,exte nded release 24 hr 11-10 00:00: 00 11-25 23:59 :00 No [id number] 1 tablet 2 TIMES DAILY 1 tablet 2 TIMES DAILY (route: oral) Med Classific ation: Cardiovas cular Therapy Agents Aspirin Childrens 81 mg chewable tablet 11-17 00:00: 00 Yes [id number] 81 mg DAILY 81 mg DAILY (route: oral) Med Classific ation: Hematolog ical Agents baclofen 10 mg tablet 11-17 00:00: 00 11-26 23:59 :00 No [id number] 10 mg 3 TIMES DAILY 10 mg [...] BLOCKAGE/LEAKAGE, HEAVY SEDIMENT. 1 - 3 PRN GROUP HOME VISITS FOR CATHETER CHANGE(S) AND/OR TROUBLESHOOTING. [code = SKILLED NURSE TO INSTRUCT PATIENT/CAREGIVER AND PERFORM CARE AND MANAGEMENT OF INDWELLING URINARY CATHETER. HENDERSON CATHETER INSERTION WITH 14 FR CATHETER WITH 10ML BALLOON, CHANGE Q MONTHAND PRN FOR LEAKING OR MALFUNCTIONING CATHETER. IRRIGATE URINARY CATHETER WITH 30-60CC NORMAL SALINE PRN BLOCKAGE/LEAKAGE, HEAVY SEDIMENT. 1 - 3 PRN GROUP HOME VISITS FOR CATHETER CHANGE(S) AND/OR TROUBLESHOOTING.] Future [...] FOR FALL AND INJURY INCLUDING PARTICIPATION IN [facility] BALANCE SPECIALTY PROGRAM SUMMARY OF THERAPY [...] CARDIAC SURGEON BRADLY RECOMMENDED COMPRESSION SOCKS USAGE, [facility] CG REPORTING WILL OBTAIN. REVIEWED EDEMA CONTROL. [...] TRANSFERS, AMB AND STAIR NEGOTIATION. SKILLED [facility] [id number] TO ADDRESS DEFICITS, MAX SAFETY AND FUNCTIONAL LEVEL IN HOME ENVIRONMENT, ALLOW TRANSITION TO MD ORDERED CARDIAC REHAB WITH THER EXER, HEP, TRANSFER AND GAIT TRAINING, STAIR NEGOTIATION. PATIENT AND CG INFORMED ABOUT PHYSICAL THERAPY POC INCLUDING FREQ. NOTIFIED ABOUT PATIENT STATUS AND POC UPCOMING APPTS: ENVIRONMENTAL INTERN MD CHEN 11/26/23 UROLOGIST 12/02/23 UROLOGIST [code [...] FOR FALL AND INJURY INCLUDING PARTICIPATION IN [facility] BALANCE SPECIALTY PROGRAM SUMMARY OF THERAPY [...] CARDIAC SURGEON BRADLY RECOMMENDED COMPRESSION SOCKS USAGE, [facility] CG REPORTING WILL OBTAIN. REVIEWED EDEMA CONTROL. [...] TRANSFERS, AMB AND STAIR NEGOTIATION. SKILLED [facility] [id number] TO ADDRESS DEFICITS, MAX SAFETY AND FUNCTIONAL LEVEL IN HOME ENVIRONMENT, ALLOW TRANSITION TO MD ORDERED CARDIAC REHAB WITH THER EXER, HEP, TRANSFER AND GAIT TRAINING, STAIR NEGOTIATION. PATIENT AND CG INFORMED ABOUT PHYSICAL THERAPY POC INCLUDING FREQ. NOTIFIED ABOUT PATIENT STATUS AND POC UPCOMING APPTS: ENVIRONMENTAL INTERN MD CHEN 11/26/23 UROLOGIST 12/02/23 UROLOGIST] Goal 2023-12-05 Patient Goal - T O DO EVERYTHING CORRECTLY SO I CAN RECOVER Goal Provider Goal - A PLAN OF CARE WILL BE ESTABLISHED THAT MEETS PATIENT'S GROUP HOME NEEDS AND INCLUDES PATIENT GOAL FOR HOME [...] End Date/Time Encounter Type Admission Type Attending [facility] Care Department Encounter ID Discharge Date Discharge Status Discharge Condition Discharge Reason Percent Goals Met 2023-11-11 00:00:00 2023-12-05 00:00:00 Outpatient NEW ADMISSION HARSHIL BAHENA [facility] [id number] 2023-12-05 00:00:00 DISCHARGE TO HOME OR SELF CARE INDEPENDEN T IN THE COMMUNITY PER CLIENT REQUEST 50.00
--- OUTSIDE RECORDS SUMMARY | 2024-04-22 14:48 | XMS_ITS | Clinical Summary ---
Author Organization Unknown Care Team Providers Care Roller Man Name Role Phone SOLOMON ERNANDEZ, RONDA Unavailable Unavailable LINA RN, VICKI Unavailable Unavailable SHRUTI CRUZ, HARSHIL Unavailable Unavailable Payers Payer Name Policy Type Policy Number Effective Date Expira tion Date [facility] [id number] Problems Condition Name Condition Details Condition Category [...] 5 mg tablet 10-05 00:00: 00 Yes [id number] Unavailable Per instruc tions DAILY Per instructio ns DAILY (route: oral) Med Classific ation: Genitouri nary Therapy acetaminoph en 325 mg tablet 11-10 00:00: 00 Yes [id number] 975 mg EVERY 6 HOURS 975 mg EVERY 6 HOURS (route: oral) Med Classific ation: Analgesic , Anti-infl ammatory or Antipyret ic amiodarone 200 mg tablet 11-10 00:00: 00 11-25 23:59 :00 No [id number] 2 tablet 2 TIMES DAILY 2 tablet 2 TIMES DAILY (route: oral) Med Classific ation: Cardiovas cular Therapy Agents atorvastati n 10 mg tablet 11-10 00:00: 00 Yes [id number] 1 tablet DAILY 1 tablet DAILY (route: oral) Med Classific ation: Cardiovas cular Therapy Agents Calcium 500 + D 500 mg-10 mcg (400 unit) tablet 11-10 00:00: 00 Yes [id number] 2 tablet 2 TIMES DAILY 2 tablet 2 TIMES DAILY (route: oral) Med Classific ation: Electroly te Balance-N utritiona l Products Colace 100 mg capsule 11-10 00:00: 00 Yes [id number] 1 capsule 2 TIMES DAILY 1 capsule 2 TIMES DAILY (route: oral) Med Classific ation: Gastroint estinal Therapy Agents Flomax 0.4 mg capsule 11-10 00:00: 00 Yes [id number] 1 capsule DAILY 1 capsule DAILY (route: oral) Med Classific ation: Genitouri nary Therapy metoprolol succinate ER 50 mg tablet,exte nded release 24 hr 11-10 00:00: 00 11-25 23:59 :00 No [id number] 1 tablet 2 TIMES DAILY 1 tablet 2 TIMES DAILY (route: oral) Med Classific ation: Cardiovas cular Therapy Agents Aspirin Childrens 81 mg chewable tablet 11-17 00:00: 00 Yes [id number] 81 mg DAILY 81 mg DAILY (route: oral) Med Classific ation: Hematolog ical Agents baclofen 10 mg tablet 11-17 00:00: 00 11-26 23:59 :00 No [id number] 10 mg 3 TIMES DAILY 10 mg [...] BLOCKAGE/LEAKAGE, HEAVY SEDIMENT. 1 - 3 PRN CARE HOME VISITS FOR CATHETER CHANGE(S) AND/OR TROUBLESHOOTING. [code = SKILLED NURSE TO INSTRUCT PATIENT/CAREGIVER AND PERFORM CARE AND MANAGEMENT OF INDWELLING URINARY CATHETER. HENDERSON CATHETER INSERTION WITH 14 FR CATHETER WITH 10ML BALLOON, CHANGE Q MONTHAND PRN FOR LEAKING OR MALFUNCTIONING CATHETER. IRRIGATE URINARY CATHETER WITH 30-60CC NORMAL SALINE PRN BLOCKAGE/LEAKAGE, HEAVY SEDIMENT. 1 - 3 PRN CARE HOME VISITS FOR CATHETER CHANGE(S) AND/OR TROUBLESHOOTING.] [...] FOR FALL AND INJURY INCLUDING PARTICIPATION IN [facility] BALANCE SPECIALTY PROGRAM SUMMARY OF THERAPY EVAL/ASSESSMENT [...] CARDIAC SURGEON BRADLY RECOMMENDED COMPRESSION SOCKS USAGE, [facility] CG REPORTING WILL OBTAIN. REVIEWED EDEMA [...] TRANSFERS, AMB AND STAIR NEGOTIATION. SKILLED [facility] [id number] TO ADDRESS DEFICITS, MAX SAFETY AND FUNCTIONAL LEVEL IN HOME ENVIRONMENT, ALLOW TRANSITION TO MD ORDERED CARDIAC REHAB WITH THER EXER, HEP, TRANSFER AND GAIT TRAINING, STAIR NEGOTIATION. PATIENT AND CG INFORMED ABOUT PHYSICAL THERAPY POC INCLUDING FREQ. NOTIFIED ABOUT PATIENT STATUS AND POC UPCOMING APPTS: STATION ENGINEER CHIEF MD CHEN 11/26/23 UROLOGIST 12/02/23 UROLOGIST [code [...] FOR FALL AND INJURY INCLUDING PARTICIPATION IN [facility] BALANCE SPECIALTY PROGRAM SUMMARY OF THERAPY EVAL/ASSESSMENT [...] CARDIAC SURGEON BRADLY RECOMMENDED COMPRESSION SOCKS USAGE, [facility] CG REPORTING WILL OBTAIN. REVIEWED EDEMA [...] TRANSFERS, AMB AND STAIR NEGOTIATION. SKILLED [facility] [id number] TO ADDRESS DEFICITS, MAX SAFETY AND FUNCTIONAL LEVEL IN HOME ENVIRONMENT, ALLOW TRANSITION TO MD ORDERED CARDIAC REHAB WITH THER EXER, HEP, TRANSFER AND GAIT TRAINING, STAIR NEGOTIATION. PATIENT AND CG INFORMED ABOUT PHYSICAL THERAPY POC INCLUDING FREQ. NOTIFIED ABOUT PATIENT STATUS AND POC UPCOMING APPTS: STATION ENGINEER CHIEF MD CHEN 11/26/23 UROLOGIST 12/02/23 UROLOGIST] Goal 2023-12-05 Patient Goal - T O DO EVERYTHING CORRECTLY SO I CAN RECOVER Goal Provider Goal - A PLAN OF CARE WILL BE ESTABLISHED THAT MEETS PATIENT'S CARE HOME NEEDS AND INCLUDES PATIENT GOAL FOR [...] End Date/Time Encounter Type Admission Type Attending [facility] Care Department Encounter ID Discharge Date Discharge Status Discharge Condition Discharge Reason Percent Goals Met 2023-11-11 00:00:00 2023-12-05 00:00:00 Outpatient NEW ADMISSION HARSHIL BAHENA [facility] [id number] 2023-12-05 00:00:00 DISCHARGE TO HOME OR SELF CARE INDEPENDEN T IN THE COMMUNITY PER CLIENT REQUEST 50.00
[2024-04-22 14:51] LABS: MANUAL DIFF FLAG NO
[2024-04-22 15:42] LABS: Basophils Absolute Auto 0.1 X10*3/uL (0.0-0.2); Basophils Percent Auto 0.8 % (0-2); Imm Gran Abs Auto 0.02 X10*3/uL (0.00-0.03); Imm Gran Pct Auto 0.2 % (0.0-0.4); PLT CLUMP 1; SCAN SMEAR FLAG 1
[2024-04-22 15:43] LABS: Eosinophils Absolute Auto 0.4 X10*3/uL (0.0-0.4); Eosinophils Percent Auto 4.4 % (0-4); Hematocrit 47.2 % (42.0-52.0); Hemoglobin 15.3 g/dl (14.0-18.0); Lymphocytes Absolute Auto 3.8 X10*3/uL (1.2-4.9); Lymphocytes Percent Auto 39.3 % (20-40); Mean Corpuscular HGB Conc 32.4 g/dl (31.0-36.0); Mean Corpuscular Hemoglobin 26.5 pg (27.0-33.0); Mean Corpuscular Volume 81.8 fL (80.0-98.0); Mean Platelet Volume 9.3 fL (9.4-12.4); Monocytes Absolute Auto 0.9 X10*3/uL (0.1-1.2); Monocytes Percent Auto 9.7 % (2-11); Neutrophils Absolute Auto 4.4 x10*3/uL (2.0-8.3); Neutrophils Percent Auto 45.6 % (45-73); Red Blood Count 5.77 X10*6/uL (4.60-5.80); Red Cell Distribution Width 15.2 % (11.0-16.0)
[2024-04-22 15:44] LABS: Platelet Count 326 X10*3/uL (160-400); White Blood Count 9.7 X10*3/uL (4.8-10.8)
[2024-04-22 15:48] LABS: Appearance Urine Clear; Color Urine Yellow; Glucose Urine UA Negative (Negative); Leukocyte Esterase Urine Negative (Negative); Nitrite Urine Negative (Negative); PH 5.5 (5.0-9.0); Specific Gravity - Urine 1.015 (1.005-1.025); UMIC TRIGGER UACC YES; Urine Blood Trace (Negative); Urine Ketones Negative (Negative); Urine Protein Negative (Neg-Trace)
[2024-04-22 15:51] LABS: Bacteria Urine None Seen (None Seen); Hyaline Casts Urine 0-2 /LPF (0-2); RBC Urine 0-2 /HPF (0-2); Squamous Epithelial Cell Urine 0-2 /HPF (0-2); WBC Urine 0-5 /HPF (0-5)
[2024-04-22 17:00] LABS: Alanine Aminotransferase 37 U/L (0-40); Albumin Level 4.3 g/dL (3.5-5.0); Alkaline Phosphatase 73 U/L (39-117); Anion Gap 11 (12-20); Aspartate Amino Transferase 25 U/L (5-37); Bilirubin Total 1.4 mg/dL (0.0-1.0); Blood Urea Nitrogen 17 mg/dL (9-16); Calcium 9.9 mg/dL (8.4-10.2); Carbon Dioxide 29 mmol/L (22-29); Chloride 107 mmol/L (96-108); Cholesterol 164 mg/dL (<200); Estimated Glomerular Filt Rate > 60; Glucose Fasting 92 mg/dL (60-99); HDL Cholesterol 33 mg/dL (>40); LDL Cholesterol Calculated 107 mg/dL (<100); Potassium 4.5 mmol/L (3.3-5.1); Sodium 142 mmol/L (135-145); Total Protein 7.5 g/dL (6.5-8.0); Triglycerides 121 mg/dL (<150)
[2024-04-22 17:14] LABS: TSH reflex Free T4 1.04 uIU/mL (0.32-4.0); Vitamin D 25-OH Total 78.2 ng/mL (>30)
== END 2024-04-22 14:38 | disposition home or self-care (01) ==
LOC: HO.LAB 14:37
PROVIDERS: PCP Internal Medicine; Visit Provider Internal Medicine
DX: D64.9 Anemia, unspecified (principal); E78.00 Pure hypercholesterolemia, unspecified; E55.9 Vitamin D deficiency, unspecified
CPT/HCPCS: 36415; 80053; 80061; 81001; 82306; 84443; 85025

== ENCOUNTER 2024-04-26 09:08 | Outpatient (AMB) | payer BC, SELFPAY ==
[2024-04-26 09:09] VITALS: BP 110/80; PULSE 83; O2SAT 98; BMI 35.5
--- NOTE | 2024-04-26 09:09 | A.OFFPC_ITS ---
Vital Signs 04/26/24 09:09 Height 5 ft 11 in Weight 254 lb 8 oz BMI 35.5 BP 110/80 Blood Pressure Location Lt brachial Position Sitting Pulse 83 Pulse Source Pulse Oximeter Pulse Oximetry (%) 98 Oxygen Delivery Method Room Air Intake Visit Reasons: [facility] f/u Gas Usage Meter Clerk Required: No Accompanied by: Self / Same As Patient Allergies No Known Allergies Allergy (Verified 04/26/24 09:43) Medication List - Last Reconciled 04/26/24 by Chele Martinez MD acetaminophen 650 mg PO Q6H PRN aspirin 81 mg PO DAILY atorvastatin 10 mg PO DAILY 90 days [Auto-BiPap As directed - setting is at 15/10 auto-pap] baclofen 10 mg PO TID PRN coffee xt-phosphatidyl serine 50-50 mg (Neuriva Original) 1 tab PO DAILY sennosides (senna) 8.6 mg PO BEDTIME PRN 90 days tadalafil 5 mg PO DAILY zolpidem 5 mg PO BEDTIME PRN 10 days Tobacco use date assessed: 04/26/24 Fall risk assessment: 1 Fall in past year Last assessed Fall Risk: 04/26/24 Dental Screening Dental Screen Date: 04/26/24 Did you have a dental visit in the last 12 months?: Yes Did you have a dental problem in the last 6 months where you did not have access to dental care?: No Was dental information given to patient?: Patient has dentist HPI [facility] f/[facility] HPI Details Patient comes in today for his follow-up visit States that he feels okay He denies any headaches or dizziness Denies any chest pains, no increased shortness of breath No nausea/vomiting, no abdominal pain No change in bowel habits noted He had his follow-up labs done a few days ago - to discuss his results He would also like to request for a referral to a dietitian to help him with dietary counseling as he states that he has multiple comorbidities with the respective diet and he is somewhat at a loss on what to do about his diet on his own PENDING SALE TO [facility] Medical History Seborrheic keratosis Erectile dysfunction Degenerative joint disease of sacroiliac joint Lumbar spondylosis Left-sided low back pain with left-sided sciatica BiPAP (biphasic positive airway pressure) dependence Normal colonoscopy (~2010) Vitamin D deficiency Genital herpes in men Obesity (BMI 30-39.9) Obstructive sleep apnea Pure hypercholesterolemia Asymptomatic microscopic hematuria BRANDT on CPAP Patent foramen ovale Thoracic aortic aneurysm without rupture Bicuspid aortic valve Surgical History Status post aortic valve replacement and aortoplasty History of open heart surgery H/O Spinal surgery History of uvulectomy History of parathyroidectomy History of tonsillectomy Family History Father Dementia HTN (hypertension) Mother Dementia HTN (hypertension) Diabetes Other Mental health problem Substance abuse Social History Household Members: Family Housing: House Do you presently have visiting nurse or other home services: Yes Alcohol intake: current Alcohol intake frequency: holidays/special occasions only Alcohol type: beer Patient Tobacco Use Status: Former Tobacco user e-Cigarette/Vaping Use: Never Used Second Hand Smoke Exposure: Yes service: No Current occupational status: employed 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 1. Little interest or pleasure in doing things: not at all 2. Feeling down, depressed, or hopeless: not at all 3. Trouble falling or staying asleep, or sleeping too much: not at all 4. Feeling tired or having little energy: not at all 5. Poor appetite or overeating: not at all 6. Feeling bad about yourself - or that you are a failure or have let yourself or your family down: not at all 7. Trouble concentrating on things, such as reading the newspaper or watching television: not at all 8. Moving or speaking so slowly that other people could have noticed. Or the opposite - being so fidgety or restless that you have been moving around a lot more than usual: not at all 9. Thoughts that you would be better off or of hurting yourself in some way: not at all Total score: 0 Depression Screening Interpretation: Negative Depression Screening Done: Yes 53104 - PHQ-9 Billing: Yes Source: Developed by Drs. Paulo Cohen, Huan Moore and colleagues, with an educational bell from [employer]. Thrive Questionnaire Date Thrive assessed: 04/26/24 I am a: Patient What is your living situation today?: I have a steady place to live Within the past 12 months, did the food you bought not last and you didn't have the money to get more?: Never true Within the past 12 months, did you worry whether your food would run out before you got money to buy more?: Never true Do you have trouble paying for medicines?: No Do you have trouble getting transportation to medical appointments?: No Do you have trouble paying your heating and electricity bill?: No Do you have trouble taking care of your child, family member or friend?: No Do you have trouble with day-to-day activities such as bathing, preparing meals, shopping, managing finances, etc.?: No Are you currently unemployed and looking for a job?: No Are you interested in more education?: No Please select the resources that you would like help with: None Currently or been in a relationship where the following occur: No concerns reported THRIVE Score: 0 AUDIT C Alcohol Use Questionnaire (AUDIT-C) 1. How often do you have a drink containing alcohol?: Monthly or less 2. How many drinks containing alcohol do you have on a typical day when you are drinking?: 1 or 2 3. How often do you have six or more drinks on one occasion?: Less than monthly Total Score: 2 Score Reviewed/Action Taken: Yes MADDISON-7 AMB Questionnaire MADDISON-7 Date MADDSION - 7 assessed: 04/26/24 Feeling nervous, anxious, or on edge: 0 = Not at all Not being able to stop or control worryin = Not at all Worrying too much about different things: 0 = Not at all Trouble relaxin = Not at all Being so restless that it is hard to sit still: 0 = Not at all Becoming easily annoyed or irritable: 0 = Not at all Feeling afraid as if something awful might happen: 0 = Not at all Total MADDISON-7 score (0-4 normal; 5-9 mild; 10-14 moderate; 15-21 severe): 0 Source: Developed by Gertrudis Bowling Rob, Haun Dominguez and colleagues, with an educational bell from [employer]. Review of Systems Const Denies chills, Reports difficulty sleeping, Reports fatigue, Denies fever(s) and Denies headache(s) ENT Denies dysphagia, Denies dizziness, Denies otalgia, Denies headache(s), Denies neck pain, Denies odynophagia and Denies sore throat Card Denies chest pain, Denies palpitations and Reports dyspnea on exertion (mild) Resp Denies chest congestion, Denies cough and Reports dyspnea on exertion (mild) GI Denies abdominal pain, Denies hematochezia, Reports constipation (better with Rx), Denies dysphagia, Denies heartburn, Denies diarrhea, Denies nausea, Denies odynophagia and Denies vomiting Denies dysuria, Denies nocturia and Denies urinary frequency Musc Reports back pain (on and off, over the right lower back/right sciatic nerve area ) and Denies neck pain Skin/Breast Denies rash Neuro Denies dizziness and Denies headache(s) Endo Reports fatigue and Denies palpitations Physical exam (Primary Care) Vital Signs: Last Vital Signs Pulse 83 04/26/24 09:09 BP 110/80 04/26/24 09:09 Pulse Ox 98 04/26/24 09:09 Oxygen Delivery Method Room Air 04/26/24 09:09 BMI result Body Mass Index 35.5 Tobacco/Smoking Status: Tobacco use Status Tobacco use date assessed 04/26/24 04/26/24 09:15 Patient Tobacco Use Status Former Tobacco user 04/26/24 09:15 e-Cigarette/Vaping Use Never Used 04/26/24 09:15 PHQ-9: PHQ-9 Score PHQ-9: Total score 0 04/26/24 09:44 Depression Screening Interpretation: Negative Thrive Assessment: Date of Thrive Assessment Date Thrive assessed 04/26/24 04/26/24 09:15 Currently or been in a relationship where the following occur: No concerns reported Const General: no acute distress and alert HENMT Ears: TM's normal bilaterally and EAC's normal Throat: Yes posterior oropharynx normal and Yes tonsils normal Neck Neck: Yes no lymphadenopathy and Yes supple Thyroid: Thyroid normal Resp Auscultation: clear to auscultation bilaterally, no rales and no wheezes Cardio Rate: regular rate Rhythm: regular rhythm Heart sounds: Murmur heart sound present systolic early, III/ and at the right sternal border GI Palpation (GI): Soft to palpation and nontender Auscultation: normal bowel sounds General: Yes no CVA tenderness Back/Spine/Pelvis Back: no CVA tenderness Thoracic/Lumbar Spine: lumbar spinal tenderness Skin Rashes: no rashes Extrem General: Yes no clubbing, cyanosis or edema Results Reviewed Results Reviewed: Laboratory Tests 04/22/24 04/22/24 04/22/24 14:41 14:44 14:49 WBC 9.7 Hgb 15.3 D Hct 47.2 D Plt Count 326 D Sodium 142 Potassium 4.5 Creatinine 1.06 Estimated GFR > 60 Fasting Glucose 92 Calcium 9.9 AST 25 ALT 37 Triglycerides 121 Cholesterol 164 LDL Cholesterol, Calc 107 H HDL Cholesterol 33 L 25-OH Vitamin D Total 78.2 TSH 1.04 Urine pH 5.5 Ur Specific [place] 1.015 Urine Protein Negative Urine Glucose (UA) Negative Urine Blood Trace H Urine Nitrite Negative Ur Leukocyte Esterase Negative Coding Level of Care Code Est Pt Level 4 (62217) Diagnoses Pure hypercholesterolemia E78.00 Lumbar back pain with radiculopathy affecting left lower extremity M54.16 Thoracic aortic aneurysm without rupture, unspecified part I71.20 Thoracic aorta location: unspecified Bicuspid aortic valve Q23.1 Patent foramen ovale Q21.1 Obstructive sleep apnea G47.33 Vitamin D deficiency E55.9 Constipation, unspecified constipation type K59.00 Constipation type: unspecified constipation type Genital herpes in men A60.02 Erectile dysfunction, unspecified erectile dysfunction type N52.9 Erectile dysfunction type: unspecified Obesity (BMI 30-39.9) E66.9 Additional Codes PHQ-9 - 47298 - PHQ-9 Billing: Yes ([id number]) Assessment & Plan Assessment & Plan (1) Pure hypercholesterolemia: Code(s): E78.00 - Pure hypercholesterolemia, unspecified Category: Medical Plan: Results of his labs done a few days ago reviewed and discussed with patient Reinforced low cholesterol diet Continue Atorvastatin 10 mg QD for now Will recheck his labs and fasting lipids in 4 months for follow up Per request, will also refer him to home hospice rn for dietary counseling (2) Lumbar back pain with radiculopathy affecting left lower extremity: Comment: MRI of the lumbar spine done back on 01/18/2021 revealed a large 1.2 cm synovial cyst on the left L4-L5 filling the lateral recess and proximal foramen with nerve root compression Code(s): M54.16 - Radiculopathy, lumbar region Category: Medical Plan: S/P lumbar minimally invasive surgery (MIS) laminotomy by Dr. Spence on 05/07/2021 - underwent left L4-L5 MIS decompression and resection of synovial cyst Reinforced activity and weight-lifting restrictions Repeat lumbar spine x-rays done back in June 2022 revealed mild spondylosis of the lumbar spine, with grade 1 anterolisthesis of L4 on L5 He was referred to and seen by Dr. Pratt back in November 2022 for his recent increasing right-sided sciatica and increased left lower back pain Was sent for a lumbar spine MRI for further evaluation Patient had his lumbar spine MRI done on 01/27/23, which revealed (+) new focal left foraminal disc protrusion at L4-L5 with mild compression of the exiting left L4 nerve root. Additional new 5 x 11 mm synovial cyst protruding from the right facet joint into the right subarticular zone with mild mass effect upon the right L5 nerve root He is instructed to call up Dr. Pratt' office to schedule a follow up appt JAN now that he has his MRI done (3) Thoracic aortic aneurysm without rupture: Code(s): I71.2 - Thoracic aortic aneurysm, without rupture Category: Medical Qualifiers: Thoracic aorta location: unspecified Qualified Code(s): I71.20 - Thor acic aortic aneurysm, without rupture, unspecified Plan: Follow up echocardiogram done on 02/26/2022 revealed a mildly dilated ascending thoracic aorta at 4.3 cm, which is mostly unchanged from a year ago. There is also a moderate aortic stenosis with mean gradient of 27 mm Hg and dimensionless index of 0.31 Previous echo on 04/17/21 revealed (+) ascending aortic dilatation at 4.3 cm - this was previously measured 4.1 cm on echo done on 04/17/2020 He follows up with cardiology regularly for this and will need this to be monitored continuously/closely (4) Bicuspid aortic valve: Code(s): Q23.1 - Congenital insufficiency of aortic valve Category: Medical Plan: Echocardiogram revealed bicuspid aortic valve with moderate stenosis and trace regurgitation on most recent US done on 02/26/2022 and 04/17/2021 Follow up with cardiology as scheduled for continued monitoring (5) Patent foramen ovale: Code(s): Q21.1 - Atrial septal defect Category: Medical Plan: This was seen incidentally on prior SOWMYA Continue Aspirin 81 mg daily (6) Obstructive sleep apnea: Comment: BIPAP Code(s): G47.33 - Obstructive sleep apnea (adult) (pediatric) Category: Medical Plan: Continue using his BiPAP device every night when sleeping Follow up with Sleep Medicine as scheduled (7) Vitamin D deficiency: Code(s): E55.9 - Vitamin D deficiency, unspecified Category: Medical Plan: Corrected - will continue to monitor his Vitamin D level regularly (8) Constipation: Code(s): K59.00 - Constipation, unspecified Category: Social Hx Qualifiers: Constipation type: unspecified constipation type Qualified Code(s): K59.00 - Constipation, unspecified Plan: This was most likely the reason for the on and off blood in his stool previously; he had internal hemorrhoids and diverticulosis on his recent colonoscopy done a couple of years ago Reinforced increased oral fluids and dietary fiber Continue Senna 8.6 mg QD PRN (9) Genital herpes in men: Code(s): A60.02 - Herpesviral infection of other male genital organs Category: Medical Plan: Continue Valacyclovir 500 mg every 12 hours x 5 days when needed for acute flare ups - Rx refilled (10) Erectile dysfunction: Code(s): N52.9 - Male erectile dysfunction, unspecified Category: Medical Qualifiers: Erectile dysfunction type: unspecified Qualified Code(s): N52.9 - Male erectile dysfunction, unspecified Plan: Continue Sildenafil 50 mg QD PRN (11) Obesity (BMI 30-39.9): Code(s): E66.9 - Obesity, unspecified Category: Medical Plan: Reinforced diet/exercise as tolerated/lose weight Plan Follow-up in 4 months Orders: Orders TSH reflex Free T4 4 Months E78.00 - Pure hypercholesterolemia, unspecified UA CC w/rflx Micro + Cult 4 Months R30.0 - Dysuria Complete Blood Count Auto Diff 4 Months D64.9 - Anemia, unspecified Comprehensive Keeler. Panel Fast 4 Months E78.00 - Pure hypercholesterolemia, unspecified Lipid Panel 4 Months E78.00 - Pure hypercholesterolemia, unspecified Vitamin D 25-OH Total 4 Months E55.9 - Vitamin D deficiency, unspecified Referrals Nutrition/Dietitian Referral E66.9 - Obesity, unspecified, E78.00 - Pure hypercholesterolemia, unspecified, R63.5 - Abnormal weight gain
== END 2024-04-26 09:48 | disposition home or self-care (01) ==
PROVIDERS: PCP Internal Medicine; Visit Provider Internal Medicine
DX: E78.00 Pure hypercholesterolemia, unspecified (principal); I71.20 Thoracic aortic aneurysm, without rupture, unspecified; E66.9 Obesity, unspecified; Z68.35 Body mass index [BMI] 35.0-35.9, adult; M54.16 Radiculopathy, lumbar region; Q23.1 Congenital insufficiency of aortic valve; Q21.10 Atrial septal defect, unspecified; G47.33 Obstructive sleep apnea (adult) (pediatric); E55.9 Vitamin D deficiency, unspecified; K59.00 Constipation, unspecified; A60.02 Herpesviral infection of other male genital organs; N52.9 Male erectile dysfunction, unspecified

== ENCOUNTER → 2024-04-26 09:08 | Outpatient (BNVA) | payer BC, SELFPAY | PROVIDERS: PCP Internal Medicine; Visit Provider Internal Medicine | DX: E78.00 Pure hypercholesterolemia, unspecified (principal); M54.16 Radiculopathy, lumbar region; I71.20 Thoracic aortic aneurysm, without rupture, unspecified; G47.33 Obstructive sleep apnea (adult) (pediatric); E55.9 Vitamin D deficiency, unspecified; K59.00 Constipation, unspecified; A60.02 Herpesviral infection of other male genital organs; N52.9 Male erectile dysfunction, unspecified; E66.9 Obesity, unspecified; Z68.35 Body mass index [BMI] 35.0-35.9, adult; Q23.1 Congenital insufficiency of aortic valve; Q21.10 Atrial septal defect, unspecified; Z79.82 Long term (current) use of aspirin; Z79.899 Other long term (current) drug therapy | CPT/HCPCS: 96127 ==

== ENCOUNTER 2024-05-04 13:07 | Outpatient (AMB) | payer BC, SELFPAY ==
--- OUTSIDE RECORDS SUMMARY | 2024-05-04 13:11 | XMS_ITS | Patient Health Record ---
Author Organization [facility] Address [address] [place] [address] Care Team Providers Care Editor Newspaper Name Role Phone Juan ERNANDEZ, [place] Primary Care Provider Paulo Eason Unavailable [phone] REASON FOR REFERRAL No Information MEDICATIONS Medication SIG (Take, Route, Frequency, Duration) Notes Start Date End Date Status Aspir-81 once a day Active Atorvastatin Calcium 10 MG TAKE 1 TABLET BY MOUTH EVERY DAY Oral for 60 Active IMMUNIZATIONS Vaccine Route Administration Date Status Comme nts Influenza Unknown 01/04/2020 Administered SOCIAL HISTORY Sex Assigned At : Social History Observation Description Sex Assigned At Unknown Alcohol Screen Question Answer Notes Did you have a drink contain ing alcohol in the past year? Yes How often did you have a dri nk containing alcohol in the past year? Never (0 point) How many drinks did you have on a typical day when you were drinking in the past year? 1 or 2 drinks (0 point) How often did you have 6 or more drinks on one occasion in the past year? Never (0 point) Points 0 Interpretation Negative PROBLEMS Problem Type ICD Code Onset Dates Problem Status W/U Status Risk SNOMED Code Notes Problem Encounter for screening for malignant neoplasm of colon (Z12.11) Active confirmed 351120423 Problem Preprocedural examination (Z01.818) Active confirmed [id number] PLAN OF TREATMENT Pending Test Test Name Order Date Pathology 09/29/2020 Future Test Test Name Order Date COLONOSCOPY 03/13/2011 COLONOSCOPY 09/13/2020 Insurance Providers Payer Name Payer Address Payer Phone Subscriber Number Group Number Insured Name Patient Relationship to Insured Coverage Start Date Coverage End Date [facility] [place] [employer] [address] [place] [address] [id number] HSUCARINE Bauer Self - patient is the insured MEDICAL (GENERAL) HISTORY Medical History History ICD Code Sleep apnea--uses CPAP Denies MA,DM,CVA,Lung disease,renal dise ase Negative screening colonosco py in 04/2011; he describes a negative colonoscopy in [place] prior to the 2010 colonoscopy as well Bicuspid aortic valve--followed by Dr. Juancarlos farah Hyperlipidemia COVID infection in 2019 Surgical History Surgery Date(Month/Year) Sleep apnea surgery Parathyroidectomy in 2009. Facial surgery as a child
--- NOTE | 2024-05-04 13:18 | A.OFFVIS_ITS ---
Vital Signs 05/04/24 13:20 Height 5 ft 11 in Weight 261 lb 0.437 oz BMI 36.4 BP 136/74 Blood Pressure Location Lt brachial Position Sitting Pulse 69 Pulse Source Pulse Oximeter Intake Visit Reasons: 1 yr f/up-HS pt Beater Out Required: No Accompanied by: Self / Same As Patient Allergies No Known Allergies Allergy (Verified 05/04/24 13:44) Medication List - Last Reconciled 05/04/24 by Bryan Chan NP acetaminophen 650 mg PO Q6H PRN aspirin 81 mg PO DAILY atorvastatin 10 mg PO DAILY 90 days [Auto-BiPap As directed - setting is at 15 auto-pap] baclofen 10 mg PO TID PRN coffee xt-phosphatidyl serine 50-50 mg (Neuriva Original) 1 tab PO DAILY sennosides (senna) 8.6 mg PO BEDTIME PRN 90 days tadalafil 5 mg PO DAILY zolpidem 5 mg PO BEDTIME PRN 10 days HPI Comments Details: This is a 64-year-old male patient here for a follow-up visit. He has a history of a bicuspid aortic valve and underwent aortic valve replacement and aortoplasty on 10/29/2023. The patient reports completing his cardiac rehabilitation and has chosen to continue it independently. He mentions experiencing intermittent sharp chest pain on the left side, which occurs both with exertion and at rest. He believes this pain is musculoskeletal in origin, describing it as localized to different areas of the left chest without any associated symptoms. Notably, he has not experienced this pain during treadmill sessions at cardiac rehab. The patient also reports occasional discomfort at the incision site with coughing, though he states it is healing well. Additionally, he has ongoing difficulty swallowing, which he has experienced for years. He clarifies that this sensation is not related to heartburn but feels more like swallowing a brick. The patient denies any shortness of breath, lightheadedne ss, dizziness, presyncope, or syncope. [facility] Medical History Seborrheic keratosis Erectile dysfunction Degenerative joint disease of sacroiliac joint Lumbar spondylosis Left-sided low back pain with left-sided sciatica BiPAP (biphasic positive airway pressure) dependence Normal colonoscopy (~2010) Vitamin D deficiency Genital herpes in men Obesity (BMI 30-39.9) Obstructive sleep apnea Pure hypercholesterolemia Asymptomatic microscopic hematuria BRANDT on CPAP Patent foramen ovale Thoracic aortic aneurysm without rupture Bicuspid aortic valve Surgical History Status post aortic valve replacement and aortoplasty History of open heart surgery H/O Spinal surgery History of uvulectomy History of parathyroidectomy History of tonsillectomy Family History Father Dementia HTN (hypertension) Mother Dementia HTN (hypertension) Diabetes Other Mental health problem Substance abuse Social History Household Members: Family Housing: House Do you presently have visiting nurse or other home services: Yes Alcohol intake: current Alcohol intake frequency: holidays/special occasions only Alcohol type: beer Patient Tobacco Use Status: Former Tobacco user e-Cigarette/Vaping Use: Never Used Second Hand Smoke Exposure: Yes service: No Current occupational status: employed 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 Cognitive needs: No Hearing needs: No Vision needs: No Review of Systems Const Denies chills, Denies fatigue, Denies fever(s), Denies weight gain and Denies weight loss ENT Denies dizziness Card Reports chest pain, Denies leg edema, Denies lightheadedness, Denies palpitations, Denies orthopnea and Denies other Resp Denies cough GI Denies hematochezia and Denies change in stool character Musc Denies abnormal gait, Denies muscle weakness, Denies numbness, Denies radiating pain into limb and Denies tingling Neuro Denies abnormal gait, Denies dizziness, Denies numbness and Denies tingling Endo Denies fatigue and Denies palpitations Physical Exam Vital Signs: Last Vital Signs Pulse 69 05/04/24 13:20 BP 136/74 05/04/24 13:20 BMI result Body Mass Index 36.4 Const General: cooperative, healthy appearing, comfortable and no acute distress Orientation/consciousness: patient oriented x3 HEENT Head: Yes normal to inspection Neck Neck: Yes normal visual inspection, Yes trachea midline and Yes supple Chest Chest palpation & inspection: normal inspection of the chest Resp Effort & Inspection: normal respiratory effort Auscultation: clear to auscultation bilaterally, no crackles, no rales, no rhonchi and no wheezes Cardio Jugular venous distension: no JVD Palpation: normal PMI Rate: regular rate Rhythm: regular rhythm Heart sounds: S1 normal heart sound present, S2 normal heart sound present, no click, no gallops, no murmurs and no rubs Peripheral pulses: Peripheral pulses 2+ throughout GI Inspection: Yes normal to inspection Palpation (GI): Soft to palpation Auscultation: normal bowel sounds Skin General skin exam: no rashes or lesions noted Neuro General: patient oriented x3 Extrem General: Yes normal to inspection, No no pedal edema and No calf tenderness Psych Appearance: grossly normal Mental Status: mental status grossly normal Speech and movement: Normal speech and movement present Assessment & Plan Assessment & Plan (1) Atypical chest pain: Code(s): R07.89 - Other chest pain Plan: Cardiac catheterization on 10/24/2023 showed no significant coronary artery disease and patient had a normal echo; describes it as a localized pain with no clear pattern, less likelihood of a cardiac cause for the chest pain. Discussed red flags such as worsening chest pain not alleviated with rest, shortness of breath, dizziness. (2) Dysphagia: Code(s): R13.10 - Dysphagia, unspecified Category: Medical Plan: A referral has been made to Gastroenterology. Advised patient to avoid spicy, acidic, or fatty foods, and to eat smaller, more frequent meals. Recommended to refrain from lying down immediately after meals. (3) Status post aortic valve replacement and aortoplasty: Comment: 10/29/2023 - Dr. Dionisio Payne ([facility]) Code(s): Z95.2 - Presence of prosthetic heart valve Category: Surgical Plan: Echo 04/21/2024- normal EF 68%. Prosthetic aortic valve with normal function. Continue statins. Discussed regular physical activity as tolerated, heart healthy diet, weight management. (4) Patent foramen ovale: Code(s): Q21.1 - Atrial septal defect Category: Medical Plan: Incidentally found with SOWMYA, continue aspirin. (5) BRANDT on CPAP: Code(s): G47.33 - Obstructive sleep apnea (adult) (pediatric); Z99.89 - Dependence on other enabling machines and devices Category: Medical Plan: Continue with CPAP. Orders: Referrals Gastroenterology Referral R13.10 - Dysphagia, unspecified Patient Instructions: Follow up in 6 months. The patient will contact us if any concerns arise before then. Coding Level of Care Code Est Pt Level 4 (91147) Diagnoses Atypical chest pain R07.89 Dysphagia R13.10 Status post aortic valve replacement and aortoplasty Z95.2 Patent foramen ovale Q21.1 BRANDT on CPAP G47.33; Z99.89 Time Spent (min) 31 Comment Time spent in reviewing the chart, test results, assessment, counseling and documentation.
[2024-05-04 13:20] VITALS: BP 136/74; PULSE 69; BMI 36.4
== END 2024-05-04 13:47 | disposition home or self-care (01) ==
PROVIDERS: PCP Internal Medicine
DX: R07.89 Other chest pain (principal); R13.10 Dysphagia, unspecified; Z95.2 Presence of prosthetic heart valve; Q21.10 Atrial septal defect, unspecified; G47.33 Obstructive sleep apnea (adult) (pediatric); Z99.89 Dependence on other enabling machines and devices
CPT/HCPCS: 99214

== ENCOUNTER → 2024-06-09 08:49 | Outpatient (BNVA) | payer BC, SELFPAY | PROVIDERS: PCP Internal Medicine; Visit Provider Dietitian, Registered | DX: E66.9 Obesity, unspecified (principal); E78.00 Pure hypercholesterolemia, unspecified; Z68.35 Body mass index [BMI] 35.0-35.9, adult | CPT/HCPCS: 97802 ==

== ENCOUNTER 2024-07-22 08:53 | Outpatient (AMB) | payer OTHER, SELFPAY ==
--- NOTE | 2024-07-22 08:59 | A.OFFVIS_ITS ---
VS Expanded 07/22/24 09:00 Height 5 ft 11 in Weight 252 lb 6.868 oz BMI 35.2 Intake Visit Reasons: hyperlipidemia Allergies No Known Allergies Allergy (Verified 05/04/24 13:44) Nutrition Presentation Details: Pt presents for MNT f/u for hyperlipidemia /obesity Reports gradual modifications Challenges with not drinking enough water , has 4 cups of water per day and having second servings of meals positive changes: including fruits 2-3/day BS Monitoring Most Recent Diabetes Results: Cholesterol 164 mg/dL (<200) 04/22/24 HDL Cholesterol 33 mg/dL (>40) L 04/22/24 Triglycerides 121 mg/dL (<150) 04/22/24 Creatinine 1.06 mg/dL (0.5-1.4) 04/22/24 Blood Urea Nitrogen 17 mg/dL (9-16) H 04/22/24 Sodium 142 mmol/L (135-145) 04/22/24 Potassium 4.5 mmol/L (3.3-5.1) 04/22/24 Chloride 107 mmol/L (96-108) 04/22/24 Carbon Dioxide 29 mmol/L (22-29) 04/22/24 Calcium 9.9 mg/dL (8.4-10.2) 04/22/24 AST 25 U/L (5-37) 04/22/24 ALT 37 U/L (0-40) 04/22/24 Total Protein 7.5 g/dL (6.5-8.0) 04/22/24 Albumin 4.3 g/dL (3.5-5.0) 04/22/24 [facility] Medical History (Updated 06/10/24 @ 10:24 by Magdalena Chacko, RD, LDN) Seborrheic keratosis Erectile dysfunction Degenerative joint disease of sacroiliac joint Lumbar spondylosis Left-sided low back pain with left-sided sciatica BiPAP (biphasic positive airway pressure) dependence Normal colonoscopy (~2010) Vitamin D deficiency Genital herpes in men Obstructive sleep apnea Pure hypercholesterolemia Asymptomatic microscopic hematuria BRANDT on CPAP Patent foramen ovale Thoracic aortic aneurysm without rupture Bicuspid aortic valve Surgical History Status post aortic valve replacement and aortoplasty History of open heart surgery H/O Spinal surgery History of uvulectomy History of parathyroidectomy History of tonsillectomy Family History Father Dementia HTN (hypertension) Mother Dementia HTN (hypertension) Diabetes Other Mental health problem Substance abuse Social History Household Members: Family Housing: House Do you presently have visiting nurse or other home services: Yes Alcohol intake: current Alcohol intake frequency: holidays/special occasions only Alcohol type: beer Patient Tobacco Use Status: Former Tobacco user e-Cigarette/Vaping Use: Never Used Second Hand Smoke Exposure: Yes service: No Current occupational status: employed 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 Cognitive needs: No Hearing needs: No Vision needs: No Assessment & Plan Assessment & Plan (1) Obesity (BMI 30-39.9): Code(s): E66.9 - Obesity, unspecified Category: Medical Plan: Wt: 115 Kg ( 06/29 ), 114.5(07/27) Est kcal needs as per MSJ: 2400 (40% carb, 30% protein/fat) Est fluid needs as per 25-30 ml/d: 3500 Est prot per day as per 1 g/kg bw: 115 Recommend fiber intake : 8-10 g per day and gradually increase to 25-28 g per day for women and 35-38 g for men or as tolerated Recommend sodium intake per day : less than 2300 mg Educated patient on: ( R = reviewed V = verbalizes understanding N/R = needs review N/A = not applicable * Food sources of carbohydrate, adequate serving sizes and its role in various health conditions: R V N/R * Differences between complex carbohydrates a simple carbohydrates, role of fiber in diet: R V N/R * Lean protein sources of foods: R V NR * Differences between types of fats and role in diet (mono on saturated fat fatty acids, saturated fatty acids, trans fats): R * Food sources of sodium in salt and healthy modifications for heart health in kidney health: R V R/V * Vitamins and minerals: R V N/R * Healthy plate method concept: R * Physical activity: Benefits a precaution: R V N/R Patient Instructions: Have 8 oz water bottles available and make a routine of drinking 1 before meals and after meals aim at 8-12 cups a day Coding Level of Care Code Nutr Indiv Subseq (73352) Diagnoses Obesity (BMI 30-39.9) E66.9 Time Spent (min) 25
[2024-07-22 09:00] VITALS: BMI 35.2
--- OUTSIDE RECORDS SUMMARY | 2024-07-22 09:25 | XMS_ITS ---
Author Organization [facility] Address [address] [place] [address] Care Team Providers Care Soil Analyst Name Role Phone Juan ERNANDEZ, Chele Primary Care Provider UnaPaulo Nelson [phone] REASON FOR VISIT Patient presents today for dysphagia Encounters Encounter Location Date Provider Diagnosis [facility] [address] [facility] [address] [place] [phone] 07/20/2024 Paulo Carl Plan Of Treatment No Information Progress Notes * CARINE HSU PDOB:1960 (64 yo M)Acc No.[id number]:07/20/2024 Progress Notes Patient:?CARINE HSU Provider:?Paulo Carl MD :1960???Age:64 Y???Sex:Male Venancio e:07/20/2024 Address:[address] [place], [place] [address] Pcp:Chele Martinez MD Subjective: * Chief Complaints: * ???1. Patient presents today for dysphagia. * Medical History:? Objective: * Vitals:? Assessment: Plan: * Treatment: * * The named appointment provid er may or may not be the originator of this progress note, and it is not deemed complete until electronically signed by the appointment provider. Sign off status: Pending * Provider:?Paulo Carl MD Date:? 025 Generated for Marychuyi demetra/Maciej/eTransmitting on:?07/22/2024 09:25 AM EDT
--- OUTSIDE RECORDS SUMMARY | 2024-07-22 09:25 | XMS_ITS | Patient Health Record ---
Author Organization [facility] Address [address] [place] [address] Care Team Providers Care Cable Strander Name Role Phone Juan ERNANDEZ, [place] Primary Care Provider Paulo Eason Unavailable [phone] Reason For Referral No Information Medications Medication SIG (Take, Route, Frequency, Duration) Notes Start Date End Date Status Aspir-81 once a day Active Atorvastatin Calcium 10 MG TAKE 1 TABLET BY MOUTH EVERY DAY Oral for 60 Active Immunizations Vaccine Route Administration Date Status Comme nts Influenza Unknown 01/04/2020 Administered Social History Alcohol Screen Question Answer Notes Did you [...] Never (0 point) Points 0 Interpretation Negative Section Notes: He stopped smoking in 1987, and uses only occasional alcohol He stopped smoking in 1987, and uses only occasional alcohol Problems Problem Type SNOMED Code ICD Code Onset Dates Problem Status W/U Status Risk Notes Problem [id number] Encounter for screening for malignant neoplasm of colon (Z12.11) Active confirmed Problem [id number] Preprocedural examination (Z01.818) Active confirmed Encounters Encounter Location Date Provider Diagnosis [facility] [address] [place] [address] 07/20/2024 Paulo Carl [facility] [address] [place] [address] 06/16/2024 Paulo Carl Plan Of Treatment Pending Test Test Name Order Date Pathology 09/29/2020 Future Test Test Name Order Date COLONOSCOPY 03/13/2011 COLONOSCOPY 09/13/2020 Insurance Providers Payer Name Payer Address Payer Phone Subscriber Number Group Number Insured Name Patient Relationship to Insured Coverage Start Date Coverage End Date [facility] [address] [place] [address] [id number] CARINE HSU Self - patient is the insured Medical (General) History Medical History History ICD Code Sleep apnea--uses CPAP Denies CA,DM,CVA,Lung disease,renal dise ase Negative screening colonosco py in 04/2011; he describes a negative colonoscopy in [place] prior to the 2010 colonoscopy as well Bicuspid aortic valve--followed by Dr. Juancarlos farah Hyperlipidemia COVID infection in 2019 Surgical History Surgery Date(Month/Year) Sleep apnea surgery Parathyroidectomy in 2009. Facial surgery as a child
--- OUTSIDE RECORDS SUMMARY | 2024-07-22 09:25 | XMS_ITS ---
Author Organization [facility] Address [address] [place] [address] Care Team Providers Care Security Patrol Officer Name Role Phone Juan ERNANDEZ, [place] Primary Care Provider Unava ilable Paulo Carl [phone] Encounters Encounter Location Date Provider Diagnosis [facility] [address] [place] [phone] 07/20/2024 Paulo Carl Plan Of Treatment No Information Progress Notes * CARINE HSU PDOB:1960 (64 yo M)Acc No.[id number]:07/20/2024 Patient:?CARINE HSU :1960???Age:64 Y???Sex:Male Address:[address] [place], [place] [address] [place] [id number] * * Date:?
--- OUTSIDE RECORDS SUMMARY | 2024-07-22 09:25 | XMS_ITS ---
Author Organization [facility] Address [address] [place] [phone] Care Team Providers Care Physical Testing Supervisor Name Role Phone Juan ERNANDEZ, [place] Primary Care Provider Unava ilPaulo Lopez [phone] REASON FOR VISIT NEW INSURANCE Encounters Encounter Location Date Provider Diagnosis [facility] [address] [place] [address] 06/16/2024 Paulo Carl Plan Of Treatment No Information Progress Notes * CARINE HSU PDOB:1960 (64 yo M)Acc No.[id number]:06/16/2024 Patient:?CARINE HSU :1960???Age:64 Y???Sex:Male Address:[address] [place] [address], [place] [address] * true * Date:? Generated for Brooke mccrary/Maciej/eTransmitting on:?07/22/2024 09:24 AM EDT
== END 2024-07-22 09:34 | disposition home or self-care (01) ==
PROVIDERS: PCP Internal Medicine; Visit Provider Dietitian, Registered
DX: E66.9 Obesity, unspecified (principal)

== ENCOUNTER → 2024-07-22 08:53 | Outpatient (BNVA) | payer OTHER, SELFPAY | PROVIDERS: PCP Internal Medicine; Visit Provider Dietitian, Registered | DX: E66.9 Obesity, unspecified (principal); E78.5 Hyperlipidemia, unspecified; Z68.35 Body mass index [BMI] 35.0-35.9, adult | CPT/HCPCS: 97803 ==

== ENCOUNTER 2024-08-26 06:17 | Outpatient (REF) | payer OTHER, SELFPAY ==
--- OUTSIDE RECORDS SUMMARY | 2024-08-26 06:20 | XMS_ITS ---
Author Organization [facility] Address [address] [place] [address] Care Team Providers Care Siebel Administrator Name Role Phone Juan ERNANDEZ, [place] Primary Care Provider UnaPaulo Nelson [phone] REASON FOR VISIT fyi pt called back and scheduled in november Encounters Encounter Location Date Provider Diagnosis [facility] [address] [place] [address] 07/20/2024 Paulo Carl Plan Of Treatment Next Appt Details Provider Name:Paulo Carl , 11/16/2024 10:10:00 AM, [address], [address], [place], [address], Progress Notes * CARINE HSU PDOB:1960 (64 yo M)Acc No.[id number]:07/20/2024 Patient:?CARINE HSU :1960???Age:64 Y???Sex:Male Address:[address] [place] [address], [place] [address] * true * Date:? Generated for Printi demetra/Maciej/eTransmitting on:?08/26/2024 06:20 AM EDT
--- OUTSIDE RECORDS SUMMARY | 2024-08-26 06:20 | XMS_ITS | Patient Health Record ---
Author Organization [facility] Address [address] [place] [address] Care Team Providers Care Biodiesel Technology Manager Name Role Phone Juan ERNANDEZ, [place] Primary Care Provider Paulo Eason Unavailable [phone] Reason For Referral No Information Medications Medication [...] Problem Status W/U Status Risk Notes Problem [id number] Encounter for screening for malignant neoplasm of colon (Z12.11) Active confirmed Problem [id number] Preprocedural examination (Z01.818) Active confirmed Encounters Encounter Location Date Provider Diagnosis [facility] [address] [place] [address] 06/16/2024 Paulo Carl [facility] [address] [place] [address] 07/20/2024 Paulo Carl Plan Of Treatment Pending Test Test Name Order Date Pathology 09/29/2020 Future Test Test Name Order Date COLONOSCOPY 03/13/2011 COLONOSCOPY 09/13/2020 Next Appt Details Provider Name:Paulo Carl , 11/16/2024 10:10:00 AM, [address], [address], [place], [address], Insurance Providers Payer Name Payer Address Payer Phone Subscriber Number Group Number Insured Name Patient Relationship to Insured Coverage Start Date Coverage End Date [facility] [address] [place] [address] [id number] CARINE HSU Self - patient is the insured Medical (General) History Medical History History ICD Code Sleep apnea--uses CPAP Denies IA,DM,CVA,Lung disease,renal dise ase Negative screening colonosco py in 04/2011; he describes a negative colonoscopy in [place] prior to the 2010 colonoscopy as well Bicuspid aortic valve--followed by Dr. Juancarlos farah Hyperlipidemia COVID infection in 2019 Surgical History Surgery Date(Month/Year) Sleep apnea surgery Parathyroidectomy in 2009. Facial surgery as a child
--- OUTSIDE RECORDS SUMMARY | 2024-08-26 06:20 | XMS_ITS ---
Author Organization [facility] Address [address] [place] [address] Care Team Providers Care Lease Purchase Driver Name Role Phone Juan ERNANDEZ, [place] Primary Care Provider UnaPaulo Nelson [phone] REASON FOR VISIT NEW INSURANCE Encounters Encounter Location Date Provider Diagnosis [facility] [address] [place] [address] 06/16/2024 Paulo Carl Plan Of Treatment Next Appt Details Provider Name:Paulo Carl , 11/16/2024 10:10:00 AM, [address], [address], [place], [address], Progress Notes * CARINE HSU PDOB:1960 (64 yo M)Acc No.[id number]:06/16/2024 Patient:?CARINE HSU :1960???Age:64 Y???Sex:Male Address:[address] [place] [address], [place] [address] * true * Date:? Generated for Printi demetra/Maciej/eTransmitting on:?08/26/2024 06:19 AM EDT
--- OUTSIDE RECORDS SUMMARY | 2024-08-26 06:20 | XMS_ITS ---
Author Organization [facility] Address [address] [place] [address] Care Team Providers Care E Business Consultant Name Role Phone Juan ERNANDEZ, [place] Primary Care Provider UnaPaulo Nelson [phone] REASON FOR VISIT Patient presents today for dysphagia Encounters Encounter Location Date Provider Diagnosis [facility] [address] [place] [address] 07/20/2024 Paulo Carl Plan Of Treatment Next Appt Details Provider Name:Paulo Carl , 11/16/2024 10:10:00 AM, [address], [address], [place], [address], Progress Notes * CARINE HSU PDOB:1960 (64 yo M)Acc No.[id number]:07/20/2024 Progress Notes Patient:?CARINE HSU Provider:?Paulo Carl MD :1960???Age:64 Y???Sex:Male Venancio e:07/20/2024 Address:[address] [place] [address], [id number] Pcp:Chele Martinez MD Subjective: * Chief Complaints: [...] Provider:?Paulo Carl MD Date:? 025 Generated for Brooke mccrary/Maciej/Jose on:?08/26/2024 06:20 AM EDT
[2024-08-26 06:35] LABS: MANUAL DIFF FLAG NO
[2024-08-26 07:20] LABS: Appearance Urine Clear; Color Urine Yellow; Glucose Urine UA Negative (Negative); Leukocyte Esterase Urine Negative (Negative); Nitrite Urine Negative (Negative); PH 5.5 (5.0-9.0); UMIC TRIGGER UACC YES; Urine Blood Small (1+) (Negative); Urine Ketones Negative (Negative); Urine Protein Negative (Neg-Trace)
[2024-08-26 07:25] LABS: Basophils Absolute Auto 0.1 X10*3/uL (0.0-0.2); Basophils Percent Auto 0.8 % (0-2); Eosinophils Absolute Auto 0.4 X10*3/uL (0.0-0.4); Eosinophils Percent Auto 3.8 % (0-4); Hematocrit 46.2 % (42.0-52.0); Hemoglobin 15.2 g/dl (14.0-18.0); Imm Gran Abs Auto 0.03 X10*3/uL (0.00-0.03); Imm Gran Pct Auto 0.3 % (0.0-0.4); Lymphocytes Absolute Auto 4.2 X10*3/uL (1.2-4.9); Lymphocytes Percent Auto 37.2 % (20-40); Mean Corpuscular HGB Conc 32.9 g/dl (31.0-36.0); Mean Corpuscular Hemoglobin 27.7 pg (27.0-33.0); Mean Corpuscular Volume 84.2 fL (80.0-98.0); Mean Platelet Volume 9.2 fL (9.4-12.4); Monocytes Absolute Auto 1.1 X10*3/uL (0.1-1.2); Neutrophils Absolute Auto 5.4 x10*3/uL (2.0-8.3); Neutrophils Percent Auto 47.9 % (45-73); Platelet Count 320 X10*3/uL (160-400); Red Blood Count 5.49 X10*6/uL (4.60-5.80); Red Cell Distribution Width 13.2 % (11.0-16.0); White Blood Count 11.2 X10*3/uL (4.8-10.8)
[2024-08-26 07:30] LABS: Bacteria Urine None Seen (None Seen); Hyaline Casts Urine 0-2 /LPF (0-2); RBC Urine 0-2 /HPF (0-2); Squamous Epithelial Cell Urine 0-2 /HPF (0-2); WBC Urine 0-5 /HPF (0-5)
[2024-08-26 07:45] LABS: Alanine Aminotransferase 29 U/L (0-40); Albumin Level 4.1 g/dL (3.5-5.0); Alkaline Phosphatase 69 U/L (39-117); Anion Gap 12 (12-20); Aspartate Amino Transferase 24 U/L (5-37); Blood Urea Nitrogen 20 mg/dL (9-16); Calcium 9.6 mg/dL (8.4-10.2); Carbon Dioxide 25 mmol/L (22-29); Chloride 107 mmol/L (96-108); Cholesterol 150 mg/dL (<200); Estimated Glomerular Filt Rate > 60; Glucose Fasting 92 mg/dL (60-99); HDL Cholesterol 28 mg/dL (>40); LDL Cholesterol Calculated 86 mg/dL (<100); Potassium 4.4 mmol/L (3.3-5.1); Sodium 140 mmol/L (135-145); Triglycerides 183 mg/dL (<150)
[2024-08-26 08:05] LABS: TSH reflex Free T4 1.14 uIU/mL (0.32-4.0); Vitamin D 25-OH Total 50.9 ng/mL (>30)
== END 2024-08-26 06:18 | disposition home or self-care (01) ==
LOC: HO.LAB 06:17
PROVIDERS: PCP Internal Medicine; Visit Provider Internal Medicine
DX: E78.00 Pure hypercholesterolemia, unspecified (principal); E55.9 Vitamin D deficiency, unspecified; D64.9 Anemia, unspecified
CPT/HCPCS: 36415; 80053; 80061; 81001; 82306; 84443; 85025

== ENCOUNTER 2024-08-27 13:21 | Outpatient (AMB) | payer OTHER, SELFPAY ==
[2024-08-27 13:27] VITALS: BP 120/86; PULSE 79; O2SAT 97; BMI 35.6
--- NOTE | 2024-08-27 13:27 | MHC.PC.OV ---
Vital Signs 08/27/24 13:27 Height 5 ft 11 in Weight 255 lb BMI 35.6 BP 120/86 Blood Pressure Location Lt brachial Position Sitting Pulse 79 Pulse Source Pulse Oximeter Pulse Oximetry (%) 97 Oxygen Delivery Method Room Air Intake Visit Reasons: hyperlipidemia, BRANDT, lumbar DDD Splitter Head Required: No Accompanied by: Self / Same As Patient Allergies No Known Allergies Allergy (Verified 08/27/24 13:53) Medication List - Last Reconciled 08/27/24 by Chele Martinez MD acetaminophen 650 mg PO Q6H PRN aspirin 81 mg PO DAILY atorvastatin 10 mg PO DAILY 90 days [Auto-BiPap As directed - setting is at 15/10 auto-pap] baclofen 10 mg PO TID PRN coffee xt-phosphatidyl serine 50-50 mg (Neuriva Original) 1 tab PO DAILY sennosides (senna) 8.6 mg PO BEDTIME PRN 90 days tadalafil 5 mg PO DAILY valacyclovir 500 mg PO Q12H 5 days zolpidem 5 mg PO BEDTIME PRN 10 days Tobacco use date assessed: 08/27/24 Fall risk assessment: No Falls in past year Last assessed Fall Risk: 08/27/24 Dental Screening Dental Screen Date: 08/27/24 Did you have a dental visit in the last 12 months?: Yes Did you have a dental problem in the last 6 months where you did not have access to dental care?: No Was dental information given to patient?: Patient has dentist HPI hyperlipidemia, BRANDT, lumbar DDD HPI Details Patient comes in today for his follow-up visit States that he feels okay except for increased cough and congestion for about a week now He denies any headaches or dizziness; denies any fever or sore throat Denies any chest pains, no increased shortness of breath Relates (+) on and off coughing - states that his cough is mostly non-productive No nausea/vomiting, no abdominal pain No change in bowel habits noted Needs his Atorvastatin Rx refilled today He had his follow-up labs done yesterday - to discuss his results FOR[facility]LY [facility], [facility] Medical History Seborrheic keratosis Erectile dysfunction Degenerative joint disease of sacroiliac joint Lumbar spondylosis Left-sided low back pain with left-sided sciatica BiPAP (biphasic positive airway pressure) dependence Normal colonoscopy (~2010) Vitamin D deficiency Genital herpes in men Obstructive sleep apnea Pure hypercholesterolemia Asymptomatic microscopic hematuria BRANDT on CPAP Patent foramen ovale Thoracic aortic aneurysm without rupture Bicuspid aortic valve Surgical History Status post aortic valve replacement and aortoplasty History of open heart surgery H/O Spinal surgery History of uvulectomy History of parathyroidectomy History of tonsillectomy Family History Father Dementia HTN (hypertension) Mother Dementia HTN (hypertension) Diabetes Other Mental health problem Substance abuse Social History Household Members: Family Housing: House Do you presently have visiting nurse or other home services: Yes Alcohol intake: current Alcohol intake frequency: holidays/special occasions only Alcohol type: beer Patient Tobacco Use Status: Former Tobacco user e-Cigarette/Vaping Use: Never Used Second Hand Smoke Exposure: Yes service: No Current occupational status: employed 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 1. Little interest or pleasure in doing things: not at all 2. Feeling down, depressed, or hopeless: not at all 3. Trouble falling or staying asleep, or sleeping too much: not at all 4. Feeling tired or having little energy: not at all 5. Poor appetite or overeating: not at all 6. Feeling bad about yourself - or that you are a failure or have let yourself or your family down: not at all 7. Trouble concentrating on things, such as reading the newspaper or watching television: not at all 8. Moving or speaking so slowly that other people could have noticed. Or the opposite - being so fidgety or restless that you have been moving around a lot more than usual: not at all 9. Thoughts that you would be better off or of hurting yourself in some way: not at all Total score: 0 Depression Screening Interpretation: Negative Depression Screening Done: Yes [address]2062 - PHQ-9 Billing: Yes Source: Developed by Stephon Bowlinget B.W. Rob, Huan Dominguez and colleagues, with an educational bell from [employer]. Thrive Questionnaire Date Thrive assessed: 08/27/24 I am a: Patient What is your living situation today?: I have a steady place to live Within the past 12 months, did the food you bought not last and you didn't have the money to get more?: Often true Within the past 12 months, did you worry whether your food would run out before you got money to buy more?: Often true Do you have trouble paying for medicines?: No Do you have trouble getting transportation to medical appointments?: No Do you have trouble paying your heating and electricity bill?: No Do you have trouble taking care of your child, family member or friend?: No Do you have trouble with day-to-day activities such as bathing, preparing meals, shopping, managing finances, etc.?: No Are you currently unemployed and looking for a job?: No Are you interested in more education?: No Please select the resources that you would like help with: None Currently or been in a relationship where the following occur: No concerns reported THRIVE Score: 2 AUDIT C Alcohol Use Questionnaire (AUDIT-C) 1. How often do you have a drink containing alcohol?: Monthly or less 2. How many drinks containing alcohol do you have on a typical day when you are drinking?: 1 or 2 3. How often do you have six or more drinks on one occasion?: Never Total Score: 1 Score Reviewed/Action Taken: Yes MADDISON-7 AMB Questionnaire MADDISON-7 Date MADDISON - 7 assessed: 08/27/24 Feeling nervous, anxious, or on edge: 0 = Not at all Not being able to stop or control worryin = Not at all Worrying too much about different things: 0 = Not at all Trouble relaxin = Not at all Being so restless that it is hard to sit still: 0 = Not at all Becoming easily annoyed or irritable: 0 = Not at all Feeling afraid as if something awful might happen: 0 = Not at all Total MADDISON-7 score (0-4 normal; 5-9 mild; 10-14 moderate; 15-21 severe): 0 Source: Developed by Drs. Paulo Cohen, Huan Mooreke and colleagues, with an educational bell from [employer]. Review of Systems Const Denies chills, Reports difficulty sleeping, Reports fatigue, Denies fever(s) and Denies headache(s) ENT Denies dysphagia, Denies dizziness, Denies otalgia, Denies headache(s), Denies neck pain, Denies odynophagia and Denies sore throat Card Denies chest pain, Denies palpitations and Reports dyspnea on exertion (mild) Resp Reports chest congestion (frequent - ongoing for about a week now), Reports cough (on and off, non-productive) and Reports dyspnea on exertion (mild) GI Denies abdominal pain, Denies hematochezia, Reports constipation (better with Rx), Denies dysphagia, Denies heartburn, Denies diarrhea, Denies nausea, Denies odynophagia and Denies vomiting Denies difficulty urinating, Denies dysuria, Denies nocturia and Denies urinary frequency Musc Reports back pain (on and off, over the right lower back/right sciatic nerve area ) and Denies neck pain Skin/Breast Denies rash Neuro Denies dizziness and Denies headache(s) Endo Reports fatigue and Denies palpitations Physical exam (Primary Care) Vital Signs: Last Vital Signs Pulse 79 08/27/24 13:27 BP 120/86 08/27/24 13:27 Pulse Ox 97 08/27/24 13:27 Oxygen Delivery Method Room Air 08/27/24 13:27 BMI result Body Mass Index 35.6 Tobacco/Smoking Status: Tobacco use Status Tobacco use date assessed 08/27/24 08/27/24 13:33 Patient Tobacco Use Status Former Tobacco user 08/27/24 13:33 e-Cigarette/Vaping Use Never Used 08/27/24 13:33 PHQ-9: PHQ-9 Score PHQ-9: Total score 0 08/27/24 13:33 Depression Screening Interpretation: Negative Thrive Assessment: Date of Thrive Assessment Date Thrive assessed 08/27/24 08/27/24 13:33 Currently or been in a relationship where the following occur: No concerns reported Const General: no acute distress and alert HENMT Ears: TM's normal bilaterally and EAC's normal Throat: Yes posterior oropharynx normal and Yes tonsils normal Neck Neck: Yes supple and No lymphadenopathy Thyroid: Thyroid normal Resp Auscultation: no crackles, no rales, rhonchi (occasional) throughout and no wheezes Cardio Rate: regular rate Rhythm: regular rhythm Heart sounds: Murmur heart sound present systolic early, III/ and at the right sternal border GI Palpation (GI): Soft to palpation and nontender Auscultation: normal bowel sounds General: Yes no CVA tenderness Back/Spine/Pelvis Back: no CVA tenderness Thoracic/Lumbar Spine: lumbar spinal tenderness Skin Rashes: no rashes Extrem General: Yes no clubbing, cyanosis or edema Results Reviewed Results Reviewed: Laboratory Tests 08/26/24 08/26/24 06:30 06:34 WBC 11.2 H Hgb 15.2 Hct 46.2 Plt Count 320 Sodium 140 Potassium 4.4 Creatinine 0.88 Estimated GFR > 60 Fasting Glucose 92 Calcium 9.6 AST 24 ALT 29 Triglycerides 183 H Cholesterol 150 LDL Cholesterol, Calc 86 HDL Cholesterol 28 L 25-OH Vitamin D Total 50.9 TSH 1.14 Ur Specific [place] 1.020 Urine Protein Negative Urine Glucose (UA) Negative Urine Blood Small (1+) H Urine Nitrite Negative Ur Leukocyte Esterase Negative Coding Level of Care Code Est Pt Level 4 (26705) Diagnoses Pure hypercholesterolemia E78.00 Lumbar back pain with radiculopathy affecting left lower extremity M54.16 Thoracic aortic aneurysm without rupture, unspecified part I71.20 Thoracic aorta location: unspecified Bicuspid aortic valve Q23.1 Patent foramen ovale Q21.1 Obstructive sleep apnea G47.33 Respiratory tract infection J98.8 Vitamin D deficiency E55.9 Constipation, unspecified constipation type K59.00 Constipation type: unspecified constipation type Genital herpes in men A60.02 Erectile dysfunction, unspecified erectile dysfunction type N52.9 Erectile dysfunction type: unspecified Obesity (BMI 30-39.9) E66.9 Additional Codes PHQ-9 - 91147 - PHQ-9 Billing: Yes ([id number]) Assessment & Plan Assessment & Plan (1) Pure hypercholesterolemia: Code(s): E78.00 - Pure hypercholesterolemia, unspecified Category: Medical Plan: Results of his labs done yesterday reviewed and discussed with patient Reinforced low cholesterol diet Continue Atorvastatin 10 mg QD - Rx refilled Will recheck his labs and fasting lipids in 4 months for follow up (2) Lumbar back pain with radiculopathy affecting left lower extremity: Comment: MRI of the lumbar spine done back on 01/18/2021 revealed a large 1.2 cm synovial cyst on the left L4-L5 filling the lateral recess and proximal foramen with nerve root compression Code(s): M54.16 - Radiculopathy, lumbar region Category: Medical Plan: S/P lumbar minimally invasive surgery (MIS) laminotomy by Dr. Spence on 05/07/2021 - underwent left L4-L5 MIS decompression and resection of synovial cyst Reinforced activity and weight-lifting restrictions Repeat lumbar spine x-rays done back in June 2022 revealed mild spondylosis of the lumbar spine, with grade 1 anterolisthesis of L4 on L5 He was referred to and seen by Dr. Pratt back in November 2022 for his recent increasing right-sided sciatica and increased left lower back pain Lumbar spine MRI done on 01/27/23 revealed (+) new focal left foraminal disc protrusion at L4-L5 with mild compression of the exiting left L4 nerve root. Additional new 5 x 11 mm synovial cyst protruding from the right facet joint into the right subarticular zone with mild mass effect upon the right L5 nerve root Patient was instructed at his last visit to try to get in to see Dr. Pratt [facility] for neurosurgery consultation States that he was seen by Dr. Pratt shortly after his MRI was done and was advised that if his low back pain at the time is not too bad, then he can hold off on getting his back surgery done and he can reach out to neurosurgery again if his low back pain gets worse (3) Thoracic aortic aneurysm without rupture: Code(s): I71.2 - Thoracic aortic aneurysm, without rupture Category: Medical Qualifiers: Thoracic aorta location: unspecified Qualified Code(s): I71.20 - Thoracic aortic aneurysm, without rupture, unspecified Plan: Follow up echocardiogram done on 02/26/2022 revealed a mildly dilated ascending thoracic aorta at 4.3 cm, which is mostly unchanged from a year ago. There is also a moderate aortic stenosis with mean gradient of 27 mm Hg and dimensionless index of 0.31 Previous echo on 04/17/21 revealed (+) ascending aortic dilatation at 4.3 cm - this was previously measured 4.1 cm on echo done on 04/17/2020 He follows up with cardiology regularly for this and will need this to be monitored continuously/closely (4) Bicuspid aortic valve: Code(s): Q23.1 - Congenital insufficiency of aortic valve Category: Medical Plan: Echocardiogram revealed bicuspid aortic valve with moderate stenosis and trace regurgitation on most recent US done on 02/26/2022 and 04/17/2021 Follow up with cardiology as scheduled for continued monitoring (5) Patent foramen ovale: Code(s): Q21.1 - Atrial septal defect Category: Medical Plan: This was seen incidentally on prior SOWMYA Continue Aspirin 81 mg daily (6) Obstructive sleep apnea: Comment: BIPAP Code(s): G47.33 - Obstructive sleep apnea (adult) (pediatric) Category: Medical Plan: Continue using his BiPAP device every night when sleeping Follow up with Sleep Medicine as scheduled (7) Respiratory tract infection: Code(s): J98.8 - Other specified respiratory disorders Category: Medical Plan: Will start patient empirically on Amoxicillin 500 mg Q 8 hours x 7 days He is also advised to try taking some OTC Loratadine or Cetirizine 10 mg QD PRN (8) Vitamin D deficiency: Code(s): E55.9 - Vitamin D deficiency, unspecified Category: Medical Plan: Corrected - will continue to monitor his Vitamin D level regularly (9) Constipation: Code(s): K59.00 - Constipation, unspecified Category: Social Hx Qualifiers: Constipation type: unspecified constipation type Qualified Code(s): K59.00 - Constipation, unspecified Plan: This was most likely the reason for the on and off blood in his stool previously; he had internal hemorrhoids and diverticulosis on his recent colonoscopy done a couple of years ago Reinforced increased oral fluids and dietary fiber Continue Senna 8.6 mg QD PRN (10) Genital herpes in men: Code(s): A60.02 - Herpesviral infection of other male genital organs Category: Medical Plan: Continue Valacyclovir 500 mg every 12 hours x 5 days when needed for acute flare ups - Rx refilled (11) Erectile dysfunction: Code(s): N52.9 - Male erectile dysfunction, unspecified Category: Medical Qualifiers: Erectile dysfunction type: unspecified Qualified Code(s): N52.9 - Male erectile dysfunction, unspecified Plan: Continue Sildenafil 50 mg QD PRN (12) Obesity (BMI 30-39.9): Code(s): E66.9 - Obesity, unspecified Category: Medical Plan: Reinforced diet/exercise as tolerated/lose weight Plan Follow-up in 4 months Orders: Orders TSH reflex Free T4 4 Months E78.00 - Pure hypercholesterolemia, unspecified Complete Blood Count Auto Diff 4 Months D64.9 - Anemia, unspecified Lipid Panel 4 Months E78.00 - Pure hypercholesterolemia, unspecified Comprehensive [place]. Panel Fast 4 Months E78.00 - Pure hypercholesterolemia, unspecified UA CC w/rflx Micro + Cult 4 Months R30.0 - Dysuria Medications: New amoxicillin 500 mg PO Q8H 7 days 21 caps 0RF Refilled atorvastatin 10 mg PO DAILY 90 days 90 tabs 3RF
== END 2024-08-27 14:09 | disposition home or self-care (01) ==
LOC: HO.HMCH 13:22
PROVIDERS: PCP Internal Medicine; Visit Provider Internal Medicine
DX: E78.00 Pure hypercholesterolemia, unspecified (principal); M54.16 Radiculopathy, lumbar region; E66.9 Obesity, unspecified; Z68.35 Body mass index [BMI] 35.0-35.9, adult; I71.20 Thoracic aortic aneurysm, without rupture, unspecified; Q23.1 Congenital insufficiency of aortic valve; Q21.10 Atrial septal defect, unspecified; G47.33 Obstructive sleep apnea (adult) (pediatric); J98.8 Other specified respiratory disorders; E55.9 Vitamin D deficiency, unspecified; K59.00 Constipation, unspecified; A60.02 Herpesviral infection of other male genital organs

== ENCOUNTER → 2024-08-27 13:21 | Outpatient (BNVA) | payer OTHER, SELFPAY | PROVIDERS: PCP Internal Medicine; Visit Provider Internal Medicine | DX: J98.8 Other specified respiratory disorders (principal); E78.00 Pure hypercholesterolemia, unspecified; M54.16 Radiculopathy, lumbar region; I71.20 Thoracic aortic aneurysm, without rupture, unspecified; G47.33 Obstructive sleep apnea (adult) (pediatric); E55.9 Vitamin D deficiency, unspecified; K59.00 Constipation, unspecified; A60.02 Herpesviral infection of other male genital organs; N52.9 Male erectile dysfunction, unspecified; E66.9 Obesity, unspecified; Z68.35 Body mass index [BMI] 35.0-35.9, adult; Q23.1 Congenital insufficiency of aortic valve; Q21.12 Patent foramen ovale; Z79.82 Long term (current) use of aspirin; Z79.899 Other long term (current) drug therapy | CPT/HCPCS: 96127; 99212 ==

== ENCOUNTER 2024-09-07 08:33 | Outpatient (AMB) | payer OTHER, SELFPAY ==
--- NOTE | 2024-09-07 08:35 | MHC.OFFVIS ---
Intake Visit Reasons: f/u w/ PVR Intake Note: Patient is present for PVR F/U Urology Medication:TADALAFIL Antibiotic Allergy:NONE Blood Thinner:ASPIRIN Todays PVR:32ML'S Public Service Officer Required: No Allergies No Known Allergies Allergy (Verified 09/07/24 08:36) HPI Comments Details: Raheem is a pleasant male. He is a patient Dr. Martinez. He is seen for the following urologic conditions - microscopic hematuria - erectile dysfunction Eight month follow-up PVR 32 cc Remains on tadalafil 5 mg daily Urinary Symptoms Review - Patient denies current urinary incontinence. - Previous microscopic hematuria noted during an acute UTI episode. - Currently effective bladder emptying with volume of 32 cc. - Patient cites no difficulty in urination while on prescribed medication regimen. - Denies any pain or pressure symptoms during urination. 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 Prior imaging normal Cytology 10/23 NAD Continue yearly review Urinary tract infection Emergency room visit with acute UTI E coli resistant to ampicillin, gentamicin and Bactrim Previously had been on finasteride [facility] Medical History Seborrheic keratosis Erectile dysfunction Degenerative joint disease of sacroiliac joint Lumbar spondylosis Left-sided low back pain with left-sided sciatica BiPAP (biphasic positive airway pressure) dependence Normal colonoscopy (~2010) Vitamin D deficiency Genital herpes in men Obstructive sleep apnea Pure hypercholesterolemia Asymptomatic microscopic hematuria BRANDT on CPAP Patent foramen ovale Thoracic aortic aneurysm without rupture Bicuspid aortic valve Surgical History Status post aortic valve replacement and aortoplasty History of open heart surgery H/O Spinal surgery History of uvulectomy History of parathyroidectomy History of tonsillectomy Family History Father Dementia HTN (hypertension) Mother Dementia HTN (hypertension) Diabetes Other Mental health problem Substance abuse Social History Household Members: Family Housing: House Do you presently have visiting nurse or other home services: Yes Alcohol intake: current Alcohol intake frequency: holidays/special occasions only Alcohol type: beer Patient Tobacco Use Status: Former Tobacco user e-Cigarette/Vaping Use: Never Used Second Hand Smoke Exposure: Yes service: No Current occupational status: employed 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 Cognitive needs: No Hearing needs: No Vision needs: No Review of Systems Const Denies chills and Denies fever(s) Card Reports no additional complaints and Denies syncope Resp Denies cough GI Denies abdominal pain and Denies heartburn Reports as per HPI and Denies change in libido Neuro Denies syncope Psych Denies change in libido Endo Denies change in libido Physical Exam Const General: cooperative, healthy appearing, comfortable and no acute distress Orientation/consciousness: patient oriented x3 HEENT Face and sinus: Yes normal facial exam Mouth: moist mucous membranes Neck Neck: Yes normal visual inspection, Yes full ROM and Yes trachea midline Chest Chest palpation & inspection: normal inspection of the chest Resp Effort & Inspection: normal respiratory effort, able to speak in complete sentences and no respiratory distress GI Inspection: Yes normal to inspection Back/Spine/Pelvis Cervical Spine: normal cervical lordosis Thoracic/Lumbar Spine: thoracic and lumbar spine normal to inspection Skin General skin exam: no rashes or lesions noted Neuro General: patient oriented x3, gait normal, tone normal and moves all extremities Extrem General: Yes normal to inspection and Yes capillary refill normal Office Procedures Post Void Residual Post Residual Void Post Void Residual (PVR): 32 33415-Hysm Void Residual by ultrasound Assessment & Plan Assessment & Plan (1) Erectile dysfunction: Code(s): N52.9 - Male erectile dysfunction, unspecified Category: Medical Qualifiers: Erectile dysfunction type: unspecified Qualified Code(s): N52.9 - Male erectile dysfunction, unspecified (2) Bladder outlet obstruction: Code(s): N32.0 - Bladder-neck obstruction Category: Medical Plan Plan 1. Acute Urinary Tract Infection The recent UTI was treated in the emergency room. No further symptoms. Monitoring advised. 2. Benign Prostatic Hyperplasia Bph Managed with tadalafil and finasteride. Symptom improvement noted. Refill upon request. Follow-up in 12 months. 3. Erectile Dysfunction Managed with daily tadalafil and on-demand sildenafil. Reports adequate function, no changes needed. Discussion Notes During the visit, the patient and I discussed his current management plan for BPH and erectile dysfunction. He previously experienced an acute urinary tract infection but currently presents with no bothersome urinary symptoms. The patient is satisfied with the current regimen of daily tadalafil and finasteride for his genito-urinary management, and sildenafil as needed for erectile dysfunction. Refills for medications were discussed and agreed upon. Additionally, we discussed the importance of periodic follow-up to monitor his condition, with the next visit planned in 12 months. No immediate lab work was scheduled, but future PSA tests will be needed to monitor prostate health. Patient Instructions - Continue taking daily tadalafil and finasteride as prescribed. - Use on-demand Viagra if required for erectile function and report any concerns. - Monitor for any recurrence of urinary symptoms and report to the office if they occur. - Schedule and attend follow-up visit in 12 months. - No immediate lab work required; understand future PSA testing is needed. - Follow the checkout instructions provided and bring any forms to the front desk lead. Orders: Orders Prostate Specific Antigen 12 Months N39.0 - Urinary tract infection, site not specified Medications: New finasteride 5 mg PO DAILY 90 days 90 tabs 3RF N39.0 - Urinary tract infection, site not specified, N40.0 - Benign prostatic hyperplasia without lower urinary tract symptoms Changed From tadalafil 5 mg PO DAILY To tadalafil 5 mg PO DAILY 90 days 90 tabs 3RF Coding Level of Care Code Est Pt Level 3 (91607) Complex EM visit Add On G2211 Diagnoses Erectile dysfunction, unspecified erectile dysfunction type N52.9 Erectile dysfunction type: unspecified Bladder outlet obstruction N32.0 CPT Codes Post Residual Void - PVR CPT Code: 98600-Epkt Void Residual by ultrasound ([id number])
--- OUTSIDE RECORDS SUMMARY | 2024-09-07 08:58 | XMS_ITS | Patient Health Record ---
Author Organization [facility] Address [address] [place] [address] Care Team Providers Care Data Modeling Specialist Name Role Phone Juan ERNANDEZ, [place] Primary Care Provider Paulo Eason [facility] [phone] Reason For Referral No Information Medications Medication [...] Problem Status W/U Status Risk Notes Problem [id number] Encounter for screening for malignant neoplasm of colon (Z12.11) Active confirmed Problem [id number] Preprocedural examination (Z01.818) Active confirmed Encounters Encounter Location Date Provider Diagnosis [facility] [address] [place] [address] 06/16/2024 Paulo Carl [facility] [address] [place] [address] 07/20/2024 Paulo Carl Plan Of Treatment Pending Test Test Name Order Date Pathology 09/29/2020 Future Test Test Name Order Date COLONOSCOPY 03/13/2011 COLONOSCOPY 09/13/2020 Next Appt Details Provider Name:Paulo Carl , 11/16/2024 10:10:00 AM, [address], [address], [place], [address], Insurance Providers Payer Name Payer Address Payer Phone Subscriber Number Group Number Insured Name Patient Relationship to Insured Coverage Start Date Coverage End Date [facility] [address] [place] [address] [id number] CARINE HSU Self - patient is the insured Medical (General) History Medical History History ICD Code Sleep apnea--uses CPAP Denies [place],DM,CVA,Lung disease,renal dise ase Negative screening colonosco py in 04/2011; he describes a negative colonoscopy in [place] prior to the 2010 colonoscopy as well Bicuspid aortic valve--followed by Dr. Juancarlos farah Hyperlipidemia COVID infection in 2019 Surgical History Surgery Date(Month/Year) Sleep apnea surgery Parathyroidectomy in 2009. Facial surgery as a child
--- OUTSIDE RECORDS SUMMARY | 2024-09-07 08:58 | XMS_ITS ---
Author Organization [facility] Address [address] [place] [address] Care Team Providers Care Shell Press Operator Name Role Phone Juan ERNANDEZ, [place] Primary Care Provider UnaPaulo Nelson [phone] REASON FOR VISIT Patient presents today for dysphagia Encounters Encounter Location Date Provider Diagnosis [facility] [address] [place] [address] 07/20/2024 Paulo Carl Plan Of Treatment Next Appt Details Provider Name:Paulo Carl , 11/16/2024 10:10:00 AM, [address], [address], [place], [address], Progress Notes * CARINE HSU PDOB:1960 (64 yo M)Acc No.[id number]:07/20/2024 Progress Notes Patient:?CARINE HSU Provider:?Paulo Carl MD :1960???Age:64 Y???Sex:Male Venancio e:07/20/2024 Address:[address] [place] [address], [id number] Pcp:Chele Martinez MD Subjective: * Chief Complaints: [...] MD Date:? 025 Generated for Brooke mccrary/Maciej/Jose on:?09/07/2024 08:58 AM EDT
--- OUTSIDE RECORDS SUMMARY | 2024-09-07 08:58 | XMS_ITS ---
Author Organization [facility] Address [address] [place] [address] Care Team Providers Care Employment Legal Assistant Name Role Phone Juan ERNANDEZ, [place] Primary Care Provider UnaPaulo Nelson [phone] REASON FOR VISIT fyi pt called back and scheduled in november Encounters Encounter Location Date Provider Diagnosis [facility] [address] [place] [address] 07/20/2024 Paulo Carl Plan Of Treatment Next Appt Details Provider Name:Paulo Carl , 11/16/2024 10:10:00 AM, [address], [address], [place], [address], Progress Notes * CARINE HSU PDOB:1960 (64 yo M)Acc No.[id number]:07/20/2024 Patient:?CARINE HSU :1960???Age:64 Y???Sex:Male Address:[address] [place] [address], [place] [address] * true * Date:? Generated for Printi demetra/Maciej/eTransmitting on:?09/07/2024 08:57 AM EDT
--- OUTSIDE RECORDS SUMMARY | 2024-09-07 08:58 | XMS_ITS ---
Author Organization [facility] Address [address] [place] [address] Care Team Providers Care Emt Intermediate Name Role Phone Juan ERNANDEZ, [place] Primary Care Provider UnaPaulo Nelson [phone] REASON FOR VISIT NEW INSURANCE Encounters Encounter Location Date Provider Diagnosis [facility] [address] [place] [address] 06/16/2024 Paulo Carl Plan Of Treatment Next Appt Details Provider Name:Paulo Carl , 11/16/2024 10:10:00 AM, [address], [address], [place], [address], Progress Notes * CARINE HSU PDOB:1960 (64 yo M)Acc No.[id number]:06/16/2024 Patient:?CARINE HSU :1960???Age:64 Y???Sex:Male Address:[address] [place] [address], [place] [address] * true * Date:? Generated for Printi demetra/Maciej/eTransmitting on:?09/07/2024 08:57 AM EDT
== END 2024-09-07 09:01 | disposition home or self-care (01) ==
LOC: HO.HUSH 08:34
PROVIDERS: PCP Internal Medicine; Visit Provider Urology
DX: N52.9 Male erectile dysfunction, unspecified (principal); N32.0 Bladder-neck obstruction
CPT/HCPCS: 99213; G2211

== ENCOUNTER → 2024-09-07 08:33 | Outpatient (BNVA) | payer OTHER, SELFPAY | PROVIDERS: PCP Internal Medicine; Visit Provider Urology | DX: N52.9 Male erectile dysfunction, unspecified (principal); N32.0 Bladder-neck obstruction | CPT/HCPCS: 51798; 99212 ==

== ENCOUNTER 2024-10-28 12:46 | Outpatient (AMB) | payer OTHER, SELFPAY ==
--- NOTE | 2024-10-28 13:00 | MHC.OFFVIS ---
Vital Signs 10/28/24 13:05 Height 5 ft 11 in Weight 254 lb 6.615 oz BMI 35.5 BP 110/62 Blood Pressure Location Lt brachial Position Sitting Pulse 62 Pulse Source Monitor Intake Visit Reasons: 6 mth f/up Intake Note: 6 mth f/up Property Man Required: No Accompanied by: Self / Same As Patient Allergies No Known Allergies Allergy (Verified 09/07/24 08:36) Medication List - Last Reconciled 10/28/24 by Bryan Chan NP acetaminophen 650 mg PO Q6H PRN amoxicillin 500 mg PO Q8H 7 days aspirin 81 mg PO DAILY atorvastatin 10 mg PO DAILY 90 days [Auto-BiPap As directed - setting is at 16/02 auto-pap] baclofen 10 mg PO TID PRN coffee xt-phosphatidyl serine 50-50 mg (Neuriva Original) 1 tab PO DAILY finasteride 5 mg PO DAILY 90 days sennosides (senna) 8.6 mg PO BEDTIME PRN 90 days tadalafil 5 mg PO DAILY 90 days valacyclovir 500 mg PO Q12H 5 days zolpidem 5 mg PO BEDTIME PRN 10 days HPI Comments Details: This is a 64-year-old male patient coming in for a follow-up visit. Patient with a history of bicuspid aortic valve status post aortic valve replacement and arthroplasty on 10/29/2023, obesity, and sleep apnea. Patient reports feeling well overall and denies any cardiac symptoms of exertional chest pain, shortness of breath, palpitations, dizziness, orthopnea, PND, leg edema, presyncope, or syncope. Patient states that he has completed his cardiac rehab independently as well and has to now go back to exercising regularly. Patient states that he is still yet to see his GI for the difficulty swallowing for which he was referred previously as he kept missing his appointment. Patient is otherwise reporting compliance with all his medications. [facility] Medical History Seborrheic keratosis Erectile dysfunction Degenerative joint disease of sacroiliac joint Lumbar spondylosis Left-sided low back pain with left-sided sciatica BiPAP (biphasic positive airway pressure) dependence Normal colonoscopy (~2010) Vitamin D deficiency Genital herpes in men Obstructive sleep apnea Pure hypercholesterolemia Asymptomatic microscopic hematuria BRANDT on CPAP Patent foramen ovale Thoracic aortic aneurysm without rupture Bicuspid aortic valve Surgical History Status post aortic valve replacement and aortoplasty History of open heart surgery H/O Spinal surgery History of uvulectomy History of parathyroidectomy History of tonsillectomy Family History Father Dementia HTN (hypertension) Mother Dementia HTN (hypertension) Diabetes Other Mental health problem Substance abuse Social History Household Members: Family Housing: House Do you presently have visiting nurse or other home services: Yes Alcohol intake: current Alcohol intake frequency: holidays/special occasions only Alcohol type: beer Patient Tobacco Use Status: Former Tobacco user e-Cigarette/Vaping Use: Never Used Second Hand Smoke Exposure: Yes service: No Current occupational status: employed 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 Cognitive needs: No Hearing needs: No Vision needs: No Review of Systems Const Denies chills, Denies fatigue, Denies fever(s), Denies frequent falls, Denies weakness, Denies weight gain and Denies weight loss ENT Denies dizziness Card Denies chest pain, Denies leg edema, Denies lightheadedness, Denies palpitations, Denies dyspnea and Denies dyspnea on exertion Resp Denies cough, Denies dyspnea and Denies dyspnea on exertion GI Denies hematochezia Musc Denies abnormal gait, Denies muscle weakness, Denies numbness, Denies radiating pain into limb and Denies tingling Neuro Denies abnormal gait, Denies dizziness, Denies frequent falls, Denies numbness, Denies tingling and Denies weakness Endo Denies fatigue and Denies palpitations Physical Exam Vital Signs: Last Vital Signs Pulse 62 10/28/24 13:05 BP 110/62 10/28/24 13:05 BMI result Body Mass Index 35.5 Const General: cooperative, healthy appearing, comfortable and no acute distress Orientation/consciousness: patient oriented x3 HEENT Head: Yes normal to inspection Neck Neck: Yes normal visual inspection, Yes trachea midline and Yes supple Chest Chest palpation & inspection: normal inspection of the chest Resp Effort & Inspection: normal respiratory effort Auscultation: clear to auscultation bilaterally, no crackles, no rales, no rhonchi and no wheezes Cardio Jugular venous distension: no JVD Palpation: normal PMI Rate: regular rate Rhythm: regular rhythm Heart sounds: S1 normal heart sound present, S2 normal heart sound present, no click, no gallops, Murmur heart sound present systolic at the right sternal border and no rubs Peripheral pulses: Peripheral pulses 2+ throughout GI Inspection: Yes normal to inspection Palpation (GI): Soft to palpation Auscultation: normal bowel sounds Skin General skin exam: no rashes or lesions noted Neuro General: patient oriented x3 Extrem General: Yes normal to inspection, No no pedal edema and No calf tenderness Psych Appearance: grossly normal Mental Status: mental status grossly normal Speech and movement: Normal speech and movement present Office Procedures EKG Details: EKG today showed normal sinus rhythm, rate 62 beats per minute, minimal voltage criteria for LVH, nonspecific ST-T wave abnormality, [place], [place]. [id number]-Lnzemonbajbpillim, Complete Assessment & Plan Assessment & Plan (1) Status post aortic valve replacement and aortoplasty: Comment: 10/29/2023 - Dr. Dionisio Payne ([facility]) Code(s): Z95.2 - Presence of prosthetic heart valve Category: Surgical Plan: 04/21/2024-echo study showed normal EF 68% with normal function of the bioprosthetic aortic valve. Clinically stable. Continue statin therapy with an LDL goal closer to 70s. Continue aspirin therapy. Blood pressure today is within normal limits. Ideally goal less than 130/80. (2) Patent foramen ovale: Code(s): Q21.1 - Atrial septal defect Category: Medical Plan: Incidental finding of PFO with SOWMYA. Nonspecific treatment indicated. Continue aspirin. (3) Obstructive sleep apnea: Code(s): G47.33 - Obstructive sleep apnea (adult) (pediatric) Category: Medical Plan: Continue the BiPAP therapy. Advised heart healthy diet, regular exercise, med compliance, and management of vascular risk factors. Follow up in 1 year, sooner if needed. In the interim, patient will call the office with any concerns or change in symptoms. This note was generated using voice recognition software. While every effort has been made to ensure accuracy and proper medical transcription radiology, there may be occasional errors that could affect the content or meaning of the described symptoms. Orders: Orders CA echo transthoracic complete 11 Months Z95.2 - Presence of prosthetic heart valve AMB EKG-In Office Today Z95.2 - Presence of prosthetic heart valve Coding Level of Care Code Est Pt Level 4 (59881) Complex EM visit Add On G2211 Diagnoses Status post aortic valve replacement and aortoplasty Z95.2 Patent foramen ovale Q21.1 Obstructive sleep apnea G47.33 CPT Codes EKG - CPT: 57978-Etqltaqilvaaecgzk, Complete ([id number]) Time Spent (min) 32 Comment Time spent in reviewing the chart, test results, assessment, counseling and documentation.
[2024-10-28 13:05] VITALS: BP 110/62; PULSE 62; BMI 35.5
--- OUTSIDE RECORDS SUMMARY | 2024-10-28 15:12 | XMS_ITS | Patient Health Record ---
Author Organization [facility] Address [address] [place] [address] Care Team Providers Care Dealer Development Manager Name Role Phone Juan ERNANDEZ, [place] Primary Care Provider Paulo Eason [facility] [phone] Reason For Referral No Information Medications Medication [...] Problem Status W/U Status Risk Notes Problem [id number] Encounter for screening for malignant neoplasm of colon (Z12.11) Active confirmed Problem [id number] Preprocedural examination (Z01.818) Active confirmed Encounters Encounter Location Date Provider Diagnosis [facility] [address] [place] [address] 06/16/2024 Paulo Carl [facility] [address] [place] [address] 07/20/2024 Paulo Carl Plan Of Treatment Pending Test Test Name Order Date Pathology 09/29/2020 Future Test Test Name Order Date COLONOSCOPY 03/13/2011 COLONOSCOPY 09/13/2020 Next Appt Details Provider Name:Paulo Carl , 11/16/2024 10:10:00 AM, [address], [address], [place], [address], Insurance Providers Payer Name Payer Address Payer Phone Subscriber Number Group Number Insured Name Patient Relationship to Insured Coverage Start Date Coverage End Date [facility] [address] [place] [address] [id number] CARINE HSU Self - patient is the insured Medical (General) History Medical History History ICD Code Sleep apnea--uses CPAP Denies [place],DM,CVA,Lung disease,renal dise ase Negative screening colonosco py in 04/2011; he describes a negative colonoscopy in [place] prior to the 2010 colonoscopy as well Bicuspid aortic valve--followed by Dr. Juancarlos farah Hyperlipidemia COVID infection in 2019 Surgical History Surgery Date(Month/Year) Sleep apnea surgery Parathyroidectomy in 2009. Facial surgery as a child
== END 2024-10-28 13:35 | disposition home or self-care (01) ==
LOC: HO.HCS 12:47
PROVIDERS: PCP Internal Medicine
DX: Z95.2 Presence of prosthetic heart valve (principal); Q21.10 Atrial septal defect, unspecified; G47.33 Obstructive sleep apnea (adult) (pediatric)
CPT/HCPCS: 93010; 99214

== ENCOUNTER → 2024-10-28 12:46 | Outpatient (BNVA) | payer OTHER, SELFPAY | PROVIDERS: PCP Internal Medicine | DX: Z95.2 Presence of prosthetic heart valve (principal); Q21.10 Atrial septal defect, unspecified; G47.33 Obstructive sleep apnea (adult) (pediatric) | CPT/HCPCS: 93005; 99212 ==

== ENCOUNTER 2025-01-05 06:36 | Outpatient (REF) | payer OTHER, SELFPAY ==
--- OUTSIDE RECORDS SUMMARY | 2024-07-20 09:00 | XMS_ITS ---
Author Organization [facility] Address [address] [facility] [address] [place] [address] Care Team Providers Care Suspect Artist Supervisor Name Role Phone Chele Martinez MD Primary Care Provider UnaPaulo Nelson [phone] REASON FOR VISIT Patient presents today for dysphagia Encounters Encounter Location Date Provider Diagnosis [facility] [address] [facility] [address] [place] [address] 07/20/2024 Paulo Carl Plan Of Treatment Next Appt Details Provider Name:Paulo Carl , 03/07/2025 01:30:00 PM, [address] [place] [address] , [place], [place], [phone], Progress Notes * HONG HSURODOB:1960 ( 64 yo M)Acc No.[id number]:07/20/2024 Progress Notes Patient: Luis CARINE THOMASON Provider: Luis Carl MD :1960 A ge:64 Y S ex:Male Date:07/20/2024 Address:[address] [place], [place] [phone] Pcp:Chele Martinez MD Subjective: * Chief Complaints: [...] 07/20/2024 Generated for Brooke mccrary/Maciej/Zainitting on: 0 01/05/2025 06:39 AM EDT
--- OUTSIDE RECORDS SUMMARY | 2025-01-05 06:39 | XMS_ITS | Patient Health Record ---
Author Organization [facility] Address [address] [place] [address] Care Team Providers Care Radiology Director Name Role Phone Juan ERNANDEZ Sal[place] Primary Care Provider Paulo Eason Unavailable [phone] Allergies No Known Allergies Reason For Referral No Information Medications Medication SIG (Take, Route, Frequency, Duration) Notes Start Date End Date Status Atorvastatin Calcium 10 MG TAKE 1 TABLET BY MOUTH EVERY DAY Oral for 60 Active valACYclovir HCl 500 MG TAKE 1 TABLET BY MOUTH EVERY 12 HOURS FOR FOR RECURRENCE OR OUTBREAK OF GENITAL HERPES FOR 5 DAYS Oral for 5 Days Active Finasteride 5 MG Oral for 90 Days Active Aspir-81 once a day Active Immunizations Vaccine Route Administration Date Status Comme nts Influenza Unknown 01/04/2020 Administered Influenza Unknown 02/17/2024 Administered Social History Alcohol Screen Question Answer [...] Problem Status W/U Status Risk Notes Problem Rectal bleeding (83750843) Rectal bleeding (K62.5) Active confirmed Problem 380287137 Encounter for screening for malignant neoplasm of colon (Z12.11) Active confirmed Problem Dysphagia (R13.10) Active confirmed Problem [id number] Preprocedural examination (Z01.818) Active confirmed Problem History of adenomatous polyp of colon (203172404) History of adenomatous polyp of colon (Z86.0101) Active confirmed Vital Signs Temperature 96.9 degrees Fahrenheit 11/16/2024 Blood pressure diastolic 01 mm Hg 11/16/2024 Height 70.50 in 11/16/2024 Blood pressure systolic 001 mm Hg 11/16/2024 Weight 258 lbs 11/16/2024 BMI 36.49 kg/m2 11/16/2024 Procedures Procedure Date Ordered Date Performed Result Body Sit e UPPER GI ENDOSCOPY BALLOOON DILATION OF ESOPH 11/16/2024 N/A COLONOSCOPY 11/16/2024 N/A Encounters Encounter Location Date Provider Diagnosis [facility] [address] [place] [phone] 11/16/2024 Paulo Carl Rectal bleeding K62. 5 ; History of adenomatous polyp of colon Z86.0101 and Dysphagia R13.10 [facility] [address] [place] [phone] 06/16/2024 Paulo Carl [facility] [address] [place] [phone] 07/20/2024 Paulo Siddhartha [facility] [address] [place] [id number] 12/27/2024 Paulo Carl Assessments Encounter Date Diagnosis (ICD Code) Assessment Notes Treatment Notes Treatment Clinical Notes Section Notes 11/16/2024 Rectal bleeding (ICD-10 - K62.5) Overall, Raheem appears quite well. His rectal bleeding with bowel movements does not seem particularly worrisome, but I did recommend a follow-up colonoscopy for evaluation given his history of tubular adenomas and his last colonoscopy being over 4 years ago. We did review the rationale for that in regard to colorectal cancer prevention and/or early detection. I have also recommended an upper endoscopy with possible balloon dilation on the same day to evaluate his intermittent episodes of dysphagia. Based on the clinical history and his good clinical appearance, this seems consistent with some esophageal spasm. I did advise him to eat slowly and to be sure to cut up his food carefully. We did review that he may have an esophageal ring or esophageal stricture that will need to be dilated. I do not think he needs to be on a PPI given no history of heartburn or reflux type symptoms, but I did advise him that depending on the endoscopic findings he may need that. He was advised not to use aspirin on the day of the procedure. I do not think he needs antibiotics for his aortic valve replacement, but I shall clear that with his clearance cutter. Full consent has been obtained from him for both procedures, including risks of bleeding and perforation. The procedures will be done with monitored anesthesia care. Raheem was comfortable with this plan. Thank you again for allowing me to participate in Raheem's care. I shall continue to keep you advised of his progress. 11/16/2024 History of adenomatous polyp of colon (ICD-10 - Z86.0101) Overall, Raheem appears quite well. His rectal bleeding with bowel movements does not seem particularly worrisome, but I did recommend a follow-up colonoscopy for evaluation given his history of tubular adenomas and his last colonoscopy being over 4 years ago. We did review the rationale for that in regard to colorectal cancer prevention and/or early detection. I have also recommended an upper endoscopy with possible balloon dilation on the same day to evaluate his intermittent episodes of dysphagia. Based on the clinical history and his good clinical appearance, this seems consistent with some esophageal spasm. I did advise him to eat slowly and to be sure to cut up his food carefully. We did review that he may have an esophageal ring or esophageal stricture that will need to be dilated. I do not think he needs to be on a PPI given no history of heartburn or reflux type symptoms, but I did advise him that depending on the endoscopic findings he may need that. He was advised not to use aspirin on the day of the procedure. I do not think he needs antibiotics for his aortic valve replacement, but I shall clear that with his clearance cutter. Full consent has been obtained from him for both procedures, including risks of bleeding and perforation. The procedures will be done with monitored anesthesia care. Raheem was comfortable with this plan. Thank you again for allowing me to participate in Raheem's care. I shall continue to keep you advised of his progress. 11/16/2024 Dysphagia (ICD-10 - R13.10) Overall, Raheem appears quite well. His rectal bleeding with bowel movements does not seem particularly worrisome, but I did recommend a follow-up colonoscopy for evaluation given his history of tubular adenomas and his last colonoscopy being over 4 years ago. We did review the rationale for that in regard to colorectal cancer prevention and/or early detection. I have also recommended an upper endoscopy with possible balloon dilation on the same day to evaluate his intermittent episodes of dysphagia. Based on the clinical history and his good clinical appearance, this seems consistent with some esophageal spasm. I did advise him to eat slowly and to be sure to cut up his food carefully. We did review that he may have an esophageal ring or esophageal stricture that will need to be dilated. I do not think he needs to be on a PPI given no history of heartburn or reflux type symptoms, but I did advise him that depending on the endoscopic findings he may need that. He was advised not to use aspirin on the day of the procedure. I do not think he needs antibiotics for his aortic valve replacement, but I shall clear that with his clearance cutter. Full consent has been obtained from him for both procedures, including risks of bleeding and perforation. The procedures will be done with monitored anesthesia care. Raheem was comfortable with this plan. Thank you again for allowing me to participate in Raheem's care. I shall continue to keep you advised of his progress. Plan Of Treatment Pending Test Test Name Order Date UPPER GI ENDOSCOPY BALLOOON DILATION OF ESOPH 11/16/2024 COLONOSCOPY 11/16/2024 Future Test Test Name Order Date COLONOSCOPY 03/13/2011 COLONOSCOPY 09/13/2020 Next Appt Details Provider Name:Paulo Membreno Siddhartha , 03/07/2025 01:30:00 PM, [address] [place] [address] , [place], [place], [id number], Insurance Providers Payer Name Payer Address Payer Phone Subscriber Number Group Number Insured Name Patient Relationship to Insured Coverage Start Date Coverage End Date [facility] [address] [place] [address] [id number] RAHEEM [employer] Self - patient is the insured 5 Medical (General) History Medical History History ICD Code Sleep apnea--uses CPAP Denies NC,DM,CVA,Lung disease,renal dise ase Negative screening colonosco py in 04/2011; he describes a negative colonoscopy in [place] prior to the 2011 colonoscopy as well Bicuspid aortic valve--followed by Dr. Juancarlos farah Hyperlipidemia COVID infection in 2019 Colonoscopy 09/2020 with 1 tubular adenom a removed Surgical History Surgery Date(Month/Year) Aortic valve surgery 2023 with a Perica rdial Tissue Heart Valve Facial surgery as a child Parathyroidectomy in 2009. Sleep apnea surgery Hospitalization History Reason Date(Month/Year) infection after heart surgery 10/26
--- OUTSIDE RECORDS SUMMARY | 2025-01-05 06:40 | XMS_ITS | Patient Health Record ---
Author Organization [facility] Jerel idalia Low Address [address] [place] [address] Care Team Providers Care Finishing Range Feeder Name Role Phone Taylor Melchor Primary Care Provider Unavailabl e Jan Gasparmie Unavailable [phone] Reason For Referral No Information Medications Medication SIG (Take, Route, Fr equency, Duration) Notes Start Date End Date Status Feldene 20 MG 1 capsule with food Orally Once a day; Duration: 30 day(s) 02/16/2018 Not-Tony ing Social History Tobacco Use: Social History Observation Description Date Details (start date - stop date) Former Smoker NA - NA Tobacco Use/Smoking Question Answer Notes Are you a: former smoker When did you stop smoking? 1997 Additional Findings: Tobacco Non-User Ex-moderat e cigarette smoker (10-19/day) Alcohol Screen Question Answer Notes Did you have a drink contain ing alcohol in the past year? Yes How often did you have a dri nk containing alcohol in the past year? Monthly or less (1 point) How many drinks did you have on a typical day when you were drinking in the past year? 1 or 2 drinks (0 point) How often did you have 6 or more drinks on one occasion in the past year? Never (0 point) Points 1 Interpretation Negative Tobacco use other than smoking: Question Answer Notes Are you an other tobacco user? No Problems No Known Problems Plan Of Treatment No Information Insurance Providers Payer Name Payer Address Payer Phone Subscriber Number Group Number Insured Name Patient Relationship to Insured Coverage Start Date Coverage End Date [facility] [address] [place] [address] [id number] Raheem Garcia Self - patient is the insured Medical (General) History Medical History History ICD Code Sciatica Vertigo
[2025-01-05 06:56] LABS: MANUAL DIFF FLAG NO
[2025-01-05 07:44] LABS: Hematocrit 44.0 % (42.0-52.0); Hemoglobin 14.7 g/dl (14.0-18.0); Imm Gran Abs Auto 0.03 X10*3/uL (0.00-0.03); Imm Gran Pct Auto 0.3 % (0.0-0.4); Lymphocytes Absolute Auto 3.8 X10*3/uL (1.2-4.9); Mean Corpuscular HGB Conc 33.4 g/dl (31.0-36.0); Mean Corpuscular Hemoglobin 27.9 pg (27.0-33.0); Mean Corpuscular Volume 83.7 fL (80.0-98.0); NRBC Abs Auto 0.000 X10*3/uL (0.0-0.012); NRBC Pct Auto 0.0 /100WBC (0.0-0.2); Platelet Count 293 X10*3/uL (160-400); Red Blood Count 5.26 X10*6/uL (4.60-5.80); White Blood Count 10.3 X10*3/uL (4.8-10.8)
[2025-01-05 08:20] LABS: Alanine Aminotransferase 34 U/L (0-40); Albumin Level 4.3 g/dL (3.5-5.0); Alkaline Phosphatase 72 U/L (39-117); Anion Gap 13 (12-20); Aspartate Amino Transferase 28 U/L (5-37); Blood Urea Nitrogen 16 mg/dL (9-16); Calcium 9.3 mg/dL (8.4-10.2); Carbon Dioxide 24 mmol/L (22-29); Chloride 108 mmol/L (96-108); Cholesterol 140 mg/dL (<200); Estimated Glomerular Filt Rate > 60; HDL Cholesterol 30 mg/dL (>40); Potassium 3.9 mmol/L (3.3-5.1); Sodium 141 mmol/L (135-145); Total Protein 6.8 g/dL (6.5-8.0); Triglycerides 96 mg/dL (<150)
[2025-01-05 08:21] LABS: Appearance Urine Clear; Glucose Urine UA Negative (Negative); PH 5.5 (5.0-9.0); Specific Gravity - Urine 1.020 (1.005-1.025); UMIC TRIGGER UACC YES
== END 2025-01-05 06:37 | disposition home or self-care (01) ==
LOC: HO.LAB 06:36
PROVIDERS: PCP Internal Medicine; Visit Provider Internal Medicine
DX: E78.00 Pure hypercholesterolemia, unspecified (principal); D64.9 Anemia, unspecified
CPT/HCPCS: 36415; 80053; 80061; 81001; 81003; 84443; 85025

== ENCOUNTER 2025-01-06 10:42 | Outpatient (AMB) | payer OTHER, SELFPAY ==
--- OUTSIDE RECORDS SUMMARY | 2024-07-20 09:00 | XMS_ITS ---
Author Organization [facility] Address [address] [facility] [address] [place] [address] Care Team Providers Care Drier And Evaporator Operator Name Role Phone Chele Martinez MD Primary Care Provider UnaPaulo Nelson [phone] REASON FOR VISIT Patient presents today for dysphagia Encounters Encounter Location Date Provider Diagnosis [facility] [address] [facility] [address] [place] [phone] 07/20/2024 Paulo Carl Plan Of Treatment Next Appt Details Provider Name:Paulo Carl , 03/07/2025 01:30:00 PM, [address] [place] [address] , [place], [place], [phone], Progress Notes * HONG HSURODOB:1960 ( 64 yo M)Acc No.[id number]:07/20/2024 Progress Notes Patient: Luis CARINE THOMASON Provider: Luis Carl MD :1960 A ge:64 Y S ex:Male Date:07/20/2024 Address:[address] [place], [place] [id number] Pcp:Chele Martinez MD Subjective: * Chief Complaints: * 1 . Patient presents today for dysphagia. * Medical History: Objective: * Vitals: Assessment: Plan: * Treatment: * * The named appointment provid er may or may not be the originator of this progress note, and it is not deemed complete until electronically signed by the appointment provider. Sign off status: Pending * Provider: Luis Carl MD Date: 0 07/20/2024 Generated for Brooke mccrary/Maciej/Zainitting on: 0 01/06/2025 12:16 PM EDT
[2025-01-06 10:44] VITALS: BP 126/80; PULSE 71; O2SAT 97; BMI 34.4
--- NOTE | 2025-01-06 10:44 | A.OFFPC_ITS ---
Vital Signs 01/06/25 10:44 Height 5 ft 11 in Weight 247 lb BMI 34.4 BP 126/80 Blood Pressure Location Lt brachial Position Sitting Pulse 71 Pulse Source Pulse Oximeter Pulse Oximetry (%) 97 Oxygen Delivery Method Room Air Intake Visit Reasons: hyperlipidemia, HTN [employer] Required: No Accompanied by: Self / Same As Patient Allergies No Known Allergies Allergy (Verified 01/06/25 11:21) Medication List - Last Reconciled 01/06/25 by Chele Martinez MD acetaminophen 650 mg PO Q6H PRN aspirin 81 mg PO DAILY atorvastatin 10 mg PO DAILY 90 days [Auto-BiPap As directed - setting is at 15/10 auto-pap] baclofen 10 mg PO TID PRN coffee xt-phosphatidyl serine 50-50 mg (Neuriva Original) 1 tab PO DAILY finasteride 5 mg PO DAILY 90 days sennosides (senna) 8.6 mg PO BEDTIME PRN 90 days tadalafil 5 mg PO DAILY 90 days valacyclovir 500 mg PO Q12H 5 days zolpidem 5 mg PO BEDTIME PRN 10 days Tobacco use date assessed: 01/06/25 Fall risk assessment: No Falls in past year Last assessed Fall Risk: 01/06/25 Dental Screening Dental Screen Date: 01/06/25 Did you have a dental visit in the last 12 months?: No Did you have a dental problem in the last 6 months where you did not have access to dental care?: No Was dental information given to patient?: No HPI hyperlipidemia, HTN HPI Details Patient comes in today for his follow-up visit States that he feels okay He denies any headaches or dizziness Denies any chest pains, no increased shortness of breath No nausea/vomiting, no abdominal pain No change in bowel habits noted He had his follow-up labs done yesterday - to discuss his results [facility] Medical History Seborrheic keratosis Erectile dysfunction Degenerative joint disease of sacroiliac joint Lumbar spondylosis Left-sided low back pain with left-sided sciatica BiPAP (biphasic positive airway pressure) dependence Normal colonoscopy (~2010) Vitamin D deficiency Genital herpes in men Obstructive sleep apnea Pure hypercholesterolemia Asymptomatic microscopic hematuria BRANDT on CPAP Patent foramen ovale Thoracic aortic aneurysm without rupture Bicuspid aortic valve Surgical History Status post aortic valve replacement and aortoplasty History of open heart surgery H/O Spinal surgery History of uvulectomy History of parathyroidectomy History of tonsillectomy Family History Father Dementia HTN (hypertension) Mother Dementia HTN (hypertension) Diabetes Other Mental health problem Substance abuse Social History Household Members: Family Housing: House Do you presently have visiting nurse or other home services: Yes Alcohol intake: current Alcohol intake frequency: holidays/special occasions only Alcohol type: beer Patient Tobacco Use Status: Former Tobacco user e-Cigarette/Vaping Use: Never Used Second Hand Smoke Exposure: Yes service: No Current occupational status: employed 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 1. Little interest or pleasure in doing things: not at all 2. Feeling down, depressed, or hopeless: not at all 3. Trouble falling or staying asleep, or sleeping too much: not at all 4. Feeling tired or having little energy: not at all 5. Poor appetite or overeating: not at all 6. Feeling bad about yourself - or that you are a failure or have let yourself or your family down: not at all 7. Trouble concentrating on things, such as reading the newspaper or watching television: not at all 8. Moving or speaking so slowly that other people could have noticed. Or the opposite - being so fidgety or restless that you have been moving around a lot more than usual: not at all 9. Thoughts that you would be better off or of hurting yourself in some way: not at all Total score: 0 Depression Screening Interpretation: Negative Depression Screening Done: Yes 72186 - PHQ-9 Billing: Yes Source: Developed by Drs. Paulo Cohen, Gertrudis Rivas, Huan Dominguez and colleagues, with an educational bell from [employer]. Thrive Questionnaire Date Thrive assessed: 01/06/25 I am a: Patient What is your living situation today?: I have a steady place to live Within the past 12 months, did the food you bought not last and you didn't have the money to get more?: Often true Within the past 12 months, did you worry whether your food would run out before you got money to buy more?: Often true Do you have trouble paying for medicines?: No Do you have trouble getting transportation to medical appointments?: No Do you have trouble paying your heating and electricity bill?: No Do you have trouble taking care of your child, family member or friend?: No Do you have trouble with day-to-day activities such as bathing, preparing meals, shopping, managing finances, etc.?: No Are you currently unemployed and looking for a job?: No Are you interested in more education?: No Please select the resources that you would like help with: None Currently or been in a relationship where the following occur: No concerns reported THRIVE Score: 2 AUDIT C Alcohol Use Questionnaire (AUDIT-C) 1. How often do you have a drink containing alcohol?: Monthly or less 2. How many drinks containing alcohol do you have on a typical day when you are drinking?: 1 or 2 3. How often do you have six or more drinks on one occasion?: Never Total Score: 1 Score Reviewed/Action Taken: Yes MADDISON-7 AMB Questionnaire MADDISON-7 Date MADDISON - 7 assessed: 01/06/25 Feeling nervous, anxious, or on edge: 0 = Not at all Not being able to stop or control worryin = Not at all Worrying too much about different things: 0 = Not at all Trouble relaxin = Not at all Being so restless that it is hard to sit still: 0 = Not at all Becoming easily annoyed or irritable: 0 = Not at all Feeling afraid as if something awful might happen: 0 = Not at all Total MADDISON-7 score (0-4 normal; 5-9 mild; 10-14 moderate; 15-21 severe): 0 Source: Developed by Drs. Paulo Cohen, Gertrudis Rivas, Huan Dominguez and colleagues, with an educational bell from [employer]. Review of Systems Const Denies chills, Reports difficulty sleeping, Reports fatigue, Denies fever(s) and Denies headache(s) ENT Denies dysphagia, Denies dizziness, Denies otalgia, Denies headache(s), Denies neck pain, Denies odynophagia and Denies sore throat Card Denies chest pain, Denies palpitations and Reports dyspnea on exertion (mild) Resp Reports chest congestion (frequent - ongoing for about a week now), Reports cough (on and off, non-productive) and Reports dyspnea on exertion (mild) GI Denies abdominal pain, Denies hematochezia, Reports constipation (better with Rx), Denies dysphagia, Denies heartburn, Denies diarrhea, Denies nausea, Denies odynophagia and Denies vomiting Denies difficulty urinating, Denies dysuria, Denies nocturia and Denies urinary frequency Musc Reports back pain (on and off, over the right lower back/right sciatic nerve area ) and Denies neck pain Skin/Breast Denies rash Neuro Denies dizziness and Denies headache(s) Endo Reports fatigue and Denies palpitations Physical exam (Primary Care) Vital Signs: Last Vital Signs Pulse 71 01/06/25 10:44 BP 126/80 01/06/25 10:44 Pulse Ox 97 01/06/25 10:44 Oxygen Delivery Method Room Air 01/06/25 10:44 BMI result Body Mass Index 34.4 Tobacco/Smoking Status: Tobacco use Status Tobacco use date assessed 01/06/25 01/06/25 10:50 Patient Tobacco Use Status Former Tobacco user 01/06/25 10:50 e-Cigarette/Vaping Use Never Used 01/06/25 10:50 PHQ-9: PHQ-9 Score PHQ-9: Total score 0 01/06/25 11:21 Depression Screening Interpretation: Negative Thrive Assessment: Date of Thrive Assessment Date Thrive assessed 01/06/25 01/06/25 10:50 Currently or been in a relationship where the following occur: No concerns reported Results Reviewed Results Reviewed: Laboratory Tests 01/05/25 01/05/25 06:50 06:54 WBC 10.3 Hgb 14.7 Hct 44.0 Plt Count 293 Sodium 141 Potassium 3.9 Creatinine 0.98 Estimated GFR > 60 Fasting Glucose 95 Calcium 9.3 AST 28 ALT 34 Triglycerides 96 Cholesterol 140 LDL Cholesterol, Calc 91 HDL Cholesterol 30 L TSH 1.03 Ur Specific [place] 1.020 Urine Protein Negative Urine Glucose (UA) Negative Urine Blood Small (1+) H Urine Nitrite Negative Ur Leukocyte Esterase Trace H Coding Level of Care Code Est Pt Level 4 (24556) Diagnoses Pure hypercholesterolemia E78.00 Lumbar back pain with radiculopathy affecting left lower extremity M54.16 Thoracic aortic aneurysm without rupture, unspecified part I71.20 Thoracic aorta location: unspecified Bicuspid aortic valve Q23.1 Patent foramen ovale Q21.1 Obstructive sleep apnea G47.33 Vitamin D deficiency E55.9 Constipation, unspecified constipation type K59.00 Constipation type: unspecified constipation type Genital herpes in men A60.02 Erectile dysfunction, unspecified erectile dysfunction type N52.9 Erectile dysfunction type: unspecified Obesity (BMI 30-39.9) E66.9 Additional Codes PHQ-9 - 68791 - PHQ-9 Billing: Yes ([id number]) Assessment & Plan Assessment & Plan (1) Pure hypercholesterolemia: Code(s): E78.00 - Pure hypercholesterolemia, unspecified Category: Medical Plan: Results of his labs done yesterday reviewed and discussed with patient Reinforced low cholesterol diet Continue Atorvastatin 10 mg QD - Rx refilled Will recheck his labs and fasting lipids in 4 months for follow up (2) Lumbar back pain with radiculopathy affecting left lower extremity: Comment: MRI of the lumbar spine done back on 01/18/2021 revealed a large 1.2 cm synovial cyst on the left L4-L5 filling the lateral recess and proximal foramen with nerve root compression Code(s): M54.16 - Radiculopathy, lumbar region Category: Medical Plan: S/P lumbar minimally invasive surgery (MIS) laminotomy by Dr. Spence on 05/07/2021 - underwent left L4-L5 MIS decompression and resection of synovial cyst Reinforced activity and weight-lifting restrictions Repeat lumbar spine x-rays done back in June 2022 revealed mild spondylosis of the lumbar spine, with grade 1 anterolisthesis of L4 on L5 He was referred to and seen by Dr. Pratt back in November 2022 for his recent increasing right-sided sciatica and increased left lower back pain Lumbar spine MRI done on 01/27/23 revealed (+) new focal left foraminal disc protrusion at L4-L5 with mild compression of the exiting left L4 nerve root. Additional new 5 x 11 mm synovial cyst protruding from the right facet joint into the right subarticular zone with mild mass effect upon the right L5 nerve root Patient was instructed at his last visit to try to get in to see Dr. Pratt [facility] for neurosurgery consultation States that he was seen by Dr. Pratt shortly after his MRI was done and was advised that if his low back pain at the time is not too bad, then he can hold off on getting his back surgery done and he can reach out to neurosurgery again if his low back pain gets worse (3) Thoracic aortic aneurysm without rupture: Code(s): I71.2 - Thoracic aortic aneurysm, without rupture Category: Medical Qualifiers: Thoracic aorta location: unspecified Qualified Code(s): I71.20 - Thoracic aortic aneurysm, without rupture, unspecified Plan: Follow up echocardiogram done on 02/26/2022 revealed a mildly dilated ascending thoracic aorta at 4.3 cm, which is mostly unchanged from a year ago. There is also a moderate aortic stenosis with mean gradient of 27 mm Hg and dimensionless index of 0.31 Previous echo on 04/17/21 revealed (+) ascending aortic dilatation at 4.3 cm - this was previously measured 4.1 cm on echo done on 04/17/2020 He follows up with cardiology regularly for this and will need this to be monitored continuously/closely (4) Bicuspid aortic valve: Code(s): Q23.1 - Congenital insufficiency of aortic valve Category: Medical Plan: Echocardiogram revealed bicuspid aortic valve with moderate stenosis and trace regurgitation on most recent US done on 02/26/2022 and 04/17/2021 He eventually underwent aortic valve replacement and arthroplasty on 10/29/2023 and also completed cardiac rehab subsequently Follow up with cardiology as scheduled (5) Patent foramen ovale: Code(s): Q21.1 - Atrial septal defect Category: Medical Plan: This was seen incidentally on prior SOWMYA Continue Aspirin 81 mg daily (6) Obstructive sleep apnea: Code(s): G47.33 - Obstructive sleep apnea (adult) (pediatric) Category: Medical Plan: Patient states that he has not been using his BiPAP device every night when sleeping as he finds that using it makes it harder for him to breathe Will send him for a repeat in-lab sleep study for reassessment of his CPAP requirements (7) Vitamin D deficiency: Code(s): E55.9 - Vitamin D deficiency, unspecified Category: Medical Plan: Corrected - will continue to monitor his Vitamin D level regularly (8) Constipation: Code(s): K59.00 - Constipation, unspecified Category: Social Hx Qualifiers: Constipation type: unspecified constipation type Qualified Code(s): K59.00 - Constipation, unspecified Plan: This was most likely the reason for the on and off blood in his stool previously; he had internal hemorrhoids and diverticulosis on his recent colonoscopy done a couple of years ago Reinforced again increased oral fluids and dietary fiber Continue Senna 8.6 mg QD PRN (9) Genital herpes in men: Code(s): A60.02 - Herpesviral infection of other male genital organs Category: Medical Plan: Continue Valacyclovir 500 mg every 12 hours x 5 days when needed for acute flare ups (10) Erectile dysfunction: Code(s): N52.9 - Male erectile dysfunction, unspecified Category: Medical Qualifiers: Erectile dysfunction type: unspecified Qualified Code(s): N52.9 - Male erectile dysfunction, unspecified Plan: Continue Sildenafil 50 mg QD PRN (11) Obesity (BMI 30-39.9): Code(s): E66.9 - Obesity, unspecified Category: Medical Plan: Reinforced diet/exercise as tolerated/lose weight Plan Follow-up in 4 months Orders: Orders Lipid Panel 4 Months E78.00 - Pure hypercholesterolemia, unspecified RT PSG in-lab sleep study 01/06/25 G47.33 - Obstructive sleep apnea (adult) (pediatric), Z99.89 - Dependence on other enabling machines and devices Complete Blood Count Auto Diff 4 Months D64.9 - Anemia, unspecified Comprehensive [place]. Panel Fast 4 Months E78.00 - Pure hypercholesterolemia, unspecified UA CC w/rflx Micro + Cult 4 Months R30.0 - Dysuria
--- OUTSIDE RECORDS SUMMARY | 2025-01-06 12:16 | XMS_ITS | Patient Health Record ---
Author Organization [facility] Address [address] [place] [address] Care Team Providers Care Machine Hamper Maker Name Role Phone Juan ERNANDEZ Tiffin Primary Care Provider Paulo Eason Unavailable [phone] Allergies No Known Allergies Reason For Referral [...] W/U Status Risk Notes Problem Rectal bleeding (14474884) Rectal bleeding (K62.5) Active confirmed Problem 262047904 Encounter for screening for malignant neoplasm of colon (Z12.11) Active confirmed Problem Dysphagia (64982469) Dysphagia (R13.10) Active confirmed Problem [id number] Preprocedural examination (Z01.818) Active confirmed Problem History of adenomatous polyp of colon (540499836) History of adenomatous polyp of colon (Z86.0101) [...] Encounters Encounter Location Date Provider Diagnosis [facility] [address] [place] [phone] 11/16/2024 Paulo Carl Rectal bleeding K62. 5 ; History of adenomatous polyp of colon Z86.0101 and Dysphagia R13.10 [facility] [address] [place] [phone] 06/16/2024 Paulo Carl [facility] [address] [place] [phone] 07/20/2024 Paulo Carl [facility] [address] [place] [phone] 12/27/2024 Paulo Carl Assessments Encounter Date Diagnosis [...] but I shall clear that with his ctc operator. Full consent has been obtained from him [...] but I shall clear that with his ctc operator. Full consent has been obtained from him [...] but I shall clear that with his ctc operator. Full consent has been obtained from him [...] COLONOSCOPY 09/13/2020 Next Appt Details Provider Name:Paulo Haseeb Carl , 03/07/2025 01:30:00 PM, [address] [place] [address] , [place], [place], [phone], Insurance Providers Payer Name Payer Address Payer Phone Subscriber Number Group Number Insured Name Patient Relationship to Insured Coverage Start Date Coverage End Date [facility] [place] [address] [place] [address] [id number] Tigre ALANISJARAHEEM Bauer Self - patient is the insured 5 Medical (General) History Medical History History ICD Code Sleep apnea--uses CPAP Denies ME,DM,CVA,Lung disease,renal dise ase Negative screening colonosco py in 04/2011; he describes a negative colonoscopy in [place] prior to the 2011 colonoscopy as well [...]
--- OUTSIDE RECORDS SUMMARY | 2025-01-06 12:17 | XMS_ITS | Patient Health Record ---
Author Organization [facility] Jerel idalia Low Address [address] [place] [address] Care Team Providers Care Mold Builder Name Role Phone Taylor Melchor Primary Care Provider Unavailabl e Jan Gasparmie Unavailable [phone] Reason For Referral No Information Medications Medication [...] Insured Coverage Start Date Coverage End Date [facility] [address] [place] [address] [id number] Raheem Garcia Self - patient is the insured Medical (General) History Medical History History ICD Code Sciatica Vertigo
== END 2025-01-06 11:28 | disposition home or self-care (01) ==
LOC: HO.HMCH 10:43
PROVIDERS: PCP Internal Medicine; Visit Provider Internal Medicine
DX: E78.00 Pure hypercholesterolemia, unspecified (principal); M54.16 Radiculopathy, lumbar region; E66.9 Obesity, unspecified; Z68.34 Body mass index [BMI] 34.0-34.9, adult; I71.20 Thoracic aortic aneurysm, without rupture, unspecified; Q23.1 Congenital insufficiency of aortic valve; Q21.10 Atrial septal defect, unspecified; G47.33 Obstructive sleep apnea (adult) (pediatric); E55.9 Vitamin D deficiency, unspecified; K59.00 Constipation, unspecified; A60.02 Herpesviral infection of other male genital organs; N52.9 Male erectile dysfunction, unspecified

== ENCOUNTER → 2025-01-06 10:42 | Outpatient (BNVA) | payer OTHER, SELFPAY | PROVIDERS: PCP Internal Medicine; Visit Provider Internal Medicine | DX: I10 Essential (primary) hypertension (principal); R30.0 Dysuria; E78.5 Hyperlipidemia, unspecified; E78.00 Pure hypercholesterolemia, unspecified; M54.16 Radiculopathy, lumbar region; I71.20 Thoracic aortic aneurysm, without rupture, unspecified; Q23.1 Congenital insufficiency of aortic valve; Q21.12 Patent foramen ovale; G47.33 Obstructive sleep apnea (adult) (pediatric); E55.9 Vitamin D deficiency, unspecified; K59.00 Constipation, unspecified; A60.02 Herpesviral infection of other male genital organs; N52.9 Male erectile dysfunction, unspecified; E66.9 Obesity, unspecified; Z68.34 Body mass index [BMI] 34.0-34.9, adult | CPT/HCPCS: 96127; 99212 ==

== ENCOUNTER 2025-01-17 14:37 | Outpatient (AMB) | payer OTHER, SELFPAY ==
--- OUTSIDE RECORDS SUMMARY | 2024-07-20 09:00 | XMS_ITS ---
Author Organization [facility] Address [address] [facility] [address] [place] [address] Care Team Providers Care Viscose Cellar Charge Hand Name Role Phone Chele Martinez MD Primary Care Provider UnaPaulo Nelson [phone] REASON FOR VISIT Patient presents today for dysphagia Encounters Encounter Location Date Provider Diagnosis [facility] [address] [facility] [address] [place] [phone] 07/20/2024 Paulo Carl Plan Of Treatment Next Appt Details Provider Name:Paulo Carl , 03/07/2025 01:30:00 PM, [address] [place] [address] , [place], [place], [phone], Progress Notes * HONG HSURODOB:1960 ( 64 yo M)Acc No.[id number]:07/20/2024 Progress Notes Patient: Luis CARINE THOMASON Provider: Luis Carl MD :1960 A ge:64 Y S ex:Male Date:07/20/2024 Address:[address] [place], [place] [id number] Pcp:Chele Martinez MD Subjective: * Chief Complaints: [...] MD Date: 0 07/20/2024 Generated for Brooke mccrary/Maciej/Jose on: 0 01/17/2025 08:05 PM EDT
--- OUTSIDE RECORDS SUMMARY | 2025-01-10 09:30 | XMS_ITS ---
Author Organization [facility] Address [address] [place] [address] Care Team Providers Care Film Painter Name Role Phone Chele Martinez MD Primary Care Provider Unava Paulo Forbes [phone] REASON FOR VISIT dysphagia, rectal bleeding, hx adenomatous polyp colon Encounters Encounter Location Date Provider Diagnosis [facility] Outpatient [address] [place] [phone] 01/10/2025 Paulo Carl Plan Of Treatment Next Appt Details Provider Name:Paulo Carl , 03/07/2025 01:30:00 PM, [address] [place] [address], [phone], Progress Notes * HONG HSURODOB:1960 ( 64 yo M)Acc No.[id number]:01/10/2025 EGD and COL/MAC Patient: CARINE DUMONT Provider: Luis Carl MD :1960 A ge:64 Y S ex:Male Date:01/10/2025 Address:[address] [place] [address] Pcp:Chele Martinez MD Subjective: * Chief Complaints: [...] 0 01/10/2025 Generated for Brooke mccrary/Maciej/Jose on: 01/17/2025 08:05 PM EDT
--- NOTE | 2025-01-17 14:50 | A.OFFPC_ITS ---
Vital Signs 01/17/25 14:51 Height 5 ft 11 in Weight 248 lb 8 oz BMI 34.7 BP 124/74 Blood Pressure Location Rt brachial Position Sitting Pulse 69 Pulse Source Pulse Oximeter Temp 97.3 F Temp Source Temporal Artery Scan Pulse Oximetry (%) 96 Oxygen Delivery Method Room Air Intake Visit Reasons: gout flare (L) foot Intake Note: Patient is here to follow up on Gout flare in left foot. 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: Not Required per policy Accompanied by: Self / Same As Patient Allergies No Known Allergies Allergy (Verified 01/17/25 14:51) Medication List - Last Reconciled 01/17/25 by Robb Anders MD acetaminophen 650 mg PO Q6H PRN aspirin 81 mg PO DAILY atorvastatin 10 mg PO DAILY 90 days [Auto-BiPap As directed - setting is at 16/02 auto-pap] baclofen 10 mg PO TID PRN coffee xt-phosphatidyl serine 50-50 mg (Neuriva Original) 1 tab PO DAILY finasteride 5 mg PO DAILY 90 days sennosides (senna) 8.6 mg PO BEDTIME PRN 90 days tadalafil 5 mg PO DAILY 90 days valacyclovir 500 mg PO Q12H 5 days zolpidem 5 mg PO BEDTIME PRN 10 days Tobacco use date assessed: 01/17/25 Fall risk assessment: No Falls in past year Last assessed Fall Risk: 01/17/25 Dental Screening Dental Screen Date: 01/06/25 HPI HPI Comments History of Present Illness Details The patient is a 64-year-old male presenting with foot pain suspected to be gout. The patient reports purchasing new sneakers about a month ago, which were tight and caused pain after wearing them for a few hours on . The pain was severe and persisted, particularly affecting his sleep on Friday night into Friday. He initially did not consider gout until researching online, noting that his sister has a history of gout. The pain has been present since night, with the worst intensity on Friday night. The patient took ibuprofen for inflammation, though he is unsure of its effectiveness, and also used Percocet for pain relief. By Friday, the pain began to improve, although he still experienced discomfort. The patient denies any fever, chills, or changes in urinary symptoms. He has a history of smoking but quit a long time ago and denies current use of tobacco or marijuana. [facility] Medical History Seborrheic keratosis Erectile dysfunction Degenerative joint disease of sacroiliac joint Lumbar spondylosis Left-sided low back pain with left-sided sciatica BiPAP (biphasic positive airway pressure) dependence Normal colonoscopy (~2010) Vitamin D deficiency Genital herpes in men Obstructive sleep apnea Pure hypercholesterolemia Asymptomatic microscopic hematuria BRANDT on CPAP Patent foramen ovale Thoracic aortic aneurysm without rupture Bicuspid aortic valve Surgical History Status post aortic valve replacement and aortoplasty History of open heart surgery H/O Spinal surgery History of uvulectomy History of parathyroidectomy History of tonsillectomy Family History Father Dementia HTN (hypertension) Mother Dementia HTN (hypertension) Diabetes Other Mental health problem Substance abuse Social History Household Members: Family Housing: House Do you presently have visiting nurse or other home services: Yes Alcohol intake: current Alcohol intake frequency: holidays/special occasions only Alcohol type: beer Patient Tobacco Use Status: Former Tobacco user e-Cigarette/Vaping Use: Never Used Second Hand Smoke Exposure: Yes service: No Current occupational status: employed 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 Cognitive needs: No Hearing needs: No Vision needs: No Questionnaire Thrive Questionnaire Date Thrive assessed: 08/27/24 I am a: Patient What is your living situation today?: I have a steady place to live Within the past 12 months, did the food you bought not last and you didn't have the money to get more?: Often true Within the past 12 months, did you worry whether your food would run out before you got money to buy more?: Often true Do you have trouble paying for medicines?: No Do you have trouble getting transportation to medical appointments?: No Do you have trouble paying your heating and electricity bill?: No Do you have trouble taking care of your child, family member or friend?: No Do you have trouble with day-to-day activities such as bathing, preparing meals, shopping, managing finances, etc.?: No Are you currently unemployed and looking for a job?: No Are you interested in more education?: No Please select the resources that you would like help with: None Currently or been in a relationship where the following occur: No concerns reported THRIVE Score: 2 MADDISON-7 AMB Questionnaire MADDISON-7 Date MADDISON - 7 assessed: 01/06/25 Source: Developed by Drs. Paulo Cohen, Gertrudis Rivas, Huan Dominguez and colleagues, with an educational bell from [employer]. Review of Systems Const Details: Positives besides what was mentioned in HPI are in BOLD Constitutional: No Weight Change, No Fever, No Chills, No Night Sweats, No Fatigue, No Malaise ENT/Mouth: No Hearing Changes, No Ear Pain, No Nasal Congestion, No Sinus Pain, No Hoarseness, No sore throat, No Rhinorrhea, No Swallowing Difficulty Eyes: No Eye Pain, No Swelling, No Redness, No Foreign Body, No Discharge, No Vision Changes Cardiovascular: No Chest Pain, No SOB, No PND, No Dyspnea on Exertion, No Orthopnea, No Claudication, No Edema, No Palpitations Respiratory: No Cough, No Sputum, No Wheezing, No Smoke Exposure, No Dyspnea Gastrointestinal: No Nausea, No Vomiting, No Diarrhea, No Constipation, No Pain, No Heartburn, No Anorexia, No Dysphagia, No Hematochezia, No Melena, No Flatulence, No Jaundice Genitourinary: No Dysmenorrhea, No DUB, No Dyspareunia, No Dysuria, No Urinary Frequency, No Hematuria, No Urinary Incontinence, No Urgency, No Flank Pain, No Urinary Flow Changes, No Hesitancy Musculoskeletal: No Arthralgias, No Myalgias, No Joint Swelling, No Joint Stiffness, No Back Pain, No Neck Pain, No Injury History Skin: No Skin Lesions, No Pruritis, No Hair Changes, No Breast/Skin Changes, No Nipple Discharge Neuro: No Weakness, No Numbness, No Paresthesias, No Loss of Consciousness, No Syncope, No Dizziness, No Headache, No Coordination Changes, No Recent Falls Psych: No Anxiety/Panic, No Depression, No Insomnia, No Personality Changes, No Delusions, No Rumination, No SI/HI/AH/VH, No Social Issues, No Memory Changes, No Violence/Abuse Hx., No Eating Concerns Heme/Lymph: No Bruising, No Bleeding, No Transfusions History, No Lymphadenopathy Endocrine: No Polyuria, No Polydipsia, No Temperature Intolerance Physical exam (Primary Care) Vital Signs: Last Vital Signs Temp 97.3 F 01/17/25 14:51 Pulse 69 01/17/25 14:51 BP 124/74 01/17/25 14:51 Pulse Ox 96 01/17/25 14:51 Oxygen Delivery Method Room Air 01/17/25 14:51 BMI result Body Mass Index 34.7 Tobacco/Smoking Status: Tobacco use Status Tobacco use date assessed 01/17/25 01/17/25 14:56 Patient Tobacco Use Status Former Tobacco user 01/17/25 14:56 e-Cigarette/Vaping Use Never Used 01/17/25 14:56 Thrive Assessment: Date of Thrive Assessment Date Thrive assessed 08/27/24 01/17/25 14:56 Currently or been in a relationship where the following occur: No concerns reported Const Other: Pertinent findings are in BOLD GENERAL APPEARANCE NAD, activity normal for age, well developed/ well nourished, no cyanosis, pallor, or diaphoresis. EYES lids/conjunctiva normal. EARS/NOSE/THROAT Mucous membranes moist, nares normal, lips/teeth normal uvula midline without oral pharyngeal erythema, exudate or swelling TMs normal bilaterally. No lymphangitis/lymphedema. HEAD/NECK normocephalic atraumatic, no facial trauma, neck is supple. RESPIRATORY respiratory effort normal, speaks in full sentences, no tripod position, no accessory muscle use. Lungs clear to auscultation without rhonchi, wheezes, rales CARDIAC Regular rate and rhythm, no edema. ABDOMINAL Soft, ND/NT. No evidence of fluid wave. No pulsatile masses on exam, rebound tenderness, Lao sign or pain over Mcburney's point. MUSCLES/EXTREMITIES No abnormal range of motion, LEFT large toe redness and tenderness. SKIN Warm, pink and dry. No rashes, dermatoses, petechiae or lesions. NEUROLOGICAL Speech is clear and appropriate. Normal level of consciousness. Gait and coordination are normal. 5/5 strength in all extremities. PSYCH Normal mood and affect. Judgement/competence is appropriate Coding Level of Care Code Est Pt Level 3 (56660) Diagnoses Gout M10.9 Gout site: toe Gout etiology: unspecified cause Chronicity: acute Assessment & Plan Assessment & Plan (1) Gout: Code(s): M10.9 - Gout, unspecified Category: Medical Qualifiers: Gout site: toe Gout etiology: unspecified cause Chronicity: acute Plan: Colchicine 0.6 mg BID. F-U in 5 days to monitor for improvement. Plan The patient is suspected to have gout, likely exacerbated by wearing tight sneakers. Colchicine 0.6 mg was prescribed to be taken twice daily, with an initial loading dose of two pills followed by one pill after one hour, then one pill every 12 hours. The patient was advised to continue ibuprofen if needed for pain management. A follow-up appointment was suggested for Friday to reassess the condition, with instructions to return sooner if symptoms worsen or if there are signs of infection. Medications: New colchicine Take two pills 1 hour before your first dose. And then take it BID. 0.6 mg PO BID 22 caps 0RF 11 days
[2025-01-17 14:51] VITALS: BP 124/74; PULSE 69; TEMP 36.3; O2SAT 96; BMI 34.7
--- OUTSIDE RECORDS SUMMARY | 2025-01-17 20:05 | XMS_ITS | Patient Health Record ---
Author Organization [facility] Jerel idalia Low Address [address] [place] [address] Care Team Providers Care Lath Tier Name Role Phone Taylor Melchor Primary Care Provider Unavailabl e Jan Gasparmie Unavailable [phone] Reason For Referral No Information Medications Medication [...] Insured Coverage Start Date Coverage End Date [facility] [address] [place] [address] [phone] [id number] Raheem Garcia Self - patient is the insured Medical (General) History Medical History History ICD Code Sciatica Vertigo
--- OUTSIDE RECORDS SUMMARY | 2025-01-17 20:06 | XMS_ITS | Patient Health Record ---
Author Organization [facility] Address [address] [place] [address] Care Team Providers Care Manager Water Name Role Phone Juan ERNANDEZ Morton Primary Care Provider Paulo Eason Unavailable [phone] Allergies No Known Allergies Reason For Referral [...] W/U Status Risk Notes Problem Rectal bleeding (12859031) Rectal bleeding (K62.5) Active confirmed Problem 675269852 Encounter for screening for malignant neoplasm of colon (Z12.11) Active confirmed Problem Dysphagia (45316741) Dysphagia (R13.10) Active confirmed Problem [id number] Preprocedural examination (Z01.818) Active confirmed Problem History of adenomatous polyp of colon (461196369) History of adenomatous polyp of colon (Z86.0101) [...] N/A Encounters Encounter Location Date Provider Diagnosis [facility] [address] [place] [phone] 11/16/2024 Paulo Carl Rectal bleeding K62. 5 ; History of adenomatous polyp of colon Z86.0101 and Dysphagia R13.10 [facility] [address] [place] [phone] 06/16/2024 Paulo Carl [facility] [address] [place] [phone] 07/20/2024 Paulo Carl [facility] [address] [place] [phone] 12/27/2024 Paulo Carl Assessments Encounter Date Diagnosis [...] but I shall clear that with his filter washer. Full consent has been obtained from him [...] but I shall clear that with his filter washer. Full consent has been obtained from him [...] but I shall clear that with his filter washer. Full consent has been obtained from him [...] Name:Paulo Haseeb Carl , 03/07/2025 01:30:00 PM, [address] [place] [address] , [place], [place], [id number], Insurance Providers Payer Name Payer Address Payer Phone Subscriber Number Group Number Insured Name Patient Relationship to Insured Coverage Start Date Coverage End Date [facility] [address] [place] [address] [id number] Tigre ALANISJARAHEEM Bauer Self - patient is the insured 5 Medical (General) History Medical History History ICD Code Sleep apnea--uses CPAP Denies [place],DM,CVA,Lung disease,renal dise ase Negative screening colonosco py in 04/2011; he describes a negative colonoscopy in [place] prior to the 2011 colonoscopy as well [...]
== END 2025-01-17 15:20 | disposition home or self-care (01) ==
LOC: HO.HMCH 14:38
PROVIDERS: PCP Internal Medicine; Visit Provider Internal Medicine
DX: M10.9 Gout, unspecified (principal)

== ENCOUNTER → 2025-01-17 14:37 | Outpatient (BNVA) | payer OTHER, SELFPAY | PROVIDERS: PCP Internal Medicine; Visit Provider Internal Medicine | DX: G47.33 Obstructive sleep apnea (adult) (pediatric) (principal); M10.9 Gout, unspecified; Z99.89 Dependence on other enabling machines and devices | CPT/HCPCS: 99212 ==

== ENCOUNTER → 2025-02-07 20:30 | Outpatient (REF) | payer MEDICARE, SELFPAY ==
--- OUTSIDE RECORDS SUMMARY | 2024-07-20 09:00 | XMS_ITS ---
Author Organization [facility] Address [address] [facility] [address] [place] [address] Care Team Providers Care Openstack Developer Name Role Phone Chele Martinez MD Primary Care Provider UnaPaulo Nelson [phone] REASON FOR VISIT Patient presents today for dysphagia Encounters Encounter Location Date Provider Diagnosis [facility] [address] [facility] [address] [place] [phone] 07/20/2024 Paulo Carl Plan Of Treatment Next Appt Details Provider Name:Paulo Carl , 03/07/2025 01:30:00 PM, [address] [place] [address] , [place], [place], [phone], Progress Notes * HONG HSURODOB:1960 ( 64 yo M)Acc No.[id number]:07/20/2024 Progress Notes Patient: Luis CARINE THOMASON Provider: Luis Carl MD :1960 A ge:64 Y S ex:Male Date:07/20/2024 Address:[address] [place], [place] [phone] Pcp:Chele Martinez MD Subjective: * Chief Complaints: [...] 0 07/20/2024 Generated for Brooke mccrary/Maciej/Jose on: 1 09:25 PM EDT
--- OUTSIDE RECORDS SUMMARY | 2025-01-10 09:30 | XMS_ITS ---
Author Organization [facility] Address [address] [place] [address] Care Team Providers Care Property Developer Name Role Phone Chele Martinez MD Primary Care Provider Unava Paulo Forbes [phone] REASON FOR VISIT dysphagia, rectal bleeding, hx adenomatous polyp colon Encounters Encounter Location Date Provider Diagnosis [facility] Outpatient [address] [place] [phone] 01/10/2025 Paulo Carl Plan Of Treatment Next Appt Details Provider Name:Paulo Carl , 03/07/2025 01:30:00 PM, [address] [place] [address], [phone], Progress Notes * HONG HSURODOB:1960 ( 64 yo M)Acc No.[id number]:01/10/2025 EGD and COL/MAC Patient: CARINE DUMONT Provider: Luis Carl MD :1960 A ge:64 Y S ex:Male Date:01/10/2025 Address:[address] [place] [address] Pcp:Chele Martinez MD Subjective: * Chief Complaints: * 1 . Dysphagia, rectal bleeding, hx adenomatous polyp colon. * Medical History: Objective: * Vitals: Assessment: Plan: * Treatment: * * The named appointment provid er may or may not be the originator of this progress note, and it is not deemed complete until electronically signed by the appointment provider. Sign off status: Pending * Provider: Luis Carl MD Date: 0 01/10/2025 Generated for Brooke mccrary/Maciej/Jose on: 1 09:24 PM EDT
--- OUTSIDE RECORDS SUMMARY | 2025-02-07 21:25 | XMS_ITS | Patient Health Record ---
Author Organization [facility] e[facility] idalia Low Address [address] [place] [address] Care Team Providers Care Customer Care Representative Name Role Phone Taylor Melchor Primary Care Provider Unavailabl e Jan Gasparmie Unavailable [phone] Reason For Referral No Information Medications Medication [...] Insured Coverage Start Date Coverage End Date [facility] [address] [place] [address] [phone] [id number] Raheem Garcia Self - patient is the insured Medical (General) History Medical History History ICD Code Sciatica Vertigo
--- OUTSIDE RECORDS SUMMARY | 2025-02-07 21:25 | XMS_ITS | Patient Health Record ---
Author Organization [facility] Address [address] [place] [address] Care Team Providers Care Loader Name Role Phone Juan ERNANDEZ Ridgeley Primary Care Provider Paulo Eason Unavailable [phone] Allergies No Known Allergies Reason For Referral [...] W/U Status Risk Notes Problem Rectal bleeding (08786174) Rectal bleeding (K62.5) Active confirmed Problem 121593555 Encounter for screening for malignant neoplasm of colon (Z12.11) Active confirmed Problem Dysphagia (57045528) Dysphagia (R13.10) Active confirmed Problem 050913257562718 Preprocedural examination (Z01.818) Active confirmed Problem History of adenomatous polyp of colon (349543637) History of adenomatous polyp of colon (Z86.0101) [...] N/A Encounters Encounter Location Date Provider Diagnosis [facility] [address] [place] [phone] 11/16/2024 Paulo Carl Rectal bleeding K62. 5 ; History of adenomatous polyp of colon Z86.0101 and Dysphagia R13.10 [facility] [address] [place] [phone] 06/16/2024 Paulo Carl [facility] [address] [place] [phone] 07/20/2024 Paulo Carl [facility] [address] [place] [phone] 12/27/2024 Paulo Carl Assessments Encounter Date Diagnosis [...] but I shall clear that with his supervisor irrigation. Full consent has been obtained from him [...] but I shall clear that with his supervisor irrigation. Full consent has been obtained from him [...] but I shall clear that with his supervisor irrigation. Full consent has been obtained from him [...] Name:Paulo Haseeb Carl , 03/07/2025 01:30:00 PM, [address] [place] [address] , [place], [place], [phone], Insurance Providers Payer Name Payer Address Payer Phone Subscriber Number Group Number Insured Name Patient Relationship to Insured Coverage Start Date Coverage End Date [facility] [address] [place] [address] [id number] Tigre ALANISJARAHEEM Bauer Self - patient is the insured 5 Medical (General) History Medical History History ICD Code Sleep apnea--uses CPAP Denies [place],DM,CVA,Lung disease,renal dise ase Negative screening colonosco py in 04/2011; he describes a negative colonoscopy in [place] prior to the 2011 colonoscopy as well [...]
== END ==
LOC: HO.SL 20:30
PROVIDERS: PCP Internal Medicine; Visit Provider Internal Medicine
DX: G47.33 Obstructive sleep apnea (adult) (pediatric) (principal); Z99.89 Dependence on other enabling machines and devices
CPT/HCPCS: 95811

== ENCOUNTER → 2025-02-07 21:48 | Outpatient (BNV) | payer MEDICARE, SELFPAY | PROVIDERS: PCP Internal Medicine; Visit Provider Internal Medicine | DX: G47.33 Obstructive sleep apnea (adult) (pediatric) (principal); R06.83 Snoring | CPT/HCPCS: 95811 ==

== ENCOUNTER 2025-03-07 12:07 | Day surgery (SDC) | payer MEDICARE, SELFPAY ==
[2025-03-03 14:58] VITALS: BMI 36.5
[2025-03-07 12:16] VITALS: BMI 35.2
[2025-03-07 12:31] VITALS: BP 138/65; PULSE 72; RESP 16; TEMP 36.3; O2SAT 95
[2025-03-07] MEDS: Lactated Ringers 1,000 ML 100 ML IVCONT (12:52)
--- NOTE | 2025-03-07 13:03 | HO.ANESPROP2 ---
Documented by User: Teersa Anderson NP 03/02/25 14:43 HPI - Anesthesia Eval Consult details Narrative: 65 yr old male for colonoscopy, upper endoscopy with balloon dilitation History of bicuspid aortic valve status post aortic valve replacement: 10/[address] [place] [facility] [place] [facility] [place] visit 10/2024, stable, 1 yr follow up recommended. BRANDT: on CPAP PMFSH Active Problems Active Problems: All Active Problems Gout (Acute) Bladder outlet obstruction (Acute) Respiratory tract infection (Acute) Dysphagia (Acute) Urinary tract infection (Acute) Insomnia (Acute) Acute otitis externa of both ears (Acute) Status post aortic valve replacement and aortoplasty (Acute) Status post aortic valve replacement with bioprosthetic valve (Acute) Status post aortic valve replacement (Acute) Premature ejaculation (Acute) Spondylolisthesis, lumbar region (Acute) Acute dyspnea (Acute) Constipation (Acute) Seborrheic keratosis (Acute) Microscopic hematuria (Acute) Skin lesion of right arm (Acute) Scalp lesion (Acute) Preoperative cardiovascular examination (Acute) Lumbar back pain with radiculopathy affecting left lower extremity (Acute) Left lumbar radiculopathy (Acute) Erectile dysfunction (Acute) Degenerative joint disease of sacroiliac joint (Acute) Lumbar spondylosis (Acute) Left-sided low back pain with left-sided sciatica (Acute) Normal colonoscopy (Acute ~2010) Vitamin D deficiency (Acute) Genital herpes in men (Acute) Obesity (BMI 30-39.9) (Acute) Obstructive sleep apnea (Acute) Pure hypercholesterolemia (Acute) Asymptomatic microscopic hematuria (Acute) BRANDT on CPAP (Acute) Patent foramen ovale (Acute) Thoracic aortic aneurysm without rupture (Acute) Bicuspid aortic valve (Acute) Past Medical History Medical History (Updated 03/03/25 @ 15:03 by Lauryn Blanca RN) Gout Seborrheic keratosis Erectile dysfunction Degenerative joint disease of sacroiliac joint Lumbar spondylosis Left-sided low back pain with left-sided sciatica BiPAP (biphasic positive airway pressure) dependence Normal colonoscopy (~2010) Vitamin D deficiency Genital herpes in men Pure hypercholesterolemia Asymptomatic microscopic hematuria BRANDT on CPAP Patent foramen ovale Thoracic aortic aneurysm without rupture Bicuspid aortic valve Family History Family History Father Dementia HTN (hypertension) Mother Dementia HTN (hypertension) Diabetes Other Mental health problem Substance abuse Surgical History Surgical History (Updated 03/03/25 @ 15:04 by Lauryn Blanca RN) H/O colonoscopy Status post aortic valve replacement and aortoplasty H/O Spinal surgery History of uvulectomy History of parathyroidectomy History of tonsillectomy Social History Social History Household Members: Family Housing: House Do you presently have visiting nurse or other home services: Yes Alcohol intake: current Alcohol intake frequency: holidays/special occasions only Alcohol type: beer Patient Tobacco Use Status: Former Tobacco user e-Cigarette/Vaping Use: Never Used Second Hand Smoke Exposure: Yes Use of substances other than those prescribed or required for medical reasons: No Are you DNR?: No Advance Directives: No Advance Directives Information Provided: Yes service: No Current occupational status: employed 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 Cognitive needs: No Hearing needs: No Vision needs: No Meds Allergies Allergy/AdvReac Type Severity Reaction Status Date / Time No Known Allergies Allergy Verified 01/17/25 14:51 Home Medications ?Medication ?Instructions ?Recorded ?Confirmed ?Last Taken ?Type aspirin 81 mg tablet,delayed 81 mg PO DAILY 04/26/20 03/03/25 09/21/20 20:00 History release acetaminophen 325 mg tablet 650 mg PO Q6H PRN Pain (Scale 11/28/23 03/03/25 Unknown History Score 1-3) baclofen 10 mg tablet 10 mg PO TID PRN muscle spasm 12/05/23 03/03/25 Unknown History coffee extract 50 mg-phosphatidyl 1 tab PO DAILY 12/17/23 03/03/25 Unknown History serine 50 mg chewable tablet (Neuriva Original) Exam Pertinent Lab Results Pertinent Lab Results: Laboratory Tests 01/05/25 06:54 WBC 10.3 RBC 5.26 Hgb 14.7 Hct 44.0 Plt Count 293 Sodium 141 Potassium 3.9 BUN 16 Creatinine 0.98 Narrative Narrative: ECHO 04/2024 Conclusions: - The left ventricular systolic function is normal. The calculated ejection fraction is 68% by biplane method. - A bioprosthetic aortic valve is present. The prosthetic aortic valve appears to be functioning normally. EKG 10/2024 normal sinus rhythm, rate 62 beats per minute, minimal voltage criteria for LVH, nonspecific ST-T wave abnormality, normal [place], corrected QT. Documented by User: Colleen Zaragoza DO 03/07/25 13:05 [facility] Past Medical History Medical History (Updated 03/03/25 @ 15:03 by Lauryn Blanca RN) Gout Seborrheic keratosis Erectile dysfunction Degenerative joint disease of sacroiliac joint Lumbar spondylosis Left-sided low back pain with left-sided sciatica BiPAP (biphasic positive airway pressure) dependence Normal colonoscopy (~2010) Vitamin D deficiency Genital herpes in men Pure hypercholesterolemia Asymptomatic microscopic hematuria BRANDT on CPAP Patent foramen ovale Thoracic aortic aneurysm without rupture Bicuspid aortic valve Family History Family History Father Dementia HTN (hypertension) Mother Dementia HTN (hypertension) Diabetes Other Mental health problem Substance abuse Family history of problems with anesthesia: No Surgical History Surgical History (Updated 03/03/25 @ 15:04 by Lauryn Blanca RN) H/O colonoscopy Status post aortic valve replacement and aortoplasty H/O Spinal surgery History of uvulectomy History of parathyroidectomy History of tonsillectomy History of Problems with Anesthesia: No Social History Social History Household Members: Family Housing: House Do you presently have visiting nurse or other home services: Yes Alcohol intake: current Alcohol intake frequency: holidays/special occasions only Alcohol type: beer Patient Tobacco Use Status: Former Tobacco user e-Cigarette/Vaping Use: Never Used Second Hand Smoke Exposure: Yes Use of substances other than those prescribed or required for medical reasons: No Are you DNR?: No Advance Directives: No Advance Directives Information Provided: Yes service: No Current occupational status: employed 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 Cognitive needs: No Hearing needs: No Vision needs: No Meds Allergies Allergy/AdvReac Type Severity Reaction Status Date / Time No Known Allergies Allergy Verified 01/17/25 14:51 Home Medications ?Medication ?Instructions ?Recorded ?Confirmed ?Last Taken ?Type aspirin 81 mg tablet,delayed 81 mg PO DAILY 04/26/20 03/03/25 09/21/20 20:00 History release acetaminophen 325 mg tablet 650 mg PO Q6H PRN Pain (Scale 11/28/23 03/03/25 Unknown History Score 1-3) baclofen 10 mg tablet 10 mg PO TID PRN muscle spasm 12/05/23 03/03/25 Unknown History coffee extract 50 mg-phosphatidyl 1 tab PO DAILY 12/17/23 03/03/25 Unknown History serine 50 mg chewable tablet (Neuriva Original) Exam Exam Date and Time: 03/07/25 1300 Height,Weight and Vital Signs: Height 5 ft 10.5 in Weight 113 kg Vital Signs Temperature 97.3 F 03/07/25 12:31 Pulse Rate 72 03/07/25 12:31 Respiratory Rate 16 03/07/25 12:31 Blood Pressure 138/65 03/07/25 12:31 Pulse Oximetry 95 03/07/25 12:31 Oxygen Delivery Method Room Air 03/07/25 12:31 Temperature 97.3 F 03/07/25 12:31 Pulse Rate 72 03/07/25 12:31 Respiratory Rate 16 03/07/25 12:31 Blood Pressure 138/65 03/07/25 12:31 Pulse Oximetry 95 03/07/25 12:31 Oxygen Delivery Method Room Air 03/07/25 12:31 Airway Mallampati Class: III TM Dist: >3cm Neck ROM: Full Loose/Missing/Broken Teeth: No (patient denies any loose or broken teeth) Heart: S1S2 Lungs: CTAB Assessment and Plan Assessment Anesthesia Assessment: Anesthesia Plan Discussed and Chart Reviewed Final Anesthetic Review Family History of Problems with Anesthesia: No History of Problems with Anesthesia: No NPO: Yes ASA Class: III Final Preanesthetic Review: No Changes in Pt Med Stat, Meds/Allgs Chart Reviewed, Consent Obtained/Reviewed and Anes Risks/Benef Reviewed Patient Risk: Intermediate Procedure Risk: Low Anesthetic Plan Anesthetic Plan: MAC: and Agree w/ Assess. and Plan Disposition: Standard PACU
[2025-03-07 15:01] VITALS: BP 105/60; PULSE 67; RESP 16; TEMP 36.1; O2SAT 95
--- NOTE | 2025-03-07 15:15 | PM.OP ---
Brief Operative Note Date of Service: 03/07/25 Pre-op diagnosis: Dysphagia, Rectal bleed, History of colon polyps Post-op diagnosis: other (Gastritis/Duodenitis, Hiatal hernia/GERD, Colon polyps) Procedure: EGD with biopsies, Colonoscopy to the cecum with bx/removal of 2 polyps, and hot snare polypectomy of ascending colon polyp with placement of 2 Resolution clips Surgeon: Paulo Carl MD Anesthesia: MAC Was an Pharmacy Care Coordinator used for this Procedure?: No Estimated blood loss (mL): 2.0 Pathology: other (A. Gastric antrum B. EG Junction at 39cm C. Polyp at 40cm D. Ascending colon polyps) Condition: stable Disposition: PACU
[2025-03-07 15:16] VITALS: BP 110/65; PULSE 66; RESP 16; TEMP 36.1; O2SAT 98
--- NOTE | 2025-03-08 10:45 | OP_ITS ---
DATE OF SERVICE: 03/07/2025 SURGEON: Paulo Carl MD INDICATIONS: The patient presents for evaluation of intermittent hematochezia, occasional dysphagia, personal history of tubular adenoma of the colon, and occasional gastroesophageal reflux. Full consent has been obtained from him for both procedures, including risks of bleeding and perforation. PREOPERATIVE DIAGNOSIS: POSTOPERATIVE DIAGNOSIS: PROCEDURE PERFORMED: ESTIMATED BLOOD LOSS: COMPLICATIONS: ANESTHESIA: Medication used, monitored anesthesia care. ASSISTANTS: SPECIMENS: PREOPERATIVE DIAGNOSES: Dysphagia, occasional gastroesophageal reflux, hematochezia, personal history of tubular adenoma of the colon. POSTOPERATIVE DIAGNOSES: Dysphagia, occasional gastroesophageal reflux, hematochezia, personal history of tubular adenoma of the colon, mild duodenitis and gastritis, small hiatal hernia, gastroesophageal reflux, colon polyps, diverticulosis, internal hemorrhoids. PROCEDURES PERFORMED: Esophagogastroduodenoscopy with biopsies, and colonoscopy to the cecum with hot snare polypectomy x1, biopsy and removal of 2 polyps, and placement of 2 resolution clips on to the hot snare polypectomy site. DESCRIPTION OF PROCEDURE: The patient was placed in the left lateral decubitus position. The Olympus video gastroscope was passed in the posterior oropharynx and upper esophagus under direct vision. The scope was passed slowly into the distal esophagus. The gastroesophageal junction appeared at 39 cm. There was some slight edema and irregularity at this level, but no evidence of any esophagitis, stricture, mass, Ellis esophagus. The scope entered the stomach easily. There was a small hiatal hernia. The scope was advanced to the pylorus and the duodenum was cannulated to the descending portion. There was a mild duodenitis in the duodenal bulb with a single less than 5 mm erosion. The 2nd and 3rd portions of duodenum appeared normal. The scope was withdrawn back in the stomach. The gastric antrum and body had areas of erythema and edema. There was good peristalsis. Biopsies were obtained from the gastric antrum. The scope was retroflexed visualizing the proximal stomach carefully, which appeared normal, without any sign of mass or ulceration. Scope was straightened and withdrawn back to the esophagus. Biopsies were obtained at the EG junction at 39 cm. Dilation was not performed given no evidence of any stricture or narrowing. The scope was withdrawn through the remainder of the esophagus, which appeared normal. There was no sign of any proximal esophageal rings. Scope was withdrawn from the patient. He was turned around for the colonoscopy. The digital rectal exam revealed no abnormalities. The [employer] video pediatric colonoscope was entered into the rectum and advanced to the cecum with the assistance of abdominal wall pressure. Once in the cecum, I did identify normal-appearing cecal pouch with appendiceal orifice, and a normal-appearing ileocecal valve. The entire cecum and ileocecal valve appeared normal. Scope was then slowly withdrawn assessing all mucosal surfaces carefully. Preparation was excellent. In the ascending colon was a flat, approximately 4 mm polyp, which was biopsied and completely removed with a cold biopsy forceps. Just distal to this was an approximately 10 to 12 mm polyp on a short stalk, which was removed by hot snare polypectomy and recovered by suction. The polypectomy site appeared clean, without any sign of residual polyp nor bleeding. Two resolution clips were applied to the polypectomy site with good deployment and good hemostasis. At 40 cm was a flat, approximately 4 mm polyp, which was biopsied and completely removed with a cold biopsy forceps. I did not visualize any other polyps, colitis, nor angiodysplasia. There was a mild amount of sigmoid diverticulosis. In the rectum, scope was retroflexed visualizing internal hemorrhoids, but no other pathology. The rectal mucosa appeared normal. The scope was straightened and withdrawn from the patient. He tolerated both procedures well and was returned to the recovery area in stable condition. IMPRESSION: 1. Mild duodenitis and gastritis. 2. Gastroesophageal reflux. 3. Hiatal hernia. 4. Colon polyps. 5. Diverticulosis. 6. Internal hemorrhoids. PLAN: The results of the pathology will be checked. Given the upper endoscopy findings, I shall start him on omeprazole 20 mg daily. He was advised to resume his aspirin within 48 hours. I would recommend a repeat colonoscopy in 5 years for further surveillance. If he is doing well on omeprazole and not having any particular upper GI complaints, he can then otherwise see me on a p.r.n. basis. This has been discussed with his . MD RANDY Reyes/ASHLYN / [id number]
== END 2025-03-07 15:51 | disposition home or self-care (01) ==
PROVIDERS: PCP Internal Medicine; Visit Provider Internal Medicine
PROC: 0DJD8ZZ Inspection of Lower Intestinal Tract, Via Natural or Artificial Opening Endoscopic (ICD-10-PCS; CPT 45378; principal; 2025-03-07 12:30)
PROC: (CPT 45385; 2025-03-07 12:30)
DX: K62.5 Hemorrhage of anus and rectum (principal); Z86.0101 Personal history of adenomatous and serrated colon polyps; D12.2 Benign neoplasm of ascending colon; D12.5 Benign neoplasm of sigmoid colon; K57.30 Diverticulosis of large intestine without perforation or abscess without bleeding; K64.8 Other hemorrhoids; K29.40 Chronic atrophic gastritis without bleeding; B96.81 Helicobacter pylori [H. pylori] as the cause of diseases classified elsewhere; K29.80 Duodenitis without bleeding; K21.9 Gastro-esophageal reflux disease without esophagitis; K44.9 Diaphragmatic hernia without obstruction or gangrene; G47.33 Obstructive sleep apnea (adult) (pediatric); I35.0 Nonrheumatic aortic (valve) stenosis; E78.5 Hyperlipidemia, unspecified; Z79.82 Long term (current) use of aspirin; Z79.899 Other long term (current) drug therapy; Z99.89 Dependence on other enabling machines and devices; Z98.890 Other specified postprocedural states; Z87.891 Personal history of nicotine dependence
CPT/HCPCS: 45385; 45380; 43239; 88305; 88313; 88342; J2003; J2704